=== PATIENT | female | born 1965 | race Caucasian/White ===

== ENCOUNTER 2020-02-09 17:48 | Emergency (ER) | payer OTHER ==
[2020-02-09 18:41] LABS: Absolute Lymphocytes (CBC) 0.9 K/uL (0.7-4.9); Basophils % 0.4 % (0-1.3); Hematocrit 22.1 % (36.0-45.0); Lymphocytes % 2.7 % (15.3-44.8); MPV 10.3 fL (7.6-11.3); RBC Red Blood Cell Count 2.76 M/uL (3.86-4.86)
[2020-02-09] MEDS ORDERED: NA CHLORIDE 0.9% 1,000 ML ONE (19:12)
[2020-02-09 19:48] LABS: Platelet Estimate DECR; Urine White Blood Cell Casts OK
[2020-02-09 19:49] LABS: Blood Morphology Comment NOTED (NOT SEEN); Poikilocytosis 2+
[2020-02-09] MEDS ORDERED: ALBUTEROL 2.5 MG/3 ML NEB SOL ONE (20:06)
[2020-02-09] MEDS ORDERED: D50W 25 GM/50 ML SYRINGE/VIAL IV ONE (20:07)
[2020-02-09] MEDS ORDERED: INSULIN -REGULAR HUMAN 50 UNIT/0.5 ML ML ONE (20:07)
--- NOTE | 2020-02-09 20:13 | RAD REPORT ---
EXAM DESCRIPTION: CT - Abdomen Pelvis Wo Contrast - 02/09/2020 7:35 pm CLINICAL HISTORY: Abdominal pain. ABD PAIN COMPARISON: No comparisons TECHNIQUE: CT imaging of the abdomen and pelvis was performed without contrast. Solid organ, bowel a nd vascular assessment is limited due to lack of IV and oral contrast. All CT scans are performed using dose optimization technique as appropriate and may include automated exposure control or mA/KV adjustment according to patient size. FINDINGS: The lower lung de anda are clear. The liver, spleen, pancreas, adrenal glands are within normal limits for a limited non-contrast exami nation.Moderately severe bilateral hydronephrosis and hydroureter is present. No bowel obstruction, free air, free fluid or abscess. The appendix is not identified as a discrete structure, however, no secondary findings of appendicitis are identified. A large pelvic mass is identified which appears irregular with areas of necrosis. This measures appro ximately 8.8 x 5.9 cm in appears to emanate from the cervix. Moderate wedge compression deformity affects L5, likely chronic. 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 Advise correlation with physical exam findings. Moderate bilateral hydronephrosis and hydroureter. A limited non-contrast examination was performed as detailed.
--- NOTE | 2020-02-09 20:14 | RAD REPORT ---
EXAM DESCRIPTION: RAD - Chest Single View - 02/09/2020 7:45 pm CLINICAL HISTORY: COUGH Chest pain. COMPARISON: Abdomen Pelvis Wo Contrast dated 02/09/2020 FINDINGS: Portable technique limits examination quality. The lungs are emphysematous but grossly clear. The heart is normal in size. No displaced fractures. IMPRESSION: COPD.
[2020-02-09] MEDS ORDERED: CALCIUM GLUCONATE 1 GM IVPB 1 GM/50 ML BAG IV ONE ×2 (20:30→22:22)
[2020-02-09 21:13] LABS: ALT/SGPT 17 U/L (12-78); AST/SGOT 20 U/L (15-37); Albumin 2.5 g/dL (3.4-5.0); Alkaline Phosphatase 121 U/L (45-117); Bilirubin Direct 0.2 mg/dL (0-0.2); Bilirubin Total 0.3 mg/dL (0.2-1.0); Magnesium 3.4 mg/dL (1.8-2.4); NT PRO-BNP > 175000 pg/mL (<125); Protein, Total 6.5 g/dL (6.4-8.2)
[2020-02-09 21:14] LABS: Troponin (Emerg Dept Use Only) 0.73 ng/mL (0.0-0.045)
[2020-02-09 21:22] LABS: Protime INR 1.11
[2020-02-09] MEDS ORDERED: FUROSEMIDE 40 MG/4 ML VIAL IV ONE (21:43)
[2020-02-09] MEDS ORDERED: SODIUM BICARB 50 MEQ/50ML VIAL ONE ×3 (21:44→22:44)
--- NOTE | 2020-02-09 21:57 | RAD REPORT ---
EXAM DESCRIPTION: US - Renal Ultrasound-Complete - 02/09/2020 9:42 pm CLINICAL HISTORY: acute kidney failure Flank pain COMPARISON: No comparisons FINDINGS: Both kidneys are mildly prominent in size and mildly echogenic. The right kidney measures 10.9 x 5.5 x 5.0 cm. Moderate right-sided hydronephrosis. The left kidney measures 11.5 x 6.6 x 5.2 cm.. Moderate right hydronephrosis seen. The urinary bladder is incompletely distended without gross abnormality seen. IMPRESSION: Moderately severe bilateral hydronephrosis, slightly worse on the right.
[2020-02-09] MEDS ORDERED: D5W 1,000 ML with NA BICARB 8.4% 150 MEQ IV SCH ×2 (22:00)
[2020-02-09] MEDS ORDERED: SOD POLYSTYREN SUL 15 GM/60 ML UCUP ONE ×2 (22:07→22:30)
[2020-02-09] MEDS ORDERED: FUROSEMIDE 40 MG/4 ML VIAL ONE (22:07)
--- NOTE | 2020-02-09 22:23 | P.CNS ---
Date of Consult: 02/09/20 Reason for Consult: admission Chief Complaint: Weakness, loss of appetite and fatigue History of Present Illness: 54-year-old female with history of tobacco use, no history of hypertension and diabetes, presented to the ER because of three-month history of weakness, intermittent loss of appetite, significant weight loss-on show mild, and feeling of hemorrhoid itching and pain. She denies any shortness of breath, fever. She admits to constipation since the last 1 day. She states she has been making urine but decreasing volume, last urination was LL today. She admits to loss of appetite but no nausea. She admits to significant weight loss . She admits to mild suprapubic area discomfort. She denies any headache or dizziness. She admits to lower extremity swelling. She admits to new onset cramps of her hands. She states she has not seen any PCP since many years. In the ED she had a chest x-ray done with no evidence of pulmonary edema or infiltrate. She had a CT of the abdomen done with finding of set large cervical mass causing obstruction with CVA bilateral hydronephrosis. Her blood work shows BUN of 200, creatinine of 21, potassium of 7.0 as well as sodium of 125. Her bicarb was severely low at 11. Hospitalitist service was called for admission. Allergies PENICILLINS Allergy (Uncoded 10/27/15 07:17) Unknown Home medications list reviewed: No - Past Medical/Surgical History Past Medical History: Reviewed- Non-Contributory Past Surgical History: Reviewed- Non-Contributory - Social History Smoking Status: Current every day smoker Alcohol use: No CD- Drugs: No Place of Residence: Home (Restart with her ) Review of Systems General: Weakness, Malaise Eyes: Unremarkable ENT: Unremarkable Respiratory: Unremarkable Cardiovascular: Edema, Unremarkable Gastrointestinal: Nausea, Abdominal Pain, Constipation Musculoskeletal: Unremarkable Integumentary: Rash Neurological: Weakness, Incoordination Physical Examination General: Disheveled, Other (Chronically ill-looking) HEENT: Atraumatic, Normocephalic, Other (Conjunctiva pallor) Neck: Supple, 2+ carotid pulse no bruit, JVD not distended Respiratory: Clear to auscultation bilaterally, Normal air movement Cardiovascular: Regular rate/rhythm, Normal S1 S2, Edema Gastrointestinal: Normal bowel sounds, Soft and benign, Masses Musculoskeletal: No tenderness, Clubbing Integumentary: Rash(es) (Maculopapular over abdomen hr extended to the suprapubic area, Nel[place]) Neurological: Sensation intact, Cranial nerves 3-12 intact Rectal: Enlarged (Large external hemorrhoids noted) Laboratory Data (last 24 hrs) 02/09/20 20:45: PT 13.1 H, INR 1.11 02/09/20 18:30: Magnesium 3.4 H, Total Bilirubin 0.3, AST 20, ALT 17, Alkaline Phosphatase 121 H 02/09/20 18:30: Sodium 127 L, Potassium 7.0 H*, BUN 208 H, Creatinine 21.80 H*, Glucose 106 02/09/20 18:30: WBC 32.3 H*, Hgb 7.2 L*, Hct 22.1 L, Plt Count 82 L Imagings Data: CT and chest x-ray findings noted - Problems (1) Acute hyperkalemia Current Visit: Yes Status: Acute (2) Metabolic acidosis Current Visit: Yes Status: Acute (3) Acute renal failure Current Visit: Yes Status: Acute (4) Uropathy, obstructive Current Visit: Yes Status: Acute (5) Bilateral hydronephrosis Current Visit: Yes Status: Acute (6) Cervical mass Current Visit: Yes Status: Acute (7) Anemia Current Visit: Yes Status: Acute (8) External hemorrhoid Current Visit: Yes Status: Acute Physician Review: Patient Assessed, Agree with Above Assessment and Plan Physician Review Additional Text: Acute renal failure with hyperkalemia-due to obstructive uropathy. -marked uremia noted -urology consulted by ER, unable to place urethral stent inpatient -Will place De Los Santos now -Will control potassium level -will dose calcium gluconate/D50/insulin IV/Kayexalate via rectal and p.o./Lasix IV x1 now/ IV sodium bicarb loading -follow repeat potassium in 1-2 hr after meds If see persistent hyperkalemia patient would need start hemodialysis These was discussed with patient she is agreeable Bilateral hydronephrosis/obstructive uropathy-due to gynecological mass Since unable to place urethral stenting, will transfer to facility able to place ureteral stents to relieve obstruction and possibly save renal function and avoid long-term dialysis -patient accepted to [facility] Metabolic acidosis-we does sodium bicarb 100 mEq x1 now, start bicarb drip with 150 in D5 at 100 cc/hour Anemia-follow, may need PRBC External hemorrhoids - start Anusol ER team discuss with, patient accepted to higher facility, agree with transfer will continue to manage while still here Time Spent Managing Pts care (In Minutes): 70
[2020-02-09] MEDS ORDERED: CEFTRIAXONE/SWI 1gm 1 GM/10 ML SYR ONE (22:31)
[2020-02-09] MEDS ORDERED: D5W 1,000 ML IV ONE (22:32)
[2020-02-10 01:06] VITALS: TEMP 97.8; O2SAT 100
[2020-02-10 01:12] VITALS: BP 142/56
--- NOTE | 2020-02-10 07:08 | EKG ---
Test Date: 2020-02-09 Test Time: 19:47:00 Mold Builder: LEIGHT[place] MEASUREMENT RESULTS: Intervals: Rate: 84 MT: 114 QRSD: 82 QT: 382 QTc: 451 Dime Box: P: 67 MT: 114 QRS: 68 T: 122 INTERPRETIVE STATEMENTS: Normal sinus rhythm T wave abnormality, consider lateral ischemia Abnormal ECG No previous ECG available for comparison Electronically Signed On 02-10-20 07:07:55 CDT by Noah Zimmerman
--- NOTE | 2020-02-16 12:42 | ER ---
Nurse's Notes [facility] Name: Jeannie John Age: 54 yrs Sex: Female : 1965 Arrival Date: 02/09/2020 Time: 17:51 Bed 15 Private MD: Diagnosis: Acute kidney failure;9cm pelvic mass;Other hydronephrosis-bilateral;Bilateral Hydroureter;Elevated white blood cell count;Anemia, unspecified;Hyperkalemia;Hypermagnesemia Presentation: 02/08 17:55 Chief complaint: Patient states: generalized weakness, decreased appetite x 1 month aa5 ago. Pt denies nausea/vomiting. Reports cough. Rash noted to torso and back, pt reports rash is itchy. 17:55 Coronavirus screen: Patient reports a cough. Patient denies shortness of breath or aa5 difficulty breathing. Patient denies measured and/or subjective temperature greater than 100.4F prior to today's visit. Patient denies travel on a cruise ship or to a country the [facility]NOTE 3] currently lists as an affected area. Patient denies contact with known and/or suspected case of COVID-19. Ebola Screen: Patient negative for fever greater than or equal to 101.5 degrees Fahrenheit, and additional compatible Ebola Virus Disease symptoms. Initial Sepsis Screen: Does the patient meet any 2 criteria? No. Patient's initial sepsis screen is negative. Does the patient have a suspected source of infection? No. Patient's initial sepsis screen is negative. Risk Assessment: Do you want to hurt yourself or someone else? Patient reports no desire to harm self or others. Onset of symptoms was 2019. 17:55 Acuity: GI 3 aa5 17:55 Method Of Arrival: Wheelchair aa5 Triage Assessment: 18:02 General: Appears in no apparent distress. comfortable, Behavior is cooperative, bp appropriate for age, anxious. Pain: Denies pain. EENT: No deficits noted. Neuro:. Neuro: Reports weakness. Cardiovascular: No deficits noted. Respiratory: No deficits noted. GI: No signs and/or symptoms were reported involving the gastrointestinal system. : No signs and/or symptoms were reported regarding the genitourinary system. Derm: No deficits noted. Musculoskeletal: No deficits noted. STATISTICS INTERN: 02/09 00:25 lmp unknown mg2 Historical: - Allergies: 02/08 17:55 PENICILLINS; aa5 - PMHx: 17:55 None; aa5 - Immunization history:: Adult Immunizations unknown. - Social history:: Smoking status: Patient denies any tobacco usage or history of. Screenin:00 Abuse screen: Denies threats or abuse. Denies injuries from another. Nutritional bp screening: No deficits noted. Tuberculosis screening: No symptoms or risk factors identified. Fall Risk None identified. Assessment: 18:06 General: SEE TRIAGE NOTE. bp 19:05 General: Appears in no apparent distress. comfortable, Behavior is calm, cooperative. mg2 Pain: Denies pain. Neuro: Level of Consciousness is awake, alert, obeys commands, Oriented to person, place, situation. Cardiovascular: Capillary refill < 3 seconds Patient's skin is warm and dry. Respiratory: Airway is patent Respiratory effort is even, unlabored, Respiratory pattern is regular, symmetrical. GI: Reports she has hemorrhoids. : No signs and/or symptoms were reported regarding the genitourinary system. EENT: No signs and/or symptoms were reported regarding the EENT system. Derm: Skin is intact, is healthy with good turgor, Skin is pink, warm \T\ dry. normal. Musculoskeletal: Circulation, motion, and sensation intact. Capillary refill < 3 seconds. 19:34 Reassessment: patient sent to ct scan via stretcher. lab called for blood draw. mg2 21:05 Reassessment: contacted- Jake- [phone]. mg2 21:06 Reassessment: fc inserted but no urine output. mg2 21:14 Reassessment: critical lab test for trop- 0.73 relayed to the provider. mg2 21:19 Reassessment: Patient appears in no apparent distress at this time. Patient and/or mg2 family updated on plan of care and expected duration. Pain level reassessed. Patient is alert, oriented x 3, equal unlabored respirations, skin warm/dry/pink. 21:49 Reassessment: Dr. Franklin -hospitalist at bedside examining the patient. mg2 22:00 Reassessment: patient informed about the need for transfer and she understood. mg2 23:25 Reassessment: report given to ATA Vasquez of [facility]. mg2 23:47 Reassessment: contacted about the transfer.. mg2 02/09 00:24 Reassessment: Patient appears in no apparent distress at this time. Patient and/or mg2 family updated on plan of care and expected duration. Pain level reassessed. Patient is alert, oriented x 3, equal unlabored respirations, skin warm/dry/pink. 00:50 Reassessment: report given to [facility]. all patient's belongings sent to the mg2 patient including the pt's wheelchair. Vital Signs: 02/08 17:55 BP 101 / 49; Pulse 83; Resp 16 S; Temp 97.8(O); Pulse Ox 100% on R/A; Pain 0/10; aa5 18:58 BP 90 / 43; Pulse 82; Resp 16; Pulse Ox 100% on R/A; iw 19:35 BP 102 / 55; Pulse 78; Resp 18; Pulse Ox 100% ; mg2 20:17 BP 101 / 43; Pulse 72; Resp 18; Pulse Ox 100% on Nebulizer Mask; mg2 21:19 BP 120 / 75; Pulse 115; Resp 18; Pulse Ox 100% on R/A; mg2 22:20 BP 110 / 65; Pulse 102; Resp 18; Temp 98.1; Pulse Ox 100% ; mg2 23:23 BP 104 / 64; Pulse 111; Resp 18; Pulse Ox 100% on R/A; mg2 02/09 00:25 BP 142 / 56; Pulse 105; Resp 18; Pulse Ox 100% on R/A; mg2 ED Course: 02/08 17:51 Patient arrived in ED. ag5 17:52 Arm band placed on Patient placed in an exam room, on a stretcher. aa5 18:00 Willian Paige, ATA is Primary Nurse. bp 18:00 Patient has correct armband on for positive identification. Bed in low position. Call bp light in reach. Side rails up X2. 18:04 Triage completed. aa5 18:06 Monserrat March FNP-C is PHCP. kb 18:06 Bernabe Randall MD is Attending Physician. kb 18:20 Missed attempt(s): 20 gauge in right antecubital area. iw 18:30 Missed attempt(s): 24 gauge in left antecubital area. Bleeding controlled, band aid iw applied, catheter tip intact. 19:17 Primary Nurse role handed off by Willian Paige, ATA sg 19:30 Inserted saline lock: 22 gauge in left forearm, using aseptic technique. mg2 19:31 Dave Olmos, RN is Primary Nurse. mg2 19:36 Abdomen In Process Unspecified. EDMS 19:57 XRAY Chest (1 view) In Process Unspecified. EDMS 20:45 Inserted saline lock: midline power glide 20G x 10cm, right upper arm. rv 21:05 De Los Santos cath inserted, using sterile technique, 16 Fr., by me, balloon inflated, to mg2 gravity drainage. 21:43 US Rp Exam Complete In Process Unspecified. EDMS 21:47 Ultrasound completed. Patient tolerated well. Notified COPY COORDINATOR/MLAOU carmichael. sg3 23:00 Repeat lab(s) drawn. by me, sent to lab. mg2 02/09 00:25 No provider procedures requiring assistance completed. mg2 00:54 Patient transferred, IV remains in place. mg2 Administered Medications: 02/08 20:16 Drug: Insulin Regular Human 5 units {Co-Signature: scott (Daniela Barrientos).} Route: IVP; mg2 Site: left forearm; 21:22 Follow up: Response: No adverse reaction mg2 20:16 Drug: D50W 50 ml Route: IVP; Site: left forearm; mg2 21:21 Follow up: Response: No adverse reaction mg2 20:16 Drug: Albuterol 2.5 mg Route: Inhalation; mg2 20:17 Drug: NS 0.9% 1000 ml Route: IV; Rate: 1000 ml; Site: left forearm; mg2 20:30 Drug: Calcium Gluconate 1 grams {Note: via midlin.} Route: IVPB; Infused Over: 60 mins; mg2 Site: right upper arm; 02/09 00:53 Follow up: Response: No adverse reaction; IV Status: Completed infusion mg2 02/08 20:30 Drug: Albuterol 2.5 mg Route: Inhalation; mg2 20:45 Drug: Albuterol 2.5 mg Route: Inhalation; mg2 21:21 Follow up: Response: No adverse reaction mg2 21:49 Drug: Sodium Bicarbonate 1 amp Route: IVP; Site: right upper arm; mg2 02/09 00:51 Follow up: Response: No adverse reaction mg2 02/08 22:20 Drug: Sodium Bicarbonate 2 amp Route: IVP; Site: right upper arm; mg2 02/09 00:47 Follow up: Response: No adverse reaction mg2 02/08 22:20 Drug: Lasix 40 mg Route: IVP; Site: right upper arm; mg2 02/09 00:47 Follow up: Response: No adverse reaction mg2 02/08 22:31 Drug: Rocephin 1 grams Route: IV; Rate: calculated rate; Site: right upper arm; mg2 02/09 00:51 Follow up: Response: No adverse reaction; IV Status: Completed infusion mg2 02/08 22:35 Drug: Kayexalate 60 grams Route: PO; mg2 02/09 00:51 Follow up: Response: No adverse reaction mg2 02/08 22:36 Drug: Kayexalate 30 grams Route: PO; mg2 02/09 00:48 Follow up: Response: No adverse reaction mg2 02/08 22:40 Drug: Calcium Gluconate 1 grams Route: IVPB; Infused Over: 60 mins; Site: right upper [facility]; 02/09 00:47 Follow up: Response: No adverse reaction; IV Status: Completed infusion mg2 02/08 23:00 Drug: D5W 1000 ml, Sodium Bicarbonate 150 mEq Route: IV; Rate: 100 ml/hr; Site: right [facility]; 02/09 00:46 Follow up: Response: No adverse reaction; IV Status: Infusion continued upon transfer mg2 Outcome: 02/08 22:12 ER care complete, transfer ordered by . kb 02/09 00:54 Patient left the ED. 00:56 Transferred by ground EMS to [facility], Transfer form completed. mg2 00:56 Condition: stable 00:56 Instructed on the need for transfer, Demonstrated understanding of instructions. Signatures: Dispatcher [employer] Monserrat Mabry, MANAGER PROGRAMS-C MANAGER PROGRAMS-Ckb Dannie Young RN RN sg Abby Schroeder RN ATA Rufina Hubbard RN RN aa5 Willian Paige RN RN bp Godinez, Sarah sg3 Dave Olmos RN RN mg2 Martín Suarez RN RN Elio Briseno [facility] Daniela Barrientos Corrections: (The following items were deleted from the chart) 02/08 20:55 20:55 Inserted saline lock: midline power glide 20G x 10cm, right upper arm rv rv
--- NOTE | 2020-02-16 12:43 | EDPHYS ---
Physician Documentation [facility] Name: Jeannie John Age: 54 yrs Sex: Female : 1965 Arrival Date: 02/09/2020 Time: 17:51 Bed 15 Private MD: ED Physician Bernabe Randall HPI: 02/08 20:11 This 54 yrs old Female presents to ER via Wheelchair with complaints of kb Decreased Appetite, General Weakness. 20:11 The patient presents with generalized weakness. Onset: The symptoms/episode kb began/occurred 3 month(s) ago. Context: occurred at home, just prior to the episode the patient experienced no apparent symptoms. Modifying factors: The symptoms are alleviated by nothing, the symptoms are aggravated by nothing. Associated signs and symptoms: Pertinent positives: decreased appetite, hemorrhoids. Severity of symptoms: At their worst the symptoms were moderate in the emergency department the symptoms are unchanged. The patient has not experienced similar symptoms in the past. The patient has not recently seen a physician. Pt reports she has had weakness and hemorrhoids for 3 months. States she wants something done about the hemorrhoids to get rid of them. . TESTER ARMATURE OR FIELDS: 02/09 00:25 lmp unknown mg2 Historical: - Allergies: 02/08 17:55 PENICILLINS; aa5 - PMHx: 17:55 None; aa5 - Immunization history:: Adult Immunizations unknown. - Social history:: Smoking status: Patient denies any tobacco usage or history of. ROS: 19:38 Constitutional: Negative for fever, chills, and weight loss, Neck: Negative for injury, kb pain, and swelling, Cardiovascular: Negative for chest pain, palpitations, and edema, Respiratory: Negative for shortness of breath, cough, wheezing, and pleuritic chest pain, Back: Negative for injury and pain, MS/Extremity: Negative for injury and deformity, Skin: Negative for injury, rash, and discoloration. 19:38 Abdomen/GI: Positive for hemorrhoids, Negative for abdominal pain, nausea, vomiting, and diarrhea. 19:38 Neuro: Positive for weakness. Exam: 20:07 Constitutional: This is a well developed, well nourished patient who is awake, alert, kb and in no acute distress. Head/Face: Normocephalic, atraumatic. Neck: Trachea midline, no thyromegaly or masses palpated, and no cervical lymphadenopathy. Supple, full range of motion without nuchal rigidity, or vertebral point tenderness. No Meningismus. Chest/axilla: Normal chest wall appearance and motion. Nontender with no deformity. No lesions are appreciated. Cardiovascular: Regular rate and rhythm with a normal S1 and S2. No gallops, murmurs, or rubs. Normal PMI, no JVD. No pulse deficits. Respiratory: Lungs have equal breath sounds bilaterally, clear to auscultation and percussion. No rales, rhonchi or wheezes noted. No increased work of breathing, no retractions or nasal flaring. MS/ Extremity: Pulses equal, no cyanosis. Neurovascular intact. Full, normal range of motion. 20:07 Abdomen/GI: Inspection: abdomen appears normal, Bowel sounds: normal, in all quadrants, Palpation: soft, in all quadrants, moderate abdominal tenderness, in the left upper quadrant and left lower quadrant. 20:07 Skin: consistent with contact dermatitis, on the back, chest and abdomen. 20:14 ECG was reviewed by the Attending Physician. kb 21:52 Abdomen/GI: Rectal exam: rectal tone normal, Stool: normal, guaiac negative, kb hemorrhoid(s), external, with inflammation, with pain, with thrombosis, without bleeding. Vital Signs: 17:55 BP 101 / 49; Pulse 83; Resp 16 S; Temp 97.8(O); Pulse Ox 100% on R/A; Pain 0/10; aa5 18:58 BP 90 / 43; Pulse 82; Resp 16; Pulse Ox 100% on R/A; iw 19:35 BP 102 / 55; Pulse 78; Resp 18; Pulse Ox 100% ; mg2 20:17 BP 101 / 43; Pulse 72; Resp 18; Pulse Ox 100% on Nebulizer Mask; mg2 21:19 BP 120 / 75; Pulse 115; Resp 18; Pulse Ox 100% on R/A; mg2 22:20 BP 110 / 65; Pulse 102; Resp 18; Temp 98.1; Pulse Ox 100% ; mg2 23:23 BP 104 / 64; Pulse 111; Resp 18; Pulse Ox 100% on R/A; mg2 02/09 00:25 BP 142 / 56; Pulse 105; Resp 18; Pulse Ox 100% on R/A; mg2 MDM: 02/08 18:06 Patient medically screened. kb 19:15 Data reviewed: vital signs, nurses notes. Data interpreted: Pulse oximetry: on room air kb is 100 %. Interpretation: normal. 20:08 ED course: Pt reports she has been urinating normally. Denies fever, abd pain, n/v/d. kb Reports she doesn't have a dr so she hasn't had any blood work done in a long time.. 21:35 Physician consultation: Alexandre Franklin MD was called at 21:35, regarding admission, to the telemetry unit. patient's condition, and will see patient in ED, would like consultation with Dr. Bills. 21:35 Physician consultation: Mykel Bills MD was contacted at 21:36, regarding consult, patient's condition, after a discussion of the case, a recommendation for transfer for higher level of care is made. 22:08 ED course: Dr Franklin came to see pt in ED, orders put in AC Immune SA to be done in ER kb prior to transfer.. ED course: Dr Hernandez, consumer affairs director at [facility], accepts pt for transfer. Wants potassium less than 6 prior to transfer. . 02/08 18:07 Order name: CBC with Diff; Complete Time: 19:55 kb 02/08 18:07 Order name: Basic Metabolic Panel; Complete Time: 19:19 kb 02/08 18:57 Order name: CBC Smear Scan; Complete Time: 19:55 EDMS 02/08 19:07 Order name: Lactate; Complete Time: 21:27 kb 02/08 19:07 Order name: Procalcitonin; Complete Time: 21:53 kb 02/08 19:07 Order name: Blood Culture Adult (2) 02/08 19:19 Order name: LFT's 02/08 19:19 Order name: Magnesium 02/08 19:19 Order name: NT PRO-BNP; Complete Time: 21:20 kb 02/08 19:19 Order name: PT-INR; Complete Time: 21:26 kb 02/08 19:19 Order name: Troponin (emerg Dept Use Only); Complete Time: 21:20 kb 02/08 19:20 Order name: Liver (Hepatic) Function; Complete Time: 21:20 EDMS 02/08 19:20 Order name: Magnesium; Complete Time: 21:20 EDGA 02/08 21:33 Order name: Gurhodac kb 02/08 19:19 Order name: XRAY Chest (1 view); Complete Time: 20:19 kb 02/08 19:30 Order name: Abdomen ; Complete Time: 20:19 EDMS 02/08 20:20 Order name: US Rp Exam Complete; Complete Time: 22:08 kb 02/08 22:29 Order name: Potassium; Complete Time: 23:24 kb 02/08 18:07 Order name: IV Start; Complete Time: 19:55 kb 02/08 19:19 Order name: EKG; Complete Time: 19:21 kb 02/08 19:19 Order name: Cardiac monitoring; Complete Time: 19:54 kb 02/08 19:19 Order name: EKG - Nurse/Tech; Complete Time: 19:54 kb 02/08 19:19 Order name: Labs collected and sent; Complete Time: 19:54 kb 02/08 19:19 Order name: O2 Per Protocol; Complete Time: 19:54 kb 02/08 19:19 Order name: O2 Sat Monitoring; Complete Time: 19:54 kb 02/08 19:25 Order name: [place]; Complete Time: 21:05 kb EC:14 Rate is 84 beats/min. Rhythm is regular. QRS [place] is Normal. NH interval is normal at kb 114 msec. QRS interval is normal at 82 msec. QT interval is normal at 382 msec. Administered Medications: 20:16 Drug: Insulin Regular Human 5 units {Co-Signature: wh (Daniela Barrientos).} Route: IVP; mg2 Site: left forearm; 21:22 Follow up: Response: No adverse reaction mg2 20:16 Drug: D50W 50 ml Route: IVP; Site: left forearm; mg2 21:21 Follow up: Response: No adverse reaction mg2 20:16 Drug: Albuterol 2.5 mg Route: Inhalation; mg2 20:17 Drug: NS 0.9% 1000 ml Route: IV; Rate: 1000 ml; Site: left forearm; mg2 20:30 Drug: Calcium Gluconate 1 grams {Note: via midlin.} Route: IVPB; Infused Over: 60 mins; mg2 Site: right upper arm; 02/09 00:53 Follow up: Response: No adverse reaction; IV Status: Completed infusion mg2 02/08 20:30 Drug: Albuterol 2.5 mg Route: Inhalation; mg2 20:45 Drug: Albuterol 2.5 mg Route: Inhalation; mg2 21:21 Follow up: Response: No adverse reaction mg2 21:49 Drug: Sodium Bicarbonate 1 amp Route: IVP; Site: right upper arm; mg2 02/09 00:51 Follow up: Response: No adverse reaction mg2 02/08 22:20 Drug: Sodium Bicarbonate 2 amp Route: IVP; Site: right upper arm; mg2 02/09 00:47 Follow up: Response: No adverse reaction mg2 02/08 22:20 Drug: Lasix 40 mg Route: IVP; Site: right upper arm; mg2 02/09 00:47 Follow up: Response: No adverse reaction mg2 02/08 22:31 Drug: Rocephin 1 grams Route: IV; Rate: calculated rate; Site: right upper arm; mg2 02/09 00:51 Follow up: Response: No adverse reaction; IV Status: Completed infusion mg2 02/08 22:35 Drug: Kayexalate 60 grams Route: PO; mg2 02/09 00:51 Follow up: Response: No adverse reaction mg2 02/08 22:36 Drug: Kayexalate 30 grams Route: PO; mg2 02/09 00:48 Follow up: Response: No adverse reaction mg2 02/08 22:40 Drug: Calcium Gluconate 1 grams Route: IVPB; Infused Over: 60 mins; Site: right upper [facility] [place]; 02/09 00:47 Follow up: Response: No adverse reaction; IV Status: Completed infusion mg2 02/08 23:00 Drug: D5W 1000 ml, Sodium Bicarbonate 150 mEq Route: IV; Rate: 100 ml/hr; Site: right [facility] arm; 02/09 00:46 Follow up: Response: No adverse reaction; IV Status: Infusion continued upon transfer mg2 Disposition: 07:11 Co-signature as Attending Physician, Bernabe Randall MD. rn Disposition: 02/09/20 22:12 Transfer ordered to [facility]. Diagnosis are Acute kidney failure, 9cm pelvic mass, Other hydronephrosis - bilateral, Bilateral Hydroureter, Elevated white blood cell count, Anemia, unspecified, Hyperkalemia, Hypermagnesemia. - Reason for transfer: Higher level of care. - Accepting physician is Dr Hernandez. - Condition is Stable. - Problem is new. - Symptoms are unchanged. Signatures: Dispatcher [employer] EDGA Joaquim Monserrat, MATH AND PHYSICS INSTRUCTOR-C MATH AND PHYSICS INSTRUCTOR-Ckb Dannie Young, RN RN sg Bernabe Randall MD MD rn Calderon, Audri, RN RN aa5 Dave Olmos RN RN [facility] [employer]: (The following items were deleted from the chart) 02/08 19:29 19:08 Abdomen Pelvis W Con+[id number].RAD.BRZ ordered. [facility] 02/09 00:54 02/08 22:12 02/09/2020 22:12 Transfer ordered to [facility]. Diagnosis is Acute kidney failure; 9cm pelvic mass; Other hydronephrosis - bilateral; Bilateral Hydroureter; Elevated white blood cell count; Anemia, unspecified; Hyperkalemia; Hypermagnesemia. Reason for transfer: Higher level of care. Accepting physician is Dr Hernandez. Condition is Stable. Problem is new. Symptoms are unchanged. kb
== END 2020-02-10 00:54 | disposition short-term general hospital (02) ==
LOC: ER 17:48
DX: N17.9 Acute kidney failure, unspecified (principal); R19.00 Intra-abdominal and pelvic swelling, mass and lump, unspecified site; N13.39 Other hydronephrosis; N13.4 Hydroureter; D72.829 Elevated white blood cell count, unspecified; D64.9 Anemia, unspecified; E87.5 Hyperkalemia; E83.41 Hypermagnesemia; Z88.0 Allergy status to penicillin
CPT/HCPCS: 93005; 87040 ×2; 85025; 80048; 36415; 83735; 84132; 85610; 80076; 83605; 84484; 84145; 83880; 74176; 71045; 76770; 51702; 99285; J1940; J0610 ×2; J0696; J7030

== ENCOUNTER 2020-03-28 10:27 | Emergency (ER) | payer OTHER ==
--- OUTSIDE RECORDS SUMMARY | 2020-03-28 10:32 | XMS REPORT | Clinical Summary ---
:1965 Author Organization [facility] Address [address] [place] [address] Care Team Providers Name Role Phone Unavailable Primary Care Provider Unavailable Allergies Active Allergy Reactions Severity Noted Date Comments Penicillins 02/10/2020 Medications Medication Sig Dispensed Refills Start Date End Date Status folic acid (FOLVITE) Take 1 tablet 30 tablet 1 02/18/2020 Suspended 1 MG tablet (1 mg total) by mouth daily. hydrocortisone Place rectally 30 g 0 02/17/2020 0 (ANUSOL-HC) 2.5 % 2 (two) times rectal cream daily for 10 days. pantoprazole Take 1 tablet 30 tablet 1 02/18/2020 Marinelli spended (PROTONIX) 40 MG (40 mg total) tablet by mouth daily. polyethylene glycol Take 17 g by 30 each 1 02/18/2020 Suspended (GLYCOLAX) 17 gram mouth daily. packet zinc oxide-petrolatum Apply as needed 71 g 1 02/17/2020 Suspended (CRITIC-AID) 20-51 % to perianal Pste topical paste area for redness and irritation.. levoFLOXacin Take 1 tablet 3 tablet 0 02/17/2020 02/23/2020 E xpired (LEVAQUIN) 250 MG (250 mg total) tablet by mouth every other day for 6 days. metroNIDAZOLE Take 1 tablet 18 tablet 0 02/17/2020 02/23/2020 (FLAGYL) 500 MG (500 mg total) tablet by mouth every 8 (eight) hours for 6 days. Active Problems Problem Noted Date Cervical mass 02/17/2020 Bilateral hydronephrosis 02/10/2020 LIANNE (acute kidney injury) Encounters Date Type Specialty Care Team Description 03/26/2020 Hospital Encounter Radiology Sunde, Ferny Malignant neoplasm MD Casimiro of cervix, unspecified sit e (HCC) 03/22/2020 Outside Orders Central Scheduling Ferny Maligna nt neoplasm MD Casimiro of cervix, unspecified sit e (HCC) (Primary Dx) 03/11/2020 Hospital Encounter Cardiology Sep Cervical cancer, FIGO stage IIIB (HCC); MD Casimiro Pedal edema 03/02/2020 Outside Orders Central Scheduling Ferny Cervica l cancer, MD Casimiro FIGO stage IIIB (HCC) (Primary Dx) 03/02/2020 Outside Orders Central Scheduling , Ferny Cervica l cancer, FIGO stage IIIB (HCC) (Primary Dx); MD Casimiro Pedal edema 03/01/2020 Procedure visit Radiation Oncology Georgette Moreno MD 02/10/2020 - Hospital Encounter General Internal Mary, Rosieung, Bi lateral hydronephrosis; 02/18/2020 Medicine LIANNE (acute kidney injury) (HCC); Flaca Miller MD Hyperkalemia; Go Villagomez MD Oliguria; Pelvic mass; Hematochezia; Hypoglycemia; Leukocytosis, u nspecified type; Cervical mass; Altered mental status, unspecified altered mental status type; Uremia; Pain; Slow transit co nstipation; Goals of care, counseling/discussion; Palliative care by specialist 02/10/2020 Orders Only General Internal Medicine after 03/28/2019 Social History Tobacco Use Types Packs/Day Years Used Date Current Every Day Smoker 0.5 40 Smokeless Tobacco: Never Used Alcohol Use Drinks/Week oz/Week Comments No Alcohol Habits Answer Date Recorded How often do you have a drink containing alcohol? Never 03/26/2020 How many drinks containing alcohol do you have on a typical Not asked day when you are drinking? How often do you have six or more drinks on one occasion? No t asked Sex Assigned at Date Recorded Not on file Job Start Date Occupation Industry Not on file Not on file Not on file Travel History Travel Start Travel End No recent travel history available. Last Filed Vital Signs Vital Sign Reading Time Taken Blood Pressure 104/60 03/26/2020 2:35 PM CDT Pulse 90 03/26/2020 2:35 PM CDT Temperature 36.9 C (98.4 F) 03/26/2020 2:35 PM CDT Respiratory Rate 13 03/26/2020 2:35 PM CDT Oxygen Saturation 99% 03/26/2020 2:35 PM CDT Inhaled Oxygen Concentration 21% 02/10/2020 12:35 PM CDT Weight 43.5 kg (96 lb) 03/26/2020 9:04 AM CDT Height 153 cm (5' 0.24") 03/26/2020 9:04 AM CDT Body Mass Index 18.6 03/26/2020 9:04 AM CDT Plan of Treatment Not on file Procedures The patient is currently admitted. The information in this section might not be complete until the patient is discharged. Procedure Name Priority Date/Time Associated Comments Diagnosis IR PORT REMOVAL Routine 03/26/2020 2:29 Malignant neoplasm Re sults for this PM CDT of cervix, procedure are i n unspecified site the results (HCC) section. IR DRAINAGE CATHETER Routine 03/26/2020 2:19 Res ults for this CHANGE PM CDT procedure are i n the results section. CBC W/PLT COUNT & AUTO Routine 03/26/2020 7:41 R esults for this DIFFERENTIAL AM CDT procedure are i n the results section. CBC W/PLT COUNT & AUTO Routine 03/26/2020 7:41 R esults for this DIFFERENTIAL AM CDT procedure are i n the results section. APTT Routine 03/26/2020 7:41 Results for this AM CDT procedure are i n the results section. PROTHROMBIN TIME/INR Routine 03/26/2020 7:41 Res ults for this AM CDT procedure are i n the results section. VENOUS DOPPLER LEGS Routine 03/11/2020 10:15 Cervical cancer, Results for this BILATERAL AM CDT FIGO stage IIIB procedure ar e in (HCC) the results Pedal edema section. REPORT OF PROCEDURE - 02/20/2020 8:00 ENDOSCOPY SCAN AM CDT RHYTHM STRIP - SCAN 02/20/2020 8:00 AM CDT TISSUE EXAM AP Routine 02/18/2020 9:04 Results for this AM CDT procedure are i n the results section. POCT-GLUCOSE METER Routine 02/18/2020 7:49 Resul ts for this AM CDT procedure are i n the results section. CBC W/PLT COUNT & AUTO Routine 02/18/2020 3:50 R esults for this DIFFERENTIAL AM CDT procedure are i n the results section. CBC W/PLT COUNT & AUTO Routine 02/18/2020 3:50 R esults for this DIFFERENTIAL AM CDT procedure are i n the results section. PHOSPHORUS Routine 02/18/2020 3:50 Results for this AM CDT procedure are i n the results section. MAGNESIUM Routine 02/18/2020 3:50 Results for this AM CDT procedure are i n the results section. BASIC METABOLIC PANEL Routine 02/18/2020 3:50 Re sults for this (7) AM CDT procedure are i n the results section. MR PELVIS WITHOUT IV Routine 02/17/2020 9:55 Res ults for this CONTRAST PM CDT procedure are i n the results section. POCT-GLUCOSE METER Routine 02/17/2020 5:21 Resul ts for this PM CDT procedure are i n the results section. CBC W/PLT COUNT & AUTO Routine 02/17/2020 2:46 R esults for this DIFFERENTIAL PM CDT procedure are i n the results section. CBC W/PLT COUNT & AUTO Routine 02/17/2020 2:46 R esults for this DIFFERENTIAL PM CDT procedure are i n the results section. PHOSPHORUS Routine 02/17/2020 2:46 Results for this PM CDT procedure are i n the results section. MAGNESIUM Routine 02/17/2020 2:46 Results for this PM CDT procedure are i n the results section. BASIC METABOLIC PANEL Routine 02/17/2020 2:46 Re sults for this (7) PM CDT procedure are i n the results section. POCT-GLUCOSE METER Routine 02/17/2020 8:22 Resul ts for this AM CDT procedure are i n the results section. POCT-GLUCOSE METER Routine 02/17/2020 5:50 Resul ts for this AM CDT procedure are i n the results section. POCT-GLUCOSE METER Routine 02/17/2020 1:18 Resul ts for this AM CDT procedure are i n the results section. POCT-GLUCOSE METER Routine 02/16/2020 9:12 Resul ts for this PM CDT procedure are i n the results section. POCT-GLUCOSE METER Routine 02/16/2020 5:42 Resul ts for this PM CDT procedure are i n the results section. CT CHEST WITHOUT IV Routine 02/16/2020 5:24 Resu lts for this CONTRAST PM CDT procedure are i n the results section. CT BRAIN WITHOUT IV Routine 02/16/2020 5:24 Resu lts for this CONTRAST PM CDT procedure are i n the results section. POCT-GLUCOSE METER Routine 02/16/2020 12:15 Resul ts for this PM CDT procedure are i n the results section. ACTH Timed 02/16/2020 9:48 Results for this AM CDT procedure are i n the results section. CORTISOL Timed 02/16/2020 9:48 Results for this AM CDT procedure are i n the results section. INSULIN-LIKE GROWTH Routine 02/16/2020 9:48 Resu lts for this FACTOR AM CDT procedure are i n the results section. MISCELLANEOUS LAB ORDER Routine 02/16/2020 9:48 AM CDT CBC W/PLT COUNT & AUTO Routine 02/16/2020 3:53 R esults for this DIFFERENTIAL AM CDT procedure are i n the results section. BASIC METABOLIC PANEL Routine 02/16/2020 3:53 Re sults for this (7) AM CDT procedure are i n the results section. CBC W/PLT COUNT & AUTO Routine 02/16/2020 3:53 R esults for this DIFFERENTIAL AM CDT procedure are i n the results section. POCT-GLUCOSE METER Routine 02/16/2020 3:50 Resul ts for this AM CDT procedure are i n the results section. POCT-GLUCOSE METER Routine 02/16/2020 12:24 Resul ts for this AM CDT procedure are i n the results section. POCT-GLUCOSE METER Routine 02/15/2020 8:23 Resul ts for this PM CDT procedure are i n the results section. US RENAL COMPLETE Routine 02/15/2020 5:56 Result s for this PM CDT procedure are i n the results section. POCT-GLUCOSE METER Routine 02/15/2020 4:30 Resul ts for this PM CDT procedure are i n the results section. POCT-GLUCOSE METER Routine 02/15/2020 1:17 Resul ts for this PM CDT procedure are i n the results section. POCT-GLUCOSE METER Routine 02/15/2020 9:42 Resul ts for this AM CDT procedure are i n the results section. CBC W/PLT COUNT & AUTO Routine 02/15/2020 5:03 R esults for this DIFFERENTIAL AM CDT procedure are i n the results section. BASIC METABOLIC PANEL Routine 02/15/2020 5:03 Re sults for this (7) AM CDT procedure are i n the results section. CBC W/PLT COUNT & AUTO Routine 02/15/2020 5:03 R esults for this DIFFERENTIAL AM CDT procedure are i n the results section. POCT-GLUCOSE METER Routine 02/15/2020 4:57 Resul ts for this AM CDT procedure are i n the results section. POCT-GLUCOSE METER Routine 02/14/2020 11:59 Resul ts for this PM CDT procedure are i n the results section. POCT-GLUCOSE METER Routine 02/14/2020 8:56 Resul ts for this PM CDT procedure are i n the results section. HEMOGLOBIN AND Routine 02/14/2020 4:38 Results f or this HEMATOCRIT PM CDT procedure are i n the results section. BASIC METABOLIC PANEL Routine 02/14/2020 4:38 Re sults for this (7) PM CDT procedure are i n the results section. POCT-GLUCOSE METER Routine 02/14/2020 4:36 Resul ts for this PM CDT procedure are i n the results section. POCT-GLUCOSE METER Routine 02/14/2020 12:30 Resul ts for this PM CDT procedure are i n the results section. CBC W/PLT COUNT & AUTO Routine 02/14/2020 4:28 R esults for this DIFFERENTIAL AM CDT procedure are i n the results section. BASIC METABOLIC PANEL Routine 02/14/2020 4:28 Re sults for this (7) AM CDT procedure are i n the results section. CBC W/PLT COUNT & AUTO Routine 02/14/2020 4:28 R esults for this DIFFERENTIAL AM CDT procedure are i n the results section. POCT-GLUCOSE METER Routine 02/14/2020 4:27 Resul ts for this AM CDT procedure are i n the results section. POCT-GLUCOSE METER Routine 02/14/2020 1:10 Resul ts for this AM CDT procedure are i n the results section. POCT-GLUCOSE METER Routine 02/13/2020 8:30 Resul ts for this PM CDT procedure are i n the results section. POCT-GLUCOSE METER Routine 02/13/2020 3:41 Resul ts for this PM CDT procedure are i n the results section. BASIC METABOLIC PANEL Routine 02/13/2020 1:10 Re sults for this (7) PM CDT procedure are i n the results section. CANCER ANTIGEN 125 (CA Routine 02/13/2020 1:10 R esults for this 125) PM CDT procedure are i n the results section. POCT-GLUCOSE METER Routine 02/13/2020 12:39 Resul ts for this PM CDT procedure are i n the results section. POCT-GLUCOSE METER Routine 02/13/2020 7:55 Resul ts for this AM CDT procedure are i n the results section. POCT-GLUCOSE METER Routine 02/13/2020 4:26 Resul ts for this AM CDT procedure are i n the results section. POCT-GLUCOSE METER Routine 02/12/2020 9:12 Resul ts for this PM CDT procedure are i n the results section. TRANSFUSION SERVICE 02/12/2020 5:50 REPORT - SCAN PM CDT HEMODIALYSIS INPATIENT Routine 02/12/2020 3:22 PM CDT POCT-GLUCOSE METER Routine 02/12/2020 12:50 Resul ts for this PM CDT procedure are i n the results section. TRANSESOPHAGEAL ECHO Routine 02/12/2020 10:14 Res ults for this AM CDT procedure are i n the results section. (CELLAVISION MANUAL Routine 02/12/2020 4:22 Resu lts for this DIFF) AM CDT procedure are i n the results section. CBC W/PLT COUNT & AUTO Routine 02/12/2020 4:22 R esults for this DIFFERENTIAL AM CDT procedure are i n the results section. PHOSPHORUS Routine 02/12/2020 4:22 Results for this AM CDT procedure are i n the results section. MAGNESIUM Routine 02/12/2020 4:22 Results for this AM CDT procedure are i n the results section. BASIC METABOLIC PANEL Routine 02/12/2020 4:22 Re sults for this (7) AM CDT procedure are i n the results section. CBC W/PLT COUNT & AUTO Routine 02/12/2020 4:22 R esults for this DIFFERENTIAL AM CDT procedure are i n the results section. PREPARE LEUKO-REDUCED Routine 02/11/2020 11:54 Re sults for this RBC PM CDT procedure are i n the results section. POCT-GLUCOSE METER Routine 02/11/2020 8:57 Resul ts for this PM CDT procedure are i n the results section. POCT-GLUCOSE METER Routine 02/11/2020 6:41 Resul ts for this PM CDT procedure are i n the results section. POCT-GLUCOSE METER Routine 02/11/2020 6:17 Resul ts for this PM CDT procedure are i n the results section. TRANSFUSION SERVICE 02/11/2020 5:52 REPORT - SCAN PM CDT HEMOGLOBIN AND Routine 02/11/2020 5:52 Results f or this HEMATOCRIT PM CDT procedure are i n the results section. CONT WAVE PULSED Routine 02/11/2020 4:07 DOPPLER PM CDT COLOR-FLOW MAPPING Routine 02/11/2020 4:07 PM CDT POCT-GLUCOSE METER Routine 02/11/2020 3:50 Resul ts for this PM CDT procedure are i n the results section. BASIC METABOLIC PANEL Routine 02/11/2020 12:36 Re sults for this (7) PM CDT procedure are i n the results section. CORTISOL Routine 02/11/2020 12:12 Results for this PM CDT procedure are i n the results section. POCT-GLUCOSE METER Routine 02/11/2020 12:00 Resul ts for this PM CDT procedure are i n the results section. POCT-GLUCOSE METER Routine 02/11/2020 11:20 Resul ts for this AM CDT procedure are i n the results section. ECG 12-LEAD Routine 02/11/2020 9:51 AM CDT Procedure Note - Interface, External Ris In - 02/11/2020 10:09 AM CDT Ventricular Rate 84 BPM Atrial Rate 84 BPM P-R Interval 102 ms QRS Duration 78 ms Q-T Interval 402 ms QTC Calculation(Bazett) 475 ms P Rogers 44 degrees R Rogers 51 degrees T Rogers 251 degrees Sinus rhythm with short IN T wave abnormality, consider inferior ischemia T wave abnormality, consider anterolateral ischemia Prolonged QT Abnormal ECG When compared with ECG of 04:07, Premature ventricular comple xes are no longer Present T wave inversion more eviden t in Anterior leads ECG 12-LEAD Routine 02/11/2020 9:51 AM CDT Resu lts for this procedure are i n the results section . POCT-GLUCOSE METER Routine 02/11/2020 7:28 AM CDT Results for this procedure are i n the results section . POCT-GLUCOSE METER Routine 02/11/2020 4:34 AM CDT Results for this procedure are i n the results section . RPR Routine 02/11/2020 2:32 AM CDT Resu lts for this procedure are i n the results section . LACTIC ACID, VENOUS Routine 02/11/2020 2:32 AM CDT Results for this procedure are i n the results section . POCT-GLUCOSE METER Routine 02/11/2020 1:31 AM CDT Results for this procedure are i n the results section . (CELLAVISION MANUAL DIFF) Routine 02/11/2020 1:15 AM CDT Results for this procedure are i n the results section . CBC W/PLT COUNT & AUTO Routine 02/11/2020 1:15 AM CDT Results for this DIFFERENTIAL procedure are i n the results section . PHOSPHORUS Routine 02/11/2020 1:15 AM CDT Resu lts for this procedure are i n the results section . MAGNESIUM Routine 02/11/2020 1:15 AM CDT Resu lts for this procedure are i n the results section . CBC W/PLT COUNT & AUTO Routine 02/11/2020 1:15 AM CDT Results for this DIFFERENTIAL procedure are i n the results section . BASIC METABOLIC PANEL (7) Routine 02/11/2020 1:15 AM CDT Results for this procedure are i n the results section . HEMOGLOBIN A1C Routine 02/11/2020 1:15 AM CDT Re sults for this procedure are i n the results section . VANCOMYCIN LEVEL, RANDOM Routine 02/11/2020 1:15 AM CDT Results for this procedure are i n the results section . PTH, INTACT Routine 02/11/2020 1:15 AM CDT Resu lts for this procedure are i n the results section . HEMODIALYSIS INPATIENT Routine 02/11/2020 12:15 AM CDT Results for this procedure are i n the results section . POCT-GLUCOSE METER Routine 02/10/2020 11:29 PM CDT Results for this procedure are i n the results section . URIC ACID Add-On 02/10/2020 8:05 PM CDT Resu lts for this procedure are i n the results section . FIBRINOGEN JEREMIAH 02/10/2020 8:05 PM CDT Resu lts for this procedure are i n the results section . HEMOGLOBIN AND HEMATOCRIT Routine 02/10/2020 8:05 PM CDT Results for this procedure are i n the results section . BASIC METABOLIC PANEL (7) Routine 02/10/2020 8:05 PM CDT Results for this procedure are i n the results section . POCT-GLUCOSE METER Routine 02/10/2020 8:02 PM CDT Results for this procedure are i n the results section . POCT-GLUCOSE METER Routine 02/10/2020 5:55 PM CDT Results for this procedure are i n the results section . IR PERCUTANEOUS Routine 02/10/2020 4:55 PM CDT R esults for this NEPHROSTOMY TUBE PLACEMENT p rocedure are in the results section . URINALYSIS W/ REFLEX URINE Routine 02/10/2020 4:48 PM CDT Results for this CULTURE procedure are i n the results section . URINE CULTURE Routine 02/10/2020 4:48 PM CDT Res ults for this procedure are i n the results section . POCT-GLUCOSE METER Routine 02/10/2020 4:20 PM CDT Results for this procedure are i n the results section . POCT-GLUCOSE METER Routine 02/10/2020 3:54 PM CDT Results for this procedure are i n the results section . POCT-GLUCOSE METER Routine 02/10/2020 3:42 PM CDT Results for this procedure are i n the results section . POCT-GLUCOSE METER Routine 02/10/2020 3:40 PM CDT Results for this procedure are i n the results section . TRANSFUSE LEUKO-REDUCED Routine 02/10/2020 1:09 PM CDT RED BLOOD CELLS CBC W/PLT COUNT & AUTO Routine 02/10/2020 1:09 PM CDT Results for this DIFFERENTIAL procedure are i n the results section . CBC W/PLT COUNT & AUTO JEREMIAH Add-on 02/10/2020 1:09 PM CDT Results for this DIFFERENTIAL procedure are i n the results section . HEMOGLOBIN AND HEMATOCRIT Routine 02/10/2020 1:09 PM CDT Results for this procedure are i n the results section . BLOOD GAS, ARTERIAL STAT 02/10/2020 12:39 PM CDT Results for this procedure are i n the results section . POCT-GLUCOSE METER Routine 02/10/2020 11:39 AM CDT Results for this procedure are i n the results section . COMPREHENSIVE METABOLIC STAT 02/10/2020 10:37 AM CDT Results for this PANEL procedure are i n the results section . XR CHEST 1 VIEW STAT 02/10/2020 10:12 AM CDT R esults for this PORTABLE/BEDSIDE procedure a re in the results section . TRANSFUSE LEUKO-REDUCED Routine 02/10/2020 9:02 AM CDT RED BLOOD CELLS 2D ECHO W/ DOPPLER Routine 02/10/2020 7:55 AM CDT Results for this (CW/PW/COLOR) procedure are in the results section . VITAMIN B12 AND FOLATE Add-On 02/10/2020 7:26 AM CDT Results for this procedure are i n the results section . HEPATITIS B SURFACE Add-On 02/10/2020 7:26 AM CDT Results for this ANTIGEN procedure are i n the results section . FERRITIN Add-On 02/10/2020 7:26 AM CDT Resu lts for this procedure are i n the results section . IRON, TIBC, % SAT. Add-On 02/10/2020 7:26 AM CDT Results for this (WITHOUT FERRITIN) procedure are in the results section . HAPTOGLOBIN Routine 02/10/2020 7:26 AM CDT Resu lts for this procedure are i n the results section . APTT Routine 02/10/2020 7:26 AM CDT Resu lts for this procedure are i n the results section . PROTHROMBIN TIME/INR Routine 02/10/2020 7:26 AM CDT Results for this procedure are i n the results section . LACTATE DEHYDROGENASE Routine 02/10/2020 7:26 AM CDT Results for this (LDH) procedure are i n the results section . FIBRINOGEN Routine 02/10/2020 7:26 AM CDT Resu lts for this procedure are i n the results section . RETICULOCYTE COUNT Routine 02/10/2020 7:26 AM CDT Results for this procedure are i n the results section . PHOSPHORUS Routine 02/10/2020 7:26 AM CDT Resu lts for this procedure are i n the results section . BLOOD CULTURE Routine 02/10/2020 7:26 AM CDT Res ults for this procedure are i n the results section . ABORH, MANUAL STAT 02/10/2020 4:52 AM CDT Res ults for this procedure are i n the results section . TYPE AND SCREEN, AUTOMATED STAT 02/10/2020 4:27 AM CDT Results for this procedure are i n the results section . 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 SARS-COV2/RT-PCR ([facility] & REF Routine 02/10/2020 4:01 AM CDT Results for this LABS) procedure are i n the results section . BLOOD CULTURE Routine 02/10/2020 3:32 AM CDT Res ults for this procedure are i n the results section . (CELLAVISION MANUAL DIFF) Routine 02/10/2020 3:31 AM CDT Results for this procedure are i n the results section . CBC W/PLT COUNT & AUTO Routine 02/10/2020 3:31 AM CDT Results for this DIFFERENTIAL procedure are i n the results section . APTT Routine 02/10/2020 3:31 AM CDT Resu lts for this procedure are i n the results section . PROTHROMBIN TIME/INR Routine 02/10/2020 3:31 AM CDT Results for this procedure are i n the results section . CBC W/PLT COUNT & AUTO Routine 02/10/2020 3:31 AM CDT Results for this DIFFERENTIAL procedure are i n the results section . BLOOD GAS, ARTERIAL Routine 02/10/2020 3:18 AM CDT Results for this procedure are i n the results section . B-TYPE NATRIURETIC FACTOR Routine 02/10/2020 3:17 AM CDT Results for this (BNP) procedure are i n the results section . TROPONIN I Routine 02/10/2020 3:17 AM CDT Resu lts for this procedure are i n the results section . COMPREHENSIVE METABOLIC Routine 02/10/2020 3:17 AM CDT Results for this PANEL procedure are i n the results section . XR CHEST 1 VIEW Routine 02/10/2020 2:38 AM CDT R esults for this PORTABLE/BEDSIDE procedure a re in the results section . after 03/28/2019 Results IR Port Removal (03/26/2020 2:29 PM CDT) Specimen Narrative Performed At FINAL REPORT [facility] PROCEDURE: Venous chest port placement Procedural Personnel Attending physician(s): Yani Malone MD Fellow physician(s): Gurvinder Resident physician(s): None Advanced practice provider(s): None Pre-procedure diagnosis: Cervical cancer Post-procedure diagnosis: Same Indication: Chemotherapy Additional clinical history: None Complications: No immediate complication s. IMPRESSION: Insertion of left-sided power-injectable single-lumen tunneled chest port, with catheter tip in the expected location of the cavoatrial junction. Plan: The port may be used immediately. PROCEDURE SUMMARY: - Venous access with ultrasound guidance - Tunneled port insertion under fluorosc opic guidance - Additional procedure(s): None Pre-procedure Consent: Informed consent for the proced ure including risks, benefits and alternatives was obtained and time-o ut was performed prior to the procedure. Preparation (MIPS): The site was prepare d and draped using all elements of maximal sterile barrier tech nique including sterile gloves, sterile gown, cap, mask, large s terile sheet, sterile ultrasound probe cover, hand hygiene and cutaneous antisepsis with 2% chlorhexidine. Medical reason for site preparation exce ption (MIPS): Not applicable Anesthesia/sedation Level of anesthesia/sedation: Moderate s edation (conscious sedation) 0.5 mg Versed, 75 mcg fentanyl Anesthesia/sedation administered by: Ind ependent trained observer under attending supervision with continu ous monitoring of the patient\\[id number]\\s level of consciousness a nd physiologic status Total intra-service sedation time (minut es): 30 Access Local anesthesia was administered. The v essel was sonographically evaluated and determined to be patent. R eal time ultrasound was used to visualize needle entry into the vesse l and a permanent image was stored. Vein accessed: Internal jugular vein Access technique: Micropuncture set with 21 gauge needle Port placement An incision was made at the upper chest, a pocket was created, and the catheter was tunneled subcutaneously to the venous access site and trimmed to appropriate length. The p ort was inserted into the pocket and the catheter was advanced via a peel-away sheath into the vein under fluoroscopic guidance. The po rt was not sutured into the pocket. Catheter tip location was fluoro scopically verified and a permanent image was stored. Port placed: [employer] Smart port Catheter size (Mauritanian): 7 Catheter flush: Heparin (100 units/mL) Closure The access site and incision were closed and sterile dressing(s) were applied. Access site closure technique: Tissue ad hesive Incision closure technique: Absorbable s uture and tissue adhesive Patient discharged from procedure suite with device accessed: No Contrast Contrast agent: None Contrast volume (mL): None Radiation Dose Fluoroscopy time (minutes): 0.5 Reference air kerma (mGy): 1.0 Additional Details Additional description of procedure: Non e Equipment details: None Specimens removed: None Estimated blood loss (mL): Less than 10 Standardized report: [email or web address] Attestation Signer name: Yani Malone I attest that I was present for the enti re procedure. I reviewed the stored images and agree with the report as written. Signed: Yani Malone MD Report Verified Date/Time:03/26/2020 17:05:13 Reading Location: [place] [address] Angio Body Reading Room Procedure Note Interface, External Ris In - 03/26/2020 5:07 PM CDT FINAL REPORT PROCEDURE: Venous chest port placement Procedural Personnel Attending physician(s): Yani Malone MD Fellow physician(s): Gurvinder Resident physician(s): None Advanced practice provider(s): None Pre-procedure diagnosis: Cervical cancer Post-procedure diagnosis: Same Indication: Chemotherapy Additional clinical history: None Complications: No immediate complication s. IMPRESSION: Insertion of left-sided power-injectable single-lumen tunneled chest port, with catheter tip in the expected location of the cavoatrial junction. Plan: The port may be used immediately. PROCEDURE SUMMARY: - Venous access with ultrasound guidance - Tunneled port insertion under fluorosc opic guidance - Additional procedure(s): None Pre-procedure Consent: Informed consent for the proced ure including risks, benefits and alternatives was obtained and time-o ut was performed prior to the procedure. Preparation (MIPS): The site was prepare d and draped using all elements of maximal sterile barrier tech nique including sterile gloves, sterile gown, cap, mask, large s terile sheet, sterile ultrasound probe cover, hand hygiene and cutaneous antisepsis with 2% chlorhexidine. Medical reason for site preparation exce ption (MIPS): Not applicable Anesthesia/sedation Level of anesthesia/sedation: Moderate s edation (conscious sedation) 0.5 mg Versed, 75 mcg fentanyl Anesthesia/sedation administered by: Ind ependent trained observer under attending supervision with continu ous monitoring of the patient\\X2019\\s level of consciousness a nd physiologic status Total intra-service sedation time (minut es): 30 Access Local anesthesia was administered. The v essel was sonographically evaluated and determined to be patent. R eal time ultrasound was used to visualize needle entry into the vesse l and a permanent image was stored. Vein accessed: Internal jugular vein Access technique: Micropuncture set with 21 gauge needle Port placement An incision was made at the upper chest, a pocket was created, and the catheter was tunneled subcutaneously to the venous access site and trimmed to appropriate length. The p ort was inserted into the pocket and the catheter was advanced via a peel-away sheath into the vein under fluoroscopic guidance. The po rt was not sutured into the pocket. Catheter tip location was fluoro scopically verified and a permanent image was stored. Port placed: charming charlie Smart port Catheter size (Mauritanian): 7 Catheter flush: Heparin (100 units/mL) Closure The access site and incision were closed and sterile dressing(s) were applied. Access site closure technique: Tissue ad hesive Incision closure technique: Absorbable s uture and tissue adhesive Patient discharged from procedure suite with device accessed: No Contrast Contrast agent: None Contrast volume (mL): None Radiation Dose Fluoroscopy time (minutes): 0.5 Reference air kerma (mGy): 1.0 Additional Details Additional description of procedure: Non e Equipment details: None Specimens removed: None Estimated blood loss (mL): Less than 10 Standardized report: [email or web address] Attestation Signer name: Yani Malone I attest that I was present for the enti re procedure. I reviewed the stored images and agree with the report as written. Signed: Yani Malone MD Report Verified Date/Time: 03/26/2020 1 7:05:13 Reading Location: [place] [address] Angio Body Reading Room Performing Organization Address City/State/Zipcode Phone Number [employer] IR Drainage Catheter Change (03/26/2020 2:19 PM CDT) Specimen Narrative Performed At FINAL REPORT GE [employer] PROCEDURE: Genitourinary catheter exchan Procedural Personnel Attending physician(s): Yani Malone MD Fellow physician(s): None Resident physician(s): None Advanced practice provider(s): None Pre-procedure diagnosis: Urinary obstruc tion Post-procedure diagnosis: Same Indication: Suspected catheter infection Additional clinical history: None Complications: No immediate complication s. IMPRESSION: Successful exchange of right and left in dwelling percutaneous nephrostomy tubes for new 10 Mauritanian neph rostomy tubes. PROCEDURE SUMMARY - Target organ: Bilateral northway kidneys - Antegrade nephrostogram(s) via the exi sting access - Nephrostomy tube exchange - Additional procedure(s): None PROCEDURE DETAILS: Pre-procedure Consent: Informed consent for the proced ure including risks, benefits and alternatives was obtained and time-o ut was performed prior to the procedure. Preparation: The site was prepared and d raped using maximal sterile barrier technique including cutaneous an tisepsis. Anesthesia/sedation Level of anesthesia/sedation: None Anesthesia/sedation administered by: Ind ependent trained observer under attending supervision with continu ous monitoring of the patient\\X2019\\s level of consciousness a nd physiologic status Total intra-service sedation time (minut es): Not applicable Right genitourinary catheter exchange Local anesthesia was administered. Initi al nephrostogram was performed. A wire was placed through the existing tube and it was removed. The new tube was advanced over the wire and position was confirmed with contrast injection. Pre-existing genitourinary catheter: 10 Mauritanian Cook Genitourinary catheter(s) placed: Same Findings: Nondilated collecting system. External catheter securement: Non-absorb able suture Left genitourinary catheter exchange Local anesthesia was administered. Initi al nephrostogram was performed. A wire was placed through the existing tube and it was removed. The new tube was advanced over the wire and position was confirmed with contrast injection. Pre-existing genitourinary catheter: 10 Mauritanian Cook Genitourinary catheter(s) placed: Same Findings: Nondilated collecting system. External catheter securement: Non-absorb able suture Additional genitourinary system interven tion Genitourinary intervention: None Location of intervention: Not applicable Device used: Not applicable Description of intervention: Not applica ble Post-intervention findings: Not applicab le Contrast Contrast agent: Isovue 300 Contrast volume (mL): 20 Radiation Dose Fluoroscopy time (minutes): 0.9 Reference air kerma (mGy): 2.8 Additional Details Additional description of procedure: Non e Equipment details: None Specimens removed: None Estimated blood loss (mL): Less than 10 Standardized report: [email or web address] [email or web address] Attestation Signer name: Yani Malone I attest that I was present for the enti re procedure. I reviewed the stored images and agree with the report as written. Signed: Yani Malone MD Report Verified Date/Time:03/26/2020 17:08:04 Reading Location: [place] [address] Angio Body Reading Room Procedure Note Interface, External Ris In - 03/26/2020 5:10 PM CDT FINAL REPORT PROCEDURE: Genitourinary catheter exchan ge Procedural Personnel Attending physician(s): Yani Malone MD Fellow physician(s): None Resident physician(s): None Advanced practice provider(s): None Pre-procedure diagnosis: Urinary obstruc tion Post-procedure diagnosis: Same Indication: Suspected catheter infection Additional clinical history: None Complications: No immediate complication s. IMPRESSION: Successful exchange of right and left in dwelling percutaneous nephrostomy tubes for new 10 Mauritanian neph rostomy tubes. PROCEDURE SUMMARY - Target organ: Bilateral northway kidneys - Antegrade nephrostogram(s) via the exi sting access - Nephrostomy tube exchange - Additional procedure(s): None PROCEDURE DETAILS: Pre-procedure Consent: Informed consent for the proced ure including risks, benefits and alternatives was obtained and time-o ut was performed prior to the procedure. Preparation: The site was prepared and d raped using maximal sterile barrier technique including cutaneous an tisepsis. Anesthesia/sedation Level of anesthesia/sedation: None Anesthesia/sedation administered by: Ind ependent trained observer under attending supervision with continu ous monitoring of the patient\\X2019\\s level of consciousness a nd physiologic status Total intra-service sedation time (minut es): Not applicable Right genitourinary catheter exchange Local anesthesia was administered. Initi al nephrostogram was performed. A wire was placed through the existing tube and it was removed. The new tube was advanced over the wire and position was confirmed with contrast injection. Pre-existing genitourinary catheter: 10 Mauritanian Cook Genitourinary catheter(s) placed: Same Findings: Nondilated collecting system. External catheter securement: Non-absorb able suture Left genitourinary catheter exchange Local anesthesia was administered. Initi al nephrostogram was performed. A wire was placed through the existing tube and it was removed. The new tube was advanced over the wire and position was confirmed with contrast injection. Pre-existing genitourinary catheter: 10 Mauritanian Cook Genitourinary catheter(s) placed: Same Findings: Nondilated collecting system. External catheter securement: Non-absorb able suture Additional genitourinary system interven tion Genitourinary intervention: None Location of intervention: Not applicable Device used: Not applicable Description of intervention: Not applica ble Post-intervention findings: Not applicab le Contrast Contrast agent: Isovue 300 Contrast volume (mL): 20 Radiation Dose Fluoroscopy time (minutes): 0.9 Reference air kerma (mGy): 2.8 Additional Details Additional description of procedure: Non e Equipment details: None Specimens removed: None Estimated blood loss (mL): Less than 10 Standardized report: [email or web address] [email or web address] Attestation Signer name: Yani Malone I attest that I was present for the enti re procedure. I reviewed the stored images and agree with the report as written. Signed: Yani Malone MD Report Verified Date/Time: 03/26/2020 1 7:08:04 Reading Location: [place] [address] Angio Body Reading Room Performing Organization Address City/State/Zipcode Phone Number GE RIS CBC with platelet count + automated diff (03/26/2020 7:41 AM CDT)Only the most recent of10 resultswithin the time period is included. WBC 22.2 (H) 3.5 - 10.5 K/L [facility] RBC 2.65 (L) 3.93 - 5.22 M/L [facility] Hemoglobin 7.9 (L) 11.2 - 15.7 GM/DL [facility] Hematocrit 25.3 (L) 34.1 - 44.9 % [facility] MCV 95.5 (H) 79.4 - 94.[address] [facility] MCH 29.8 25.6 - 32.[address] [facility] MCHC 31.2 (L) 32.2 - 35.5 GM/DL [facility] RDW 16.2 (H) 11.7 - 14.4 % [facility] Platelets 583 (H) 150 - 450 K/CU MM [facility] MPV 8.6 (L) 9.4 - 12.[address] [facility] nRBC 0 0 - 0 /[address] [facility] % Neutros 86 % [facility] % Lymphs 6 % [facility] % Monos 6 % [facility] % Eos 1 % [facility] % Baso 0 % [facility] # Neutros 19.20 (H) 1.56 - 6.13 K/L [facility] # Lymphs 1.36 1.18 - 3.74 K/L [facility] # Monos 1.34 (H) 0.24 - 0.36 K/L [facility] # Eos 0.14 0.04 - 0.36 K/L [facility] # Baso 0.07 0.01 - 0.08 K/L [facility] Immature 1 0 - 1 % [facility] Granulocytes-Relative [facility] Specimen Blood Performing Organization Address City/[facility] Centercode Phone Number [address] [address] [place] aPTT (03/26/2020 7:41 AM CDT)Only the most recent of3 resultswithin the time period is included. PTT 28.3 22.5 - 36.0 seconds [facility] Specimen Blood Performing Organization Address [facility] Phone Number [address] [address] [place] Prothrombin time/INR (03/26/2020 7:41 AM CDT)Only the most recent of3 results within the time period is included. Protime 15.5 (H) 11.9 - 14.2 seconds [facility] INR 1.3 <=5.9 [facility] Specimen Blood Narrative Performed At Effective 02/12/2019: PT Reference Range [facility] Change New: 11.9-14.2Previous: 11.7-14.7 RECOMMENDED COUMADIN/WARFARIN INR THERAPY RANGES STANDARD DOSE: 2.0-3.0Includes: PROPHYLAXIS for venous thrombosis, systemic embolization; TREATMENT for venous thrombosis and/or pulmonary embolus. HIGH RISK: Target INR is 2.5-3.5 for patients wiht mechanical heart valves. Performing Organization Address [facility]/Zipcode Phone Number [address] [address] [place] Venous Doppler Legs Bilateral (03/11/2020 10:15 AM CDT) Ejection Fraction [facility] T[facility] Specimen Impressions Performed At Right Impression [facility] E[facility] 1. There is no deep venous obstruction in the common femoral, profunda femoral, femoral, popliteal, posterior tibial or peroneal veins. 2. There is no superficial venous obstruction in the great saphenous vein. Left Impression 1. There is partial echolucent deep venous obstruction in the popliteal vein. 2. There is total echolucent deep venous obstruction in the one of the paired posterior tibial veins. 3. There is no deep venous obstruction in the common femoral, profunda femoral, femoral, peroneal or one of the paired posterior tibial veins. 4. There is no superficial venous obstruction in the great saphenous vein. Conclusions Summary Venous duplex imaging and compression of the bilateral lower extremities were performed. The veins were adequately visualized. The left deep venous system was positive with acute thrombus. The right deep venous and bilateral superficial venous systems were patent and compressible with no evidence of thrombus. Signature Velocities are measured in cm/s ; Diameters are measured in cm Narrative Performed At PV LAB - Lower Extremities DVT Study [facility] ECHO HEARTLAB [facility] Demographics Patient NameCLARK, PENNYDate of Study 03/11/2020 LUIS AN 54 Visit [id number] Female of 1965 Referring Ferny Santos, Room Number [facility] OPT Physician Sales Promotion Director Gregor Freed, S Physician Procedure Type of Study: Veins: Lower Extremities DVT Study, VENOUS DOPPLER LEG, BILATERAL. Indications for Study:Pedal edema. Patient Status:Routine. Study Location:Vascular Lab. Technical Quality:Adequate visualization . - Results were reported to: Abdirizak BERUMEN @ 10:22 am. Risk Factors History of Disease + + + + !Diagnosis!Date !Comments ! + + + + !History/Risk Factors:!03/11/2020!Cervical CA, FIGO stage IIIB, Pedal edema! + + + + Procedure Note Interface, External Ris In - 03/12/2020 9:22 AM CDT PV LAB - Lower Extremities DVT Study Demographics Patient Name JEANNIE KAUFFMAN Juan Diego e of Study 03/11/2020 GERI MRMandy [id number] Age 54 Visit Number [id number] Gen gloria Female Accession Number [id number] Juan Diego e of 1965 Referring Stacey Guillaume Number [id number] OPT Physician Sales Promotion Director Gregor Gore Int [facility] NEYDA Palma MD Procedure Type of Study: Veins: Lower Extremities DVT Study, TIM OUS DOPPLER LEG, BILATERAL. Indications for Study:Pedal edema. Patient Status:Routine. Study Location:Vascular Lab. Technical Quality:Adequate visualization . - Results were reported to: Abdirizak Galvan @ 10:22 am. Risk Factors History of Disease + + +------ + !Diagnosis !Date !Commen ts ! + + +------ + !History/Risk Factors:!03/11/2020!Isabelle Holloway, FIGO stage IIIB, Pedal edema! + + +------ + Impressions Right Impression 1. There is no deep venous obstruction i n the common femoral, profunda femoral, femoral, popliteal, posterior t ibial or peroneal veins. 2. There is no superficial venous obstru ction in the great saphenous vein. Left Impression 1. There is partial echolucent deep veno us obstruction in the popliteal vein. 2. There is total echolucent deep venous obstruction in the one of the paired posterior tibial veins. 3. There is no deep venous obstruction i n the common femoral, profunda femoral, femoral, peroneal or one of the paired posterior tibial veins. 4. There is no superficial venous obstru ction in the great saphenous vein. Conclusions Summary Venous duplex imaging and compression o f the bilateral lower extremities were performed. The veins were adequate ly visualized. The left deep venous system was positive with acute thrombus . The right deep venous and bilateral superficial venous systems we re patent and compressible with no evidence of thrombus. Signature Velocities are measured in cm/s ; Diamet ers are measured in cm Performing Organization Address City/State/[facility] Centercode Phone Number [facility] EKG-SCANNED (02/20/2020 8:00 AM CDT) Narrative Performed At This result has an attachment that is no t available. RHYTHM STRIP - SCAN (02/20/2020 8:00 AM CDT) Narrative Performed At This result has an attachment that is no t available. 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 CPT Code(s) [address] [facility] ER GROSS DESCRIPTION Part A. Received in a [facility] ner labeled with the patient's name and MRN as "cervix" with the additional information "necrotic tumor involving the entire cervix" are multiple fragments of irregular, barron- [facility] [employer] conte to barron-white tissue tameka suring in aggregate 2.5 x 1.5 x 1 cm. The pieces of tissue range in size from less than 0.1 to 1.5 cm in greatest dimension. The largest piece measures 2 x 1.5 x [address] [facility] TER Section code: A1, press set up small fragments of tissue; A2-A3, largest piece serially sectioned; A4, remaining multiple small fragments of tissue submitted entirely. SW/ew MICROSCOPIC DESCRIPTION Performed. [facility] Specimen Tissue Performing Organization Address [facility] Centercode Phone Number [address] [address] CENTER POC-Glucose meter (02/18/2020 7:49 AM CDT)Only the most recent of45 results within the time period is included. POC-Glucose Meter 98Comment: : TESTED AT 70 - 110 mg/dL [address], [address]: Hospitalist/Leach Tank Tender ID = [id number] for LEODAN PULLIAM Specimen Blood Performing Organization Address [facility] Phone Number [address] [address] CENTER Phosphorus (02/18/2020 3:50 AM CDT)Only the most recent of5 resultswithin the time period is included. Phosphorus 2.3 2.3 - 4.7 mg/dL [facility] Specimen Blood Narrative Performed At Hospitalist ID - STEPHANIE Adams [facility] Performing Organization Address [facility] Phone Number [address] [address] CENTER Magnesium (02/18/2020 3:50 AM CDT)Only the most recent of4 resultswithin the time period is included. Magnesium 1.4 (L) 1.6 - 2.6 mg/dL [facility] Specimen Blood Narrative Performed At Hospitalist ID - STEPHANIE Adams [facility] Performing Organization Address [facility] Centercode Phone Number [address] [address] [place] Basic Metabolic Panel (02/18/2020 3:50 AM CDT)Only the most recent of11 results within the time period is included. Sodium 138 136 - 145 meq/L [facility] Potassium 3.4 (L) 3.5 - 5.1 meq/L [facility] Chloride 108 (H) 98 - 107 meq/L [facility] CO2 21 (L) 22 - 29 meq/L [facility] BUN 34 (H) 7 - 21 mg/dL [facility] Creatinine 2.87 (H) 0.57 - 1.25 mg/dL [facility] Glucose 92 70 - 105 mg/dL [facility] Calcium 7.9 (L) 8.4 - 10.2 mg/dL [facility] EGFR 17Comment: ESTIMATED GFR IS mL/min/1.[address] [facility] NOT ACCURATE CREATININE [facility] CLEARANCE IN PREDICTING GLOMERULAR FILTRATION RATE. ESTIMATED GFR IS NOT APPLICABLE FOR DIALYSIS PATIENTS. Specimen Blood Narrative Performed At Hospitalist ID - STEPHANIE Adams [facility] Performing Organization Address City/State/Zipcode Phone Number [facility] [address] [place], [place] [id number] [place] MR pelvis without IV contrast (02/17/2020 9:55 PM CDT) Specimen Narrative Performed At FINAL REPORT [facility] TECHNIQUE: MRI of the pelvis WITHOUT int ravenous contrast. INDICATION: Cervix cancer, FIGO >1b new likely cervical cancer, would like e valuation of extent. COMPARISON: CT of the abdomen and pelvis on 02/09/2020. FINDINGS: Evaluation is partially limited by motio n artifact and the lack of intravenous contrast. UTERUS: The uterus measures approximatel y 3.9 x 2.6 x 4 cm. No uterine masses. ENDOMETRIUM: Homogeneous and normal in t hickness, measuring 0.3 cm. OVARIES/ADNEXA: Normal ovaries bilateral ly. CERVIX: There is a lobulated, ill-define d mass centered at the right lateral aspect of the cervix with centra l necrosis. It measures 5.7 x 6.2 x 8.5 cm [SI x AP x TR] and extends into the right posterolateral pelvis to the right pelvic side wall. Th ere circumferential loss of the stromal ring with diffuse parametria l invasion. Anteriorly, there is loss of fat plane in the vesicouterin e space. Posteriorly, the mass extends into the sigmoid mesentery and is inseparable from the sigmoid colon (series 701, image 12-14). There is asymmetric wall thickening of the adjacent sigmoid colon . There is involvement of the ureters bilaterally. PERITONEUM/RETROPERITONEUM: Trace free f luid. BLADDER: There is questionable disruptio n of the serosal layer of the posterior wall of the bladder (series 70 1, image 15). RECTUM: Rectum is unremarkable. The meso rectal space is effaced anteriorly without definite rectal invas ion. LYMPH NODES: Evaluation is limited by mo tion artifact. There is a left internal iliac chain lymph node tameka sures 0.6 cm in short axis (series 1101, image 16). BONES AND SOFT TISSUES: Mild age-indeter minate superior compression deformity of the L5 vertebral body. No f ocal mass. IMPRESSION: 1.Evaluation is partially limited by mot ion artifact and lack of IV contrast. 2.Irregular, centrally necrotic cervical mass with locoregional invasion into the distal ureters and the sigmoid colon. Loss of fat plane between the mass and the posterior bladder wall, with questionable bladder wall invasion. (FIG O Stage IV) 3.Nonspecific subcentimeter left interna l iliac chain lymph node, metastatic disease is not excluded. 4.Age-indeterminate superior plate compr ession deformity of the L5 vertebral body. I have reviewed the images and resident report and agree with the above findings. Signed: Roc Castrejon MD Report Verified Date/Time:02/18/2020 15:35:26 Reading Location: [facility] [address] [place] [address] Procedure Note Interface, External Ris In - 02/18/2020 3:37 PM CDT FINAL REPORT TECHNIQUE: MRI of the pelvis WITHOUT int ravenous contrast. INDICATION: Cervix cancer, FIGO >1b new likely cervical cancer, would like e valuation of extent. COMPARISON: CT of the abdomen and pelvis on 02/09/2020. FINDINGS: Evaluation is partially limited by motio n artifact and the lack of intravenous contrast. UTERUS: The uterus measures approximatel y 3.9 x 2.6 x 4 cm. No uterine masses. ENDOMETRIUM: Homogeneous and normal in t hickness, measuring 0.3 cm. OVARIES/ADNEXA: Normal ovaries bilateral ly. CERVIX: There is a lobulated, ill-define d mass centered at the right lateral aspect of the cervix with centra l necrosis. It measures 5.7 x 6.2 x 8.5 cm [SI x AP x TR] and extends into the right posterolateral pelvis to the right pelvic side wall. Th ere circumferential loss of the stromal ring with diffuse parametria l invasion. Anteriorly, there is loss of fat plane in the vesicouterin e space. Posteriorly, the mass extends into the sigmoid mesentery and is inseparable from the sigmoid colon (series 701, image 12-14). There is asymmetric wall thickening of the adjacent sigmoid colon . There is involvement of the ureters bilaterally. PERITONEUM/RETROPERITONEUM: Trace free f luid. BLADDER: There is questionable disruptio n of the serosal layer of the posterior wall of the bladder (series 70 1, image 15). RECTUM: Rectum is unremarkable. The meso rectal space is effaced anteriorly without definite rectal invas ion. LYMPH NODES: Evaluation is limited by mo tion artifact. There is a left internal iliac chain lymph node tameka sures 0.6 cm in short axis (series 1101, image 16). BONES AND SOFT TISSUES: Mild age-indeter minate superior compression deformity of the L5 vertebral body. No f ocal mass. IMPRESSION: 1.Evaluation is partially limited by mot ion artifact and lack of IV contrast. 2.Irregular, centrally necrotic cervical mass with locoregional invasion into the distal ureters and the sigmoid colon. Loss of fat plane between the mass and the posterior bladder wall, with questionable bladder wall invasion. (FIG O Stage IV) 3.Nonspecific subcentimeter left interna l iliac chain lymph node, metastatic disease is not excluded. 4.Age-indeterminate superior plate compr ession deformity of the L5 vertebral body. I have reviewed the images and resident report and agree with the above findings. Signed: Roc Castrejon MD Report Verified Date/Time: 02/18/2020 1 5:35:26 Reading Location: [address] Room Performing Organization Address City/State/Zipcode Phone Number [facility] CT brain without IV contrast (02/16/2020 5:24 PM CDT) Specimen Narrative Performed At FINAL REPORT AuthorBee [facility] CT, BRAIN, WITHOUT CONTRAST INDICATION: Neoplasm: head, metastatic new likely cervical cancer, altered ment al status, would like evaluation of head for mets TECHNIQUE: Noncontrast axial imaging was obtained from the vertex to the skull base. Axial images were recons tructed using a bone algorithm. DOSE REDUCTION: Dose modulation, iterati ve reconstruction, and/or weight-based adjustment of the mA/kV was utilized to reduce the radiation dose to as low as reasonably a chievable. COMPARISON: None. FINDINGS: Intracranial: Multifocal encephalomalaci a in the anterior right temporal lobe, inferior left frontal lob e, and left corpus stratum. No intracranial hemorrhage or abnormal e xtra-axial collection. No evidence of acute territorial infarct. N o mass effect. No hydrocephalus. Osseous structures: No fracture. No susp icious lesion. Paranasal sinuses and mastoid air cells: No evidence of sinusitis. Mastoids are clear. Orbital contents: Globes are intact. IMPRESSION: No acute intracranial hemorrhage or mass effect. Please note that CT is insensitive for detection of small ma sses, and if intracranial metastases are the primary concern, MRI with and without contrast is recommended. Signed: Letty Granger MD Report Verified Date/Time:02/16/2020 17:36:02 Procedure Note Interface, External Ris In - 02/16/2020 5:38 PM CDT FINAL REPORT CT, BRAIN, WITHOUT CONTRAST INDICATION: Neoplasm: head, metastatic new likely cervical cancer, altered ment al status, would like evaluation of head for mets TECHNIQUE: Noncontrast axial imaging was obtained from the vertex to the skull base. Axial images were recons tructed using a bone algorithm. DOSE REDUCTION: Dose modulation, iterati ve reconstruction, and/or weight-based adjustment of the mA/kV was utilized to reduce the radiation dose to as low as reasonably a chievable. COMPARISON: None. FINDINGS: Intracranial: Multifocal encephalomalaci a in the anterior right temporal lobe, inferior left frontal lob e, and left corpus stratum. No intracranial hemorrhage or abnormal e xtra-axial collection. No evidence of acute territorial infarct. N o mass effect. No hydrocephalus. Osseous structures: No fracture. No susp icious lesion. Paranasal sinuses and mastoid air cells: No evidence of sinusitis. Mastoids are clear. Orbital contents: Globes are intact. IMPRESSION: No acute intracranial hemorrhage or mass effect. Please note that CT is insensitive for detection of small ma sses, and if intracranial metastases are the primary concern, MRI with and without contrast is recommended. Signed: Letty Granger MD Report Verified Date/Time: 02/16/2020 1 7:36:02 Performing Organization Address City/State/Zipcode Phone Number [facility] CT chest without IV contrast (02/16/2020 5:24 PM CDT) Specimen Narrative Performed At FINAL REPORT [facility] CT of the Chest dated 02/16/2020 CLINICAL INFORMATION: Cervix cancer, FIG O >1b evaluate for chest/supraclav disease Comment:Axial images of the chest we re obtained from thoracic inlet to the upper abdomen without intravenous contrast. This exam was performed according to our departmental dose-optimization program, which include s automated exposure control, adjustment of the mA and/or kV according to patient size and/or use of interactive reconstruction technique. Heart is normal in size.Great vessel s are unremarkable. No adenopathy in the mediastinum or perihil ar region. Trachea and mainstem bronchi are patent. No apparent adenopathy is seen in the supraclavicular region. There is small bilateral pleural effusio n with bibasilar subsegmental atelectasis. Trace fluid is seen in the right major fissure. Groundglass and interstitial pulmonary p arenchyma disease is seen in both upper lobes. There is mild right up per lobe bronchiectasis. A 1.1 cm nodule is seen in the right ape x. Visualized upper abdomen demonstrates no focal lesion. Impression: 1. Bilateral pleural effusion with bibas ilar compressive atelectasis. 2. Nonspecific groundglass and interstit ial pulmonary disease in both upper lobes. 3. Mild right upper lobe bronchiectasis. 4. Right apical nodule. Recommend follow -up with repeat study in 3-6 months. Signed: Ines Jo MD Report Verified Date/Time:02/16/2020 18:46:22 Reading Location: [facility] B1 C013Y CT Body R eading Room Procedure Note Interface, External Ris In - 02/16/2020 6:48 PM CDT FINAL REPORT CT of the Chest dated 02/16/2020 CLINICAL INFORMATION: Cervix cancer, FIG O >1b evaluate for chest/supraclav disease Comment: Axial images of the chest were obtained from thoracic inlet to the upper abdomen without intravenous contrast. This exam was performed according to our departmental dose-optimization program, which include s automated exposure control, adjustment of the mA and/or kV according to patient size and/or use of interactive reconstruction technique. Heart is normal in size. Great vessels are unremarkable. No adenopathy in the mediastinum or perihil ar region. Trachea and mainstem bronchi are patent. No apparent adenopathy is seen in the supraclavicular region. There is small bilateral pleural effusio n with bibasilar subsegmental atelectasis. Trace fluid is seen in the right major fissure. Groundglass and interstitial pulmonary p arenchyma disease is seen in both upper lobes. There is mild right up per lobe bronchiectasis. A 1.1 cm nodule is seen in the right ape x. Visualized upper abdomen demonstrates no focal lesion. Impression: 1. Bilateral pleural effusion with bibas ilar compressive atelectasis. 2. Nonspecific groundglass and interstit ial pulmonary disease in both upper lobes. 3. Mild right upper lobe bronchiectasis. 4. Right apical nodule. Recommend follow -up with repeat study in 3-6 months. Signed: Ines Jo MD Report Verified Date/Time: 02/16/2020 1 8:46:22 Reading Location: [facility] B1 C013Y CT Body R eading Room Performing Organization Address City/State/Zipcode Phone Number GE RIS Cortisol (02/16/2020 9:48 AM CDT)Only the most recent of2 resultswithin the time period is included. Cortisol, Total 17.8 3.7 - 19.4 ug/dL [facility] Specimen Blood Narrative Performed At Hospitalist ID - [id number] [facility] Performing Organization Address City/State/Zipcode Phone Number [facility] [address] [place] [address] CENTER insulin-like growth factor 2 (02/16/2020 9:48 AM CDT) Scan Result [facility] Specimen Blood Narrative Performed At This result has an attachment that is no t available. Performing Organization Address City/[facility] Phone Number [facility] [address] [place], [place] Insulin-like growth factor (02/16/2020 9:48 AM CDT) Igf-1(Somatomedin-C) 116 50 - 317 ng/mL [facility] Z-Score Male: DNR [facility] Z-Score Female: -0.4 -2.0 - 2.0 SD [facility] Comment: [facility]POR[facility] This test was developed and its analytical perfo rmance characteristics have been determined by [facility]. It has not been cleared or approved by FDA. This assay has been validated pursuant to the CLIA regulations and is used for clinical purposes. Specimen Blood Narrative Performed At Performing Lab [facility] [address] [address] [place] [address] Kane Bradford MD, PhD, ERIN Performing Organization Address City/[facility]/Zipcode Phone Number [facility] [place] [place] [address] [facility] [address] [facility] ACTH (02/16/2020 9:48 AM CDT) ACTH 14 6 - 50 pg/mL [facility] Comment: Reference range applies only to the specimens co llected between 7am-10am. Specimen Blood Narrative Performed At Performing Lab [facility] [place] [address] [place] [address] Kane Bradford MD, PhD, ERIN Performing Organization Address City/State/Zipcode Phone Number [facility] [place], [place], [place] [address] [facility]ORPORATED [address] [facility] renal complete (02/15/2020 5:56 PM CDT) Specimen Narrative Performed At FINAL REPORT [facility] Ultrasound of the Kidneys Clinical History:to check on hydrone phrosis Discussion: Sonographic evaluation of the kidneys wa s performed. Comparison is made to outside renal ultrasound 02/09/20. Right kidney:9.5 x 4.7 x 4.1 cm, with cortical thi ckness of 0.5 cm. Normal cortical echogenicity.No mass .No shadowing calculus. No hydronephrosis. Left kidney: 11.1 x 5.5 x 5.3 cm, with c ortical thickness of 0.8 cm. Normal cortical echogenicity.No mass.No shadow ing calculus.Mild hydronephrosis, decreased in the interva l. Limited doppler evaluation of bilateral main renal arteries and veins demonstrate patency. Bladder:Collapsed. Miscellaneous: Left pleural effusion. Impression: Mild left hydronephrosis, decreased in t he interval. No nephrolithiasis. Left pleural effusion. Signed: Laura Peter MD Report Verified Date/Time:02/15/2020 18:24:53 Procedure Note Interface, External Ris In - 02/15/2020 6:28 PM CDT FINAL REPORT Ultrasound of the Kidneys Clinical History: to check on hydroneph rosis Discussion: Sonographic evaluation of the kidneys wa s performed. Comparison is made to outside renal ultrasound 02/09/20. Right kidney: 9.5 x 4.7 x 4.1 cm, with cortical thickness of 0.5 cm. Normal cortical echogenicity. No mass. No shadowing calculus. No hydronephrosis. Left kidney: 11.1 x 5.5 x 5.3 cm, with c ortical thickness of 0.8 cm. Normal cortical echogenicity. No mass. No shadowing calculus. Mild hydronephrosis, decreased in the interva l. Limited doppler evaluation of bilateral main renal arteries and veins demonstrate patency. Bladder: Collapsed. Miscellaneous: Left pleural effusion. Impression: Mild left hydronephrosis, decreased in t he interval. No nephrolithiasis. Left pleural effusion. Signed: Laura Peter MD Report Verified Date/Time: 02/15/2020 1 8:24:53 Performing Organization Address City/State/Zipcode Phone Number GE RIS Hemoglobin and hematocrit (02/14/2020 4:38 PM CDT)Only the most recent of4 resultswithin the time period is included. Hemoglobin 8.4 (L) 11.2 - 15.7 GM/DL [facility] Hematocrit 25.2 (L) 34.1 - 44.9 % [facility] Specimen Blood Narrative Performed At Hospitalist ID - [id number] [facility] Performing Organization Address City/[facility]/Zipcode Phone Number [facility] [address] [place] [address] CENTER Cancer Antigen 125 (CA 125) (02/13/2020 1:10 PM CDT) CA 125 287 (H) <35 U/mL [facility] Comment: This test was performed using the Malissa Coulte r Chemiluminescent method. Values obtained from different assay methods can not be used interchangeably. CA 125 levels, regardless of value, should not b e interpreted as absolute evidence of the presence or absence of disease. Specimen Blood Narrative Performed At Performing Lab [facility] E[facility] [place] [address] [facility] [place] [address] Kane Bradford MD, PhD, ERIN Performing Organization Address City/State/Zipcode Phone Number [facility] [place] [address] [facility]ATED [address] [facility] TRANSFUSION SERVICE REPORT - SCAN (02/12/2020 5:50 PM CDT)Only the most recent of2 resultswithin the time period is included. Narrative Performed At This result has an attachment that is no t available. Transesophageal echo (02/12/2020 10:14 AM CDT) Ejection Fraction [facility] ECHO HEAR T[facility] Specimen Narrative Performed At Transesophageal Echocardiography Report (BONIFACIO) [facility] ECHO HEARTLAB [facility] Dem[facility] Patient Name JEANNIE KAUFFMAN Date of Study 02/12/2020 GERI [id number] GenderFem [facility] Visit Number [id number] RaceCashn own [id number] m Number [id number] Number Date of Birth1965 Referring Physician lFaca Miller Age54 year(s) Sales Promotion Director Sunday June MD Physician Fellow MARIELA Best Procedure Type of Study BONIFACIO procedure:TRANSESOPHA GEAL ECHO Indications:Mitral Regurgitation . Clinical History BILATERAL HYDRONEPHROSIS Height: 61 inches Weight: 49.9 kg (110 lbs) BSA: 1.47 m^2 BMI: 20.78 kg/m^2 HR: 93 bpm BP: 139/66 mmHg Procedure Informed Consent BONIFACIO procedure notes Moderate sedation by performing MD using 2 mg IV versed and 25 mcg IV fentanyl. . Summary Normal left ventricle cavity size. Aortic valve area 1.84 cm^2, mean gradient 8 mmHg, peak velocity 2 m/s, consistent with mild aortic valve steno sis. Moderate aortic valve insufficiency with a vena contracta of approximately 5mm. PHT 204 msec. The regurgitant jet is eccentric and anteriorly directed. No diastolic flow reversal noted in aortic arch Moderate mitral regurgitation that is noted centrally along the commissure. The most prominent jet at A2-P2 segments with PISA radius of 0.782cm, ERO 0.23 cm2, and regurgitant volume of 41 mL. Estimated peak systolic PA pressure is 25-30 mmHg + RA pressure. (RA pressure indeterminate on this exam) Signature Findings Rhythm/BPRegular sinus rhythm during the exam. Left Normal left ventricle cavity size. Ventricle Left AtriumLA is enlarged but severity assessment is unreliable due to known BONIFACIO sector size limitation. LA appendage morphology is simple (wind sock) . No LA appendage Thrombus visualized. RightThe right ventricular chamber size and systolic function are Ventriclewithin normal limits. Atrial Normal interatrial septum by available views. Septum IV saline contrast injection was negative for a PFO (patent foramen ovale) at rest. Aortic Valve Severe nodular calcification of the aortic valve right coronary cusp and moderate nodular calcification of the non-coronary cusp. Aortic valve area 1.84 cm^2, mean gradient 8 mmHg, peak velocity 2 m/s, consistent with mild aortic valve stenos is. Moderate aortic valve insufficiency with a vena contracta of approximately 5mm. PHT 204 msec. The regurgitant jet is eccentric and anteriorly directed. No diastolic flow r eversal noted in aor tic arch. Mitral Valve Mild MV leaflet thickening . Mild mitral annular calcification. Moderate mitral regurgitation that is noted centrally al dian the commissure. The most prominent jet at A2-P2 segments wit h PISA radius of 0.782cm, ERO 0.23 cm2, and regurgitant v olume of 41 mL. TricuspidTV structure is normal . ValveMild tricuspid regurgitation. Estimated peak systolic PA pressure is 25-30 mmHg + RA pressure. (RA pressure indeterminate on this exam) AortaAortic root size (SInus of Valsalva diameter) is normal . Proximal ascending aorta size is normal . Visualized aortic arch is normal . PericardiumNo significant pericardial effusion is visualized. Chambers/Structures Left Ventricle LVOT Diameter: 2.03 cm Aorta Ao Root S of Martina.: 2.79 cm Doppler/Quantitative Measurements Mitral Valve PISA Radius: 0.78 cm MR Velocity: 6.1 m/s MV EROA (PISA): 3.82 c m^2 MV Raul. Peak: Aortic Valve Peak Velocity: 2 m/s Mean Velocity: 1.31 m/s Peak Gradient: 15.99 mmHgMean Gradient: 8.16 mmHg AV Area (continuity): 1.84 cm^2 AV VTI: 36.97 cm AR P1/2t: 203.9 msec AV DVI: 0.57 LVOT Peak Velocity: 1.13 m/s Peak Gradient: 5.13 mmHg Mean Velocity: 0.74 m/s Mean Gradient: 2.54 mmHg LVOT Diameter: 2.03 cmLVOT VTI: 21.08 cm LVOT Area: 3.24 cm^2LVOT SV:68.19 ml LVOT CO: 6.34 l/min LVOT CI: 4.31 l/min/m^2 Tricuspid Valve TR Velocity: 2.75 m/s TR Gradient: 30.2 mmHg Procedure Note Interface, External Ris In - 02/13/2020 9:43 AM CDT Transesophageal Echocardiography Report (BONIFACIO) Demographics Patient Name JEANNIE KAUFFMAN Date of Study 02/12/2020 GERI Gender Female Visit Number [id number] Race Unknown Room [place] [id number] Number Date of 1965 Referri Physician Flaca Miller Age 54 year(s) Everardo Brand [facility] Interpr eting Forrest June MD Physici an Fellow MARIELA Best Procedure Type of Study BONIFACIO procedure:TRANSESOPHAGEAL ECHO Indications:Mitral Regurgitation . Clinical History BILATERAL HYDRONEPHROSIS Height: 61 inches Weight: 49.9 kg (110 l bs) BSA: 1.47 m^2 BMI: 20.78 kg/m^2 HR: 93 bpm BP: 139/66 mmHg Procedure Informed Consent BONIFACIO procedure notes Moderate sedation by performing MD ty bautista 2 mg IV versed and 25 mcg IV fentanyl. . Summary Normal left ventricle cavity size. Aortic valve area 1.84 cm^2, mean gradi ent 8 mmHg, peak velocity 2 m/s, consistent with mild aortic valve steno sis. Moderate aortic valve insufficiency wit h a vena contracta of approximately 5mm. PHT 204 msec. The regurgitant jet is eccentric and anteriorly directed. No diastolic flow reversal no dionicio in aortic arch Moderate mitral regurgitation that is n oted centrally along the commissure. The most prominent jet at A 2-P2 segments with PISA radius of 0.782cm, ERO 0.23 cm2, and regurgitant volume of 41 mL. Estimated peak systolic PA pressure is 25-30 mmHg + RA pressure. (RA pressure indeterminate on this exam) Signature Findings Rhythm/BP Regular sinus rhythm durin g the exam. Left Normal left ventricle cavi ty size. Ventricle Left Atrium LA is enlarged but severit y assessment is unreliable due to known BONIFACIO sector size limi tation. LA appendage morphology is simple (wind sock) . No LA appendage Thrombus v isualized. Right The right ventricular yanira marichuy size and systolic function are Ventricle within normal limits. Atrial Normal interatrial septum by available views. Septum IV saline contrast injecti on was negative for a PFO (patent foramen ovale) at rest. Aortic Valve Severe nodular calcificati on of the aortic valve right coronary cusp and moderate nodular calcification of the non-coronary cusp. Aortic valve area 1.84 cm^ 2, mean gradient 8 mmHg, peak velocity 2 m/s, consistent with mild aortic valve stenosis. Moderate aortic valve insu fficiency with a vena contracta of approximately 5mm. PHT 204 msec. The regurgitant jet is eccentric and anteriorly d irected. No diastolic flow reversal noted in aortic arch. Mitral Valve Mild MV leaflet thickening . Mild mitral annular calcif ication. Moderate mitral regurgitat ion that is noted centrally along the commissure. The most p rominent jet at A2-P2 segments with PISA radius of 0.782cm, ER O 0.23 cm2, and regurgitant volume of 41 mL. Tricuspid TV structure is normal. Valve Mild tricuspid regurgitati on. Estimated peak systolic PA pressure is 25-30 mmHg + RA pressure. (RA pressure ind eterminate on this exam) Aorta Aortic root size (SInus of Valsalva diameter) is normal . Proximal ascending aorta s ize is normal . Visualized aortic arch is normal . Pericardium No significant pericardial effusion is visualized. Chambers/Structures Left Ventricle LVOT Diameter: 2.03 cm Aorta Ao Root S of Martina.: 2.79 cm Doppler/Quantitative Measurements Mitral Valve PISA Radius: 0.78 cm MR Raul ocity: 6.1 m/s MV ERO A (PISA): 3.82 cm^2 MV Raul. Peak: Aortic Valve Peak Velocity: 2 m/s Mean Velocity: 1.31 m/s Peak Gradient: 15.99 mmHg Mean Gradient: 8.16 mmHg AV Area (continuity): 1.84 cm^2 AV VTI: 36.97 cm AR P1/2t: 203.9 msec AV DVI: 0.57 LVOT Peak Velocity: 1.13 m/s Pea k Gradient: 5.13 mmHg Mean Velocity: 0.74 m/s Tameka n Gradient: 2.54 mmHg LVOT Diameter: 2.03 cm LVO T VTI: 21.08 cm LVOT Area: 3.24 cm^2 LVO T SV:68.19 ml LVOT CO: 6.34 l/min LVO T CI: 4.31 l/min/m^2 Tricuspid Valve TR Velocity: 2.75 m/s TR Gradient: 30.2 mmHg Performing Organization Address City/State/[facility] Cent[facility]ode Phone Number [facility] ECHO HEARTLAB MKCKESSON CPACS Manual Differential (02/12/2020 4:22 AM CDT)Only the most recent of3 results within the time period is included. % Neutros 97 % [facility] % Lymphs 1 % [facility] % Eos 1 % [facility] % Baso 1 % [facility] # Neutros 26.38 (H) 1.56 - 6.13 K/ul [facility] # Lymphs 0.27 (L) 1.18 - 3.74 K/ul [facility] # Eos 0.27 0.04 - 0.36 K/uL [facility] # Baso 0.27 (H) 0.01 - 0.08 K/uL [facility] Total Counted [address] [facility] WBC Morphology Normal [facility] Giant Platelet Present [facility] Large Platelet Present [facility] Hypochromia 1+ few [facility] Anisocytosis 1+ few [facility] Poikilocytes 2+ moderate [facility] Ovalocytes [address]+ [address] [facility] Tear Drop Cells 1+ few [facility] Flora Cells 1+ few [facility] Artifact [facility] Helmet Cells 1+ few [facility] Platelet Conc Decreased [facility] Specimen Blood Narrative Performed At Hospitalist ID - Marva [facility] Hospitalist ID - Miranda Sanchez User comments: Slide comments: Performing Organization Address City/State/Zipcode Phone Number [facility] [address] [place] [address] CENTER Prepare Leuko-Red RBC (02/11/2020 11:54 PM CDT) CROSSMATCH COMPATIBLE SAFETRACE TX Unit ABO A Pos SAFETRACE TX UNIT NUMBER [id number] SAFETRACE TX Status TX_TIMEINCHART SAFETRACE TX Blood Bank Product RED BLOOD CELLS SAFETRACE TX PRODUCT CODE [id number] SAFETRACE TX CROSSMATCH COMPATIBLE SAFETRACE TX Unit ABO A Pos SAFETRACE TX UNIT NUMBER [id number] SAFETRACE TX Status TX_TIMEINCHART SAFETRACE TX Blood Bank Product RED BLOOD CELLS SAFETRACE TX PRODUCT CODE [id number] SAFETRACE TX Specimen Other Performing Organization Address City/State/Zipcode Phone Number SAFETRACE TX ECG 12 lead (02/11/2020 9:51 AM CDT)Only the most recent of2 resultswithin the time period is included. Specimen Narrative Performed At Ventricular Rate 84 BPM GE MUSE Atrial Rate 84 BPM P-R Interval 102 ms QRS Duration 78 ms Q-T Interval 402 ms QTC Calculation(Bazett) 475 ms P Rogers 44 degrees R Rogers 51 degrees T Rogers 251 degrees Sinus rhythm with short IN T wave abnormality, consider inferior is chemia T wave abnormality, consider anterolater al ischemia Prolonged QT Abnormal ECG When compared with ECG of 10-FEB-2020 04 :07, Premature ventricular complexes are no l onger Present T wave inversion more evident in Anterio r leads Confirmed by MD Webster Roberto ([id number]) on 02/10 5:26:11 PM Procedure Note Interface, External Ris In - 02/11/2020 5:26 PM CDT Ventricular Rate 84 BPM Atrial Rate 84 BPM P-R Interval 102 ms QRS Duration 78 ms Q-T Interval 402 ms QTC Calculation(Bazett) 475 ms P Rogers 44 degrees R Rogers 51 degrees T Rogers 251 degrees Sinus rhythm with short IN T wave abnormality, consider inferior is chemia T wave abnormality, consider anterolater al ischemia Prolonged QT Abnormal ECG When compared with ECG of 10-FEB-2020 04 :07, Premature ventricular complexes are no l onger Present T wave inversion more evident in Anterio r leads Confirmed by MD Webster Roberto ([id number]) on 02/11/2020 5:26:11 PM Performing Organization Address [facility] Phone Number GE MUSE Lactic acid, venous (02/11/2020 2:32 AM CDT) Lactate, Venous 1.27 0.50 - 2.20 mmol/L [facility] Specimen Blood Narrative Performed At Hospitalist ID - PIAYA L [facility] Performing Organization Address City/[facility] Centercode Phone Number [facility] [address] [place] [address] CENTER RPR (02/11/2020 2:32 AM CDT) RPR Nonreactive Nonreactive [facility] Specimen Blood Performing Organization Address City/State/Zipcode Phone Number [address] [address] CENTER PTH, intact (02/11/2020 1:15 AM CDT) PTH 530.8 (H) 8.5 - 72.5 pg/mL [facility] Specimen Blood Narrative Performed At Hospitalist ID - PIAYA L [facility] Performing Organization Address City/[facility]/Zipcode Phone Number [address] [address] [place] Hemoglobin A1c (02/11/2020 1:15 AM CDT) Hemoglobin A1C 5.6 4.3 - 6.1 % [facility] Specimen Blood Performing Organization Address [facility] Centercode Phone Number [address] [address] [place] Vancomycin level, random (02/11/2020 1:15 AM CDT) Vancomycin Rm 5.0 ug/mL [facility] Specimen Blood Narrative Performed At Reference Range: No Normals [facility] Hospitalist ID - PIAYA L Performing Organization Address [facility] Centercode Phone Number [address] [address] CENTER HEMODIALYSIS INPATIENT (02/11/2020 12:15 AM CDT) Narrative Performed At Merlyn Gutierrez RN 02/11/2020 2:37 AM Verified consent signed for HD and with order to use CVC. Patient completed 2 hours of HD via [facility] acute dialysis CVC, with 0 fluid removed per HD order. Jose jordan 12 G administered at start of treatment and Mando CARDENAS ord er.Patient tolerated treatment.Report given to Primary RN Christina. Lab Results Component Value Date WBC 28.1 (H) 02/10/2020 HGB 10.4 (L) 02/10/2020 HCT 29.0 (L) 02/10/2020 MCV 82.1 02/10/2020 PLT 45 (L) 02/10/2020 Lab Results Component Value Date GLUCOSE 148 (H) 02/10/2020 CALCIUM 7.5 (L) 02/10/2020 NA 137 02/10/2020 K 3.9 02/10/2020 CO2 17 (L) 02/10/2020 CL 95 (L) 02/10/2020 BUN 167 (H) 02/10/2020 CREATININE 19.40 (H) 02/10/2020 Results for JEANNIE KAUFFMAN ( [id number]) as of 02/11/2020 00:18 Ref. Range 02/10/2020 07:26 HBsAg Screen Latest Ref Range: Nonreacti veNonreactive Fibrinogen (02/10/2020 8:05 PM CDT)Only the most recent of2 resultswithin the time period is included. Fibrinogen 218 (L) 225 - 434 mg/dl [facility] Specimen Blood Performing Organization Address [facility] Phone Number [address] [address] CENTER Uric acid (02/10/2020 8:05 PM CDT) Uric Acid 10.6 (H) 2.6 - 7.2 mg/dL [facility] Specimen Blood Narrative Performed At Hospitalist ID - PIAYA L [facility] Performing Organization Address [facility]/Zipcode Phone Number [address] [address] CENTER IR Percutaneous Nephrostomy - Ext. Drain Placement (02/10/2020 4:55 PM CDT) Specimen Narrative Performed At FINAL REPORT [facility] PROCEDURE: Genitourinary catheter placem ent Procedural Personnel Attending physician(s): Yani Malone MD Fellow physician(s): None Resident physician(s): None Advanced practice provider(s): None Pre-procedure diagnosis: Bilateral hydro nephrosis Post-procedure diagnosis: Same Indication: Urinary obstruction Catheter(s) placed because the previous catheter(s) became dislodged within 30 days of placement (QCDR): No Additional clinical history: None Complications: No immediate complication s. IMPRESSION: Bilateral nephrostomy tube placement. Plan: Bilateral PCNs to gravity. PROCEDURE SUMMARY - Target organ: Bilateral northway kidneys - Image-guided placement of genitourinar y catheter(s) - Additional procedure(s): None PROCEDURE DETAILS: Pre-procedure Consent: Informed consent for the proced ure including risks, benefits and alternatives was obtained and time-o ut was performed prior to the procedure. Preparation: The site was prepared and d raped using maximal sterile barrier technique including cutaneous an tisepsis. Anesthesia/sedation Level of anesthesia/sedation: Moderate s edation (conscious sedation) 0.5mg Versed, 50mcg Fentanyl Anesthesia/sedation administered by: Ind ependent trained observer under attending supervision with continu ous monitoring of the patient\\X2019\\s level of consciousness a nd physiologic status Total intra-service sedation time (minut es): 30 Left genitourinary catheter placement Local anesthesia was administered. A nee dle was advanced into the renal collecting system under ultrasound and fluoroscopy guidance. A wire was advanced, the tract was seriall y dilated and a nephrostomy tube was placed . Contrast injection was performed. Genitourinary catheter placed: 10 Maur[place] Cook multipurpose Findings: Moderate hydronephrosis. Locki ng loop in renal pelvis. External catheter securement: Non-absorb able suture Right genitourinary catheter placement Local anesthesia was administered. A nee dle was advanced into the renal collecting system under ultrasound and fluoroscopy guidance. A wire was advanced, the tract was seriall y dilated and a nephrostomy tube was placed . Contrast injection was performed. Genitourinary catheter placed: 10 [place] Cook multipurpose Findings: Severe hydronephrosis. Locking loop in renal pelvis. External catheter securement: Non-absorb able suture Additional genitourinary system interven tion Genitourinary intervention: None Location of intervention: Not applicable Device used: Not applicable Description of intervention: Not applica ble Post-intervention findings: Not applicab le Contrast Contrast agent: Isovue 300 Contrast volume (mL): 10 Radiation Dose Fluoroscopy time (minutes): 2.4 Reference air kerma (mGy): 6.0 Additional Details Additional description of procedure: Non e Equipment details: None Specimens removed: None. A sample from e ach side was sent for analysis. Estimated blood loss (mL): Less than 10 Standardized report: _[email or web address] [email or web address]_[email or web address] Attestation Signer name: Yani Malone I attest that I was present for the enti re procedure. I reviewed the stored images and agree with the report as written. Signed: Yani Malone MD Report Verified Date/Time:02/10/2020 17:23:45 Reading Location: [facility] P048 Angio Body Reading Room Procedure Note Interface, External Ris In - 02/10/2020 5:25 PM CDT FINAL REPORT PROCEDURE: Genitourinary catheter placem ent Procedural Personnel Attending physician(s): Yani Malone MD Fellow physician(s): None Resident physician(s): None Advanced practice provider(s): None Pre-procedure diagnosis: Bilateral hydro nephrosis Post-procedure diagnosis: Same Indication: Urinary obstruction Catheter(s) placed because the previous catheter(s) became dislodged within 30 days of placement (QCDR): No Additional clinical history: None Complications: No immediate complication s. IMPRESSION: Bilateral nephrostomy tube placement. Plan: Bilateral PCNs to gravity. PROCEDURE SUMMARY - Target organ: Bilateral northway kidneys - Image-guided placement of genitourinar y catheter(s) - Additional procedure(s): None PROCEDURE DETAILS: Pre-procedure Consent: Informed consent for the proced ure including risks, benefits and alternatives was obtained and time-o ut was performed prior to the procedure. Preparation: The site was prepared and d raped using maximal sterile barrier technique including cutaneous an tisepsis. Anesthesia/sedation Level of anesthesia/sedation: Moderate s edation (conscious sedation) 0.5mg Versed, 50mcg Fentanyl Anesthesia/sedation administered by: Ind ependent trained observer under attending supervision with continu ous monitoring of the patient\\X2019\\s level of consciousness a nd physiologic status Total intra-service sedation time (minut es): 30 Left genitourinary catheter placement Local anesthesia was administered. A nee dle was advanced into the renal collecting system under ultrasound and fluoroscopy guidance. A wire was advanced, the tract was seriall y dilated and a nephrostomy tube was placed . Contrast injection was performed. Genitourinary catheter placed: 10 [place] Cook multipurpose Findings: Moderate hydronephrosis. Locki ng loop in renal pelvis. External catheter securement: Non-absorb able suture Right genitourinary catheter placement Local anesthesia was administered. A nee dle was advanced into the renal collecting system under ultrasound and fluoroscopy guidance. A wire was advanced, the tract was seriall y dilated and a nephrostomy tube was placed . Contrast injection was performed. Genitourinary catheter placed: 10 [place] Cook multipurpose Findings: Severe hydronephrosis. Locking loop in renal pelvis. External catheter securement: Non-absorb able suture Additional genitourinary system interven tion Genitourinary intervention: None Location of intervention: Not applicable Device used: Not applicable Description of intervention: Not applica ble Post-intervention findings: Not applicab le Contrast Contrast agent: Isovue 300 Contrast volume (mL): 10 Radiation Dose Fluoroscopy time (minutes): 2.4 Reference air kerma (mGy): 6.0 Additional Details Additional description of procedure: Non e Equipment details: None Specimens removed: None. A sample from e ach side was sent for analysis. Estimated blood loss (mL): Less than 10 Standardized report: [email or web address] [email or web address] Attestation Signer name: Yani Malone I attest that I was present for the enti re procedure. I reviewed the stored images and agree with the report as written. Signed: Yani Malone MD Report Verified Date/Time: 02/10/2020 1 7:23:45 Reading Location: [place] [address] Angio Body Reading Room Performing Organization Address City/State/Zipcode Phone Number GE RIS Urinalysis w/Microscopic + Reflex to Culture (02/10/2020 4:48 PM CDT) [facility], UA Yellow [facility] Clarity, UA Cloudy [facility] Specific [place], UA 1.015 1.001 - 1.035 [facility] pH, UA 6.0 5.0 - 8.0 [facility] Protein, UA 100 mg/dL (A) Negative [facility] Glucose, UA 50 mg/dL (A) Negative [facility] Ketones, UA Negative Negative [facility] Bilirubin, UA Negative Negative [facility] Blood, UA Large (A) Negative [facility] Nitrite, UA Negative Negative [facility] Leukocytes, UA Large (A) Negative [facility] Urobilinogen, UA 0.2 0.2 - 1.0 mg/dL [facility] RBC, UA 730 /HPF [facility] WBC, UA 271 /HPF [facility] Mucus Many [facility] Hyaline Casts, UA 29 /LPF [facility] Amorphous Crystals Rare [facility] Specimen Source [facility] Specimen Urine - Urine, Nephrostomy Narrative Performed At Hospitalist ID - [auto] [facility] Hospitalist ID - tech Performing Organization Address City/[facility]/Zipcode Phone Number [address] [address] CENTER Urine culture (02/10/2020 4:48 PM CDT) Result No growth [facility] Specimen Urine - Urine, Nephrostomy Performing Organization Address City/[facility]/Zipcode Phone Number [address] [address] [place] Transfuse Leuko-Red RBC (02/10/2020 1:09 PM CDT)Only the most recent of3 resultswithin the time period is included.Blood gas, arterial (02/10/2020 12:39 PM CDT)Only the most recent of2 resultswithin the time period is included. pH, Arterial 7.45 7.35 - 7.45 [facility] pCO2, Arterial 25 (L) 35 - 45 mmHg [facility] pO2, Arterial 55 (L) 80 - 90 mmHg [facility] O2 Sat, Arterial 92.2 (L) 96.0 - 97.0 % [facility] HCO3, Arterial 17 (L) 21 - 29 mmol/L [facility] Base Excess, Arterial -6.1 (L) -2.0 - 3.0 mmol/L [facility] Patient Temperature 35.6 C [facility] FIO2 21.0 % [facility] Specimen Blood, Arterial Performing Organization Address City/State/Zipcode Phone Number [facility] [address] [place] [address] [place] Comprehensive metabolic panel (02/10/2020 10:37 AM CDT)Only the most recent of2 resultswithin the time period is included. Protein, Total 4.9 (L) 6.0 - 8.3 gm/dL [facility] ER Albumin 2.4 (L) 3.5 - 5.0 g/dL [facility] ER Alkaline Phosphatase 92 40 - 150 U/L [facility] ER Total Bilirubin 0.5 0.2 - 1.2 mg/dL [facility] ER Sodium 139 136 - 145 meq/L [facility] ER Potassium 4.4 3.5 - 5.1 meq/L [facility] Chloride 96 (L) 98 - 107 meq/L [facility] CO2 21 (L) 22 - 29 meq/L [facility] BUN 169 (H) 7 - 21 mg/dL [facility] ER Creatinine 19.77 (H) 0.57 - 1.25 mg/dL [facility] ER Glucose 105 70 - 105 mg/dL [facility] ER Calcium 7.4 (L) 8.4 - 10.2 mg/dL [facility] ER AST 12 5 - 34 U/L [facility] ALT 10 6 - 55 U/L [facility] ER EGFR 2Comment: ESTIMATED GFR mL/min/1.73 sq m [facility] IS NOT ACCURATE [facility] CREATININE CLEARANCE IN PREDICTING GLOMERULAR FILTRATION RATE. ESTIMATED GFR IS NOT APPLICABLE FOR DIALYSIS PATIENTS. Specimen Blood Narrative Performed At Hospitalist ID - [place] [facility] Performing Organization Address City/State/Zipcode Phone Number [facility] [address] [place] [address] CENTER XR chest 1 view portable / bedside (02/10/2020 10:12 AM CDT)Only the most recent of2 resultswithin the time period is included. Specimen Narrative Performed At FINAL REPORT [facility] CLINICAL HISTORY: post-trialysis cathete r placement TECHNIQUE: 1 view of the chest. COMPARISON: 12/11/2019 IMPRESSION: There is a new right jugular dialysis ca theter terminating in the SVC approximately 2 cm above the cavoatrial junction. There is no pneumothorax. Pulmonary vascular congest ion and bilateral interstitial lung opacities are similar appearing. There is no significant pleural fluid. The cardiomed iastinal silhouette is magnified by technique. A chronic right clavicular fracture deformity is again seen. Signed: Tom Ceja MD Report Verified Date/Time:02/10/2020 10:29:20 Reading Location: [facility] [employer] Reading Room Procedure Note Interface, External Ris In - 02/10/2020 10:31 AM CDT FINAL REPORT CLINICAL HISTORY: post-trialysis cathete r placement TECHNIQUE: 1 view of the chest. COMPARISON: 12/11/2019 IMPRESSION: There is a new right jugular dialysis ca theter terminating in the SVC approximately 2 cm above the cavoatrial junction. There is no pneumothorax. Pulmonary vascular congest ion and bilateral interstitial lung opacities are similar appearing. There is no significant pleural fluid. The cardiomed iastinal silhouette is magnified by technique. A chronic right clavicular fracture deformity is again seen. Signed: Tom Ceja MD Report Verified Date/Time: 02/10/2020 1 0:29:20 Reading Location: [employer] [facility] Reading Room Performing Organization Address City/State/Zipcode Phone Number [facility] 2D Echo W/Doppler(CW/PW/Color) (02/10/2020 7:55 AM CDT) Ejection Fraction [facility] ECHO HEAR TLAB [facility] Specimen Narrative Performed At Transthoracic Echocardiography Report (T TE) [facility] ECHO HEARTLAB [facility] Demographics Patient Name JEANNIE KAUFFMAN Date of Study 02/10/2020 GERI [id number] GenderFem ginger Visit Number [id number] RaceUnkn own [id number] Number [id number] Number Date of Birth1965 Referring Physician Anam Hernandez Age54 year(s) Sales Promotion Director Sunday porter AnalysSindhu Mcfadden InterpretingYosef linn, Physician MD Beth Elkins MD Procedure Type of Study TTE procedure:2DECHO W DOPPLER(CW/PW/COLOR) (Routine) Indications:Shortness of breath. Clinical History HGB 5.3 HCT 15.0 % BILATERAL HYDRONEPHROSIS Height: 61 inches Weight: 49.9 kg (110 lbs) BSA: 1.47 m^2 BMI: 20.78 kg/m^2 HR: 92 bpm BP: 108/63 mmHg Summary 1. The left ventricle is chamber size (by vol index) is normal (female - LVED vol - 29-61ml/m2). Normal LV wall thickness. All of the LV segments contract normally . Global LV systolic function normal . LVEF by Albrecht's method of disk assessment is normal (55 -60%) . 2. The right ventricular chamber size and systolic function are within normal limits. S' 11 cm/sec. 3. LA size is moderately enlarged (42-48 ml/m2) . RA cavity size is normal . 4. Aortic valve leaflet morphology is partially seen. Valve appears to be trileaflet with significant thickening and calcification of the leaflets. Based on PHT and diastolic flow reversal in the descending aorta, suggestion of moderate to severe Aortic Regurgitation. 5. Mild MV leaflet thickening and calcification noted. Moderate mitral annular calcification. Mild to moderate, eccentric, posteriorly directed mitral regurgitation. 6. Mild tricuspid regurgitation. Incomplete TR jet. The estimated peak systolic PA pressure is at least 55-60 mmHg . The estimated RA pressure by IVC dynamics 5-10mmHg . 7. No significant pericardial effusion is visualized. Previous Study No prior exam available for comparison. Please consider BONIFACIO for better visualization of the aortic and mitral valves and more accurate quantification of the degree of Aortic and mitral regurgitation. Signature Findings Technical Quality: Technically fair exam . Left Ventricle The left ventricle is chamber size (by vol index) is normal (female - LVED vol - 29-61ml/m2). No rmal LV wall thickness. Al l of the LV segments contract normally . Gl obal LV systolic function normal . LV EF by Albrecht's method of disk assessmen t is no rmal (55-60%) . Th e LVEF was measured using Albrecht's bi-p mckay me thod of disk . De gree of diastolic dysfunction is indeter minate. Left AtriumLA size is moderately enlarged (42-48 ml/m2) . Right VentricleThe right ventricular chamber size and systolic fu nction are within normal limits. S' 11 c m/sec. Right Atrium RA cavity size is normal . Aortic Valve Aortic valve leaflet morphology is partially seen. Va lve appears to be trileaflet with signif icant th ickening and calcification of the leafle ts. Based on PHT and diastolic flow reversal in the de scending aorta, suggestion of moderate t o severe Ao rtic Regurgitation. No aortic stenosis. Pl ease consider BONIFACIO for better visualizati on of the va lve and more accurate quantification of the de gree of Aortic regurgitation. Mitral Valve Mild MV leaflet thickening and calcification noted. Mo derate mitral annular calcification. Mil d to mo derate, eccentric, posteriorly directed mitral re gurgitation. Tricuspid ValveMild tricuspid regurgitation. Incomplete TR jet. Th e estimated peak systolic PA pressure is at least 55 -60 mmHg . Pulmonic Valve Pulmonic valve morphology is not well seen. Marinelli ggestion of mild to moderate PI noted. AortaAortic root size (SInus of Valsalva diameter) i s no rmal . PericardiumNo significant pericardial effusion is visualized. IVC/SVC/PA/PV/PleuralThe estimated RA pressure by IVC dynamics 5-10mmHg . Chambers/Structures Left Atrium LA Dimension: 3.4 cm LA Area: 18.54 cm^2 LA Volume: 62.16 ml LA Vol. Index: 42 ml/m^2 Left Ventricle LVIDd: 4.6 cm LV Septum Diastolic: 0.79 cm LV PW Diastolic: 0.87 cm LVEDV Albrecht's:72.28 ml LVESV Albrecht's:31.83 ml LVEF Albrecht's: 56 %L VEDVI: 49 ml/m^2 LVESVI: 22 ml/m^2 LVOT Diameter: 1.99 cm Right Atrium RA Area: 10 cm^2 RA Vol. (Sngl Plane): 2 1 ml Right Ventricle RV Diast Dim.: 2.6 cm RV Systolic Pressure: 59 mmHg TAPSE: 1.79 cm Aorta Ao Root S of Martina.: 3.04 cm Doppler/Quantitative Measurements Mitral Valve MV Peak E-Wave: 0.9 m/s MV Peak A-Wave: 0.78 m/s E/A Ratio: 1. 15 Peak Gradient: 3.23 mmHg Deceleration Time: 166.8 msec MV Raul. Peak: Tissue Doppler E' Septal Velocity: 0.11 m/sE/E': 8.08 E' Lateral Velocity: 0.12 m/s Aortic Valve Peak Velocity: 1.93 m/sMean Velocity: 1.37 m/s Peak Gradient: 14.94 mmHgMean Gradient: 8.25 mmHg AV Area (continuity): 2.13 cm^2 AV VTI: 31.91 cm AR P1/2t: 254 msec AV DVI: 0.68 LVOT Peak Velocity: 1.26 m/s Peak Gradient: 6.39 mmHg Mean Velocity: 0.83 m/s Mean Gradient: 3.16 mmHg LVOT Diameter: 1.99 cmLVOT VTI: 21.84 cm LVOT Area: 3.11 cm^2LVOT SV:67.89 ml LVOT CO: 6.25 l/min LVOT CI: 4.25 l/min/m^2 Tricuspid Valve Estimated RAP: 10 mmHg TR Velocity: 3.5 m/s TR Gradient: 49 mmHg Pulmonic Valve Estimated PASP: 59 m mHg Procedure Note Interface, External Ris In - 02/10/2020 11:46 AM CDT Transthoracic Echocardiography Report (TTE) Demographics Patient Name JEANNIE KAUFFMAN Date of Study 02/10/2020 GERI Gender Female Visit Number [id number] Race Unknown [place] [id number] Number Date of 1965 Referri Physician Anam Hernandez Age 54 year(s) Sonadonis Murillo Network Systems Administrator Evi Mcfadden Interpr eting Yosef Angeles, Annabellei kaylin Elkins MD Procedure Type of Study TTE procedure:2DECHO Michelet SPARKS R(CW/PW/COLOR) (Routine) Indications:Shortness of breath. Clinical History HGB 5.3 HCT 15.0 % BILATERAL HYDRONEPHROSIS Height: 61 inches Weight: 49.9 kg (110 l bs) BSA: 1.47 m^2 BMI: 20.78 kg/m^2 HR: 92 bpm BP: 108/63 mmHg Summary 1. The left ventricle is chamber size ( by vol index) is normal (female - LVED vol - 29-61ml/m2). Normal LV wall thickness. All of the LV segments contract normally . Global LV systolic function normal . LVEF by Albrecht's method of disk assessment is normal (55 -60%) . 2. The right ventricular chamber size a nd systolic function are within normal limits. S' 11 cm/sec. 3. LA size is moderately enlarged (42-4 8 ml/m2) . RA cavity size is normal . 4. Aortic valve leaflet morphology is p artially seen. Valve appears to be trileaflet with significant thickening and calcification of the leaflets. Based on PHT and diastolic flow reversa l in the descending aorta, suggestion of moderate to severe Aortic Regurgitation. 5. Mild MV leaflet thickening and calci fication noted. Moderate mitral annular calcification. Mild to moderate , eccentric, posteriorly directed mitral regurgitation. 6. Mild tricuspid regurgitation. Incomp lete TR jet. The estimated peak systolic PA pressure is at least 55-60 mmHg . The estimated RA pressure by IVC dynamics 5-10mmHg . 7. No significant pericardial effusion is visualized. Previous Study No prior exam available for comparison. Please consider BONIFACIO for better visualization of the aortic and mitral valves and more accurate quantification of the degree of Aortic and mitral regurgitation. Signature Findings Technical Quality: Technically fair exam . Left Ventricle The left ventric le is chamber size (by vol index) is normal (femal e - LVED vol - 29-61ml/m2). Normal LV wall t hickness. All of the LV se gments contract normally . Global LV systol ic function normal . LVEF by Albrecht' s method of disk assessment is normal (55-60%) . The LVEF was tameka sured using Albrecht's bi-plane method of disk . Degree of diasto lic dysfunction is indeterminate. Left Atrium LA size is moder ately enlarged (42-48 ml/m2) . Right Ventricle The right ventri cular chamber size and systolic function are wit hin normal limits. S' 11 cm/sec. Right Atrium RA cavity size i s normal . Aortic Valve Aortic valve gretel flet morphology is partially seen. Valve appears to be trileaflet with significant thickening and c alcification of the leaflets. Based on PHT and diast olic flow reversal in the descending aorta , suggestion of moderate to severe Aortic Regurgita tion. No aortic stenosis. Please consider BONIFACIO for better visualization of the valve and more a ccurate quantification of the degree of Aortic regurgitation. Mitral Valve Mild MV leaflet thickening and calcification noted. Moderate mitral annular calcification. Mild to moderate, eccent abel, posteriorly directed mitral regurgitation. Tricuspid Valve Mild tricuspid r egurgitation. Incomplete TR jet. The estimated pe ak systolic PA pressure is at least 55-60 mmHg . Pulmonic Valve Pulmonic valve m orphology is not well seen. Suggestion of mi ld to moderate PI noted. Aorta Aortic root size (SInus of Valsalva diameter) is normal . Pericardium No significant p ericardial effusion is visualized. IVC/SVC/PA/PV/Pleural The estimated RA pressure by IVC dynamics 5-10mmHg . Chambers/Structures Left Atrium LA Dimension: 3.4 cm LA Area: 18.54 cm^2 LA Volume: 62.16 ml LA Vol. Index: 42 ml/m^2 Left Ventricle LVIDd: 4.6 cm LV Septum Diastolic: 0.79 cm LV PW Diastolic: 0.87 cm LVEDV Albrecht's:72.28 ml LVESV Albrecth's:31.83 ml LVEF Albrecht's: 56 % LVEDVI: 49 ml/m^2 LVESVI: 22 ml/m^2 LVOT Diameter: 1.99 cm Right Atrium RA Area: 10 cm^2 RA Vol. (Sngl Plane): 21 ml Right Ventricle RV Diast Dim.: 2.6 cm RV Syst olic Pressure: 59 mmHg TAPSE: 1.79 cm Aorta Ao Root S of Martina.: 3.04 cm Doppler/Quantitative Measurements Mitral Valve MV Peak E-Wave: 0.9 m/s M V Peak A-Wave: 0.78 m/s E /A Ratio: 1.15 P eak Gradient: 3.23 mmHg D eceleration Time: 166.8 msec MV Raul. Peak: Tissue Doppler E' Septal Velocity: 0.11 m/s E /E': 8.08 E' Lateral Velocity: 0.12 m/s Aortic Valve Peak Velocity: 1.93 m/s Mean Velocity: 1.37 m/s Peak Gradient: 14.94 mmHg Mean Gradient: 8.25 mmHg AV Area (continuity): 2.13 cm^2 AV VTI: 31.91 cm AR P1/2t: 254 msec AV DVI: 0.68 LVOT Peak Velocity: 1.26 m/s Pea k Gradient: 6.39 mmHg Mean Velocity: 0.83 m/s Tameka n Gradient: 3.16 mmHg LVOT Diameter: 1.99 cm LVO T VTI: 21.84 cm LVOT Area: 3.11 cm^2 LVO T SV:67.89 ml LVOT CO: 6.25 l/min LVO T CI: 4.25 l/min/m^2 Tricuspid Valve Estimated RAP: 10 mmHg TR Velocity: 3.5 m/s TR Gradient: 49 mmHg Pulmonic Valve Estimated PASP: 59 mmHg Performing Organization Address [facility]ode Phone Number [facility] MK[facility] Vitamin B12 and Folate (02/10/2020 7:26 AM CDT) Vitamin B12 824 (H) 213 - 816 pg/mL [facility] Folate 3.00 (L) >=7.00 ng/mL [facility] Specimen Blood Narrative Performed At Hospitalist ID - ANNA Mejia [facility] Performing Organization Address City/[facility]/Zipcode Phone Number [facility] [address] [place] [address] CENTER Iron, TIBC, % sat. (without ferritin) (02/10/2020 7:26 AM CDT) Iron 25.0 (L) 40.0 - 160.0 ug/dL [facility] TIBC 123 (L) 250 - 450 ug/dL [facility] Iron % Saturation 20 20 - 55 % [facility] Specimen Blood Narrative Performed At Hospitalist ID - ADMIN [facility] Performing Organization Address City/State/Zipcode Phone Number [address] [address] [place] Hepatitis B surface antigen (02/10/2020 7:26 AM CDT) HBsAg Screen Nonreactive Nonreactive [facility] Specimen Blood Narrative Performed At Specimen is considered negative for HBsAg. [facility] Performing Organization Address City/[facility]/Zipcode Phone Number [address] [address] [place] Blood Culture - Routine (Right Venipuncture) (02/10/2020 7:26 AM CDT)Only the most recent of2 resultswithin the time period is included. Result No growth in 5 days [facility] Specimen Blood Performing Organization Address City/[facility] Cent[facility]ode Phone Number [address] [address] [place] Reticulocyte count (02/10/2020 7:26 AM CDT) % Retic 1.3 0.5 - 1.7 % [facility] Specimen Blood Narrative Performed At Hospitalist ID - [id number] [facility] Performing Organization Address City/[facility]/Zipcode Phone Number [address] [address] [place] Lactate dehydrogenase (LDH) (02/10/2020 7:26 AM CDT) LDH 406 (H) 125 - 220 U/L [facility] Specimen Blood Narrative Performed At Hospitalist ID - [place] [facility] Performing Organization Address City/[facility]/Zipcode Phone Number [address] [address] CENTER Haptoglobin (02/10/2020 7:26 AM CDT) Haptoglobin 226 14 - 258 mg/dL [facility] Specimen Blood Narrative Performed At Hospitalist ID - JAMES [facility] Performing Organization Address City/[facility] Cent[facility]ode Phone Number [address] [address] CENTER Ferritin (02/10/2020 7:26 AM CDT) Ferritin 513.21 (H) 5.00 - 275.00 ng/mL [facility] Specimen Blood Narrative Performed At Hospitalist ID - AKILAH Hidalgo [facility] Performing Organization Address [facility] Centerc[facility] Phone Number [address] [address] CENTER ABORH, manual (02/10/2020 4:52 AM CDT) ABO Grouping A [facility] Rh Factor POS [facility] Specimen Blood Performing Organization Address [facility] Phone Number [address] [address] Type and screen, automated (02/10/2020 4:27 AM CDT) ABO/RH AUTOMATED (BEAKER) A POSITIVE [facility] Ab Scrn NEGATIVE [facility] Specimen Blood Performing Organization Address [facility] Centercode Phone Number [address] [address] SARS-CoV2/RT-PCR (Symptomatic ONLY) (02/10/2020 4:01 AM CDT) SARS-COV2/RT-PCR Not Detected Not Detected, Negative [facility] SARS-COV-2 PERFORMING LAB [facility] Specimen Other Narrative Performed At Negative results do not preclude SARS-CoV-2 [facility] infection and should not be used as the sole basis for patient management decisions. Negative results must be combined with clinical observations, patient history, and epidemiological information. A false negative result may occur if a specimen is improperly collected, transported or handled. The limit of detection for this assay is 250 copies/mL. This SARS CoV-2 test is a rapid, real-time RT-PCR test intended for the qualitative detection of nucleic acid from SARS-CoV-2 in a nasopharyngeal swab specimen collected from individuals suspected of COVID-19 by their healthcare provider. This test has not been Food and Drug Administration (FDA) cleared or approved and has been authorized by FDA under an Emergency Use Authorization (EUA). This EUA will be effective until the declaration that circumstances exist justifying the authorization of the emergency use of in vitro diagnostic tests for detection and/or diagnosis of COVID-19 is terminated under Section 564(b)(2) of the Act or the EUA is revoked under Section 564(g) of the Act. Fact Sheet for Healthcare Providers: https://www.[employer]/Documents/Xpert%20Xpre ss%20SARS%20CoV-2/Fact%20Sheets/3023802%20SAR S-COV-2%20HEALTHCARE%20PROVIDERS%20FACT%20SHEE T.pdf Fact Sheet for Healthcare Patients: https://www.[employer].com/Documents/Xpert%20Xpre ss%20SARS%20CoV-2/Fact%20Sheets/3023801%20SAR S-COV-2%20PATIENT%20FACT%20SHEET.pdf Performing Laboratory: [address] [place] [address] Performing Organization Address City/State/Zipcode Phone Number [address] [address] CENTER Troponin I (02/10/2020 3:17 AM CDT) Troponin I 0.68 (HH) 0.00 - 0.03 ng/mL [facility] Specimen Blood Narrative Performed At Troponin I (TnI) levels must be interpreted [facility] in the context of the presenting symptoms and the clinical findings. Elevated TnI levels indicate myocardial damage, but are not specific for ischemic heart disease. Elevated TnI levels are seen in patients with other cardiac conditions (including myocarditis and congestive heart failure), and slight TnI elevations occur in patients with other conditions, including sepsis, renal failure, acidosis, acute neurological disease, and persistent tachyarrhythmia. Hospitalist ID - [place] Performing Organization Address City/[facility]/Zipcode Phone Number [address] [phone] CENTER B-type Natriuretic Factor (BNP) (02/10/2020 3:17 AM CDT) BNP 2,406 (H) 0 - 100 pg/mL [facility] Specimen Blood Narrative Performed At Hospitalist ID - [place] [facility] Performing Organization Address City/State/Zipcode Phone Number [address] [phone] CENTER after 03/28/2019 Insurance Payer Benefit Plan / Group Subscriber ID Type Phone A leydi IRVIN SUPERIOR xxxxxxxxxxx CDC REVIEW CDC REVIEW xxxxxxxx [address] [place], [place] [phone] (Home) [address] [place] [phone] Advance Directives Patient has advance care planning documents, and code status on file. For more information, please contact:[address] [phone] Code Status Date Activated Date Inactivated Comments Full Code 02/12/2020 10:57 AM 02/18/2020 1:17 PM This code status was determined by: Patient Full Code 02/10/2020 2:14 AM 02/12/2020 10:56 AM This code status was determined by: Patient
--- OUTSIDE RECORDS SUMMARY | 2020-03-28 10:37 | XMS REPORT | Continuity of Care Document ---
:1965 Author Organization [facility] t Address [address] [place] [address] Care Team Providers Name Role Phone CASIMIRO SANTOS Attending Clinician Unavailable Casimiro Santos MD Attending Clinician Ana Moreno MD Attending Clinician MARY Attending Clinician Unavailable Mary CARDENAS Attending Clinician Paul CARDENAS Attending Clinician Lisa CARDENAS, In Attending Clinician CASIMIRO SANTOS Admitting Clinician Unavailable MARY Admitting Clinician Unavailable Payers Payer Name Policy Policy Number Effective Expiration Source Type Date Date AMBETTERAMBETTER xxxxxxxxxxx [facility] SUPERIORxxxxxxxxxxx [facility] CDC REVIEWCDC xxxxxxxx [facility] REVIEWxxxxxxxxPO [facility] [id number] Center Problems Condition Condition Condition Status Onset Resolution Last Treating Co mments Source Name Details Category Date Date Treatment Clinician Date Cervical Cervical Disease [facility] 00 [employer] Bilateral Bilateral Disease Active [facility] hydronephr hydronephr 02-09 Malinda kes - osis osis 00:00: Medical 00 [employer] LIANNE (acute LIANNE (acute Disease Active [facility] kidney kidney [facility] Allergies, Adverse Reactions, Alerts Allergy Allergy Status Severity Reaction(s) Onset Inactive Treating Comm ents Source Name Type Date Date Clinician Penicill Propensi Active [facility] to 02-09 [facility] - adverse 00:00: Medical reaction 00 Center s Social History Social Habit Start Date Stop Date Quantity Comments Source History SDOH Alcohol [facility] - Std Drinks [facility] History WAOH Alcohol [facility] - Binge [facility] Sex Assigned At [facility] Cigarettes smoked 2020-03-26 2020-03-26 [facility] - current (pack per 00:00:00 00:00:00 Medical Center day) - Reported Cigarette pack-years 2020-03-26 2020-03-26 [facility] - 00:00:00 00:00:00 [facility] History SDOH Alcohol 2020-03-26 2020-03-26 1 [facility] - Frequency 00:00:00 00:00:00 [facility] Smoking Status Start Date Stop Date Source Current every day smoker 2020-03-26 00:00:00 [facility] Medications Ordered Filled Start Stop Current Ordering Indication Dosage Frequency Signature Comments Components Source Medication Medication Date Date Medication? Clinician (SIG) Name Name folic acid 2019-0 Yes 1mg QD Take 1 [facility] (FOLVITE) 1 6-03 tablet (1 [facility] - MG tablet 00:00: mg total) Med ical 00 by mouth Center daily. pantoprazol 2020-0 Yes 40mg QD Take [address] [facility] [facility] e 6-03 tablet (40 [facility] - (PROTONIX) 00:00: mg total) Me dical 40 MG 00 by mouth Center tablet daily. polyethylen 2020-0 Yes 17g QD Take [address] e glycol 6-03 by mouth [facility] - (GLYCOLAX) 00:00: daily. Medic al 17 gram 00 Center packet zinc 2019-0 Yes Apply as [facility] oxide-jarad 02-16 needed to [facility] - latum 00:00: perianal Medical (CRITIC-AID 00 area for Cent er ) 20-51 % redness Pste and topical irritation paste .. hydrocortis 2020-0 2020- No Q.5D Place [facility] one 02-16 06-12 rectally 2 [facility] - (ANUSOL-HC) 00:00: 23:59 (two) Medi enrique 2.5 % 00 :00 times Center rectal daily for cream 10 days. levoFLOXaci 2020-0 2020- No 250mg Take [address] [facility] - 06-08 tablet [facility] - (LEVAQUIN) 00:00: 23:59 (250 mg Med ical 250 MG 00 :00 total) by Center tablet mouth every other day for 6 days. metroNIDAZO 500mg Take [address] [facility] (FLAGYL) 02-16 tablet [facility] - 500 MG 00:00: 23:59 (500 mg Medical tablet 00 :00 total) by Center mouth every 8 (eight) hours for 6 days. Vital Signs Vital Name Observation Time Observation Value Comments Source Systolic blood 2020-03-26 14:35:00 104 mm[Hg] [facility] Diastolic blood 2020-03-26 14:35:00 60 mm[Hg] [facility] Heart rate 2020-03-26 14:35:00 90 /min [facility] Body temperature 2020-03-26 14:35:00 36.89 Zoie [facility] Respiratory rate 2020-03-26 14:35:00 13 /min [facility] Oxygen saturation in 2020-03-26 14:35:00 99 /min [facility] Arterial blood by Medical Ce nter Pulse oximetry Body height 2020-03-26 09:04:17 153 cm [facility] Body weight Measured 2020-03-26 09:04:17 43.545 kg [facility] BMI 2020-03-26 09:04:17 18.60 kg/m2 [facility] Procedures Procedure Date / Time Performing Clinician Source Performed IR PORT REMOVAL 2020-03-26 14:29:[address] [facility] IR DRAINAGE CATHETER 2020-03-26 14:19:00 eFerny [facility] PROTHROMBIN TIME/INR 2020-03-26 07:41:00 Isacc Vikki [facility] APTT 2020-03-26 07:41:[address] [facility] CBC W/PLT COUNT & AUTO 2020-03-26 07:41:00 Vikki Dexter [facility] VENOUS DOPPLER LEGS 2020-03-11 10:15:[address] [facility] REPORT OF PROCEDURE - 2020-02-20 08:00:30 Provider, Default [facility] ENDOSCOPY SCAN [facility] RHYTHM STRIP - SCAN 2020-02-20 08:00:25 Provider, Default [facility] TISSUE EXAM 2020-02-18 09:04:00 Amy Mosley [facility] POCT-GLUCOSE METER 2020-02-18 07:49:00 Go Villagomez In [facility] BASIC METABOLIC PANEL (7) 2020-02-18 03:50:00 Lisa Sung In [facility] MAGNESIUM 2020-02-18 03:50:00 LisaCharlotteg In [facility] PHOSPHORUS 2020-02-18 03:50:00 LisaCharlotteg In [facility] CBC W/PLT COUNT & AUTO 2020-02-18 03:50:00 Charlotte Villagomezg In [facility] MR PELVIS WITHOUT IV 2020-02-17 21:55:00 Chico Calhoun [facility] POCT-GLUCOSE METER 2020-02-17 17:21:00 Charlotte Villagomezg In [facility] BASIC METABOLIC PANEL (7) 2020-02-17 14:46:00 LisaCharlotteg In [facility] MAGNESIUM 2020-02-17 14:46:00 Lisa Sung In [facility] PHOSPHORUS 2020-02-17 14:46:00 LisaCharlotteg In [facility] CBC W/PLT COUNT & AUTO 2020-02-17 14:46:00 LisaCharlotteg In [facility] POCT-GLUCOSE METER 2020-02-17 08:22:00 Lisa Sung In [facility] POCT-GLUCOSE METER 2020-02-17 05:50:00 Lisa Sung In [facility] POCT-GLUCOSE METER 2020-02-17 01:18:00 Lisa Sung In [facility] POCT-GLUCOSE METER 2020-02-16 21:12:00 Lisa Sung In [facility] POCT-GLUCOSE METER 2020-02-16 17:42:00 Lisa Go In [facility] CT BRAIN WITHOUT IV 2020-02-16 17:24:[address] Unique [facility] [address] CHEST WITHOUT IV 2020-02-16 17:24:00 Unique [facility] POCT-GLUCOSE METER 2020-02-16 12:15:00 Lisa Go In [facility] MISCELLANEOUS LAB ORDER 2020-02-16 09:48:00 Юлия Lazo [facility] INSULIN-LIKE GROWTH FACTOR 2020-02-16 09:48:00 Юлия Lazo [facility] CORTISOL 2020-02-16 09:48:00 Юлия Lazo [facility] ACTH 2020-02-16 09:48:00 Юлия Lazo [facility] BASIC METABOLIC PANEL (7) 2020-02-16 03:53:00 Paul, [facility] CBC W/PLT COUNT & AUTO 2020-02-16 03:53:00 Paul, [facility] POCT-GLUCOSE METER 2020-02-16 03:50:00 Paul, [facility] POCT-GLUCOSE METER 2020-02-16 00:24:00 Paul, [facility] POCT-GLUCOSE METER 2020-02-15 20:23:00 Paul, [facility] US RENAL COMPLETE 2020-02-15 17:56:00 Paul, [facility] POCT-GLUCOSE METER 2020-02-15 16:30:00 Paul, [facility] POCT-GLUCOSE METER 2020-02-15 13:17:00 Paul, [facility] POCT-GLUCOSE METER 2020-02-15 09:42:00 Paul, [facility] BASIC METABOLIC PANEL (7) 2020-02-15 05:03:00 Paul, [facility] CBC W/PLT COUNT & AUTO 2020-02-15 05:03:00 Paul, [facility] POCT-GLUCOSE METER 2020-02-15 04:57:00 Paul, [facility] POCT-GLUCOSE METER 2020-02-14 23:59:00 Paul, [facility] POCT-GLUCOSE METER 2020-02-14 20:56:00 Paul, [facility] BASIC METABOLIC PANEL (7) 2020-02-14 16:38:[facility] HEMOGLOBIN AND HEMATOCRIT 2020-02-14 16:38:00 [facility] POCT-GLUCOSE METER 2020-02-14 16:36:00 Paul, [facility] POCT-GLUCOSE METER 2020-02-14 12:30:00 Palu, [facility] BASIC METABOLIC PANEL (7) 2020-02-14 04:28:00 Paul, [facility] CBC W/PLT COUNT & AUTO 2020-02-14 04:28:00 Paul, [facility] POCT-GLUCOSE METER 2020-02-14 04:27:00 Paul, [facility] POCT-GLUCOSE METER 2020-02-14 01:10:00 Paul, [facility] POCT-GLUCOSE METER 2020-02-13 20:30:00 Paul, [facility] POCT-GLUCOSE METER 2020-02-13 15:41:00 Paul, [facility] CANCER ANTIGEN 125 (CA 2020-02-13 13:10:00 Jitendra Gayle Jose Alejandro [address] BASIC METABOLIC PANEL (7) 2020-02-13 13:10:00 [facility] POCT-GLUCOSE METER 2020-02-13 12:39:00 Paul, [facility] POCT-GLUCOSE METER 2020-02-13 07:55:00 Paul, [facility] POCT-GLUCOSE METER 2020-02-13 04:26:00 Paul, [facility] POCT-GLUCOSE METER 2020-02-12 [facility] 2020-02-12 17:50:46 Provider, Default [facility] HEMODIALYSIS INPATIENT 2020-02-12 15:22:45 Aleja Erickson [facility] POCT-GLUCOSE METER 2020-02-12 12:50:00 Paul, [facility] TRANSESOPHAGEAL ECHO 2020-02-12 10:14:24 Donnell Dickerson I [facility] BASIC METABOLIC PANEL (7) 2020-02-12 04:22:00 Anjana eHath Cha [facility] MAGNESIUM 2020-02-12 04:22:00 Anjana Heath [facility] PHOSPHORUS 2020-02-12 04:22:00 Anjana Heath [facility] CBC W/PLT COUNT & AUTO 2020-02-12 04:22:00 Ivana Anjana [facility] (CELLAVISION MANUAL DIFF) 2020-02-12 04:22:00 Anjana Heath Cha [facility] PREPARE LEUKO-REDUCED RBC 2020-02-11 23:54:00 Danika Swanson [facility] POCT-GLUCOSE METER 2020-02-11 20:57:00 Paul, [facility] POCT-GLUCOSE METER 2020-02-11 18:41:00 Mary [facility] POCT-GLUCOSE METER 2020-02-11 18:17:00 Mary [facility] TRANSFUSION SERVICE REPORT 2020-02-11 17:52:05 Provider, Default [facility] HEMOGLOBIN AND HEMATOCRIT 2020-02-11 17:52:00 Anjana Heath Cha [facility] CONT WAVE PULSED DOPPLER 2020-02-11 16:07:[address] [facility] COLOR-FLOW MAPPING 2020-02-11 16:07:[address] [facility] POCT-GLUCOSE METER 2020-02-11 15:50:00 Mary, [facility] BASIC METABOLIC PANEL (7) 2020-02-11 12:36:00 Anjana Heath Cha [facility] CORTISOL 2020-02-11 12:12:00 Anjana Heath [facility] POCT-GLUCOSE METER 2020-02-11 12:00:00 Mary, [facility] POCT-GLUCOSE METER 2020-02-11 11:20:00 Mary, [facility] ECG 12-LEAD 2020-02-11 09:51:43 Unknown, Hl7 [facility] POCT-GLUCOSE METER 2020-02-11 07:28:00 Mary, [facility] POCT-GLUCOSE METER 2020-02-11 04:34:00 Mary, [facility] LACTIC ACID, VENOUS 2020-02-11 02:32:00 Sukh Gu [facility] RPR 2020-02-11 02:32:00 Sukh Gu [facility] POCT-GLUCOSE METER 2020-02-11 01:31:00 Mary, [facility] PTH, INTACT 2020-02-11 01:15:00 Rosalina Chaudhari [facility] VANCOMYCIN LEVEL, RANDOM 2020-02-11 01:15:00 Minoo Carlton [facility] HEMOGLOBIN A1C 2020-02-11 01:15:00 Anjana Heath [facility] BASIC METABOLIC PANEL (7) 2020-02-11 01:15:00 Anjana Heath Cha [facility] MAGNESIUM 2020-02-11 01:15:00 [place], Anjana [facility] PHOSPHORUS 2020-02-11 01:15:00 Ivana Anjana [facility] CBC W/PLT COUNT & AUTO 2020-02-11 01:15:00 Mary Gracehipolitolily Anjana [facility] (CELLAVISION MANUAL DIFF) 2020-02-11 01:15:00 Mary GracehipolitoAnjana bautista Cha noy [facility] HEMODIALYSIS INPATIENT 2020-02-11 00:15:32 Jerrod Laurent [facility] POCT-GLUCOSE METER 2020-02-10 23:29:00 Mary, [facility] BASIC METABOLIC PANEL (7) 2020-02-10 20:05:00 DARON Kraft I [facility] HEMOGLOBIN AND HEMATOCRIT 2020-02-10 20:05:00 Ivana Anjana Lamar noy [facility] FIBRINOGEN 2020-02-10 20:05:00 Mary, [facility] URIC ACID 2020-02-10 20:05:00 Sukh Gu [facility] POCT-GLUCOSE METER 2020-02-10 20:02:00 Mary, [facility] POCT-GLUCOSE METER 2020-02-10 17:55:00 Mary, [facility] IR PERCUTANEOUS 2020-02-10 16:55:00 Mary, [facility] NEPHROSTOMY TUBE PLACEMENT [facility] URINE CULTURE 2020-02-10 16:48:00 Danika Swanson [facility] URINALYSIS W/ REFLEX URINE 2020-02-10 16:48:00 Helen Swanson [facility] POCT-GLUCOSE METER 2020-02-10 16:20:00 Mary [facility] POCT-GLUCOSE METER 2020-02-10 15:54:00 Mary, [facility] POCT-GLUCOSE METER 2020-02-10 15:42:00 Mary, [facility] POCT-GLUCOSE METER 2020-02-10 15:40:00 Mary [facility] TRANSFUSE LEUKO-REDUCED 2020-02-10 13:09:14 Danika Swanson [facility] RED BLOOD CELLS [facility] HEMOGLOBIN AND HEMATOCRIT 2020-02-10 13:09:00 Danika Swanson [facility] CBC W/PLT COUNT & AUTO 2020-02-10 13:09:00 Mary [facility] S [facility] DIFFERENTIAL [facility] BLOOD GAS, ARTERIAL 2020-02-10 12:39:00 [facility] POCT-GLUCOSE METER 2020-02-10 11:39:00 Mary [facility] COMPREHENSIVE METABOLIC 2020-02-10 10:37:[address] [facility] [facility] XR CHEST 1 VIEW 2020-02-10 10:12:00 Danika Swanson [facility] PORTABLE/BEDSIDE Medical Center TRANSFUSE LEUKO-REDUCED 2020-02-10 09:02:15 Danika Swanson [facility] RED BLOOD CELLS [facility] 2D ECHO W/ DOPPLER 2020-02-10 07:55:16 [facility] BLOOD CULTURE 2020-02-10 07:26:00 Danika Swanson [facility] PHOSPHORUS 2020-02-10 07:26:00 Rosalina Chaudhari [facility] RETICULOCYTE COUNT 2020-02-10 07:26:00 Danika Swanson [facility] FIBRINOGEN 2020-02-10 07:26:00 [facility]SE 2020-02-10 07:26:00 [facility] PROTHROMBIN TIME/INR 2020-02-10 07:26:00 Danika Swanson [facility] APTT 2020-02-10 07:26:00 Danika Swanson [facility] HAPTOGLOBIN 2020-02-10 07:26:00 [facility] IRON, TIBC, % SAT. 2020-02-10 07:26:00 [facility] 2020-02-10 07:26:00 Citlaly [facility] HEPATITIS B SURFACE 2020-02-10 07:26:00 Denise Hilton [facility] VITAMIN B12 AND FOLATE 2020-02-10 07:26:00 Sukh Gu [facility] ABORH, MANUAL 2020-02-10 04:52:00 Baylee Ricketts [facility] TYPE AND SCREEN, AUTOMATED 2020-02-10 04:27:00 Helen Swanson [facility] ECG 12-LEAD 2020-02-10 04:07:08 Unknown, Hl7 [facility] SARS-COV2/RT-PCR ([facility] & 2020-02-10 04:01:00 [facility] BLOOD CULTURE 2020-02-10 03:32:00 Danika Swanson [facility] PROTHROMBIN TIME/INR 2020-02-10 03:31:00 Danika Swanson [facility] APTT 2020-02-10 03:31:00 Danika Swanson [facility] CBC W/PLT COUNT & AUTO 2020-02-10 03:31:00 Danika Swanson [facility], I [facility] (CELLAVISION MANUAL DIFF) 2020-02-10 03:31:00 Danika Swanson [facility] BLOOD GAS, ARTERIAL 2020-02-10 03:18:00 Danika Swanson [facility] COMPREHENSIVE METABOLIC 2020-02-10 03:17:00 Danika Swanson [facility] TROPONIN I 2020-02-10 03:17:00 [facility] B-TYPE NATRIURETIC FACTOR 2020-02-10 03:17:00 [facility] (BNP) [facility] XR CHEST 1 VIEW 2020-02-10 02:38:00 [facility] PORT[facility]BEDSIDE [facility] Results Test Test Test Comments Results Result Source Description Time Comments ANG, DRAINAGE 2020-03 Reason for FINAL REPORT PATIENT ID: TUBE CHANGE -10 exam:->Bilater [id number] PROCEDURE: (GASTRO, NEPHRO 17:08:0 al nephrostomy Genitourinary catheter OR BILIARY) 0 tube exchange, exchange Procedural elevated WBC PersonnelAttending physician(s): Esteban Yusuf physician(s): NoneResident physician(s): NoneAdvanced practice provider(s): None Pre-procedure diagnosis: Urinary obstructionPost-procedure diagnosis: SameIndication: Suspected catheter infectionAdditional clinical history: None Complications: No immediate complications. IMPRESSION: Successful exchange of right and left indwelling percutaneous nephrostomy tubes for new 10 Estonian nephrostomy tubes. PROCEDURE SUMMARY- Target organ: Bilateral [place] kidneys- Antegrade nephrostogram(s) via the existing access- Nephrostomy tube exchange- Additional procedure(s): None PROCEDURE DETAILS: Pre-procedureConsent: Informed consent for the procedure including risks, benefits and alternatives was obtained and time-out was performed prior to the procedure.Preparation: The site was prepared and draped using maximal sterile barrier technique including cutaneous antisepsis. Anesthesia/sedationLevel of anesthesia/sedation: NoneAnesthesia/sedation administered by: Independent trained observer under attending supervision with continuous monitoring of the patient\\X2019\\s level of consciousness and physiologic statusTotal intra-service sedation time (minutes): Not applicable Right genitourinary catheter exchangeLocal anesthesia was administered. Initial nephrostogram was performed. A wire was placed through the existing tube and it was removed. The new tube was advanced over the wire and position was confirmed with contrast injection.Pre-existing genitourinary catheter: 10 Estonian CookGenitourinary catheter(s) placed: Same Findings: Nondilated collecting system.External catheter securement: Non-absorbable suture Left genitourinary catheter exchangeLocal anesthesia was administered. Initial nephrostogram was performed. A wire was placed through the existing tube and it was removed. The new tube was advanced over the wire and position was confirmed with contrast injection.Pre-existing genitourinary catheter: 10 Estonian CookGenitourinary catheter(s) placed: Same Findings: Nondilated collecting system.External catheter securement: Non-absorbable suture Additional genitourinary system interventionGenitourinary intervention: NoneLocation of intervention: Not applicableDevice used: Not applicableDescription of intervention: Not applicablePost-intervention findings: Not applicable ContrastContrast agent: Isovue 300Contrast volume (mL): 20 Radiation DoseFluoroscopy time (minutes): 0.9 Reference air kerma (mGy): 2.8 Additional DetailsAdditional description of procedure: NoneEquipment details: NoneSpecimens removed: NoneEstimated blood loss (mL): Less than 10Standardized report: [email or web address] AttestationSigner name: Yani Soto attest that I was present for the entire procedure. I reviewed the stored images and agree with the report as written. Signed: Yani Malone MDReport Verified Date/Time: 03/26/2020 17:08:04 Reading Location: [place] [address] Angio Body Reading Room Drainage 2020-03 Interface, External Ris In [facility] C[facility]ter Change -10 03/26/2020 5:10 PM CDTFINAL [facility] - 17:08:0 REPORT PATIENT ID: Raina jensen [id number] PROCEDURE: Cente r Genitourinary catheter exchange Procedural PersonnelAttending physician(s): Yani Malone [facility]White [facility] physician(s): NoneResident physician(s): NoneAdvanced practice provider(s): None Pre-procedure diagnosis: Urinary obstructionPost-procedure diagnosis: SameIndication: Suspected catheter infectionAdditional clinical history: None Complications: No immediate complications. IMPRESSION: Successful exchange of right and left indwelling percutaneous nephrostomy tubes for new 10 Estonian nephrostomy tubes. PROCEDURE SUMMARY- Target organ: Bilateral [place] kidneys- Antegrade nephrostogram(s) via the existing access- Nephrostomy tube exchange- Additional procedure(s): None PROCEDURE DETAILS: Pre-procedureConsent: Informed consent for the procedure including risks, benefits and alternatives was obtained and time-out was performed prior to the procedure.Preparation: The site was prepared and draped using maximal sterile barrier technique including cutaneous antisepsis. Anesthesia/sedationLevel of anesthesia/sedation: NoneAnesthesia/sedation administered by: Independent trained observer under attending supervision with continuous monitoring of the patient\\X2019\\s level of consciousness and physiologic statusTotal intra-service sedation time (minutes): Not applicable Right genitourinary catheter exchangeLocal anesthesia was administered. Initial nephrostogram was performed. A wire was placed through the existing tube and it was removed. The new tube was advanced over the wire and position was confirmed with contrast injection.Pre-existing genitourinary catheter: 10 Estonian CookGenitourinary catheter(s) placed: Same Findings: Nondilated collecting system.External catheter securement: Non-absorbable suture Left genitourinary catheter exchangeLocal anesthesia was administered. Initial nephrostogram was performed. A wire was placed through the existing tube and it was removed. The new tube was advanced over the wire and position was confirmed with contrast injection.Pre-existing genitourinary catheter: 10 Estonian CookGenitourinary catheter(s) placed: Same Findings: Nondilated collecting system.External catheter securement: Non-absorbable suture Additional genitourinary system interventionGenitourinary intervention: NoneLocation of intervention: Not applicableDevice used: Not applicableDescription of intervention: Not applicablePost-intervention findings: Not applicable ContrastContrast agent: Isovue 300Contrast volume (mL): 20 Radiation DoseFluoroscopy time (minutes): 0.9 Reference air kerma (mGy): 2.8 Additional DetailsAdditional description of procedure: NoneEquipment details: NoneSpecimens removed: NoneEstimated blood loss (mL): Less than 10Standardized report: [email or web address] AttestationSigner name: Yani Soto attest that I was present for the entire procedure. I reviewed the stored images and agree with the report as written. Signed: Yani Malone MDReport Verified Date/Time: 03/26/2020 17:08:04 Reading Location: [facility] P048 Angio Body Reading Room , REMOVAL OF 2020-03 Reason for FINAL REPORT PATIENT ID: TUNNELED CVC -10 Exam:->C53.9 [id number] PROCEDURE: Venous W/PORT 17:05:0 chest port placement 0 Procedural PersonnelAttending physician(s): Yani Malone MDWhite [facility] physician[facility]s): Susi physician(s): NoneAdvanjarocho practice provider(s): None Pre-procedure diagnosis: Cervical cancerPost-procedure diagnosis: SameIndication: ChemotherapyAdditional clinical history: None Complications: No immediate complications. IMPRESSION: Insertion of left-sided power-injectable single-lumen tunneled chest port, with catheter tip in the expected location of the cavoatrial junction. Plan: The port may be used immediately. PROCEDURE SUMMARY:- Venous access with ultrasound guidance- Tunneled port insertion under fluoroscopic guidance- Additional procedure(s): None Pre-procedureConsent: Informed consent for the procedure including risks, benefits and alternatives was obtained and time-out was performed prior to the procedure.Preparation (MIPS): The site was prepared and draped using all elements of maximal sterile barrier technique including sterile gloves, sterile gown, cap, mask, large sterile sheet, sterile ultrasound probe cover, hand hygiene and cutaneous antisepsis with 2% chlorhexidine. Medical reason for site preparation exception (MIPS): Not applicable Anesthesia/sedationLevel of anesthesia/sedation: Moderate sedation (conscious sedation) 0.5 mg Versed, 75 mcg fentanylAnesthesia/sedation administered by: Independent trained observer under attending supervision with continuous monitoring of the patient\\X2019\\s level of consciousness and physiologic statusTotal intra-service sedation time (minutes): 30 AccessLocal anesthesia was administered. The vessel was sonographically evaluated and determined to be patent. Real time ultrasound was used to visualize needle entry into the vessel and a permanent image was stored.Vein accessed: Internal jugular veinAccess technique: Micropuncture set with 21 gauge needle Port placementAn incision was made at the upper chest, a pocket was created, and the catheter was tunneled subcutaneously to the venous access site and trimmed to appropriate length. The port was inserted into the pocket and the catheter was advanced via a peel-away sheath into the vein under fluoroscopic guidance. The port was not sutured into the pocket. Catheter tip location was fluoroscopically verified and a permanent image was stored.Port placed: [employer]ber[employer] portCatheter size (Estonian): 7Catheter flush: Heparin (100 units/mL) ClosureThe access site and incision were closed and sterile dressing(s) were applied.Access site closure technique: Tissue adhesiveIncision closure technique: Absorbable suture and tissue adhesivePatient discharged from procedure suite with device accessed: No ContrastContrast agent: NoneContrast volume (mL): None Radiation DoseFluoroscopy time (minutes): 0.5 Reference air kerma (mGy): 1.0 Additional DetailsAdditional description of procedure: NoneEquipment details: NoneSpecimens removed: NoneEstimated blood loss (mL): Less than 10Standardized report: SIR_Port_v3 AttestationSigner name: Yani Soto attest that I was present for the entire procedure. I reviewed the stored images and agree with the report as written. Signed: Yani Malone MDReport Verified Date/Time: 03/26/2020 17:05:13 Reading Location: [facility] P048 Angio Body Reading Room Port Removal 2020-03 Interface, External Ris In - [facility] [address] -10 03/26/2020 5:07 PM CDTFINAL [facility] - 17:05:0 REPORT PATIENT ID: Raina jensen 0 [id number] PROCEDURE: Venous Center chest port placement Procedural PersonnelAttending physician(s): Esteban Yusuf physician(s): Susi physician(s): NoneAdvanced practice provider(s): None Pre-procedure diagnosis: Cervical cancerPost-procedure diagnosis: SameIndication: ChemotherapyAdditional clinical history: None Complications: No immediate complications. IMPRESSION: Insertion of left-sided power-injectable single-lumen tunneled chest port, with catheter tip in the expected location of the cavoatrial junction. Plan: The port may be used immediately. PROCEDURE SUMMARY:- Venous access with ultrasound guidance- Tunneled port insertion under fluoroscopic guidance- Additional procedure(s): None Pre-procedureConsent: Informed consent for the procedure including risks, benefits and alternatives was obtained and time-out was performed prior to the procedure.Preparation (MIPS): The site was prepared and draped using all elements of maximal sterile barrier technique including sterile gloves, sterile gown, cap, mask, large sterile sheet, sterile ultrasound probe cover, hand hygiene and cutaneous antisepsis with 2% chlorhexidine. Medical reason for site preparation exception (MIPS): Not applicable Anesthesia/sedationLevel of anesthesia/sedation: Moderate sedation (conscious sedation) 0.5 mg Versed, 75 mcg fentanylAnesthesia/sedation administered by: Independent trained observer under attending supervision with continuous monitoring of the patient\\X2019\\s level of consciousness and physiologic statusTotal intra-service sedation time (minutes): 30 AccessLocal anesthesia was administered. The vessel was sonographically evaluated and determined to be patent. Real time ultrasound was used to visualize needle entry into the vessel and a permanent image was stored.Vein accessed: Internal jugular veinAccess technique: Micropuncture set with 21 gauge needle Port placementAn incision was made at the upper chest, a pocket was created, and the catheter was tunneled subcutaneously to the venous access site and trimmed to appropriate length. The port was inserted into the pocket and the catheter was advanced via a peel-away sheath into the vein under fluoroscopic guidance. The port was not sutured into the pocket. Catheter tip location was fluoroscopically verified and a permanent image was stored.Port placed: AngioSepSensor Smart portCatheter size (Estonian): 7Catheter flush: Heparin (100 units/mL) ClosureThe access site and incision were closed and sterile dressing(s) were applied.Access site closure technique: Tissue adhesiveIncision closure technique: Absorbable suture and tissue adhesivePatient discharged from procedure suite with device accessed: No ContrastContrast agent: NoneContrast volume (mL): None Radiation DoseFluoroscopy time (minutes): 0.5 Reference air kerma (mGy): 1.0 Additional DetailsAdditional description of procedure: NoneEquipment details: NoneSpecimens removed: NoneEstimated blood loss (mL): Less than 10Standardized report: SIR_Port_v3 AttestationSigner name: Yani Soto attest that I was present for the entire procedure. I reviewed the stored images and agree with the report as written. Signed: Yani Malone MDReport Verified Date/Time: 03/26/2020 17:05:13 Reading Location: [place] [address] Angio Body Reading Room aPTT 2020-03-26 08:07:00 Test Item Value Reference Range Interpretation Comme nts PTT (test code = 69450-2) 28.3 22.5- 36.0 seconds Lab Interpretation (test code = 27349-9) Normal [facility] Center[facility]TT2020-[facility] 08:07:00 Test Item Value Reference Range Interpretation Comments PARTIAL THROMBOPLASTIN TIME 28.3 seconds 22.5-36.0 (BEAKER) (test code = 760) Prothrombin time/[id number] 08:06:00 Test Item Value Reference Range Interpretation Comments Protime (test code = 15.5 11.9- 14.2 H 5902-2) seconds INR (test code = 1.3 <=5.9 6301-6) JEWEL (test code = JEWEL) Effective 02/12/2019: PT Reference Range ChangeNew: 11.9-14.2 Previous: 11.7-14.7 RECOMMENDED COUMADIN/WARFARIN INR THERAPY RANGESSTANDARD DOSE: 2.0-3.0 Includes: PROPHYLAXIS for venous thrombosis, systemic embolization; TREATMENT for venous thrombosis and/or pulmonary embolus.HIGH RISK: Target INR is 2.5-3.5 for patients wiht mechanical heart valves. Lab Interpretation Abnormal (test code = 01255-0) [facility] CenterPROTHROMBIN TIME/[id number] 08:06:00 Test Item Value Reference Range Interpretation Comments PROTIME (BEAKER) (test code = 15.5 seconds 11.9-14.2 H 759) INR (BEAKER) (test code = 370) 1.3 <=5.9 Effective 02/12/2019: PT Reference Range ChangeNew: 11.9-14.2 Previous: 11.7- 14.7RECOMMENDED COUMADIN/WARFARIN INR THERAPY RANGESSTANDARD DOSE: 2.0-3.0 Includes: PROPHYLAXIS for venous thrombosis, systemic embolization; TREATMENT for venous thrombosis and/or pulmonary embolus.HIGH RISK: Target INR is2.5-3.5 for patients wiht mechanical heart valves.CBC with platelet count + automated [id number] 07:55:00 Test Item Value Reference Range Interpretation Comments WBC (test code = 6690-2) 22.2 3.5- 10.5 K/L H RBC (test code = 789-8) 2.65 3.93- 5.22 M/L L MCHC (test code = 786-4) 31.2 32.2- 35.5 GM/DL L Hematocrit (test code = 4544-3) 25.3 % 34.1-44.9 L MCV (test code = 787-2) 95.5 fL 79.4-94.8 H MCH (test code = 785-6) 29.8 pg 25.6-32.2 RDW (test code = 788-0) 16.2 % 11.7-14.4 H Platelets (test code = 777-3) 583 150- 450 K/CU MM H MPV (test code = 04845-5) 8.6 fL 9.4-12.3 L nRBC (test code = 413) 0 0- 0 /100 WBC % Neutros (test code = 429) 86 % % Lymphs (test code = 430) 6 % % Monos (test code = 431) 6 % % Eos (test code = 432) 1 % % Baso (test code = 437) 0 % # Neutros (test code = 670) 19.20 1.56- 6.13 K/L H # Lymphs (test code = 414) 1.36 1.18- 3.74 K/L # Monos (test code = 415) 1.34 0.24- 0.36 K/L H # Eos (test code = 416) 0.14 0.04- 0.36 K/L # Baso (test code = 417) 0.07 0.01- 0.08 K/L Immature Granulocytes-Relative 1 % 0-1 (test code = 2801) Lab Interpretation (test code = Abnormal 78102-9) [facility] W/PLT COUNT & AUTO [id number] 07:55:00 Test Item Value Reference Range Interpretation Comments WHITE BLOOD CELL COUNT (BEAKER) 22.2 K/ L 3.5-10.5 H (test code = 775) RED BLOOD CELL COUNT (BEAKER) 2.65 M/ L 3.93-5.22 L (test code = 761) HEMOGLOBIN (BEAKER) (test code = 7.9 GM/DL 11.2-15.7 L 410) HEMATOCRIT (BEAKER) (test code = 25.3 % 34.1-44.9 L 411) MEAN CORPUSCULAR VOLUME (BEAKER) 95.5 fL 79.4-94.8 H (test code = 753) MEAN CORPUSCULAR HEMOGLOBIN 29.8 pg 25.6-32.2 (BEAKER) (test code = 751) MEAN CORPUSCULAR HEMOGLOBIN CONC 31.2 GM/DL 32.2-35.5 L (BEAKER) (test code = 752) RED CELL DISTRIBUTION WIDTH 16.2 % 11.7-14.4 H (BEAKER) (test code = 412) PLATELET COUNT (BEAKER) (test 583 K/CU MM 150-450 H code = 756) MEAN PLATELET VOLUME (BEAKER) 8.6 fL 9.4-12.3 L (test code = 754) NUCLEATED RED BLOOD CELLS 0 /100 WBC 0-0 (BEAKER) (test code = 413) NEUTROPHILS RELATIVE PERCENT 86 % (BEAKER) (test code = 429) LYMPHOCYTES RELATIVE PERCENT 6 % (BEAKER) (test code = 430) MONOCYTES RELATIVE PERCENT 6 % (BEAKER) (test code = 431) EOSINOPHILS RELATIVE PERCENT 1 % (BEAKER) (test code = 432) BASOPHILS RELATIVE PERCENT 0 % (BEAKER) (test code = 437) NEUTROPHILS ABSOLUTE COUNT 19.20 K/ L 1.56-6.13 H (BEAKER) (test code = 670) LYMPHOCYTES ABSOLUTE COUNT 1.36 K/ L 1.18-3.74 (BEAKER) (test code = 414) MONOCYTES ABSOLUTE COUNT (BEAKER) 1.34 K/ L 0.24-0.36 H (test code = 415) EOSINOPHILS ABSOLUTE COUNT 0.14 K/ L 0.04-0.36 (BEAKER) (test code = 416) BASOPHILS ABSOLUTE COUNT (BEAKER) 0.07 K/ L 0.01-0.08 (test code = 417) IMMATURE GRANULOCYTES-RELATIVE 1 % 0-1 PERCENT (BEAKER) (test code = 2801) Venous Doppler Legs [id number] 09:22:35Ejection [facility] ECHO HEARTLAB MKCKESSON CPACSRight Impression1. There is no deep venous obstruction in the common femoral, profundafemoral, femoral, popliteal, posterior tibial or peroneal veins.2. There is no superficial venous obstruction in the great saphenous vein.Left Impression1. There is partial echolucent deep venous obstruction in the poplitealvein.2. There is total echolucent deep venous obstruction in the one of thepaired posterior tibial veins.3. There is no deep venous obstructionin the common femoral, profundafemoral, femoral, peroneal or one of the paired posterior tibial veins.4. There is no superficial venous obstruction in the great saphenous vein. Conclusions Summary Venous duplex imaging and compression of the bilateral lower extremities were performed. The veins were adequately visualized. The left deep venous system was positive with acute thrombus. The right deepvenous and bilateral superficial venous systems were patent and compressible with no evidence of thrombus. Signature Velocities are measured in cm/s ; Diameters are measured in cmInterface, External Ris In - 03/12/2020 9:22 AM CDTPV LAB - Lower Extremities DVT Study Demographics Patient Name ARNULFO JOHN Date of Study 03/11/2020 GERI Age 54 Visit Number [id number] Gender Female Accession Number [id number] Date of 1965 Referring Ferny Santos, Room Number [facility] OPT Physician [employer] Salesperson Gregor Avery Interpreting Jaquelin Freed, S Physician ProcedureType of Study: Veins: Lower Extremities DVT Study, VENOUS DOPPLER LEG, BILATERAL. Indications for Study:Pedal edema.Patient Status:Routine.Study Location:Vascular Lab.Technical Quality:Adequate visualization. - Results were reported to: Abdirizak BERUMEN @ 10:22 am.Risk FactorsHistory of Disease+ + + +!Diag nosis !Date !Comments !+ + + +!History/Risk Factors:!03/11/2020!Cervical CA, FIGO stage IIIB, Pedal edema! + + + +Impr essionsRight Impression1. There is no deep venous obstruction in the common femoral, profundafemoral, femoral, popliteal,posterior tibial or peroneal veins.2. There is no superficial venous obstruction in the great saphenous vein.Left Impression1. There is partial echolucent deep venous obstruction in the poplitealvein.2. There is total echolucent deep venous obstruction in the one of thepaired posterior tibial veins.3.There is no deep venous obstruction in the common femoral, profundafemoral, femoral, peroneal or oneof the paired posterior tibial veins.4. There is no superficial venous obstruction in [...] in cm/s ; Diameters are measured in [facility] MISCELLANEOUS LAB [id number] 07:56:00 Test Item Value Reference Range Interpretation Comments SCAN RESULT (test code = 2763530) insulin-like growth factor 07:56:00Scan ResultQUEST NON-INTERFACED LABCH[facility] Medical CenterACTH2020-06-04 10:18:00 Test Item Value Reference Range Interpretation Comments ACTH (test 14 pg/mL 6-50 Reference rang e code = applies only to the ) specimens colle cted between 7am-10a m. JEWEL (test code Performing Lab EZ = JEWEL) [employer] [facility] [address] [place] [address] Aniya Bradford MD, PhD, ERIN [facility] CenterInsulin-like growth [id number] 20:20:00 Test Item Value Reference Range Interpretation Comments Igf-1(Somato 116 ng/mL 50-317 medin-C) (test code = 6469879) Z-Score DNR Male: (test code = 1343162) Z-Score -0.4 -2.0- 2.0 SD This test was developed Female: and its analyti enrique (test code = performance 7600074) characteristics havebeen determined by [facility].It h as not been cleared or approved by FDA. This as say has been validatedp ursuant to the CLIA reg ulations and is used for clinical purposes. JEWEL (test Performing Lab code = JEWEL) EZ [employer] [facility] [address] [place] [address] Aniya Bradford MD, PhD, ERIN [facility] CenterMR, PELVIS, WITHOUT [id number] 15:35:00 FINAL REPORT TECHNIQUE: MRI of the pelvis WITHOUT intravenous contrast. INDICATION: Cervix cancer, FIGO >1bnew likely cervical cancer, would like evaluation of extent. COMPARISON: CT of the abdomen and pelvis on 02/09/2020. FINDINGS:Evaluation is partially limited by motion ar tifact and the lack of intravenous contrast. UTERUS: The uterus measures approximately 3.9 x 2.6 x 4cm. No uterine masses. ENDOMETRIUM: Homogeneous and normal in thickness, measuring 0.3 cm.OVARIES/ADNEXA: Normal ovaries bilaterally. CERVIX: There is a lobulated, ill-defined mass centered at the right lateral aspect of the cervix with central necrosis. It measures 5.7 x 6.2 x 8.5 cm [SI x AP x TR] and extends into the right posterolateral pelvis to the right pelvic side wall. There circumferential loss of the stromal ring with diffuse parametrial invasion. Anteriorly, there is loss of fat plane inthe vesicouterine space. Posteriorly, the mass extends into the sigmoid mesentery and is inseparablefrom the sigmoid colon (series 701, image 12-14). There is asymmetric wall thickening of the adjacent sigmoid colon. There is involvement of the ureters bilaterally. PERITONEUM/RETROPERITONEUM: Trace free fluid. BLADDER: There is questionable disruption of the serosal layer of the posterior wall of the bladder (series 701, image 15). RECTUM: Rectum is unremarkable. The mesorectal space is effaced anteriorly without definite rectal invasion. LYMPH NODES: Evaluation is limited by motion artifact. There is a left internal iliac chain lymph node measures 0.6 cm in short axis (series 1101, image 16). BONES AND SOFT TISSUES: Mild age-indeterminate superior compression deformity of the L5 vertebral body.No focal mass. IMPRESSION:1.Evaluation is partially limited by motion artifact and lack of IV contrast. 2.Irregular, centrally necrotic cervical mass with locoregional invasion into the distal uretersand the sigmoid colon. Loss of fat plane between the mass and the posterior bladder wall, with questionable bladder wall invasion. (FIGO Stage IV)3.Nonspecific subcentimeter left internal iliac chain lymph node, metastatic disease is not excluded.4.Age- indeterminate superior plate compression deformity of the L5 vertebral body. I have reviewed the images and resident report and agree with the above findings. Signed: Roc Castrejon MDReport Verified Date/Time: 02/18/2020 15:35:26 Reading Location: [address] Consult Reading Room MR pelvis without IV contrast 2020-02-18 15:35:00Interface, External Ris In - 02/18/2020 3:37 PM CDTFINAL REPORT TECHNIQUE: MRI of the pelvis WITHOUT intravenous contrast. INDICATION: Cervix cancer, FIGO >1bnew likely cervical cancer, would like evaluation of extent. COMPARISON: CT of the abdomen and pelvis on 02/09/2020. FINDINGS:Evaluation is partially limited by motion artifact and the lack of intravenous contrast. UTERUS: The uterus measures approximately 3.9 x 2.6 x 4 cm. No uterine masses. ENDOMETRIUM: Homogeneous and normal in thickness, measuring 0.3 cm.OVARIES/ADNEXA: Normal ovaries bilaterally. CERVIX: There is a lobulated, ill-defined mass centered at the right lateral aspect of the cervix with central necrosis. It measures 5.7 x 6.2 x 8.5 cm [SI x AP x TR] and extends into the right posterolateral pelvis to the right pelvic side wall. There circumferential loss of the stromal ring with diffuse parametrialinvasion. Anteriorly, there is loss of fat plane in the vesicouterine space. Posteriorly, the mass extends into the sigmoid mesentery and is inseparable from the sigmoid colon (series 701, image 12-14). There is asymmetric wall thickening of the adjacent sigmoid colon. There is involvement of the ureters bilaterally. PERITONEUM/RETROPERITONEUM: Trace free fluid. BLADDER: There is questionable disruption of the serosal layer of the posterior wall of the bladder (series 701, image 15). RECTUM: Rectum is unremarkable. The mesorectal space is effaced anteriorly without definite rectal invasion. LYMPH NODES: Evaluation is limited by motion artifact. There is a left internal iliac chain lymph node measures 0.6 cm in short axis (series 1101, image 16). BONES AND SOFT TISSUES: Mild age- indeterminate superior compression deformity of the L5 vertebral body. No focal mass. IMPRESSION:1.Evaluation is partially limited by motion artifact and lack of IV contrast. 2.Irregular, centrally necrotic cervical mass with locoregional invasion into the distal ureters and the sigmoid colon. Loss of fat plane betweenthe mass and the posterior bladder wall, with questionable bladder wall invasion. (FIGO Stage IV)3.Nonspecific subcentimeter left internal iliac chain lymph node, metastatic disease is not excluded.4.Age-indeterminate superior plate compression deformity of the L5 vertebral body. I have reviewed the images and resident report and agree with the above findings. Signed: Roc Castrejon MDReport Verified Date/Time: 02/18/2020 15:35:26 Reading Location: [facility] B1 C013W Consult [facility] 09:04[facility]00 Test Item Value Reference Range Interpretation Comments Case Report (test code Surgical Pathology = 104) Report Case: [id number] Authorizing Provider: Amy Mosley MD Collected: Ordering Location: [address] Received: 02/13/2020 12:56 PM Service Pathologist: Pao Law MD Specimen: Cervix DIAGNOSIS (test code = u0htfRViJLJmv0wnVITinW 3220) FuZzEwMzNcZnRuYmpcdWMx WNbpwlKiUFgjk5FcV6XwVj AwMFxhbnNpXGRlZmxhbmcx QWBjXVK9jqIzNRUhXRwcTV ZzGJugOh6daZZyrUonPfRe JESvx2dcsuYOzlxlhVj9iO lxR12ov6Y8HvtzJ1zyQHHj COMxT0AxKR8kHAXmUmn3IN P2RLG0DWOrFSTpN7FyLL1w ETUucXWdALi4b9tfsXbjUA WyIYV4u5zeNAwkhxJhHQ6x le0cjFc9i8ewsmFeEHUtMM LisRYZOGBzJ3AkfDakAi2b nHo4iQsbUawwVIN5Czx1JU 4gim29fvl4jTsxJUNlcxqq DxK4SSkwNCFibhffBSo3YN xtYXJnbDcyMFxtYXJncjcy MFxtYXJndDcyMFxtYXJnYj pkWTgdHBCoWJH7JQble354 ISY8GOgwr9hop0nksNFkZx k2FFZrVlQmNrbaKYgak3Vm o4ovUASlxa6eQHR3xHBgiY cho8A9oTSeUYGltBFqbrBh VXNiIsH5MBhfQF2zea20RP CnHKV0pl1xiNRyqMdgqrCr fABxSZndR2ZrAWXcp745NR IiZ6HqVVAff0I4afShNbQz THMisFO9uiP3VGIbSRs7qP RsewD7fwBolSZlD4pqfU00 JmLoyYIzH1TsjK07DhRhhP DgE5GdkS65ErRkwXOcF6Hy oW14HzIycFDkIEDjqSRxQh 5mhAKioXNrg1HfhTRoZVrs U27qn405ZWRgroYaL6dxrV FpblxwbGFpblxmMFxmczI0 XHFsXHBsYWluXGYwXGZzMj BcbGFuZzEwMzNcaGljaFxm FRtfDmPgFGVbXGjjM3yhCv BcZnMyMCBDRVJWSVgsIEJJ R4ZKGPlwdTFeQBTaGB0jNB LIQX0FLE6ZMfNQPCDSGJSC Z3MGLqRPAADITOEbI5cLNA BBIFNJTkdMRSBWSUFCTEUg Ax3GECRnBQsMBSpILHVVB1 QLV8qPTODhJr2RGWYsSGUM LBjRMR7RSYDVORQOA5HKYH 5XR0EJLBCIQYFaul88QPW0 StKwd7D4DUE9FHPgXJEeg4 lcZGVmbGFuZzEwMzNcZnRu DvuoaLTeSZQsCrHwq1lnz4 42kUYwd7koMUFyPtO9nETs ZPHqoXIjM678ILLzRBuhl8 kfo0HvFMVcrNBun2I6BPWL ycqbuLc7hAyjI23ot6A2Cc zfP8fhZMRsPZFtT0XjBD8p CYCrPyc5TBS2NZE3CYPoPK UsE9SoDW3jIWByeUEcCAe5 w1bxpWhjHIWsFYV8o0gnEM lopaOmPF4qee0pfSu6y2bq czEgRGVmYXVsdCBQYXJhZ3 RgnViiQt2gxBf7hVvpVcjp PHZ9Glr3WM9ola77gfb4wP vvULYtjckvWcW1IFyeOPOs ysxsSGy2OLgyXCNjeDK1WW YjrNHwZ5ViSOAuIH0hvyc8 SGA2CErzTQOjVcT3FTSveW UyKPNwkDbdLFuaq017JLJ6 SnQsIP1iO4Qbg4S9xW5haM SyETQleWUtEtNtXHJrbe4i jYCqIZtht4XlLXQ3abW6nJ EjoKObEQEnXhN7KQkyEZ8m zm94DPIwTOQ9ua4ukXFifY tvdlBbdSRaRTpvJ0FuGLHx z192HMXjM5ShSUMtx9B4rj MvQeIuOJJjqKX9yaT3NMCj XV0piwrbe2naQArnUDbgWZ ShowA0ebO6BWObsHXhX8Ky oG3tRASoHZ0pgtjuy0jrQD Y6RYmaLXBjCBX1EdNwMLLj i6Mjgvr2FiXnh9MljIClKQ mvF82hx713ITVjciJnS9zk bGFpblxwbGFpblxmMFxmcz Q4TGYhXPvkxnaqMIXnYOgc W7ooCiKcLUWjlWopSIkvc9 NoXGYxXGZzMjJcdGFiXHRh Zmr8LVMetJZaDLMmGoUdS2 ilpeaoKcFANOPsb2yzE8fg nETGeFKdR4HsYRmlyyWlYR ofOZdwOQN6ZHX6Pd49BlH4 RFCoda70 COMMENT (test code = a0cgpACeKAQawSUwNkWaYV 3359) UiVNEil8znDNWsiFDhZaJx MzNcZnRuYmpcdWMxXGRlZm Xeh0nat241rNByt2dzQGYa TkA9lGQhSORpwLJjS298j0 gzm9rgjcVyaIG5BTEcTXZ0 MWjgisYzrfO5ZMkegOZrMo U0GJfoggGmQEjpfdXxiiBs Wub7NAUoR964GXP1jTpoa5 diYKS6USVnREQfTpHxVs0u eBBeZ706ETFiDBDEOIDvzR d2PHJcqyGvauLsoDMAf639 T088e3guKWPzmhWfbYbJta wis1csN917EQWbwJPbbcAq UgBnGZTlfPCzpHS1MLLaBR 0vfqlqNqBlAZ3asfdaVyRu OG5sdfc8KsWlVS3rbxgcOa AjYSawRJOwgiorPQXoc2Ee aosdVB9aU5Lty0L7pO9yxL JrMCXgoRQzKcWrTRQldi8a kAGmYXvuz5IoSJY7yqC7rG IixOHuPDJzRZ12Ucusp9Pf EiumOUH9XBXaoiUfg0Mwq0 kzIfJukeNdE8woO4ZuAHAq RPHcRRAzNvNcbqXtf4Zpm6 UgxNWxnNc9i2lnKLBpKFGa aVieh9xqGXX6ECClD8J2gL Xwk7cwAMybNCWmpOL9uqcf MWygBFTlzqI2mxmgEPicFA KjmRC5ymkwCFjfHVHxIlZ5 imwrRJjyEJJeEID9YQipq0 40YUP5LLlyRcypKTxcLBBb bmNvbnRccGduZGVjXHBsYW luXHBsYWluXGYwXGZzMjRc rLeqqYcwxM6oYyTiLsHsLD saSO7rNLDoL3dhzMSyWJCj VAWdW1tpJsKxlP0ffCjhCA sdrgJhLHmfU7rzc2KvRHYk cXVhdGUgdmlhYmxlIHRpc3 T4QSNfatXshIMfBTHgAHZg WPHxocz2fSLdSHJrJQdxb1 Smde0gEFFnht1= CPT Code(s) (test code n4urzNXeNQFeqFAoBlDbPB = 3357) YqLGKqm7mhYDStqWDzYuFs MzNcZnRuYmpcdWMxXGRlZm Iqx2kjp114rPPsf2ptSYFr LnF9yRPxMIIoyBQzX984w0 mqd9rmokZmvZD6OCXyIPX1 GIncrkKhlpE2PQnnxFMxXs Y6PWjgrsFxPBqhomRdpsQv Ywi4EFDsH207FYL5fLrae6 rrSRT3ODRvWVGmAaThXq0q dAOkE042MZEfFSJJIENgtO s5ESKluwYyxfRtpUYDl945 J184k3vvOFUagcEvxIzXda wii3zdW228RTTrxIFucnBu SgLyAMJwhUXfoQL2XSYqIB 6tftraQgCgFP9rneqnPgVi HY7mqyz8MfDgLI6oxwhgQh DnHKxoCFKlojfmJUEjq6Jf iuwhUO7vQ3Noq5W4mH4faF AuIVJqqPBaNtEnUJChrl4n xVUmGMurq6GjHJY3kaZ4kV CmeGXlUUYeCF55Ydnal0Wc RvlbPRT4KBRhelRjr5Eyx7 lfMqVfyrDnO1xmF9BxIUFs ZMAkICKiWrXmofQpz2Thw8 OioPLlwTq0n9ibUKTyBSLh vOkfm7moWAJ0LXHsI2J4eS Lke0nzVUvwDKImpVM6yzsn ZExwAVYevsW7zlvkAZdnDX QkpBC4mipvNXqiIGXpEcR4 nhtuTLcwLZJwSBF5GKuql4 69AOW0VHlzVxalDXdcGJFt bmNvbnRccGduZGVjXHBsYW luXHBsYWluXGYwXGZzMjRc bRazgGvahN3aCjGcRvHwYH uqSO7eEVTpN4bbkMKmKKUb MAYgV3hgSyGxmM0ndAvnNM gptmOpXDh0PhC3EJQohk3= GROSS DESCRIPTION (test l8oucEBpFIAkpWQoWuUfTH code = 3366) NuSPAmw9dqMGXeqJUeTqPk MzNcZnRuYmpcdWMxXGRlZm Exw0ule730lXTox5sgNWEk OjL0mPJaWTQsiOJrO032h4 xhg8omvyLbiWP7YDGxVAQ4 FTcpwtEescV1FJjupTDnYk E4XNopbzGcZEfoilIfbsIu Atf0PPNfW439IOK2jWsmw2 seJFD9QPZvAMGxChYvMg0g yHCpM870KOEaNEKZYLTvlB q6UEAmppJtwgFcuZFKk327 L066m8rjLGCunqTrnVtMxc lsl5tdS757JPNgnVHlowEr MjDiTQLjyNSosEN8QRGrPT 3jgohaNsGqCD4vsvraIcSx EI6kzcf5XvRbMZ1qutmyWk NiULfjTXMvxvvwBBNmx9Ea fneuRT2wI6Acl9Z7qP2dqH McCZKprUMuXuKfCGGhml7h kZNyQQzid7UsCMZ6qxT8gO TaeUQiRERrOD44Mijnb7Tq PgqmRLQ0FSNzejXwa8Hhu2 woDeXpasZzP4pkV3CjWWDq FIVoROGcDzGzeeEca9Hma7 AiqVWxkPk9z8alREAwCOYr tUkbq3yqKMS3EGCqR7R2wZ Jts1piSKozZRCxdBR5fmod SVxsNMOrkqW2ofiqRQtxZI XsrKZ2hycbSFojNLEbGxX5 yikvIOnxUVHxNKI1CSois9 50RFX0MQqqKespWHjqCNJj bmNvbnRccGduZGVjXHBsYW luXHBsYWluXGYwXGZzMjRc aGevpMcieW9sItNmQzTsJU kiON5kFPBsT2ftfHWuXSQe KPUgJ0khEbTojK5azYkoWS swznLwOXThoiGzRZ0pYxKu DNf1LOHqsD8xCNTqx926AR diYKWkhGMfVGtpSFD4uQVm MKDaNOMuGZPrZL39S9Trqj FtZSBhbmQgTVJOIGFzICJj ORW9oSsaKHxdgMwhoCvqET TlSHr9tP8iSZpwyD6qs7Wd UZSqz15iUv5yU1SrbNdlPT H6qR4dZZlmfl2bvucvPyE4 iOOsBL06fDEpHWGjycBwuQ BlLYNkZW95cBJugXndETEv RIlnER24prNlPgZbulXqL6 XuARUoPINdts6gofI5XRGp JBPcgp03xCf5VFP3eLJvaE PsgZCpx4OiqB7nEQiyKWGp M3OgS4R6DASgXmEjwCGsJt UgeCAxIGNtLiBUaGUgcGll N1CtYT3mCMAjm3J9TJZlFD 4wDJZqolAhsBqdLUPct42p oQDlryX0pWByXNZeXKU4ce FsGgGmE32ijT6yJ4UlUZIu f1CaHEckXK4qbO6qOoYPeD AweRUlL0FldALsdSXrBZBh ZRPfyARifvSsNCegEV98FV qqUYMyoY3jyGQoFAVpmdUK XZY3zF0oPFSfXXI9AXOrMB NuuJNzo41mgTqkUeJmS87l vaXbVA2bGKInu8B2PPkmIW ZeMIBnMXwskpinm6OotCjd P1Iuh6YypKFgoKrtk2ZtvY lvbmVkOyBBNCwgcmVtYWlu aM2qOP56lQPvcYzyUYTvPX cmWSPvYBrvEP82ayXaQsS9 jPOomSJwn1PveUh3fGZnWD GbuUfhSZp6ZqFFUs9ca1on YXJ9 MICROSCOPIC DESCRIPTION j8rnnXDsXWGyiGVrOzGdPR (test code = 3371) NdNLYhd4xmCAHzpXRsUsGb MzNcZnRuYmpcdWMxXGRlZm Fhb1uhb976wPSru5iwRHEc YiX3mXCcBTEkrLRcX273w5 sfa3rgjhChuJA4QZWbYDT1 IFawnfNgqnJ5QLzyuSTlTd W5KTznulQqGXlhzoZowgGo Owc4GNQwJ808TYL8bQjty6 chUKZ6DRJnJGVjCbWfDc0e mZPhX535GKYpQMMCLAXcsM p8HPLaljTtwpBnbOMPx024 D914z3xoNEFsiqBjyIrVyk rup3irG619NQOmlJMywyUm PzBgTOFuuQYxyWM5CXUiKB 2aipqfAqQmKE4wjjuiTiOj ZA6johy0NjEfRH3yggxeGr EnAWbgJQEnsgcfWFUqv1Hb xzagFG8tN9Nuk2H9qU9yoB VjVFOofEAsXbUzNZBxxt6l jKNlFTdzz8UuWJN1dtN3hQ OkbQLrAXNoJZ30Brguo0Kp BgdbGHG0BQLiszIdj0Qox5 rmRgHvdgNwM5hsX9EcHVJb GYTkQDUhRqZtcoBzg2Puh3 IlmXKvvTy3r4ioSAMnMLKl hQcvx0skXWZ8JWSoF1R4rU Fdu6atBQhyMZEfvKZ2lxne ZLxgXPFyyxL1hfyqPZzzCJ BkoLQ2vwpmWDzjOGSeCiD7 oimcFBmpHXQhHFD3VXvhn8 87QMP2SBusZwysVHfiGDCs bmNvbnRccGduZGVjXHBsYW luXHBsYWluXGYwXGZzMjRc wIffqPouiJ5nEtDwTeEvAX tvCB5aUDShO3htkMOlVQLv CNBzG2pgIwGwmT8lmOrrUU qcayKqGCEurwAoov2mZE2g cGFyfQ== [facility] [id number] 09:04:00Surgical Pathology Report Case: [id number] Authorizing Provider: Amy Mosley MD Collected: Ordering Location: [address] Received: 02/13/2020 12:56 PM Service Pathologist: Pao Law MD Specimen: Cervix CERVIX, BIOPSY:- PREDOMINANTLY NECROTIC TISSUE WITH A SINGLE VIABLE FOCUS HIGHLY SUSPICIOUS FOR A MALIGNANT SQUAMOUS NEOPLASM Signing Pathologist Direct Phone Line: [phone] signed by Pao Law MD on 02/18/2020 at 9:04 AMLack of adequate viable tissue precludes a definitive diagnosis. [id number] A. Received in a container labeled with the patient's name and MRN as "cervix" with theadditional information "necrotic tumor involving the entire cervix" are multiple fragments of irregular, dickerson-conte to dickerson-white tissue measuring in aggregate 2.5 x 1.5 x 1 cm. The pieces of tissue rangein size from less than 0.1 to 1.5 cm in greatest dimension. The largest piece measures 2 x 1.5 x 1 cm.Section code: A1, manager asset small fragments of tissue; A2-A3, largest piece serially sectioned; A4, remaining multiple small fragments of tissue submitted entirely. SW/ewPerformed.POC-Glucose [id number] 08:01:00 Test Item Value Reference Range Interpretation Comments POC-Glucose Meter (test 98 mg/dL 70-110 : TE STED AT [facility] code = 1538) [address] [facility], 770 30: Offset Assistant Press Operator/Techni ashley ID = [id number] for ALY PULLIAM Lab Interpretation (test Normal code = 10063-4) [facility] [id number] 08:01:00 Test Item Value Reference Range Interpretation Comments POC-GLUCOSE METER 98 mg/dL 70-110 : TESTED A T [facility] 6720 (BEAKER) (test code = [place], 1538) [address]: Offset Assistant Press Operator/Techni ashley ID = [id number] for LEODAN HOYT Basic Metabolic [id number] 04:33:00 Test Item Value Reference Range Interpretation Comments Sodium (test code = 138 meq/L 070-617 9244-2) Potassium (test code = 3.4 meq/L 3.5-5.1 L 2823-3) Chloride (test code = 108 meq/L 98-107 H 2075-0) CO2 (test code = 21 meq/L 22-29 L 2028-9) BUN (test code = 34 mg/dL 7-21 H 3094-0) Creatinine (test code 2.87 mg/dL 0.57-1.25 H = 2160-0) Glucose (test code = 92 mg/dL 70-105 2345-7) Calcium (test code = 7.9 mg/dL 8.4-10.2 L 45328-8) EGFR (test code = 17 mL/min/1.73 [place] [address]-2) NOT ACCURATE CREATININE CLEARANCE IN PREDICTING GLOMERULAR FILTRATION RATE . ESTIMATED GFR I S NOT APPLICABLE FOR DIALYSIS PATIENTS. JEWEL (test code = JEWEL) Offset Assistant Press Operator ID - STEPHANIE M Lab Interpretation Abnormal (test code = 20208-9) [facility] CenterBASIC METABOLIC [id number] 04:33:00 Test Item Value Reference Range Interpretation Comments SODIUM (BEAKER) 138 meq/L 136-145 (test code = 381) POTASSIUM (BEAKER) 3.4 meq/L 3.5-5.1 L (test code = 379) CHLORIDE (BEAKER) 108 meq/L 98-107 H (test code = 382) CO2 (BEAKER) (test 21 meq/L 22-29 L code = 355) BLOOD UREA NITROGEN 34 mg/dL 7-21 H (BEAKER) (test code = 354) CREATININE (BEAKER) 2.87 mg/dL 0.57-1.25 H (test code = 358) GLUCOSE RANDOM 92 mg/dL 70-105 (BEAKER) (test code = 652) CALCIUM (BEAKER) 7.9 mg/dL 8.4-10.2 L (test code = 697) EGFR (BEAKER) (test 17 mL/min/1.73 ESTIMA SONNY GFR IS code = 1092) sq m NOT ACCURATE CREATININE CLEARANCE IN PREDICTING GLOMERULAR FILTRATION RATE . ESTIMATED GFR I S NOT APPLICABLE FOR DIALYSIS PATIEN TS. Offset Assistant Press Operator ID - STEPHANIE [id number] 04:31:00 Test Item Value Reference Range Interpretation Comments Magnesium (test code = 1.4 mg/dL 1.6-2.6 L 50158-5) JEWEL (test code = JEWEL) Offset Assistant Press Operator TADEO BROWN M Lab Interpretation (test Abnormal code = 14645-2) [facility] CenterPhosphorus2020-06-03 04:31:00 Test Item Value Reference Range Interpretation Comments Phosphorus (test code = 2.3 mg/dL 2.3-4.7 2777-1) JEWEL (test code = JEWEL) Offset Assistant Press Operator TADEO BROWN M Lab Interpretation (test Normal code = 83651-6) [facility] CenterPHOSPHORUS2020-06-03 04:31:00 Test Item Value Reference Range Interpretation Comments PHOSPHORUS (BEAKER) (test code = 2.3 mg/dL 2.3-4.7 604) Offset Assistant Press Operator ID - STEPHANIE [id number] 04:31:00 Test Item Value Reference Range Interpretation Comments MAGNESIUM (BEAKER) (test code = 1.4 mg/dL 1.6-2.6 L 627) Offset Assistant Press Operator TADEO BROWN MCBC W/PLT COUNT & AUTO [id number] 04:07:00 Test Item Value Reference Range Interpretation Comments WHITE BLOOD CELL COUNT (BEAKER) 15.8 K/ L 3.5-10.5 H (test code = 775) RED BLOOD CELL COUNT (BEAKER) 2.98 M/ L 3.93-5.22 L (test code = 761) HEMOGLOBIN (BEAKER) (test code = 8.2 GM/DL 11.2-15.7 L 410) HEMATOCRIT (BEAKER) (test code = 26.7 % 34.1-44.9 L 411) MEAN CORPUSCULAR VOLUME (BEAKER) 89.6 fL 79.4-94.8 (test code = 753) MEAN CORPUSCULAR HEMOGLOBIN 27.5 pg 25.6-32.2 (BEAKER) (test code = 751) MEAN CORPUSCULAR HEMOGLOBIN CONC 30.7 GM/DL 32.2-35.5 L (BEAKER) (test code = 752) RED CELL DISTRIBUTION WIDTH 18.1 % 11.7-14.4 H (BEAKER) (test code = 412) PLATELET COUNT (BEAKER) (test 317 K/CU MM 150-450 code = 756) MEAN PLATELET VOLUME (BEAKER) 10.2 fL 9.4-12.3 (test code = 754) NUCLEATED RED BLOOD CELLS 0 /100 WBC 0-0 (BEAKER) (test code = 413) NEUTROPHILS RELATIVE PERCENT 84 % (BEAKER) (test code = 429) LYMPHOCYTES RELATIVE PERCENT 8 % (BEAKER) (test code = 430) MONOCYTES RELATIVE PERCENT 6 % (BEAKER) (test code = 431) EOSINOPHILS RELATIVE PERCENT 1 % (BEAKER) (test code = 432) BASOPHILS RELATIVE PERCENT 0 % (BEAKER) (test code = 437) NEUTROPHILS ABSOLUTE COUNT 13.25 K/ L 1.56-6.13 H (BEAKER) (test code = 670) LYMPHOCYTES ABSOLUTE COUNT 1.27 K/ L 1.18-3.74 (BEAKER) (test code = 414) MONOCYTES ABSOLUTE COUNT (BEAKER) 0.92 K/ L 0.24-0.36 H (test code = 415) EOSINOPHILS ABSOLUTE COUNT 0.14 K/ L 0.04-0.36 (BEAKER) (test code = 416) BASOPHILS ABSOLUTE COUNT (BEAKER) 0.05 K/ L 0.01-0.08 (test code = 417) IMMATURE GRANULOCYTES-RELATIVE 1 % 0-1 PERCENT (BEAKER) (test code = 2801) POCT-GLUCOSE [id number] 17:33:00 Test Item Value Reference Range Interpretation Comments POC-GLUCOSE METER 94 mg/dL 70-110 : TESTED A T [facility] 6720 (BEAKER) (test code = [place], 1538) [address]: Offset Assistant Press Operator/Techni ashley ID = [id number] for CHEPE VOSS BASIC METABOLIC [id number] 15:17:00 Test Item Value Reference Range Interpretation Comments SODIUM (BEAKER) 137 meq/L 136-145 (test code = 381) POTASSIUM (BEAKER) 3.0 meq/L 3.5-5.1 L (test code = 379) CHLORIDE (BEAKER) 105 meq/L 98-107 (test code = 382) CO2 (BEAKER) (test 24 meq/L 22-29 code = 355) BLOOD UREA NITROGEN 37 mg/dL 7-21 H (BEAKER) (test code = 354) CREATININE (BEAKER) 3.04 mg/dL 0.57-1.25 H (test code = 358) GLUCOSE RANDOM 133 mg/dL 70-105 H (BEAKER) (test code = 652) CALCIUM (BEAKER) 7.7 mg/dL 8.4-10.2 L (test code = 697) EGFR (BEAKER) (test 16 mL/min/1.73 ESTIMA SONNY GFR IS code = 1092) sq m NOT ACCURATE CREATININE CLEARANCE IN PREDICTING GLOMERULAR FILTRATION RATE . ESTIMATED GFR I S NOT APPLICABLE FOR DIALYSIS PATIEN TS. Offset Assistant Press Operator ID - [id number] 15:15:00 Test Item Value Reference Range Interpretation Comments PHOSPHORUS (BEAKER) (test code = 2.8 mg/dL 2.3-4.7 604) Offset Assistant Press Operator ID - [id number] 15:15:00 Test Item Value Reference Range Interpretation Comments MAGNESIUM (BEAKER) (test code = 1.4 mg/dL 1.6-2.6 L 627) Offset Assistant Press Operator ID - BSCBC W/PLT COUNT & AUTO [id number] 15:02:00 Test Item Value Reference Range Interpretation Comments WHITE BLOOD CELL COUNT (BEAKER) 18.1 K/ L 3.5-10.5 H (test code = 775) RED BLOOD CELL COUNT (BEAKER) 2.68 M/ L 3.93-5.22 L (test code = 761) HEMOGLOBIN (BEAKER) (test code = 7.5 GM/DL 11.2-15.7 L 410) HEMATOCRIT (BEAKER) (test code = 23.3 % 34.1-44.9 L 411) MEAN CORPUSCULAR VOLUME (BEAKER) 86.9 fL 79.4-94.8 (test code = 753) MEAN CORPUSCULAR HEMOGLOBIN 28.0 pg 25.6-32.2 (BEAKER) (test code = 751) MEAN CORPUSCULAR HEMOGLOBIN CONC 32.2 GM/DL 32.2-35.5 (BEAKER) (test code = 752) RED CELL DISTRIBUTION WIDTH 17.6 % 11.7-14.4 H (BEAKER) (test code = 412) PLATELET COUNT (BEAKER) (test 278 K/CU MM 150-450 code = 756) MEAN PLATELET VOLUME (BEAKER) 10.6 fL 9.4-12.3 (test code = 754) NUCLEATED RED BLOOD CELLS 0 /100 WBC 0-0 (BEAKER) (test code = 413) NEUTROPHILS RELATIVE PERCENT 88 % (BEAKER) (test code = 429) LYMPHOCYTES RELATIVE PERCENT 5 % (BEAKER) (test code = 430) MONOCYTES RELATIVE PERCENT 6 % (BEAKER) (test code = 431) EOSINOPHILS RELATIVE PERCENT 1 % (BEAKER) (test code = 432) BASOPHILS RELATIVE PERCENT 0 % (BEAKER) (test code = 437) NEUTROPHILS ABSOLUTE COUNT 15.85 K/ L 1.56-6.13 H (BEAKER) (test code = 670) LYMPHOCYTES ABSOLUTE COUNT 0.81 K/ L 1.18-3.74 L (BEAKER) (test code = 414) MONOCYTES ABSOLUTE COUNT (BEAKER) 0.99 K/ L 0.24-0.36 H (test code = 415) EOSINOPHILS ABSOLUTE COUNT 0.17 K/ L 0.04-0.36 (BEAKER) (test code = 416) BASOPHILS ABSOLUTE COUNT (BEAKER) 0.03 K/ L 0.01-0.08 (test code = 417) IMMATURE GRANULOCYTES-RELATIVE 1 % 0-1 PERCENT (BEAKER) (test code = 2801) POCT-GLUCOSE [id number] 08:34:00 Test Item Value Reference Range Interpretation Comments POC-GLUCOSE METER 71 mg/dL 70-110 : TESTED A T [facility] 6720 (BEAKER) (test code = [place], 1538) [address]: Offset Assistant Press Operator/Techni ashley ID = [id number] for RADHAAbigailDILL CHEPE POCT-GLUCOSE [id number] 06:01:00 Test Item Value Reference Range Interpretation Comments POC-GLUCOSE METER 72 mg/dL 70-110 : TESTED A T [facility] 6720 (BEAKER) (test code = MAYTE Alexander [facility], 1538) [address]: Offset Assistant Press Operator/Techni ashley ID = [id number] for RADHA SANTACRUZ POCT-GLUCOSE [id number] 03:31:00 Test Item Value Reference Range Interpretation Comments POC-GLUCOSE METER 91 mg/dL 70-110 : TESTED A T [facility] 6720 (DANII) (test code = MAYTE Alexander [facility], 1538) [address]: Offset Assistant Press Operator/Techni ashley ID = [id number] for LISA SANTACRUZBERLY POCT-GLUCOSE [id number] 21:23:00 Test Item Value Reference Range Interpretation Comments POC-GLUCOSE METER 106 mg/dL 70-110 : TESTED A T [facility] 6720 (DANII) (test code ANDREW [facility], = 1538) [address]: Offset Assistant Press Operator/Techni ashley ID = [id number] for NEGRITA MILLS CT, CHEST, WITHOUT [id number] 18:46:00FINAL REPORT CT of the Chest dated 02/16/2020 CLINICAL INFORMATION: Cervix cancer, FIGO >1bevaluate for chest/supraclav disease Comment: Axial images of the chest were obtained from thoracic inlet to the upper abdomen without intravenous contrast. This exam was performed according to our departmental dose- optimization program, which includes automated exposure control, adjustment of the mA and/or kV according to patient size and/or use of interactive reconstruction technique. Heart is normal in size. Great vessels are unremarkable. No adenopathy in the mediastinum or perihilar region. Trachea and mainstem bronchi are patent. No apparent adenopathy is seen in the supra clavicular region. There is small bilateral pleural effusion with bibasilar subsegmental atelectasis. Trace fluid is seen in the right major fissure. Groundglass and interstitial pulmonary parenchyma disease is seen in both upper lobes. There is mild right upper lobe bronchiectasis. A 1.1 cm nodule isseen in the right apex. Visualized upper abdomen demonstrates no focal lesion. Impression: 1. Bilateral pleural effusion with bibasilar compressive atelectasis.2. Nonspecific groundglass and interstitial pulmonary disease in both upper lobes.3. Mild right upper lobe bronchiectasis.4. Right apical nodule. Recommend follow-up with repeat study in 3-6 months. Signed: Ines Jo Verified Date/Time: 02/16/2020 18:46:22 Reading Location: [facility] C013[facility] CT Body Reading Room CT chest without IV [id number] 18:46:00Interface, External Ris In - 02/16/2020 6:[address] of the Chest dated 02/16/2020 CLINICAL INFORMATION: Cervix cancer, FIGO >1bevaluate for chest/supraclav disease Comment: Axial images of the chest were obtained from thoracic inlet to the upper abdomen without intravenous contrast. This exam was performed according to our departmental dose- optimization program, which includes automated exposure control, adjustment of the mA and/or kV according to patient size and/or use of interactive reconstruction technique. Heart is normal in size. Great vessels are unremarkable. No adenopathy in the mediastinum or perihilar region. Trachea and mainstem bronchi are patent. No apparent adenopathy is seen in the supraclavicular region. There is small bilateral pleural effusion with bibasilar subsegmental atelectasis. Trace fluid is seen in the right major fissure. Groundglass and interstitial pulmonary parenchyma disease is seen in both upper lobes. There is mildright upper lobe bronchiectasis. A 1.1 cm nodule is seen in the right apex. Visualized upper abdomendemonstrates no focal lesion. Impression: 1. Bilateral pleural effusion with bibasilar compressive at electasis.2. Nonspecific groundglass and interstitial pulmonary disease in both upper lobes.3. Mild right upper lobe bronchiectasis.4. Right apical nodule. Recommend follow-up with repeat study in 3-6 months. Signed: Ines Jo Verified Date/Time: 02/16/2020 18:46:22 Reading Location: [facility] C013Y CT Body [facility] [id number] 17:53:00 Test Item Value Reference Range Interpretation Comments POC-GLUCOSE METER 77 mg/dL 70-110 : TESTED A T [facility] 6720 (DANII) (test code = [place], 1538) [address]: Offset Assistant Press Operator/Techni ashley ID = [id number] for CHEPE VOSS CT, BRAIN, WITHOUT [id number] 17:36:00FINAL REPORT CT, BRAIN, WITHOUT CONTRAST INDICATION: Neoplasm: head, metastaticnew likely cervical cancer, altered mental status, would like evaluation of head for mets TECHNIQUE: Noncontrast axial imaging was obtained from the vertex to the skull base. Axial images were reconstructed using a bone algorithm. DOSE REDUCTION: Dose modulation, iterative reconstruction, and/or weight-based adjustment of the mA/kV was utilized to reduce the radiation dose to as low as reasonably achievable. COMPARISON: None. FINDINGS: Intracranial: Multifocal encephalomalacia in the anterior righttemporal lobe, inferior left frontal lobe, and left corpus stratum. No intracranial hemorrhage or abnormal extra-axial collection. No evidence of acute territorial infarct. No mass effect. No hydrocephalus. Osseous structures: No fracture. No suspicious lesion. Paranasal sinuses and mastoid air cells:No evidence of sinusitis. Mastoids are clear. Orbital contents: Globes are intact. IMPRESSION: No acute intracranial hemorrhage or mass effect. Please note that CT is insensitive for detection of smallmasses, and if intracranial metastases are the primary concern, MRI with and without contrast is recommended. Signed: Letty Grangre MDReport Verified Date/Time: 02/16/2020 17:36:02 CT brain without IV [id number] 17:36:00Interface, External Ris In - 02/16/2020 5:[address], BRAIN, WITHOUT CONTRAST INDICATION: Neoplasm: head, metastaticnew likely cervical cancer, altered mental status, would like evaluation of head for mets TECHNIQUE: Noncontrast axial imaging was obtained from thevertex to the skull base. Axial images were reconstructed using a bone algorithm. DOSE REDUCTION: Dose modulation, iterative reconstruction, and/or weight-based adjustment of the mA/kV was utilized to reduce the radiation dose to as low as reasonably achievable. COMPARISON: None. FINDINGS: Intracranial: Multifocal encephalomalacia in the anterior right temporal lobe, inferior left frontal lobe, and left corpus stratum. No intracranial hemorrhage or abnormal extra-axial collection. No evidence of acute territorial infarct. No mass effect. No hydrocephalus. Osseous structures: No fracture. No suspicious lesion. Paranasal sinuses and mastoid air cells: No evidence of sinusitis. Mastoids are clear. Orbital contents: Globes are intact. IMPRESSION: No acute intracranial hemorrhage or mass effect. Please note that CT is insensitive for detection of small masses, and if intracranial metastases are the primary concern, MRI with and without contrast is recommended. Signed: Letty Granger MDReport Verified Date/Time: 02/16/2020 17:36:02 [facility] 125 (CA 125)2020-02-16 14:44:00 Test Item Value Reference Interpretation Comments Range CA 125 (test code = 287 U/mL <[address] was ) performed using the Malissa Sandor Chemiluminescen t method.Values obtained from different assay methods cannot be used interchangeably .CA 125 levels, regardless of v alue, should not be interpreted as absoluteevidenc e of the presence or absence of dise ase. JEWEL (test code = Performing Lab JEWEL) [facility] [address] [place] [address] Aniya Bradford MD, PhD, ERIN Lab Interpretation Abnormal (test code = 16457-1) [facility] [id number] 12:28:00 Test Item Value Reference Range Interpretation Comments POC-GLUCOSE METER 89 mg/dL 70-110 : TESTED A T [facility] 6720 (BEAKER) (test code = [place], 1538) [address]: Offset Assistant Press Operator/Techni ashley ID = [id number] for CHEPE VOSS [id number] 10:45:00 Test Item Value Reference Range Interpretation Comments Cortisol, Total (test code 17.8 ug/dL 3.7-19.4 = 2755) JEWEL (test code = JEWEL) Offset Assistant Press Operator ID - [id number] Lab Interpretation (test Normal code = 76573-6) [facility] CenterCORTISOL2020-06-01 10:45:00 Test Item Value Reference Range Interpretation Comments CORTISOL, TOTAL (BEAKER) (test 17.8 ug/dL 3.7-19.4 code = 2755) Offset Assistant Press Operator ID - NTPBASIC METABOLIC [id number] 05:08:00 Test Item Value Reference Range Interpretation Comments SODIUM (BEAKER) 132 meq/L 136-145 L (test code = 381) POTASSIUM (BEAKER) 3.1 meq/L 3.5-5.1 L (test code = 379) CHLORIDE (BEAKER) 100 meq/L 98-107 (test code = 382) CO2 (BEAKER) (test 24 meq/L 22-29 code = 355) BLOOD UREA NITROGEN 40 mg/dL 7-21 H (BEAKER) (test code = 354) CREATININE (BEAKER) 3.46 mg/dL 0.57-1.25 H (test code = 358) GLUCOSE RANDOM 89 mg/dL 70-105 (BEAKER) (test code = 652) CALCIUM (BEAKER) 7.5 mg/dL 8.4-10.2 L (test code = 697) EGFR (BEAKER) (test 14 mL/min/1.73 ESTIMA SONNY GFR IS code = 1092) sq m NOT ACCURATE CREATININE CLEARANCE IN PREDICTING GLOMERULAR FILTRATION RATE . ESTIMATED GFR I S NOT APPLICABLE FOR DIALYSIS PATIEN TS. Offset Assistant Press Operator ID - PIAYA LCBC W/PLT COUNT & AUTO [id number] 04:49:00 Test Item Value Reference Range Interpretation Comments WHITE BLOOD CELL COUNT (BEAKER) 18.6 K/ L 3.5-10.5 H (test code = 775) RED BLOOD CELL COUNT (BEAKER) 2.64 M/ L 3.93-5.22 L (test code = 761) HEMOGLOBIN (BEAKER) (test code = 7.5 GM/DL 11.2-15.7 L 410) HEMATOCRIT (BEAKER) (test code = 22.5 % 34.1-44.9 L 411) MEAN CORPUSCULAR VOLUME (BEAKER) 85.2 fL 79.4-94.8 (test code = 753) MEAN CORPUSCULAR HEMOGLOBIN 28.4 pg 25.6-32.2 (BEAKER) (test code = 751) MEAN CORPUSCULAR HEMOGLOBIN CONC 33.3 GM/DL 32.2-35.5 (BEAKER) (test code = 752) RED CELL DISTRIBUTION WIDTH 17.3 % 11.7-14.4 H (BEAKER) (test code = 412) PLATELET COUNT (BEAKER) (test 145 K/CU MM 150-450 L code = 756) MEAN PLATELET VOLUME (BEAKER) 11.4 fL 9.4-12.3 (test code = 754) NUCLEATED RED BLOOD CELLS 0 /100 WBC 0-0 (BEAKER) (test code = 413) NEUTROPHILS RELATIVE PERCENT 85 % (BEAKER) (test code = 429) LYMPHOCYTES RELATIVE PERCENT 5 % (BEAKER) (test code = 430) MONOCYTES RELATIVE PERCENT 7 % (BEAKER) (test code = 431) EOSINOPHILS RELATIVE PERCENT 2 % (BEAKER) (test code = 432) BASOPHILS RELATIVE PERCENT 0 % (BEAKER) (test code = 437) NEUTROPHILS ABSOLUTE COUNT 15.75 K/ L 1.56-6.13 H (BEAKER) (test code = 670) LYMPHOCYTES ABSOLUTE COUNT 1.01 K/ L 1.18-3.74 L (BEAKER) (test code = 414) MONOCYTES ABSOLUTE COUNT (BEAKER) 1.24 K/ L 0.24-0.36 H (test code = 415) EOSINOPHILS ABSOLUTE COUNT 0.36 K/ L 0.04-0.36 (BEAKER) (test code = 416) BASOPHILS ABSOLUTE COUNT (BEAKER) 0.05 K/ L 0.01-0.08 (test code = 417) IMMATURE GRANULOCYTES-RELATIVE 1 % 0-1 PERCENT (BEAKER) (test code = 2801) POCT-GLUCOSE [id number] 04:01:00 Test Item Value Reference Range Interpretation Comments POC-GLUCOSE METER 91 mg/dL 70-110 : TESTED A T [facility] 6720 (BEAKER) (test code = [facility], 1538) [id number]: Offset Assistant Press Operator/Techni ashley ID = [id number] for Terrie Ballard POCT-GLUCOSE [id number] 00:35:00 Test Item Value Reference Range Interpretation Comments POC-GLUCOSE METER 98 mg/dL 70-110 : TESTED A T [facility] 6720 (BEAKER) (test code = [facility], 1538) [id number]: Offset Assistant Press Operator/Techni ashley ID = [id number] for Terrie Ballard POCT-GLUCOSE [id number] 20:33:00 Test Item Value Reference Range Interpretation Comments POC-GLUCOSE METER 110 mg/dL 70-110 : TESTED Magalys Marroquin [facility] 6720 (DANII) (test code = [place], 1538) [address]: Offset Assistant Press Operator/Techni ashley ID = [id number] for Al i, Terrie U/S, RENAL, [id number] 18:24:00Reason for exam:->to check on hydronephrosisFINAL REPORT Ultrasound of the Kidneys Clinical History: to check on hydronephrosis Discussion: Sonographic evaluation of the kidneys was performed. Comparison is made to outside renal ultrasound 02/09/2020. Right kidney: 9.5 x 4.7 x 4.1 cm, with cortical thickness of 0.5 cm. Normal cortical echogenicity. No mass. No shadowing calculus. No hydronephrosis. Left kidney: 11.1 x 5.5 x 5.3 cm, with cortical thickness of 0.8 cm. Normal cortical echogenicity. No mass. No shadowing calculus. Mild hydronephrosis, decreased in the interval. Limited doppler evaluation of bilateral main renal arteries and veins demonstrate patency. Bladder: Collapsed. Miscellaneous: Left pleural effusion. Impression:Mild left hydronephrosis, decreased in the interval.No nephrolithiasis.Left pleural effusion. Signed: Laura Turner [facility] Verified Date/Time: 02/15/2020 18:24:53 US renal [id number] 18:24:00Interface, External Ris In - 02/15/2020 6:28 PM CDTFINAL REPORT Ultrasound of the Kidneys Clinical History: to check on hydronephrosis Discussion: Sonographic evaluation of thekidneys was performed. Comparison is made to outside renal ultrasound 02/09/2020. Right kidney: 9.5 x 4.7 x 4.1 cm, with cortical thickness of 0.5 cm. Normal cortical echogenicity. No mass. No shadowing calculus. No hydronephrosis. Left kidney: 11.1 x 5.5 x 5.3 cm, with cortical thickness of 0.8 cm. Normal cortical echogenicity. No mass. No shadowing calculus. Mild hydronephrosis, decreased inthe interval. Limited doppler evaluation of bilateral main renal arteries and veins demonstrate patency. Bladder: Collapsed. Miscellaneous: Left pleural effusion. Impression:Mild left hydronephrosis,decreased in the interval.No nephrolithiasis.Left pleural effusion. Signed: Laura Turnereport Verified Date/Time: 02/15/2020 18:24:53 [facility] [id number] 16:41:00 Test Item Value Reference Range Interpretation Comments POC-GLUCOSE METER 108 mg/dL 70-110 : TESTED A T [facility] 6720 (BEAKER) (test code = [facility], 1538) 54143: Offset Assistant Press Operator/Techni ashley ID = [id number] for RAMIRES-COREA, D OROTHY POCT-GLUCOSE [id number] 13:28:00 Test Item Value Reference Range Interpretation Comments POC-GLUCOSE METER 125 mg/dL 70-110 H : TESTED A T [facility] 6720 (BEAKER) (test code = [facility], 1538) 10241: Offset Assistant Press Operator/Techni ashley ID = [id number] for RAMIRES-COREA, D OROTHY POCT-GLUCOSE [id number] 09:53:00 Test Item Value Reference Range Interpretation Comments POC-GLUCOSE METER 110 mg/dL 70-110 : TESTED A T [facility] 6720 (BEAKER) (test code = [facility], 1538) 28583: Offset Assistant Press Operator/Techni ashley ID = [id number] for RAMIRES-COREA, D OROTHY Blood Culture - Routine (Right Venipuncture)2020-02-15 08:00:00 Test Item Value Reference Range Interpretation Comments Result (test code = No growth in 5 days 6463-4) [facility] [id number] 08:00:00 Test Item Value Reference Range Interpretation Comments CULTURE (BEAKER) (test No growth in 5 days code = 1095) BASIC METABOLIC [id number] 06:54:00 Test Item Value Reference Range Interpretation Comments SODIUM (BEAKER) 134 meq/L 136-145 L (test code = 381) POTASSIUM (BEAKER) 2.8 meq/L 3.5-5.1 L (test code = 379) CHLORIDE (BEAKER) 100 meq/L 98-107 (test code = 382) CO2 (BEAKER) (test 24 meq/L 22-29 code = 355) BLOOD UREA NITROGEN 44 mg/dL 7-21 H (BEAKER) (test code = 354) CREATININE (BEAKER) 3.85 mg/dL 0.57-1.25 H (test code = 358) GLUCOSE RANDOM 90 mg/dL 70-105 (BEAKER) (test code = 652) CALCIUM (BEAKER) 7.6 mg/dL 8.4-10.2 L (test code = 697) EGFR (BEAKER) (test 12 mL/min/1.73 ESTIMA SONNY GFR IS code = 1092) sq m NOT ACCURATE CREATININE CLEARANCE IN PREDICTING GLOMERULAR FILTRATION RATE . ESTIMATED GFR I S NOT APPLICABLE FOR DIALYSIS PATIEN TS. Offset Assistant Press Operator ID - PIAYA LCBC W/PLT COUNT & AUTO [id number] 06:15:00 Test Item Value Reference Range Interpretation Comments WHITE BLOOD CELL COUNT (BEAKER) 19.6 K/ L 3.5-10.5 H (test code = 775) RED BLOOD CELL COUNT (BEAKER) 2.95 M/ L 3.93-5.22 L (test code = 761) HEMOGLOBIN (BEAKER) (test code = 8.1 GM/DL 11.2-15.7 L 410) HEMATOCRIT (BEAKER) (test code = 25.0 % 34.1-44.9 L 411) MEAN CORPUSCULAR VOLUME (BEAKER) 84.7 fL 79.4-94.8 (test code = 753) MEAN CORPUSCULAR HEMOGLOBIN 27.5 pg 25.6-32.2 (BEAKER) (test code = 751) MEAN CORPUSCULAR HEMOGLOBIN CONC 32.4 GM/DL 32.2-35.5 (BEAKER) (test code = 752) RED CELL DISTRIBUTION WIDTH 17.2 % 11.7-14.4 H (BEAKER) (test code = 412) PLATELET COUNT (BEAKER) (test 109 K/CU MM 150-450 L code = 756) MEAN PLATELET VOLUME (BEAKER) 12.0 fL 9.4-12.3 (test code = 754) NUCLEATED RED BLOOD CELLS 0 /100 WBC 0-0 (BEAKER) (test code = 413) NEUTROPHILS RELATIVE PERCENT 84 % (BEAKER) (test code = 429) LYMPHOCYTES RELATIVE PERCENT 7 % (BEAKER) (test code = 430) MONOCYTES RELATIVE PERCENT 6 % (BEAKER) (test code = 431) EOSINOPHILS RELATIVE PERCENT 2 % (BEAKER) (test code = 432) BASOPHILS RELATIVE PERCENT 0 % (BEAKER) (test code = 437) NEUTROPHILS ABSOLUTE COUNT 16.40 K/ L 1.56-6.13 H (BEAKER) (test code = 670) LYMPHOCYTES ABSOLUTE COUNT 1.37 K/ L 1.18-3.74 (BEAKER) (test code = 414) MONOCYTES ABSOLUTE COUNT (BEAKER) 1.17 K/ L 0.24-0.36 H (test code = 415) EOSINOPHILS ABSOLUTE COUNT 0.36 K/ L 0.04-0.36 (BEAKER) (test code = 416) BASOPHILS ABSOLUTE COUNT (BEAKER) 0.05 K/ L 0.01-0.08 (test code = 417) IMMATURE GRANULOCYTES-RELATIVE 1 % 0-1 PERCENT (BEAKER) (test code = 2801) POCT-GLUCOSE [id number] 05:08:00 Test Item Value Reference Range Interpretation Comments POC-GLUCOSE METER 90 mg/dL 70-110 : TESTED A T [facility] 6720 (BEAKER) (test code = [facility], 153) 18599: Offset Assistant Press Operator/Techni ashley ID = [id number] for Ali, Terrie BLOOD [id number] 05:00:00 Test Item Value Reference Range Interpretation Comments CULTURE (BEAKER) (test No growth in 5 days code = 1095) POCT-GLUCOSE [id number] 00:10:00 Test Item Value Reference Range Interpretation Comments POC-GLUCOSE METER 104 mg/dL 70-110 : TESTED A T [facility] 6720 (BEAKER) (test code = [facility], 153) 00214: Offset Assistant Press Operator/Techni ashley ID = [id number] for Al i, Terrie POCT-GLUCOSE [id number] 21:18:00 Test Item Value Reference Range Interpretation Comments POC-GLUCOSE METER 93 mg/dL 70-110 : TESTED A T [facility] 6720 (BEAKER) (test code = [place], 1538) 90272: Offset Assistant Press Operator/Techni ashley ID = [id number] for JASON CARBAJAL BASIC METABOLIC [id number] 17:21:00 Test Item Value Reference Range Interpretation Comments SODIUM (BEAKER) 133 meq/L 136-145 L (test code = 381) POTASSIUM (BEAKER) 3.1 meq/L 3.5-5.1 L Specimen slightly (test code = 379) hemolyzed CHLORIDE (BEAKER) 100 meq/L 98-107 (test code = 382) CO2 (BEAKER) (test 23 meq/L 22-29 code = 355) BLOOD UREA NITROGEN 45 mg/dL 7-21 H (BEAKER) (test code = 354) CREATININE (BEAKER) 4.03 mg/dL 0.57-1.25 H Specimen slightly (test code = 358) hemolyzed GLUCOSE RANDOM 100 mg/dL 70-105 (BEAKER) (test code = 652) CALCIUM (BEAKER) 7.8 mg/dL 8.4-10.2 L (test code = 697) EGFR (BEAKER) (test 12 mL/min/1.73 ESTIMA SONNY GFR IS code = 1092) sq m NOT ACCURATE CREATININE CLEARANCE IN PREDICTING GLOMERULAR FILTRATION RATE . ESTIMATED GFR I S NOT APPLICABLE FOR DIALYSIS PATIEN TS. Offset Assistant Press Operator ID - [id number] and [id number] 17:03:00 Test Item Value Reference Range Interpretation Comments Hemoglobin (test code = 8.4 11.2- 15.7 GM/DL L 786-4) Hematocrit (test code = 25.2 % 34.1-44.9 L 4544-3) JEWEL (test code = JEWEL) Offset Assistant Press Operator ID - [id number] Lab Interpretation (test Abnormal code = 45374-8) [facility] CenterHEMOGLOBIN AND [id number] 17:03:00 Test Item Value Reference Range Interpretation Comments HEMOGLOBIN (BEAKER) (test code = 8.4 GM/DL 11.2-15.7 L 410) HEMATOCRIT (BEAKER) (test code = 25.2 % 34.1-44.9 L 411) Offset Assistant Press Operator ID - [id number]-GLUCOSE [id number] 16:47:00 Test Item Value Reference Range Interpretation Comments POC-GLUCOSE METER 95 mg/dL 70-110 : TESTED A T [facility] 6720 (BEAKER) (test code = [facility], 1538) 37066: Offset Assistant Press Operator/Techni ashley ID = [id number] for MARYANN BRADFORD POCT-GLUCOSE [id number] 12:42:00 Test Item Value Reference Range Interpretation Comments POC-GLUCOSE METER 105 mg/dL 70-110 : TESTED A T [facility] 6720 (BEAKER) (test code = [facility], 1538) 44581: Offset Assistant Press Operator/Techni ashley ID = [id number] for ALEXANDRA BURNS BASIC METABOLIC [id number] 06:27:00 Test Item Value Reference Range Interpretation Comments SODIUM (BEAKER) 136 meq/L 136-145 (test code = 381) POTASSIUM (BEAKER) 2.9 meq/L 3.5-5.1 L (test code = 379) CHLORIDE (BEAKER) 103 meq/L 98-107 (test code = 382) CO2 (BEAKER) (test 23 meq/L 22-29 code = 355) BLOOD UREA NITROGEN 46 mg/dL 7-21 H (BEAKER) (test code = 354) CREATININE (BEAKER) 4.39 mg/dL 0.57-1.25 H (test code = 358) GLUCOSE RANDOM 101 mg/dL 70-105 (BEAKER) (test code = 652) CALCIUM (BEAKER) 7.5 mg/dL 8.4-10.2 L (test code = 697) EGFR (BEAKER) (test 11 mL/min/1.73 ESTIMA SONNY GFR IS code = 1092) sq m NOT ACCURATE CREATININE CLEARANCE IN PREDICTING GLOMERULAR FILTRATION RATE . ESTIMATED GFR I S NOT APPLICABLE FOR DIALYSIS PATIEN TS. Offset Assistant Press Operator ID - PIAYA LCBC W/PLT COUNT & AUTO [id number] 05:47:00 Test Item Value Reference Range Interpretation Comments WHITE BLOOD CELL COUNT (BEAKER) 18.3 K/ L 3.5-10.5 H (test code = 775) RED BLOOD CELL COUNT (BEAKER) 2.81 M/ L 3.93-5.22 L (test code = 761) HEMOGLOBIN (BEAKER) (test code = 7.7 GM/DL 11.2-15.7 L 410) HEMATOCRIT (BEAKER) (test code = 23.5 % 34.1-44.9 L 411) MEAN CORPUSCULAR VOLUME (BEAKER) 83.6 fL 79.4-94.8 (test code = 753) MEAN CORPUSCULAR HEMOGLOBIN 27.4 pg 25.6-32.2 (BEAKER) (test code = 751) MEAN CORPUSCULAR HEMOGLOBIN CONC 32.8 GM/DL 32.2-35.5 (BEAKER) (test code = 752) RED CELL DISTRIBUTION WIDTH 17.1 % 11.7-14.4 H (BEAKER) (test code = 412) PLATELET COUNT (BEAKER) (test code 86 K/CU MM 150-450 L = 756) MEAN PLATELET VOLUME (BEAKER) 11.9 fL 9.4-12.3 (test code = 754) NUCLEATED RED BLOOD CELLS (BEAKER) 0 /100 WBC 0-0 (test code = 413) NEUTROPHILS RELATIVE PERCENT 85 % (BEAKER) (test code = 429) LYMPHOCYTES RELATIVE PERCENT 5 % (BEAKER) (test code = 430) MONOCYTES RELATIVE PERCENT 6 % (BEAKER) (test code = 431) EOSINOPHILS RELATIVE PERCENT 2 % (BEAKER) (test code = 432) BASOPHILS RELATIVE PERCENT 0 % (BEAKER) (test code = 437) NEUTROPHILS ABSOLUTE COUNT 15.58 K/ L 1.56-6.13 H (BEAKER) (test code = 670) LYMPHOCYTES ABSOLUTE COUNT 0.97 K/ L 1.18-3.74 L (BEAKER) (test code = 414) MONOCYTES ABSOLUTE COUNT (BEAKER) 1.16 K/ L 0.24-0.36 H (test code = 415) EOSINOPHILS ABSOLUTE COUNT 0.33 K/ L 0.04-0.36 (BEAKER) (test code = 416) BASOPHILS ABSOLUTE COUNT (BEAKER) 0.04 K/ L 0.01-0.08 (test code = 417) IMMATURE GRANULOCYTES-RELATIVE 1 % 0-1 PERCENT (BEAKER) (test code = 2801) POCT-GLUCOSE [id number] 04:38:00 Test Item Value Reference Range Interpretation Comments POC-GLUCOSE METER 101 mg/dL 70-110 : TESTED A T [facility] 6720 (BEAKER) (test code = [facility], 1538) 69533: Offset Assistant Press Operator/Techni ashley ID = [id number] for Al i, Terrie POCT-GLUCOSE [id number] 01:21:00 Test Item Value Reference Range Interpretation Comments POC-GLUCOSE METER 103 mg/dL 70-110 : TESTED A T [facility] 6720 (BEAKER) (test code = [facility], 1538) 07863: Offset Assistant Press Operator/Techni ashley ID = [id number] for Al i, Terrie POCT-GLUCOSE [id number] 20:42:00 Test Item Value Reference Range Interpretation Comments POC-GLUCOSE METER 121 mg/dL 70-110 H : TESTED A T [facility] 6720 (BEAKER) (test code = [facility], 1538) 98710: Offset Assistant Press Operator/Techni ashley ID = [id number] for Al i, Terrie POCT-GLUCOSE [id number] 15:52:00 Test Item Value Reference Range Interpretation Comments POC-GLUCOSE METER 89 mg/dL 70-110 : TESTED A T [facility] 6720 (BEAKER) (test code = [facility], 1538) 65241: Offset Assistant Press Operator/Techni ashley ID = [id number] for AMY SALOMON BASIC METABOLIC [id number] 13:38:00 Test Item Value Reference Range Interpretation Comments SODIUM (BEAKER) 134 meq/L 136-145 L (test code = 381) POTASSIUM (BEAKER) 2.9 meq/L 3.5-5.1 L (test code = 379) CHLORIDE (BEAKER) 100 meq/L 98-107 (test code = 382) CO2 (BEAKER) (test 25 meq/L 22-29 code = 355) BLOOD UREA NITROGEN 45 mg/dL 7-21 H (BEAKER) (test code = 354) CREATININE (BEAKER) 4.99 mg/dL 0.57-1.25 H (test code = 358) GLUCOSE RANDOM 129 mg/dL 70-105 H (BEAKER) (test code = 652) CALCIUM (BEAKER) 7.7 mg/dL 8.4-10.2 L (test code = 697) EGFR (BEAKER) (test 9 mL/min/1.73 ESTIMAT ED GFR IS code = 1092) sq m NOT ACCURATE CREATININE CLEARANCE IN PREDICTING GLOMERULAR FILTRATION RATE . ESTIMATED GFR I S NOT APPLICABLE FOR DIALYSIS PATIEN TS. Offset Assistant Press Operator ID - NTPPOCT-GLUCOSE [id number] 13:00:00 Test Item Value Reference Range Interpretation Comments POC-GLUCOSE METER 127 mg/dL 70-110 H : TESTED A T [facility] 6720 (DANII) (test code = [place], 1538) 13998: Offset Assistant Press Operator/Techni ashley ID = [id number] for DA VISEDMUNDAIRA Transesophageal [id number] 09:43:29Ejection FractionSLEH ECHO HEARTLAB MKCKESSON CPACSInterface, External Ris In - 02/13/2020 9:43 AM C DTTransesophageal Echocardiography Report (BONIFACIO) Demographics Patient Name ARNULFO JOHN Date of Study 02/12/2020 GERI Gender Female Visit Number [id number] Race Unknown Room Number 1660 Number Date of 1965 Referring Physician Flaca Miller Age 54 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 . Summary Normal left ventricle cavity size. Aortic valve area 1.84 cm^2, mean gradient 8 mmHg, peak velocity 2 m/s, consistent with mild aortic valve stenosis. Moderate aortic valve insufficiency with a vena contracta of approximately 5mm. PHT 204 msec. The regurgitant jet is eccentric and anteriorly directed. No diastolic flow reversal noted in aortic arch Moderate mitral regurgitation that is noted centrally along the commissure. The most prominent jet at A2-P2 segments with PISA radius of 0.782cm, ERO0.23 cm2, and regurgitant volume of 41 mL. Estimated peak systolic PA pressure is 25-30 mmHg + RA pressure. (RA pressure indeterminate on this exam) Signature Findings Rhythm/BP Regular sinus rhythm during the exam. Left Normal left ventricle cavity size. Ventricle Left Atrium LA is enlarged but severity assessment is unreliable due to known BONIFACIO sector size limitation. LA appendage morphology is simple (wind sock) . No LA appendage Thrombus visualized. Right The right ventricular chamber size and systolic function are Ventricle within normal limits. Atrial Normal interatrial septum by available views.Septum IV saline contrast injection was negative for a PFO (patent foramen ovale)at rest. Aortic Valve Severe nodular calcification of the aortic valve right coronary cusp and moderate nodular calcification of the non- coronary cusp. Aortic valve area 1.84 cm^2, mean gradient 8 mmHg, peak velocity 2 m/s, consistent with mild aortic valve stenosis. Moderate aortic valve insufficiency with a vena contracta of approximately 5mm. PHT 204 msec. The regurgitant jet is eccentric and anteriorly directed. No diastolic flow reversal noted in aortic arch. Mitral Valve Mild MV leaflet thickening. Mild mitral annular calcification. Moderate mitral regurgitationthat is noted centrally along the commissure. The most prominent jet at A2-P2 segments with PISA radius of 0.782cm, ERO 0.23 cm2, and regurgitant volume of 41 mL. Tricuspid TV structure is normal. Valve Mild tricuspid regurgitation. Estimated peak systolic PA pressure is 25-30 mmHg + RA pressure. (RA pressure indeterminate onthis exam) Aorta Aortic root size (SInus of Valsalva diameter) is normal . Proximal ascending aorta size is normal . Visualized aortic arch is normal . Pericardium No significant pericardial effusion is visualized. Chambers/Structures Left Ventricle LVOT Diameter: 2.03 cm Aorta Ao Root S of Martina.: 2.79 cm Doppler/Quantitative Measurements Mitral Valve PISA Radius: 0.78 cm MR Velocity: 6.1 m/s MV EROA (PISA): 3.82 cm^2 MV Raul. Peak: Aortic Valve Peak Velocity: 2 m/s Mean Velocity: 1.31 m/s Peak Gradient: 15.99 mmHg Mean Gradient: 8.16 mmHg AV Area (continuity): 1.84 cm^2 AV VTI: 36.97 cm AR P1/2t: 203.9 msec AV DVI: 0.57 LVOT Peak Velocity: 1.13 m/s Peak Gradient:5.13 mmHg Mean Velocity: 0.74 m/s Mean Gradient: 2.54 mmHg LVOT Diameter: 2.03 cm LVOT VTI: 21.08 cm LVOT Area: 3.24 cm^2 LVOT SV:68.19 ml LVOT CO: 6.34 l/min LVOT CI: 4.31 l/min/m^2 Tricuspid Valve TR Velocity: 2.75 m/s TR Gradient: 30.2 mmHgCHI [facility] CenterPOCT-GLUCOSE [id number] 08:26:00 Test Item Value Reference Range Interpretation Comments POC-GLUCOSE METER 119 mg/dL 70-110 H : TESTED A T [facility] 6720 (The Kernel) (test code = [facility], 1538) 76497: Offset Assistant Press Operator/Techni ashley ID = [id number] for DA VIS, KEYAIRA POCT-GLUCOSE [id number] 05:16:00 Test Item Value Reference Range Interpretation Comments POC-GLUCOSE METER 105 mg/dL 70-110 : TESTED A T [facility] 6720 (The Kernel) (test code [facility], = 1538) 19669: Offset Assistant Press Operator/Techni ashley ID = [id number] for OZZ, NEGRITA POCT-GLUCOSE [id number] 21:23:00 Test Item Value Reference Range Interpretation Comments POC-GLUCOSE METER 74 mg/dL 70-110 : TESTED A T [facility] 6720 (The Kernel) (test code = [facility], 1538) 31509: Offset Assistant Press Operator/Techni ashley ID = [id number] for OZZ, NEGRITA Urine [id number] 14:20:00 Test Item Value Reference Range Interpretation Comments Result (test code = 6463-4) No growth [facility] CenterPOCT-GLU[facility] [id number] 13:01:00 Test Item Value Reference Range Interpretation Comments POC-GLUCOSE METER 93 mg/dL 70-110 : TESTED A T [facility] 6720 (BEAKER) (test code = [place], 1538) 36613: Offset Assistant Press Operator/Techni ashley ID = [id number] for AMY SALOMON Manual [id number] 10:40:00 Test Item Value Reference Range Interpretation Comments % Neutros (test code = 97 % 2816) % Lymphs (test code = 1 % 2817) % Eos (test code = 1 % 2819) % Baso (test code = 1 % 2820) # Neutros (test code = 26.38 K/ul 1.56-6.13 H 2830) # Lymphs (test code = 0.27 K/ul 1.18-3.74 L 2831) # Eos (test code = 0.27 K/uL 0.04-0.36 2834) # Baso (test code = 0.27 K/uL 0.01-0.08 H 2835) Total Counted (test 100 code = 1351) WBC Morphology (test Normal code = 487) Giant Platelet (test Present code = 313) Large Platelet (test Present code = 2156) Hypochromia (test code 1+ few = 963) Anisocytosis (test code 1+ few = 961) Poikilocytes (test code 2+ moderate = 966) Ovalocytes (test code = 2+ moderate 477) Tear Drop Cells (test 1+ few code = 481) [place] Cells (test code = 1+ few 474) Artifact (test code = Present 3432) Helmet Cells (test code 1+ few = 3434) Platelet Conc (test Decreased code = 3438) JEWEL (test code = JEWEL) Offset Assistant Press Operator ID - [id number] ID - Miranda Alarcon comments: Slide comments: Lab Interpretation Abnormal (test code = 58948-0) [facility] W/PLT COUNT & AUTO [id number] 10:40:00 Test Item Value Reference Range Interpretation Comments WHITE BLOOD CELL COUNT 27.2 K/ L 3.5-10.5 H (BEAKER) (test code = 775) RED BLOOD CELL COUNT 3.16 M/ L 3.93-5.22 L (BEAKER) (test code = 761) HEMOGLOBIN (BEAKER) 9.0 GM/DL 11.2-15.7 L (test code = 410) HEMATOCRIT (BEAKER) 26.0 % 34.1-44.9 L (test code = 411) MEAN CORPUSCULAR 82.3 fL 79.4-94.8 Discordant MCV VOLUME (BEAKER) (test result s compared to code = 753) previous result s; clinical correl ation required. MEAN CORPUSCULAR 28.5 pg 25.6-32.2 HEMOGLOBIN (BEAKER) (test code = 751) MEAN CORPUSCULAR 34.6 GM/DL 32.2-35.5 HEMOGLOBIN CONC (BEAKER) (test code = 752) RED CELL DISTRIBUTION 16.8 % 11.7-14.4 H WIDTH (BEAKER) (test code = 412) PLATELET COUNT 58 K/CU MM 150-450 L (BEAKER) (test code = 756) MEAN PLATELET VOLUME 13.0 fL 9.4-12.3 H (BEAKER) (test code = 754) NUCLEATED RED BLOOD 0 /100 WBC 0-0 CELLS (BEAKER) (test code = 413) (CELLAVISION MANUAL DIFF)2020-02-12 10:40:00 Test Item Value Reference Range Interpretation Comments NEUTROPHILS - REL 97 % (CELLAVISION)(BEAKER) (test code = 2816) LYMPHOCYTES - REL 1 % (CELLAVISION)(BEAKER) (test code = 2817) EOSINOPHILS - REL 1 % (CELLAVISION)(BEAKER) (test code = 2819) BASOPHILS - REL 1 % (CELLAVISION)(BEAKER) (test code = 2820) NEUTROPHILS - ABS 26.38 K/ul 1.56-6.13 H (CELLAVISION)(BEAKER) (test code = 2830) LYMPHOCYTES - ABS 0.27 K/ul 1.18-3.74 L (CELLAVISION)(BEAKER) (test code = 2831) EOSINOPHILS - ABS 0.27 K/uL 0.04-0.36 (CELLAVISION)(BEAKER) (test code = 2834) BASOPHILS - ABS 0.27 K/uL 0.01-0.08 H (CELLAVISION)(BEAKER) (test code = 2835) TOTAL COUNTED (BEAKER) (test code 100 = 1351) WBC MORPHOLOGY (BEAKER) (test Normal code = 487) GIANT PLATELETS (BEAKER) (test Present code = 313) LARGE PLT(BEAKER) (test code = Present 2156) HYPOCHROMIA (BEAKER) (test code = 1+ few 963) ANISOCYTOSIS (BEAKER) (test code 1+ few = 961) POIKILOCYTES (BEAKER) (test code 2+ moderate = 966) OVALOCYTES (BEAKER) (test code = 2+ moderate 477) TEAR DROP CELLS (BEAKER) (test 1+ few code = 481) SAM CELLS (BEAKER) (test code = 1+ few 474) ARTIFACT (CELLAVISION)(BEAKER) Present (test code = 3432) HELMET CELLS 1+ few (CELLAVISION)(BEAKER) (test code = 3434) PLATELET CONCENTRATION Decreased (CELLAVISION)(BEAKER) (test code = 3438) Offset Assistant Press Operator ID - [id number] ID - Miranda Alarcon comments: Slide comments: BASIC METABOLIC [id number] 05:14:00 Test Item Value Reference Range Interpretation Comments SODIUM (BEAKER) 137 meq/L 136-145 (test code = 381) POTASSIUM (BEAKER) 4.5 meq/L 3.5-5.1 (test code = 379) CHLORIDE (BEAKER) 103 meq/L 98-107 (test code = 382) CO2 (BEAKER) (test 22 meq/L 22-29 code = 355) BLOOD UREA NITROGEN 87 mg/dL 7-21 H (BEAKER) (test code = 354) CREATININE (BEAKER) 9.89 mg/dL 0.57-1.25 H (test code = 358) GLUCOSE RANDOM 117 mg/dL 70-105 H (BEAKER) (test code = 652) CALCIUM (BEAKER) 7.9 mg/dL 8.4-10.2 L (test code = 697) EGFR (BEAKER) (test 4 mL/min/1.73 ESTIMAT ED GFR IS code = 1092) sq m NOT ACCURATE CREATININE CLEARANCE IN PREDICTING GLOMERULAR FILTRATION RATE . ESTIMATED GFR I S NOT APPLICABLE FOR DIALYSIS PATIEN TS. Offset Assistant Press Operator ID - STEPHANIE [id number] 05:13:00 Test Item Value Reference Range Interpretation Comments PHOSPHORUS (BEAKER) (test code = 5.6 mg/dL 2.3-4.7 H 604) Offset Assistant Press Operator ID - STEPHANIE [id number] 05:13:00 Test Item Value Reference Range Interpretation Comments MAGNESIUM (BEAKER) (test code = 1.8 mg/dL 1.6-2.6 627) Offset Assistant Press Operator ID - STEPHANIE MPrepare Leuko-Red [id number] 23:54:00 Test Item Value Reference Range Interpretation Comments CROSSMATCH (test code = 2264) COMPATIBLE Unit ABO (test code = A Pos [id number]) UNIT NUMBER (test code = [id number] 934-0) Status (test code = 1107518) [facility] Blood [facility] Product (test code RED BLOOD CELLS = 2263) PRODUCT CODE (test code = D5510Y88 933-2) [facility] CenterPO[facility] [id number] 21:11:00 Test Item Value Reference Range Interpretation Comments POC-GLUCOSE METER 80 mg/dL 70-110 : TESTED A T [facility] 6720 (BEAKER) (test code = [facility], 1538) 17[address]: Offset Assistant Press Operator/Techni ashley ID = [id number] for OZZ, NEGRITA POCT-GLUCOSE [id number] 18:52:00 Test Item Value Reference Range Interpretation Comments POC-GLUCOSE METER 146 mg/dL 70-110 H : TESTED A T [facility] 6720 (BEAKER) (test code = [facility], 1538) 37112: Offset Assistant Press Operator/Techni ashley ID = [id number] for DA December POCT-GLUCOSE [id number] 18:29:00 Test Item Value Reference Range Interpretation Comments POC-GLUCOSE METER 40 mg/dL 70-110 LL : TESTED A T [facility] 6720 (BEAKER) (test code = [facility], 1538) 88785: Offset Assistant Press Operator/Techni ashley ID = [id number] for CHEPE VOSS HEMOGLOBIN AND [id number] 18:09:00 Test Item Value Reference Range Interpretation Comments HEMOGLOBIN (BEAKER) (test code = 9.4 GM/DL 11.2-15.7 L 410) HEMATOCRIT (BEAKER) (test code = 25.8 % 34.1-44.9 L 411) Offset Assistant Press Operator ID - [id number] 17:26:12Interface, External Ris In - 02/11/2020 5:26 PM CDTVentricular Rate 84 BPMAtrial Rate 84 BPMP-R Interval 102 msQRS Duration 78 msQ-T Interval 402 msQTC Calculation(Bazett) 475 msP [place] 44 degreesR [place] 51 degreesT [place] 251 degreesSinus rhythm with short PRT wave abnormality, consider inferior ischemiaT wave abnormality, consider anterolateral ischemiaProlonged QTAbnormal ECGWhen compared with ECG of 10-FEB-2020 04:07,Premature ventricular complexes are no longer PresentT wave inversion more evidentin Anterior leadsConfirmed by MD Webster Roberto ([id number]) on 02/11/2020 5:26:11 [facility] 2020-02-11 16:03:00 Test Item Value Reference Range Interpretation Comments POC-GLUCOSE METER 73 mg/dL 70-110 : TESTED A T [facility] 6720 (BEAKER) (test code = MAYTE Catherine [facility], 1538) 92424: Offset Assistant Press Operator/Techni ashley ID = [id number] for MATS ON, TOMMIE BASIC METABOLIC [id number] 13:08:00 Test Item Value Reference Range Interpretation Comments SODIUM (BEAKER) 139 meq/L 136-145 (test code = 381) POTASSIUM (BEAKER) 3.1 meq/L 3.5-5.1 L (test code = 379) CHLORIDE (BEAKER) 102 meq/L 98-107 (test code = 382) CO2 (BEAKER) (test 24 meq/L 22-29 code = 355) BLOOD UREA NITROGEN 90 mg/dL 7-21 H (BEAKER) (test code = 354) CREATININE (BEAKER) 11.18 mg/dL 0.57-1.25 H (test code = 358) GLUCOSE RANDOM 174 mg/dL 70-105 H (BEAKER) (test code = 652) CALCIUM (BEAKER) 7.9 mg/dL 8.4-10.2 L (test code = 697) EGFR (BEAKER) (test 4 mL/min/1.73 ESTIMAT ED GFR IS code = 1092) sq m NOT ACCURATE CREATININE CLEARANCE IN PREDICTING GLOMERULAR FILTRATION RATE . ESTIMATED GFR I S NOT APPLICABLE FOR DIALYSIS PATIEN TS. Offset Assistant Press Operator ID - MIRANDA [id number] 13:01:00 Test Item Value Reference Range Interpretation Comments CORTISOL, TOTAL (BEAKER) (test 22.3 ug/dL 3.7-19.4 H code = 2755) Offset Assistant Press Operator ID - MIRANDA FPOCT-GLUCOSE [id number] 12:12:00 Test Item Value Reference Range Interpretation Comments POC-GLUCOSE METER 70 mg/dL 70-110 : TESTED [facility] T [facility] (test code = MAYTE Alexander [facility], 1538) 45944: Offset Assistant Press Operator/Techni ashley ID = [id number] for URBAN GONZALEZ E POCT-GLUCOSE [id number] 11:33:00 Test Item Value Reference Range Interpretation Comments POC-GLUCOSE METER 31 mg/dL 70-110 LL : Notified RN/MD: [facility] (test code = [facility] 67[address] [facility] 1538) [facility], 770 30: Offset Assistant Press Operator/Techni ashley ID = [id number] for ELMER MARTINI [id number] 10:59:00 Test Item Value Reference Range Interpretation Comments RPR (test code = 06826-6) Nonreactive Nonreactive Lab Interpretation (test code = Normal 99821-8) [facility] CenterRPR2020-05-27 10:59:00 Test Item Value Reference Range Interpretation Comments RPR SCREEN (BEAKER) (test code = Nonreactive Nonreactive 420) CBC W/PLT COUNT & AUTO [id number] 08:46:00 Test Item Value Reference Range Interpretation Comments WHITE BLOOD CELL COUNT 25.2 K/ L 3.5-10.5 H (BEAKER) (test code = 775) RED BLOOD CELL COUNT 3.22 M/ L 3.93-5.22 L (BEAKER) (test code = 761) HEMOGLOBIN (BEAKER) 9.2 GM/DL 11.2-15.7 L (test code = 410) HEMATOCRIT (BEAKER) 25.1 % 34.1-44.9 L (test code = 411) MEAN CORPUSCULAR 78.0 fL 79.4-94.8 L Discordant MCV result VOLUME (BEAKER) (test compar ed to previous code = 753) result; clinica l correlation req uired. MEAN CORPUSCULAR 28.6 pg 25.6-32.2 HEMOGLOBIN (BEAKER) (test code = 751) MEAN CORPUSCULAR 36.7 GM/DL 32.2-35.5 H HEMOGLOBIN CONC (BEAKER) (test code = 752) RED CELL DISTRIBUTION 16.1 % 11.7-14.4 H WIDTH (BEAKER) (test code = 412) PLATELET COUNT 40 K/CU MM 150-450 L (BEAKER) (test code = 756) MEAN PLATELET VOLUME Unable to report due (BEAKER) (test code = to abn ormal Platelet 754) population distribution. NUCLEATED RED BLOOD 0 /100 WBC 0-0 CELLS (BEAKER) (test code = 413) (CELLAVISION MANUAL DIFF)2020-02-11 08:46:00 Test Item Value Reference Range Interpretation Comments NEUTROPHILS - REL 93 % (CELLAVISION)(BEAKER) (test code = 2816) LYMPHOCYTES - REL 1 % (CELLAVISION)(BEAKER) (test code = 2817) MONOCYTES - REL 3 % (CELLAVISION)(BEAKER) (test code = 2818) EOSINOPHILS - REL 2 % (CELLAVISION)(BEAKER) (test code = 2819) BANDS - REL (CELLAVISION)(BEAKER) 1 % 0-10 (test code = 2826) NEUTROPHILS - ABS 23.44 K/ul 1.56-6.13 H (CELLAVISION)(BEAKER) (test code = 2830) LYMPHOCYTES - ABS 0.25 K/ul 1.18-3.74 L (CELLAVISION)(BEAKER) (test code = 2831) MONOCYTES - ABS 0.76 K/uL 0.24-0.36 H (CELLAVISION)(BEAKER) (test code = 2832) EOSINOPHILS - ABS 0.50 K/uL 0.04-0.36 H (CELLAVISION)(BEAKER) (test code = 2834) BANDS - ABS (CELLAVISION)(BEAKER) 0.25 K/uL 0.00-0.80 (test code = 2840) TOTAL COUNTED (BEAKER) (test code 100 = 1351) PLT MORPHOLOGY (BEAKER) (test code Normal = 486) TOXIC GRANULATION (BEAKER) (test Present code = 771) ANISOCYTOSIS (BEAKER) (test code = 1+ few 961) MICROCYTES (BEAKER) (test code = 1+ few 965) POIKILOCYTES (BEAKER) (test code = 1+ few 966) SAM CELLS (BEAKER) (test code = 1+ few 474) PLATELET CONCENTRATION Decreased (CELLAVISION)(BEAKER) (test code = 3438) Offset Assistant Press Operator ID - [id number] differential manuallyHemoglobin [id number] 08:28:00 Test Item Value Reference Range Interpretation Comments Hemoglobin A1C (test code = 4548-4) 5.6 % 4.3-6.1 Lab Interpretation (test code = Normal 91824-2) [facility] CenterHEMOGLOBIN [id number] 08:28:00 Test Item Value Reference Range Interpretation Comments HEMOGLOBIN A1C (BEAKER) (test code = 5.6 % 4.3-6.1 368) POCT-GLUCOSE [id number] 07:42:00 Test Item Value Reference Range Interpretation Comments POC-GLUCOSE METER 90 mg/dL 70-110 : TESTED A T [facility] 6720 (BEAKER) (test code = MAYTE Catherine [place], 1538) 609[address]: Offset Assistant Press Operator/Techni ashley ID = [id number] for WILL LUCILA, ELMER Vitamin B12 and [id number] 07:06:00 Test Item Value Reference Range Interpretation Comments Vitamin B12 (test code = 824 pg/mL 213-816 H 2132-9) Folate (test code = 3.00 ng/mL >=7.00 L 2284-8) JEWEL (test code = JEWEL) Offset Assistant Press Operator ID - PIAYA L Lab Interpretation (test Abnormal code = 57865-2) [facility] CenterVITAMIN B12 AND [id number] 07:06:00 Test Item Value Reference Range Interpretation Comments VITAMIN B12 (BEAKER) (test code = 824 pg/mL 213-816 H 774) FOLATE (BEAKER) (test code = 362) 3.00 ng/mL >=7.00 L Offset Assistant Press Operator ID - ANNA LPOCT-GLUCOSE [id number] 04:46:00 Test Item Value Reference Range Interpretation Comments POC-GLUCOSE METER 80 mg/dL 70-110 : TESTED A T [facility] 6720 (BEAKER) (test code = [place], 1538) 958[address]: Offset Assistant Press Operator/Techni ashley ID = [id number] for CHRISTINA SUAREZ Uric [id number] 03:32:00 Test Item Value Reference Range Interpretation Comments Uric Acid (test code = 10.6 mg/dL 2.6-7.2 H 3084-1) JEWEL (test code = JEWEL) Offset Assistant Press Operator ID - ANNA L Lab Interpretation (test Abnormal code = 64308-2) [facility] CenterURIC [id number] 03:32:00 Test Item Value Reference Range Interpretation Comments URIC ACID (BEAKER) (test code = 10.6 mg/dL 2.6-7.2 H 773) Offset Assistant Press Operator ID - ANNA LLactic acid, [id number] 02:51:00 Test Item Value Reference Range Interpretation Comments Lactate, Venous (test code 1.27 mmol/L 0.5-2.2 = 2872) JEWEL (test code = JEWEL) Offset Assistant Press Operator ID - ANNA L Lab Interpretation (test Normal code = 16654-0) [facility] CenterLACTIC ACID, [id number] 02:51:00 Test Item Value Reference Range Interpretation Comments LACTATE BLOOD VENOUS (2) (BEAKER) 1.27 mmol/L 0.50-2.20 (test code = 2872) Offset Assistant Press Operator ID - ANNA LBASIC METABOLIC [id number] 02:39:00 Test Item Value Reference Range Interpretation Comments SODIUM (BEAKER) 141 meq/L 136-145 (test code = 381) POTASSIUM (BEAKER) 3.4 meq/L 3.5-5.1 L (test code = 379) CHLORIDE (BEAKER) 103 meq/L 98-107 (test code = 382) CO2 (BEAKER) (test 20 meq/L 22-29 L code = 355) BLOOD UREA NITROGEN 89 mg/dL 7-21 H (BEAKER) (test code = 354) CREATININE (BEAKER) 10.36 mg/dL 0.57-1.25 H (test code = 358) GLUCOSE RANDOM 89 mg/dL 70-105 (BEAKER) (test code = 652) CALCIUM (BEAKER) 7.7 mg/dL 8.4-10.2 L (test code = 697) EGFR (BEAKER) (test 4 mL/min/1.73 ESTIMAT ED GFR IS code = 1092) sq m NOT ACCURATE CREATININE CLEARANCE IN PREDICTING GLOMERULAR FILTRATION RATE . ESTIMATED GFR I S NOT APPLICABLE FOR DIALYSIS PATIEN TS. Offset Assistant Press Operator ID - DADOUGLAS [id number] 02:36:00 Test Item Value Reference Range Interpretation Comments MAGNESIUM (BEAKER) (test code = 2.2 mg/dL 1.6-2.6 627) Offset Assistant Press Operator ID - PIDOUGLAS [id number] 02:36:00 Test Item Value Reference Range Interpretation Comments PHOSPHORUS (BEAKER) (test code = 4.8 mg/dL 2.3-4.7 H 604) Offset Assistant Press Operator ID - ANNA LPTH, [id number] 02:20:00 Test Item Value Reference Range Interpretation Comments PTH (test code = 2731-8) 530.8 pg/mL 8.5-72.5 H JEWEL (test code = JEWEL) Offset Assistant Press Operator ID - ANNA L Lab Interpretation (test Abnormal code = 85216-8) [facility] CenterPTH, [id number] 02:20:00 Test Item Value Reference Range Interpretation Comments PARATHYROID HORMONE INTACT 530.8 pg/mL 8.5-72.5 H (BEAKER) (test code = 577) Offset Assistant Press Operator ID - ANNA LVancomycin level, [id number] 02:06:00 Test Item Value Reference Range Interpretation Comments Vancomycin Rm (test 5.0 ug/mL code = 51960-3) JEWEL (test code = Reference Range: No JEWEL) NormalsOperator ID - ANNA L [facility] CenterVANCOMYCIN LEVEL, [id number] 02:06:00 Test Item Value Reference Range Interpretation Comments VANCOMYCIN RANDOM (BEAKER) (test 5.0 ug/mL code = 523) Reference Range: No NormalsOperator ID - ANNA ELIZALDEOCT-GLUCOSE [id number] 01:48:00 Test Item Value Reference Range Interpretation Comments POC-GLUCOSE METER 92 mg/dL 70-110 : TESTED A T [facility] 6720 (BEAKER) (test code = [facility] [place], 1538) 43033: Offset Assistant Press Operator/Techni ashley ID = [id number] for CHRISTINA SUAREZ HEMODIALYSIS [id number] 00:15:32Merlyn Gutierrez RN 02/11/2020 2:37 AMVerified consent signed for HD and with order to use CVC. Patient completed 2 hours of HD via right IJ acute dialysis CVC, with 0 fluid removed per HD order. Mannitol 12 G administered at start of treatment and PRN per MD order. Patient tolerated treatment.Report given to Primary RNChristina. Lab Results Component Value Date WBC 28.1 (H) 02/10/2020 HGB 10.4 (L) 02/10/2020 HCT 29.0 (L) 02/10/2020 MCV 82.1 02/10/2020 PLT 45 (L) 02/10/2020 Lab Results Component Value Date GLUCOSE 148 (H) 02/10/2020 CALCIUM 7.5 (L) 02/10/2020 NA 137 02/10/2020 K 3.9 02/10/2020 CO2 17 (L) 02/10/2020 CL 95 (L) 02/10/2020 BUN 167 (H) 02/10/2020 CREATININE 19.40(H) 02/10/2020 Results for ARNULFO JOHN ( ) as of 02/11/2020 00:18 Ref. Range 02/10/2020 07:26 HBsAg Screen Latest Ref Range: Nonreactive [facility] PO[facility]SE [id number] 23:41:00 Test Item Value Reference Range Interpretation Comments POC-GLUCOSE METER 87 mg/dL 70-110 : TESTED A T [facility] 6720 (BEAKER) (test code = MAYTE Alexander [facility], 1538) 02860: Offset Assistant Press Operator/Techni ashley ID = [id number] for CHRISTINA SUAREZ Hepatitis B surface [id number] 22:30:00 Test Item Value Reference Range Interpretation Comments HBsAg Screen (test code Nonreactive Nonreactive = 5195-3) JEWEL (test code = JEWEL) Specimen is considered negative for HBsAg. Lab Interpretation (test Normal code = 46593-0) [facility] CenterHEPATITIS B SURFACE [id number] 22:30:00 Test Item Value Reference Range Interpretation Comments HEPATITIS B SURFACE ANTIGEN (2) Nonreactive Nonreactive (BEAKER) (test code = 2585) Specimen is considered negative for HBsAg.CBC W/PLT COUNT & AUTO [id number] 22:15:00 Test Item Value Reference Range Interpretation Comments WHITE BLOOD CELL COUNT 28.1 K/ L 3.5-10.5 H (BEAKER) (test code = 775) RED BLOOD CELL COUNT 3.57 M/ L 3.93-5.22 L (BEAKER) (test code = 761) HEMOGLOBIN (BEAKER) 10.1 GM/DL 11.2-15.7 L (test code = 410) HEMATOCRIT (BEAKER) 29.3 % 34.1-44.9 L (test code = 411) MEAN CORPUSCULAR VOLUME 82.1 fL 79.4-94.8 (BEAKER) (test code = 753) MEAN CORPUSCULAR 28.3 pg 25.6-32.2 HEMOGLOBIN (BEAKER) (test code = 751) MEAN CORPUSCULAR 34.5 GM/DL 32.2-35.5 HEMOGLOBIN CONC (BEAKER) (test code = 752) RED CELL DISTRIBUTION 17.2 % 11.7-14.4 H WIDTH (BEAKER) (test code = 412) PLATELET COUNT (BEAKER) 45 K/CU MM 150-450 L (test code = 756) MEAN PLATELET VOLUME Unable to report due (BEAKER) (test code = to abn ormal Platelet 754) population distribution. NUCLEATED RED BLOOD 0 /100 WBC 0-0 CELLS (BEAKER) (test code = 413) [id number] 21:13:00 Test Item Value Reference Range Interpretation Comments Fibrinogen (test code = 3255-7) 218 mg/dl 225-434 L Lab Interpretation (test code = Abnormal 06733-2) [facility] CenterFIBRINOGEN2020-05-26 21:13:00 Test Item Value Reference Range Interpretation Comments FIBRINOGEN LEVEL (BEAKER) (test 218 mg/dl 225-434 L code = 658) BASIC METABOLIC [id number] 21:01:00 Test Item Value Reference Range Interpretation Comments SODIUM (BEAKER) 137 meq/L 136-145 (test code = 381) POTASSIUM (BEAKER) 3.9 meq/L 3.5-5.1 (test code = 379) CHLORIDE (BEAKER) 95 meq/L 98-107 L (test code = 382) CO2 (BEAKER) (test 17 meq/L 22-29 L code = 355) BLOOD UREA NITROGEN 167 mg/dL 7-21 H (BEAKER) (test code = 354) CREATININE (BEAKER) 19.40 mg/dL 0.57-1.25 H (test code = 358) GLUCOSE RANDOM 148 mg/dL 70-105 H (BEAKER) (test code = 652) CALCIUM (BEAKER) 7.5 mg/dL 8.4-10.2 L (test code = 697) EGFR (BEAKER) (test 2 mL/min/1.73 ESTIMAT ED GFR IS code = 1092) sq m NOT ACCURATE CREATININE CLEARANCE IN PREDICTING GLOMERULAR FILTRATION RATE . ESTIMATED GFR I S NOT APPLICABLE FOR DIALYSIS PATIEN TS. Offset Assistant Press Operator ID - BSHEMOGLOBIN AND [id number] 20:31:00 Test Item Value Reference Range Interpretation Comments HEMOGLOBIN (BEAKER) (test code = 10.4 GM/DL 11.2-15.7 L 410) HEMATOCRIT (BEAKER) (test code = 29.0 % 34.1-44.9 L 411) Offset Assistant Press Operator ID - [id number]-GLUCOSE [id number] 20:28:00 Test Item Value Reference Range Interpretation Comments POC-GLUCOSE METER 155 mg/dL 70-110 H : TESTED A T [facility] 6720 (BEAKER) (test code = [facility], 1538) 47818: Offset Assistant Press Operator/Techni ashley ID = [id number] for CHRISTINA QUINTANILLA POCT-GLUCOSE [id number] 18:06:00 Test Item Value Reference Range Interpretation Comments POC-GLUCOSE METER 209 mg/dL 70-110 H : TESTED A T [facility] 6720 (BEAKER) (test code = [facility], 1538) 49451: Offset Assistant Press Operator/Techni ashley ID = [id number] for KAYLA CHRISTOPHER Urinalysis w/Microscopic + Reflex to [id number] 18:00:00 Test Item Value Reference Range Interpretation Comments Color, UA (test code = Yellow 5778-6) Clarity, UA (test code = Cloudy 5767-9) Specific [place], UA (test 1.015 1.001-1.035 code = 5811-5) pH, UA (test code = 6.0 5.0-8.0 5803-2) Protein, UA (test code = 100 mg/dL Negative A 62878-7) Glucose, UA (test code = 50 mg/dL Negative A 365) Ketones, UA (test code = Negative Negative 2514-8) Bilirubin, UA (test code = Negative Negative 11317-2) Blood, UA (test code = Large Negative A 53383-5) Nitrite, UA (test code = Negative Negative 5802-4) Leukocytes, UA (test code Large Negative A = 5799-2) Urobilinogen, UA (test 0.2 mg/dL 0.2-1 code = 98047-1) RBC, UA (test code = 730 /HPF 02672-7) WBC, UA (test code = 271 /HPF 5821-4) Mucus (test code = 8247-9) Many Hyaline Casts, UA (test 29 /LPF code = 63962-1) Amorphous Crystals (test Rare code = 70018-3) Specimen Source (test code = 2795) JEWEL (test code = JEWEL) Offset Assistant Press Operator ID - [auto]Offset Assistant Press Operator ID - tech Lab Interpretation (test Abnormal code = 89276-8) [facility] CenterURINALYSIS W/ REFLEX URINE [id number] 18:00:00 Test Item Value Reference Range Interpretation Comments COLOR (BEAKER) (test code = 470) Yellow CLARITY (BEAKER) (test code = 469) Cloudy SPECIFIC GRAVITY UA (BEAKER) (test 1.015 1.001-1.035 code = 468) PH UA (BEAKER) (test code = 467) 6.0 5.0-8.0 PROTEIN UA (BEAKER) (test code = 100 mg/dL Negative A 464) GLUCOSE UA (BEAKER) (test code = 50 mg/dL Negative A 365) KETONES UA (BEAKER) (test code = Negative Negative 371) BILIRUBIN UA (BEAKER) (test code = Negative Negative 462) BLOOD UA (BEAKER) (test code = 461) Large Negative A NITRITE UA (BEAKER) (test code = Negative Negative 465) LEUKOCYTE ESTERASE UA (BEAKER) Large Negative A (test code = 466) UROBILINOGEN UA (BEAKER) (test code 0.2 mg/dL 0.2-1.0 = 463) RBC UA (BEAKER) (test code = 519) 730 /HPF WBC UA (BEAKER) (test code = 520) 271 /HPF MUCUS (BEAKER) (test code = 1574) Many HYALINE CASTS (BEAKER) (test code = 29 /LPF 514) AMORPHOUS CRYSTALS (BEAKER) (test Rare code = 1584) SOURCE(BEAKER) (test code = 2795) Offset Assistant Press Operator ID - [auto]Offset Assistant Press Operator ID - techANG, NEPHROSTOMY, PERC, EXTERNAL DRAIN 2020-02-10 17:23:00Reason for exam:->acute renal failure causing hydronephrosis, request bilateral PCNsFINAL REPORT PROCEDURE: Genitourinary catheter placement Procedural PersonnelAttending physician(s): Esteban Yusuf physician(s): NoneResident physician(s): NoneAdvanced practice provider(s): None Pre-procedure diagnosis: Bilateral hydronephrosisPost-procedure diagnosis: SameIndication: Urinary obstructionCatheter(s) placed because the previous catheter(s) became dislodged within 30 days of placement (QCDR): NoAdditional clinical history: None Complications: No immediatecomplications. IMPRESSION: Bilateral nephrostomy tube placement. Plan: Bilateral PCNs to gravity.____ PROCEDURE SUMMARY- Target organ: Bilateral [place] kidneys- Image-guided placement of genitourinary catheter(s)- Additional procedure(s): NonePROCEDURE DETAILS: Pre- procedureConsent: Informed consent for the procedure including risks, benefits and alternatives was obtained and time-out was performed prior to the procedure.Preparation: The site was prepared and draped using maximal sterile barrier technique including cutaneous antisepsis. Anesthesia/sedationLevel of anesthesia/sedation: Moderate sedation (conscious sedation) 0.5mg Versed, 50mcg FentanylAnesthesia/sedation administered by: Independent trained observer under attending supervision with continuous monitoring of the patient\\X2019\\s level of consciousness and physiologic statusTotal intra-service sedation time (minutes): 30 Left genitourinary catheter placementLocal anesthesiawas administered. A needle was advanced into the renal collecting system under ultrasound and fluoroscopy guidance. A wire was advanced, the tract was serially dilated and a nephrostomy tube was placed. Contrast injection was performed.Genitourinary catheter placed: 10 [place] Cook multipurpose Findings: Moderate hydronephrosis. Locking loop in renal pelvis.External catheter securement: Non-absorbablesuture Right genitourinary catheter placementLocal anesthesia was administered. A needle was advanced into the renal collecting system under ultrasound and fluoroscopy guidance. A wire was advanced, the tract was serially dilated and a nephrostomy tube was placed. Contrast injection was performed.Genitourinary catheter placed: 10 [place] Cook multipurpose Findings: Severe hydronephrosis. Locking loop in renal pelvis.External catheter securement: Non-absorbable suture Additional genitourinary system in terventionGenitourinary intervention: NoneLocation of intervention: Not applicableDevice used: Not applicableDescription of intervention: Not applicablePost-intervention findings: Not applicable ContrastContrast agent: Isovue 300Contrast volume (mL): 10 Radiation DoseFluoroscopy time (minutes): 2.4 Reference air kerma (mGy): 6.0 Additional DetailsAdditional description of procedure: NoneEquipment details: NoneSpecimens removed: None. A sample from each side was sent for analysis.Estimated blood loss (mL): Less than 10Standardized report: [email or web address] AttestationSigner name: Marlene attest that I was present for the entire procedure. I reviewed the stored images and agree with the report as written. Signed: Yani Malone MDReport Verified Date/Time: 02/10/2020 17:23:45 Reading Location: [place] [address] Angio Body Reading Room IR Percutaneous Nephrostomy - Ext. Drain [id number] 17:23:00 Interface, External Ris In - 02/10/2020 5:25 PM CDTFINAL REPORT PROCEDURE: Genitourinary catheter placement Procedural PersonnelAttending physician(s): Esteban Yusuf physician(s): NoneResident physician(s): NoneAdvanced practice provider(s): None Pre-procedure diagnosis: Bilateral hydronephrosisPost-procedure diagnosis: SameIndication: Urinary obstructionCatheter(s) placed because the previous catheter(s) became dislodged within 30 days of placement (QCDR): NoAdditional clinical history: None Complications: No immediate complications. IMPRESSION: Bilateral nephrostomytube placement. Plan: Bilateral PCNs to gravity. PROCEDURE SUMMARY- Target organ: Bilateral [place] kidneys- Image-guided placement of genitourinary catheter(s)- Additional procedure(s): None PROCEDURE DETAILS: Pre-procedureConsent: Informed consent for the procedure including risks, benefits and alternatives was obtained and time-out was performed prior to the procedure.Preparation: The site was prepared and draped using maximal sterile barrier technique including cutaneous antisepsis. Anesthesia/sedationLevel of anesthesia/sedation: Moderate sedation (conscious sedation) 0.5mg Versed, 50mcg FentanylAnesthesia/sedation administered by: Independent trained observer under attending supervision with continuous monitoring of the patient\\X2019\\s level of consciousness and physiologic statusTotal intra-service sedation time (minutes): 30 Left genitourinary catheter placementLocal anesthesia was administered. A needle was advanced into therenal collecting system under ultrasound and fluoroscopy guidance. A wire was advanced, the tract was serially dilated and a nephrostomy tube was placed. Contrast injection was performed.Genitourinary catheter placed: 10 [place] Cook multipurpose Findings: Moderate hydronephrosis. Locking loop in renal pelvis.External catheter securement: Non-absorbable suture Right genitourinary catheter placementLocal anesthesia was administered. A needle was advanced into the renal collecting system under ultrasound and fluoroscopy guidance. A wire was advanced, the tract was serially dilated and a nephrostomy tube was placed. Contrast injection was performed.Genitourinary catheter placed: 10 Estonian Cook multipurpose Findings: Severe hydronephrosis. Locking loop in renal pelvis.External catheter securement: Non-absorbable suture Additional genitourinary system interventionGenitourinary intervention: NoneLocation of intervention: Not applicableDevice used: Not applicableDescription of intervention: Not applicablePost-intervention findings: Not applicable ContrastContrast agent: Isovue 300Contrast volume (mL):10 Radiation DoseFluoroscopy time (minutes): 2.4 Reference air kerma (mGy): 6.0 Additional DetailsAdditional description of procedure: NoneEquipment details: NoneSpecimens removed: None. A sample from each side was sent for analysis.Estimated blood loss (mL): Less than 10Standardized report: SIR_GUC atheterPlacement_v3 AttestationSigner name: Yani Soto attest that I was present for the entire procedure. I reviewed the stored images and agree with the report as written. Signed: Yani Malone MDReport Verified Date/Time: 02/10/2020 17:23:45 Reading Location: [place] [address] Angio Body [facility] [id number] 16:31:00 Test Item Value Reference Range Interpretation Comments POC-GLUCOSE METER 256 mg/dL 70-110 H : TESTED A T [facility] (BEAKER) (test code = [address] [place] [address] [place] [address]: Offset Assistant Press Operator/Techni ashley ID = [id number] for VANESSA BUSH POCT-GLUCOSE [id number] 16:06:00 Test Item Value Reference Range Interpretation Comments POC-GLUCOSE METER 54 mg/dL 70-110 L : TESTED A T [facility] 6720 (BEAKER) (test code = [facility], 1538) [address]: Offset Assistant Press Operator/Techni ashley ID = [id number] for CHUN BRIONNA PRESTONA POCT-GLUCOSE [id number] 16:03:00 Test Item Value Reference Range Interpretation Comments POC-GLUCOSE METER 25 mg/dL 70-110 LL : TESTED A T [facility] 6720 (BEAKER) (test code = [facility], 1538) [address]: Offset Assistant Press Operator/Techni ashley ID = [id number] for VANESSA FRIAS POCT-GLUCOSE [id number] 15:52:00 Test Item Value Reference Range Interpretation Comments POC-GLUCOSE METER 23 mg/dL 70-110 LL : Will Rep eat Test: (BEAKER) (test code = TESTED AT [facility] 6720 1538) [facility] [place], [address]: Offset Assistant Press Operator/Techni ashley ID = [id number] for VANESSA FRIAS [id number] 14:43:00 Test Item Value Reference Range Interpretation Comments Ferritin (test code = 513.21 ng/mL 5-275 H 2276-4) JEWEL (test code = JEWEL) Offset Assistant Press Operator ID - AKILAH E Lab Interpretation (test Abnormal code = 43240-7) [facility] CenterFERRITIN2020-05-26 14:43:00 Test Item Value Reference Range Interpretation Comments FERRITIN (BEAKER) (test code = 513.21 ng/mL 5.00-275.00 H 361) Offset Assistant Press Operator ID - AKILAH EHEMOGLOBIN AND [id number] 13:31:00 Test Item Value Reference Range Interpretation Comments HEMOGLOBIN (BEAKER) 10.2 GM/DL 11.2-15.7 L Discorda nt HGB result (test code = 410) compared t o previous result; clinica l correlation req uired. HEMATOCRIT (BEAKER) 28.5 % 34.1-44.9 L (test code = 411) Offset Assistant Press Operator ID - [id number] 13:03:00 Test Item Value Reference Range Interpretation Comments Haptoglobin (test code = 226 mg/dL 14-258 4542-7) JEWEL (test code = JEWEL) Offset Assistant Press Operator ID - ADMIN Lab Interpretation (test Normal code = 25417-0) [facility] CenterIron, TIBC, % sat. (without ferritin)2020-02-10 13:03:00 Test Item Value Reference Range Interpretation Comments Iron (test code = 2498-4) 25.0 ug/dL 40-160 L TIBC (test code = 2500-7) 123 ug/dL 250-450 L Iron % Saturation (test 20 % 20-55 code = 2502-3) JWEEL (test code = JEWEL) Offset Assistant Press Operator ID - ADMIN Lab Interpretation (test Abnormal code = 72411-8) [facility] CenterHAPTOGLOBIN2020-05-26 13:03:00 Test Item Value Reference Range Interpretation Comments HAPTOGLOBIN (BEAKER) (test code = 226 mg/dL 14-258 366) Offset Assistant Press Operator ID - ADMINIRON, TIBC, % SAT. (WITHOUT FERRITIN)2020-02-10 13:03:00 Test Item Value Reference Range Interpretation Comments IRON (BEAKER) (test code = 547) 25.0 ug/dL 40.0-160.0 L TOTAL IRON BINDING CAPACITY 123 ug/dL 250-450 L (BEAKER) (test code = 769) IRON % SATURATION (2) (BEAKER) 20 % 20-55 (test code = 2590) Offset Assistant Press Operator ID - ADMINBlood gas, [id number] 12:52:00 Test Item Value Reference Range Interpretation Comments pH, Arterial (test code = 2744-1) 7.45 7.35-7.45 pCO2, Arterial (test code = 25 35- 45 mmHg L 2018-8) pO2, Arterial (test code = 55 80- 90 mmHg L 3-7) O2 Sat, Arterial (test code = 92.2 % 96-97 L 2708-6) HCO3, Arterial (test code = 17 mmol/L 21-29 L 1960-4) Base Excess, Arterial (test code -6.1 mmol/L -2-3 L = 1925-7) Patient Temperature (test code = 35.6 C 8310-5) FIO2 (test code = 1819) 21 % Lab Interpretation (test code = Abnormal 12132-2) [facility] CenterBLOOD GAS, [id number] 12:52:00 Test Item Value Reference Range Interpretation Comments PH ARTERIAL (BEAKER) (test code = 7.45 7.35-7.45 383) PCO2 ARTERIAL (BEAKER) (test code 25 mmHg 35-45 L = 384) PO2 ARTERIAL (BEAKER) (test code 55 mmHg 80-90 L = 385) O2 SATURATION ARTERIAL (BEAKER) 92.2 % 96.0-97.0 L (test code = 386) HCO3 ARTERIAL (BEAKER) (test code 17 mmol/L 21-29 L = 388) BASE EXCESS ARTERIAL (BEAKER) -6.1 mmol/L -2.0-3.0 L (test code = 387) PATIENT TEMPERATURE (BEAKER) 35.6 C (test code = 1818) FIO2 (BEAKER) (test code = 1819) 21.0 % POCT-GLUCOSE [id number] 11:50:00 Test Item Value Reference Range Interpretation Comments POC-GLUCOSE METER 88 mg/dL 70-110 : TESTED A T [facility] 6720 (BEAKER) (test code = [place], 1538) [address]: Offset Assistant Press Operator/Techni ashley ID = [id number] for KAYLA SAINI 2D Echo W/Doppler(CW/PW/Color)2020-02-10 11:46:18Ejection FractionSLEH ECHO HEARTLAB MKCKESSON CPACSInterface, External Ris In - 02/10/2020 11:46 AM C DTTransthoracic Echocardiography Report (TTE) Demographics Patient Name ARNULFO JOHN Date of Study 02/10/2020 GERI Gender Female Visit Number [id number] Race Unknown RoomNumber 7102 Number Date of 1965 Referring Physician Anam Hernandez Age 54 year(s) 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 The left ventricle is chamber size (by vol index) is normal(female - LVED vol - 29-61ml/m2). Normal LV wall thickness. All of the LV segments contract normally. Global LV systolic function normal . LVEF by Albrecht's method of disk assessment is normal (55-60%) . 2. The right ventricular chamber size [...] regurgitation. Signature Findings Technical Quality: Technically fair exam. Left Ventricle The left ventricle is chamber size (by vol index) is normal (female - LVED vol - 29-61ml/m2). Normal LV wall thickness. All of the LV segments contract normally . Global LV systolic function normal . LVEF by Albrecht's method of disk assessment is normal (55-60%) . The LVEF was measured using Albrecht's bi-plane method of disk . Degree of diastolic dysfunction is indeterminate. Left Atrium LA size is moderately enlarged (42-48 ml/m2) . Right Ventricle The right ventricular chamber size and systolic function are within normal limits. S' 11 cm/sec. Right Atrium RA cavity size is normal . Aortic Valve Aortic valve leaflet morphology is partially seen. Valve appears to be trileaflet with significant thickening and calcification of the leaflets. Based on PHT and diastolic flow reversal in the descending aorta, suggestion of moderate to severe Aortic Regurgitation. Noaortic stenosis. Please consider BONIFACIO for better visualization of the valve and more accurate quantification of the degree of Aortic r egurgitation. Mitral Valve Mild MV leaflet thickening and calcification noted. Moderate mitral annular calcification. Mild to moderate, eccentric, posteriorly directed mitral regurgitation. Tricuspid Valve Mild tricuspid regurgitation. Incomplete TR jet. The estimated peak systolic PA pressure is at least 55-60 mmHg . Pulmonic Valve Pulmonic valve morphology is not well seen. Suggestion of mild to moderate PI noted. Aorta Aortic root size (SInus of Valsalva diameter) is normal . Pericardium No significant pericardial effusion is visualized. IVC/SVC/PA/PV/Pleural The estimated RA pressure by IVC dynamics 5-10mmHg . Chambers/Structures Left Atrium LA Dimension: 3.4 cm LA Area: 18.54 cm^2 LA Volume: 62.16 ml LA Vol. Index: 42 ml/m^2 Left Ventricle LVIDd: 4.6 cm LV Septum Diastolic: 0.79 cm LV PW Diastolic: 0.87 cm LVEDV Albrecht's:72.28 ml LVESV Albrecht's:31.83 ml LVEF Albrecht's: 56 % LVEDVI: 49 [...] MV Peak A-Wave: 0.78 m/s E/A Ratio: 1.15 Peak Gradient: 3.23 mmHg Deceleration Time: 166.8 msec MV Raul. Peak: Tissue Doppler E' Septal Velocity: 0.11 m/s E/E': 8.08 E' Lateral Velocity: 0.12 m/s Aortic Valve Peak Velocity: 1.93 m/s Mean Velocity: 1.37 m/s Peak Gradient: 14.94 mmHg Mean Gradient: 8.25 mmHg AV Area (continuity): 2.13 cm^2 AV VTI: 31.91 cm AR P1/2t: 254 msec AV DVI: 0.68 LVOT Peak Velocity: 1.26 m/sPeak Gradient: 6.39 mmHg Mean Velocity: 0.83 m/s Mean Gradient: 3.16 mmHg LVOT Diameter:1.99 cm LVOT VTI: 21.84 cm LVOT Area: 3.11 cm^2 LVOT SV:67.89 ml LVOT CO: 6.25 l/min LVOT CI: 4.25 l/min/m^2 Tricuspid Valve Estimated RAP: 10 mmHg TR Velocity: 3.5 m/s TR Gradient: 49 mmHg Pulmonic Valve Estimated PASP: 59 mmHgS[facility] Medical CenterComprehensive metabolic [id number] 11:23:00 Test Item Value Reference Range Interpretation Comments Protein, Total (test 4.9 6.0- 8.3 gm/dL L code = 2885-2) Albumin (test code = 2.4 g/dL 3.5-5 L 25020-9) Alkaline Phosphatase 92 U/L 40-150 (test code = 6768-6) Total Bilirubin (test 0.5 mg/dL 0.2-1.2 code = 1975-2) Sodium (test code = 139 meq/L 745-255 4974-2) Potassium (test code = 4.4 meq/L 3.5-5.1 2823-3) Chloride (test code = 96 meq/L 98-107 L 2075-0) CO2 (test code = 21 meq/L 22-29 L 2028-9) BUN (test code = 169 mg/dL 7-21 H 3094-0) Creatinine (test code 19.77 mg/dL 0.57-1.25 H = 2160-0) Glucose (test code = 105 mg/dL 70-105 2345-7) Calcium (test code = 7.4 mg/dL 8.4-10.2 L 08302-6) AST (test code = 12 U/L 5-34 1920-8) ALT (test code = 10 U/L 6-55 1742-6) EGFR (test code = 2 mL/min/1.[place] [address]-9) NOT ACCURATE CREATININE CLEARANCE IN PREDICTING GLOMERULAR FILTRATION RATE . ESTIMATED GFR I S NOT APPLICABLE FOR DIALYSIS PATIENTS. JEWEL (test code = JEWEL) Offset Assistant Press Operator ID - LA Lab Interpretation Abnormal (test code = 34388-1) [facility] CenterCOMPREHENSIVE METABOLIC [id number] 11:23:00 Test Item Value Reference Range Interpretation Comments TOTAL PROTEIN 4.9 gm/dL 6.0-8.3 L (BEAKER) (test code = 770) ALBUMIN (BEAKER) 2.4 g/dL 3.5-5.0 L (test code = 1145) ALKALINE PHOSPHATASE 92 U/L 40-150 (BEAKER) (test code = 346) BILIRUBIN TOTAL 0.5 mg/dL 0.2-1.2 (BEAKER) (test code = 377) SODIUM (BEAKER) (test 139 meq/L 136-145 code = 381) POTASSIUM (BEAKER) 4.4 meq/L 3.5-5.1 (test code = 379) CHLORIDE (BEAKER) 96 meq/L 98-107 L (test code = 382) CO2 (BEAKER) (test 21 meq/L 22-29 L code = 355) BLOOD UREA NITROGEN 169 mg/dL 7-21 H (BEAKER) (test code = 354) CREATININE (BEAKER) 19.77 mg/dL 0.57-1.25 H (test code = 358) GLUCOSE RANDOM 105 mg/dL 70-105 (BEAKER) (test code = 652) CALCIUM (BEAKER) 7.4 mg/dL 8.4-10.2 L (test code = 697) AST (SGOT) (BEAKER) 12 U/L 5-34 (test code = 353) ALT (SGPT) (BEAKER) 10 U/L 6-55 (test code = 347) EGFR (BEAKER) (test 2 mL/min/1.73 ESTIMAT ED GFR IS code = 1092) sq m NOT ACCURATE CREATININE CLEARANCE IN PREDICTING GLOMERULAR FILTRATION RATE . ESTIMATED GFR I S NOT APPLICABLE FOR DIALYSIS PATIEN TS. Offset Assistant Press Operator ID - EDGAR, CHEST, 1 VIEW, NON [id number] 10:29:00Reason for exam:->post-trialysis catheter placementShould this be performed at the bedside?->YesFINAL REPORT CLINICAL HISTORY: post- trialysis catheter placement TECHNIQUE: 1 view of the chest. COMPARISON: 12/11/2019 IMPRESSION: There is a new right jugular dialysis catheterterminating in the SVC approximately 2 cm above the cavoatrial junction. There is no pneumothorax. Pulmonary vascular congestion and bilateral interstitial lung opacities are similar appearing. There is no significant pleural fluid. The cardiomediastinal silhouette is magnified by technique. A chronicright clavicular fracture deformity is again seen. Signed: Tom Austin Verified Date/Time: 02/10/2020 10:29:20 Reading Location: [facility] Radiology Reading Room XR chest 1 view portable / [id number] 10:29:00 Interface, External Ris In - 02/10/2020 10:31 AM CDTFINAL REPORT CLINICAL HISTORY: post-trialysis catheter placement TECHNIQUE: 1 view of the chest. COMPARISON: 12/11/2019 IMPRESSION: There is a new right jugular dialysis catheter terminating in the SVC approximately 2 cm above the cavoatrial junction. There is no pneumothorax. Pulmonary vascular congestion and bilateral interstitial lung opacities are similar appearing. There is no significant pleural fluid. The cardiomediastinal silhouette is magnified by technique. A chronic right clavicular fracture deformity is again seen. Signed: Tom Austin Verified Date/Time: 02/10/2020 10:29:20 Reading Location: [facility] Radiology Reading Room [facility] W/PLT COUNT & AUTO [id number] 08:53:00 Test Item Value Reference Range Interpretation Comments WHITE BLOOD CELL COUNT 30.1 K/ L 3.5-10.5 H (BEAKER) (test code = 775) RED BLOOD CELL COUNT 1.95 M/ L 3.93-5.22 L (BEAKER) (test code = 761) HEMOGLOBIN (BEAKER) 5.3 GM/DL 11.2-15.7 LL (test code = 410) HEMATOCRIT (BEAKER) 15.0 % 34.1-44.9 L (test code = 411) MEAN CORPUSCULAR VOLUME 76.9 fL 79.4-94.8 L (BEAKER) (test code = 753) MEAN CORPUSCULAR 27.2 pg 25.6-32.2 HEMOGLOBIN (BEAKER) (test code = 751) MEAN CORPUSCULAR 35.3 GM/DL 32.2-35.5 HEMOGLOBIN CONC (BEAKER) (test code = 752) RED CELL DISTRIBUTION 15.5 % 11.7-14.4 H WIDTH (BEAKER) (test code = 412) PLATELET COUNT (BEAKER) 66 K/CU MM 150-450 L (test code = 756) MEAN PLATELET VOLUME Unable to report due (BEAKER) (test code = to abn ormal Platelet 754) population distribution. NUCLEATED RED BLOOD 0 /100 WBC 0-0 CELLS (BEAKER) (test code = 413) (CELLAVISION MANUAL DIFF)2020-02-10 08:53:00 Test Item Value Reference Range Interpretation Comments NEUTROPHILS - REL 95 % (CELLAVISION)(BEAKER) (test code = 2816) LYMPHOCYTES - REL 3 % (CELLAVISION)(BEAKER) (test code = 2817) EOSINOPHILS - REL 2 % (CELLAVISION)(BEAKER) (test code = 2819) NEUTROPHILS - ABS 28.60 K/ul 1.56-6.13 H (CELLAVISION)(BEAKER) (test code = 2830) LYMPHOCYTES - ABS 0.90 K/ul 1.18-3.74 L (CELLAVISION)(BEAKER) (test code = 2831) EOSINOPHILS - ABS 0.60 K/uL 0.04-0.36 H (CELLAVISION)(BEAKER) (test code = 2834) TOTAL COUNTED (BEAKER) (test code 100 = 1351) PLT MORPHOLOGY (BEAKER) (test Normal code = 486) TOXIC GRANULATION (BEAKER) (test Present code = 771) POLYCHROMATOPHILLIC RBCS(BEAKER) 1+ few (test code = 478) ANISOCYTOSIS (BEAKER) (test code 1+ few = 961) MICROCYTES (BEAKER) (test code = 1+ few 965) POIKILOCYTES (BEAKER) (test code 2+ moderate = 966) SCHISTOCYTES (BEAKER) (test code 1+ few = 765) ACANTHOCYTES (BEAKER) (test code 1+ few = 471) SAM CELLS (BEAKER) (test code = 1+ few 474) ARTIFACT (CELLAVISION)(BEAKER) Present (test code = 3432) HELMET CELLS 1+ few (CELLAVISION)(BEAKER) (test code = 3434) PLATELET CONCENTRATION Decreased (CELLAVISION)(BEAKER) (test code = 3438) Offset Assistant Press Operator ID - [id number] ID - Rere Herrera comments: Slide comments:Lactate dehydrogenase (LDH)2020-02-10 08:03:00 Test Item Value Reference Range Interpretation Comments LDH (test code = 2532-0) 406 U/L 125-220 H JEWEL (test code = JEWEL) Offset Assistant Press Operator ID - LA Lab Interpretation (test Abnormal code = 79470-0) [facility] CenterPHOSPHORUS2020-05-26 08:03:00 Test Item Value Reference Range Interpretation Comments PHOSPHORUS (BEAKER) (test code = 8.2 mg/dL 2.3-4.7 H 604) Offset Assistant Press Operator ID - LALACTATE DEHYDROGENASE (LDH)2020-02-10 08:03:00 Test Item Value Reference Range Interpretation Comments LACTATE DEHYDROGENASE (BEAKER) (test 406 U/L 125-220 H code = 635) Offset Assistant Press Operator ID - [id number] 07:48:00 Test Item Value Reference Range Interpretation Comments PARTIAL THROMBOPLASTIN TIME 30.5 seconds 22.5-36.0 (BEAKER) (test code = 760) [id number] 07:48:00 Test Item Value Reference Range Interpretation Comments FIBRINOGEN LEVEL (BEAKER) (test 215 mg/dl 225-434 L code = 658) PROTHROMBIN [id number] 07:47:00 Test Item Value Reference Range Interpretation Comments PROTIME (BEAKER) (test code = 16.6 seconds 11.9-14.2 H 759) INR (BEAKER) (test code = 370) 1.4 <=5.9 Effective 02/12/2019: PT Reference Range ChangeNew: 11.9-14.2 Previous: 11.7- 14.7RECOMMENDED COUMADIN/WARFARIN INR THERAPY RANGESSTANDARD DOSE: 2.0-3.0 Includes: PROPHYLAXIS for venous thrombosis, systemic embolization; TREATMENT for venous thrombosis and/or pulmonary embolus.HIGH RISK: Target INR is2.5-3.5 for patients wiht mechanical heart valves.Reticulocyte [id number] 07:38:00 Test Item Value Reference Range Interpretation Comments % Retic (test code = 1.3 % 0.5-1.7 89729-4) JEWEL (test code = JEWEL) Offset Assistant Press Operator ID - [id number] Lab Interpretation (test Normal code = 41082-2) [facility] CenterRETICULOCYTE [id number] 07:38:00 Test Item Value Reference Range Interpretation Comments RETICULOCYTE COUNT PCT (BEAKER) (test 1.3 % 0.5-1.7 code = 575) Offset Assistant Press Operator ID - [id number]-CoV2/RT-PCR (Symptomatic ONLY)2020-02-10 05:26:00 Test Item Value Reference Range Interpretation Comments SARS-COV2/RT-PCR Not Detected Not Detected, (test code = Negative 05826-6) SARS-COV-2 [facility] PERFORMING LAB (test code = 19297-6) JEWEL (test code = Negative results do not JEWEL) preclude SARS-CoV-2 infection and should not be used as [...] of the Act. Fact Sheet for Healthcare Providers:https://www.[employer].FlowMetric/Documents/Xper t%20Xpress%20SARS%20CoV- 2/Fact%20Sheets/429-8208 %77BASP-CUL-2%20HEALTHCA RE%20PROVIDERS%20FACT%20 SHEET.pdf Fact Sheet for Healthcare Patients:https://www.[employer].FlowMetric/Documents/Xpert %20Xpress%20SARS%20CoV-2 /Fact%20Sheets/302-3801% 88TDQA-BKS-8%20PATIENT%2 0FACT%20SHEET.pdf Performing Laboratory:[facility] [place] [address] [facility] CenterARS-[facility]OV2/[facility] ([facility] REF LABS)2020-02-10 05:26:00 Test Item Value Reference Range Interpretation Comments SARS-COV2/RT-PCR (test Not Detected Not Detected, Negative code = 6566129) SARS-COV-2 PERFORMING LAB [facility] (test code = 0341602) Negative results do not preclude SARS-CoV-2 infection and should not be used as the sole basis for patient management decisions. Negative results must be combined with clinical observations, patient history, and epidemiological information. A false negative result may occur if a specimen is improperly collected, transported or handled.The limit of detection for this assay is 250 copies/mL.This SARS CoV-2 test is a rapid, real-time RT-PCR test intended for the qualitative detection of nucleic acid from SARS-CoV-2 in a nasopharyngeal swab specimen collected from individuals suspected of COVID-19 by their healthcare provider.This test has not been Food and Drug [...] is revoked under Section 564(g) of the Act.Fact Sheet for Healthcare Pro viders:https://www.[employer].FlowMetric/Documents/Xpert%20Xpress%20SARS%20CoV-2/Fact%20Sh eets/3023802%27ANBD-BUL-9%20HEALTHCARE%20PROVIDERS%20FACT%20SHEET.pdfFact Sheet for Healthcare Patients:https://www.[employer].FlowMetric/Documents/Xpert%20Xpress%20SARS%20CoV-2/Fact%20Sheets/3023801%20SARS-COV -2%20PATIENT%20FACT%20SHEET.pdfPerforming Laboratory:[facility], [place] [address]XHXWK, [id number] 05:15:00 Test Item Value Reference Range Interpretation Comments ABO Grouping (test code = 2588) A Rh Factor (test code = 2589) POS [facility] CenterType and screen, [id number] 05:13:00 Test Item Value Reference Range Interpretation Comments ABO/RH AUTOMATED (BEAKER) (test A POSITIVE code = 2260) Ab Scrn (test code = 890-4) NEGATIVE [facility] CenterCOMPREHENSIVE METABOLIC [id number] 04:15:00 Test Item Value Reference Range Interpretation Comments TOTAL PROTEIN 4.9 gm/dL 6.0-8.3 L (BEAKER) (test code = 770) ALBUMIN (BEAKER) 2.5 g/dL 3.5-5.0 L (test code = 1145) ALKALINE PHOSPHATASE 97 U/L 40-150 (BEAKER) (test code = 346) BILIRUBIN TOTAL 0.4 mg/dL 0.2-1.2 (BEAKER) (test code = 377) SODIUM (BEAKER) (test 137 meq/L 136-145 code = 381) POTASSIUM (BEAKER) 4.5 meq/L 3.5-5.1 (test code = 379) CHLORIDE (BEAKER) 94 meq/L 98-107 L (test code = 382) CO2 (BEAKER) (test 18 meq/L 22-29 L code = 355) BLOOD UREA NITROGEN 172 mg/dL 7-21 H (BEAKER) (test code = 354) CREATININE (BEAKER) 20.98 mg/dL 0.57-1.25 H (test code = 358) GLUCOSE RANDOM 129 mg/dL 70-105 H (BEAKER) (test code = 652) CALCIUM (BEAKER) 7.7 mg/dL 8.4-10.2 L (test code = 697) AST (SGOT) (BEAKER) 11 U/L 5-34 (test code = 353) ALT (SGPT) (BEAKER) 10 U/L 6-55 (test code = 347) EGFR (BEAKER) (test 2 mL/min/1.73 ESTIMAT ED GFR IS code = 1092) sq m NOT ACCURATE CREATININE CLEARANCE IN PREDICTING GLOMERULAR FILTRATION RATE . ESTIMATED GFR I S NOT APPLICABLE FOR DIALYSIS PATIEN TS. Offset Assistant Press Operator ID - [id number] 04:08:00 Test Item Value Reference Range Interpretation Comments PARTIAL THROMBOPLASTIN TIME 28.3 seconds 22.5-36.0 (BEAKER) (test code = 760) PROTHROMBIN TIME/[id number] 04:07:00 Test Item Value Reference Range Interpretation Comments PROTIME (BEAKER) (test code = 15.8 seconds 11.9-14.2 H 759) INR (BEAKER) (test code = 370) 1.3 <=5.9 Effective 02/12/2019: PT Reference Range ChangeNew: 11.9-14.2 Previous: 11.7- 14.7RECOMMENDED COUMADIN/WARFARIN INR THERAPY RANGESSTANDARD DOSE: 2.0-3.0 Includes: PROPHYLAXIS for venous thrombosis, systemic embolization; TREATMENT for venous thrombosis and/or pulmonary embolus.HIGH RISK: Target INR is2.5-3.5 for patients wiht mechanical heart valves.RAD, CHEST, 1 VIEW, NON [id number] 04:00:00AdmissionReason for exam:->admissionShould this be performed at the bedside?->YesFINAL REPORT INDICATION: admission COMPARISON: None TECHNIQUE: Single frontalview of the chest. IMPRESSION: Lungs and pleura: Pulmonary venous congestion with hazy interstitial opacities suggestive of edema. Atypical pneumonitis could have a similar appearance. No lobar consolidation or sizable effusion. Heart and mediastinum: Normal heart size. Unremarkable mediastinal contours.Osseous structures: No acute abnormality.Other: None. Signed: Ines Juárez MDReport Verified Date/Time: 02/10/2020 04:00:06 Troponin [id number] 03:58:00 Test Item Value Reference Range Interpretation Comments Troponin I (test code = 0.68 ng/mL 0-0.03 20503-7) JEWEL (test code = JEWEL) Troponin I (TnI) levels must be interpreted in the context of the presenting symptoms and the clinical findings. Elevated TnI levels indicate myocardial damage, but are not specific for ischemic heart disease. Elevated TnI levels are seen in patients with other cardiac conditions (including myocarditis and congestive heart failure), and slight TnI elevations occur in patients with other conditions, including sepsis, renal failure, acidosis, acute neurological disease, and persistent tachyarrhythmia.Opera tor ID - LA Lab Interpretation (test Abnormal code = 09327-5) [id number] 03:58:00 Test Item Value Reference Range Interpretation Comments TROPONIN I (BEAKER) (test code = 0.68 ng/mL 0.00-0.03 HH 397) Troponin I (TnI) levels must be interpreted in the context of the presenting symptoms and the clinical findings. Elevated TnI levels indicate myocardial damage, but are not specific for ischemic heart disease. Elevated TnI levels are seen in patients with other cardiac conditions (including myocarditis and congestive heart failure), and slight TnI elevations occur in patients with other conditions, including sepsis, renal failure, acidosis, acute neurological disease, and persistent tachyarrhythmia.Offset Assistant Press Operator ID - LAB-type Natriuretic Factor (BNP)2020-02-10 03:47:00 Test Item Value Reference Range Interpretation Comments BNP (test code = 65995-1) 2406 pg/mL 0-100 H JEWEL (test code = JEWEL) Offset Assistant Press Operator ID - LA Lab Interpretation (test Abnormal code = 99822-9) [facility] NAT[facility] (BNP)2020-02-10 03:47:00 Test Item Value Reference Range Interpretation Comments B-TYPE NATRIURETIC PEPTIDE 2406 pg/mL 0-100 H (BEAKER) (test code = 700) Offset Assistant Press Operator ID - LABLOOD GAS, [id number] 03:29:00 Test Item Value Reference Range Interpretation Comments PH ARTERIAL (BEAKER) (test code = 7.49 7.35-7.45 H 383) PCO2 ARTERIAL (BEAKER) (test code 25 mmHg 35-45 L = 384) PO2 ARTERIAL (BEAKER) (test code 108 mmHg 80-90 H = 385) O2 SATURATION ARTERIAL (BEAKER) 98.3 % 96.0-97.0 H (test code = 386) HCO3 ARTERIAL (BEAKER) (test code 18 mmol/L 21-29 L = 388) BASE EXCESS ARTERIAL (BEAKER) -4.5 mmol/L -2.0-3.0 L (test code = 387) PATIENT TEMPERATURE (BEAKER) 37.5 C (test code = 1818) FIO2 (BEAKER) (test code = 1819) 21.0 %
[2020-03-28] MEDS ORDERED: MORPHINE 4 MG/ML SYR ONE (11:08)
[2020-03-28] MEDS ORDERED: ONDANSETRON 4 MG/2 ML VIAL ONE (11:08)
[2020-03-28 11:44] LABS: Absolute Lymphocytes (CBC) 1.1 K/uL (0.7-4.9); Basophils % 0.9 % (0-1.3); Hematocrit 24.9 % (36.0-45.0); Lymphocytes % 5.6 % (15.3-44.8); MPV 7.6 fL (7.6-11.3); RBC Red Blood Cell Count 2.75 M/uL (3.86-4.86)
[2020-03-28 11:49] LABS: Protime INR 1.37
[2020-03-28 12:02] LABS: ALT/SGPT 48 U/L (12-78); AST/SGOT 25 U/L (15-37); Albumin 2.7 g/dL (3.4-5.0); Alkaline Phosphatase 104 U/L (45-117); BUN Blood Urea Nitrogen 47 mg/dL (7-18); Bicarbonate 20 mmol/L (21-32); Bilirubin Direct < 0.1 mg/dL (0-0.2); Bilirubin Total 0.3 mg/dL (0.2-1.0); Glucose Level 103 mg/dL (74-106); Lipase 93 U/L (73-393); Potassium 3.6 mmol/L (3.5-5.1); Protein, Total 7.6 g/dL (6.4-8.2); Sodium Level 134 mmol/L (136-145)
[2020-03-28 12:55] LABS: Platelet Estimate INCR; Urine White Blood Cell Casts OK
[2020-03-28] MEDS ORDERED: CEFTRIAXONE/SWI 1gm 1 GM/10 ML SYR ONE (12:55)
[2020-03-28] MEDS ORDERED: NA CHLORIDE 0.9% 1,000 ML ONE (12:55)
[2020-03-28 12:56] LABS: Blood Morphology Comment NOT SEEN (NOT SEEN)
[2020-03-28 13:04] LABS: Urine Appearance CLOUDY; Urine Appearance TURBID; Urine Bilirubin NEGATIVE (NEG); Urine Blood 3+ (NEG); Urine Color RED; Urine Color YELLOW; Urine Glucose NEGATIVE (NEG); Urine Protein 3+ (NEG); Urine Specific Gravity 1.015 (1.005-1.030); Urine Urobilinogen 0.2 mg/dL (0.2-1.0); Urine pH 6.5 (5.0-7.0)
[2020-03-28 13:09] LABS: Urine Microscopic Reflex NO UMIC
--- NOTE | 2020-03-28 14:05 | RAD REPORT ---
EXAM DESCRIPTION: CT - Abdomen Pelvis Wo Contrast - 03/28/2020 1:50 pm CLINICAL HISTORY: Abdominal pain COMPARISON: January 2020 TECHNIQUE: Computed axial tomography of the abdomen and pelvis was obtained. IV and oral contrast we re not requested. All CT scans are performed using dose optimization technique as appropriate and may include automated exposure control or mA/KV adjustment according to patient size. FINDINGS: The evaluation of solid organs, vessels and bowel is limited secondary to the lack of con trast administration. 11 centimeter cervical mass has increased size since the January exam. 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 The mass abuts the posterior aspect of the bladder. 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 Neoplastic 22 millimeter left common iliac lymph node
[2020-03-28 14:06] LABS: Urine Amorphous Sediment 2+ /HPF (NONE SEEN); Urine Bacteria >50 /HPF (<20); Urine Culture Reflex Order REFLEXED; Urine RBC 20-50 /HPF (NONE SEEN)
--- NOTE | 2020-03-28 14:06 | RAD REPORT ---
EXAM DESCRIPTION: Bart Single View03/28/2020 11:42 am CLINICAL HISTORY: sob COMPARISON: January 2020 FINDINGS: The lungs appear clear of acute infiltrate. The heart is normal size. A central venous ca theter has its tip in the superior vena cava IMPRESSION: No acute abnormalities displayed
[2020-03-28 14:10] LABS: Urine Bacteria >50 /HPF (<20); Urine Culture Reflex Order REFLEXED; Urine RBC LOADED /HPF (NONE SEEN)
[2020-03-28] MEDS ORDERED: DIPHENHYDRAMINE 50 MG/ML VIAL ONE (15:58)
[2020-03-28] MEDS ORDERED: HYDROCORTISONE SUC 100 MG INJ ONE (15:58)
[2020-03-28] MEDS ORDERED: ACETAMINOPHEN 325 MG TABLET ONE (15:58)
--- NOTE | 2020-03-28 16:27 | EDPHYS ---
Physician Documentation [facility] Name: Jeannie John Age: 54 yrs Sex: Female : 1965 Arrival Date: 03/28/2020 Time: 10:28 Bed 6 Private MD: ED Physician Bernabe Randall HPI: 03/28 12:26 This 54 yrs old Female presents to ER via Wheelchair with complaints of jr8 Urinary Problem - blood, Flank Pain. 12:26 The patient complains of pain in the right flank. The pain radiates to the abdomen. jr8 Onset: The symptoms/episode began/occurred gradually, 2 day(s) ago. Modifying factors: The symptoms are alleviated by nothing. the symptoms are aggravated by nothing. Associated signs and symptoms: Pertinent positives: hematuria. Severity of pain: At its worst the pain was moderate in the emergency department the pain is unchanged. The patient has experienced a previous episode. The patient has been recently seen by a physician:. Patient recently diagnosed with cervical mass that was causing bilateral ureteral obstruction and acute kidney failure. Was transferred and had bilateral nephrostomy tubes placed. Had port put in as well for chemo therapy. Came to ED today because she is having right flank pain with hematuria from right nephrostomy tube . Historical: - Allergies: 10:44 PENICILLINS; em - PMHx: 10:44 "pelvic cancer"; em - PSHx: 10:44 None; em - Immunization history:: Adult Immunizations up to date. - Social history:: Smoking status: Patient reports the use of cigarette tobacco products, smokes one-half pack cigarettes per day. ROS: 12:26 Eyes: Negative for injury, pain, redness, and discharge, ENT: Negative for injury, jr8 pain, and discharge, Neck: Negative for injury, pain, and swelling, Cardiovascular: Negative for chest pain, palpitations, and edema, Respiratory: Negative for shortness of breath, cough, wheezing, and pleuritic chest pain, MS/Extremity: Negative for injury and deformity, Skin: Negative for injury, rash, and discoloration, Neuro: Negative for headache, weakness, numbness, tingling, and seizure. 12:26 Abdomen/GI: Positive for abdominal pain, Negative for nausea, vomiting, and diarrhea. 12:26 Back: Positive for flank pain, on the right. 12:26 : Positive for hematuria. Exam: 12:26 Eyes: Pupils equal round and reactive to light, extra-ocular motions intact. Lids and jr8 lashes normal. Conjunctiva and sclera are non-icteric and not injected. Cornea within normal limits. Periorbital areas with no swelling, redness, or edema. ENT: Nares patent. No nasal discharge, no septal abnormalities noted. Tympanic membranes are normal and external auditory canals are clear. Oropharynx with no redness, swelling, or masses, exudates, or evidence of obstruction, uvula midline. Mucous membranes moist. Neck: Trachea midline, no thyromegaly or masses palpated, and no cervical lymphadenopathy. Supple, full range of motion without nuchal rigidity, or vertebral point tenderness. No Meningismus. Cardiovascular: Regular rate and rhythm with a normal S1 and S2. No gallops, murmurs, or rubs. Normal PMI, no JVD. No pulse deficits. Respiratory: Lungs have equal breath sounds bilaterally, clear to auscultation and percussion. No rales, rhonchi or wheezes noted. No increased work of breathing, no retractions or nasal flaring. Abdomen/GI: Soft, non-tender, with normal bowel sounds. No distension or tympany. No guarding or rebound. No evidence of tenderness throughout. Skin: Warm, dry with normal turgor. Normal color with no rashes, no lesions, and no evidence of cellulitis. MS/ Extremity: Pulses equal, no cyanosis. Neurovascular intact. Full, normal range of motion. Neuro: Awake and alert, GCS 15, oriented to person, place, time, and situation. Cranial nerves II-XII grossly intact. Motor strength 5/5 in all extremities. Sensory grossly intact. Cerebellar exam normal. Normal gait. 12:26 Back: pain, that is moderate, of the right flank, ROM is normal, normal spinal alignment noted, CVA tenderness, that is moderate, is noted on the right. Vital Signs: 10:39 BP 122 / 59; Pulse 99; Resp 18; Temp 97.9; Pulse Ox 100% on R/A; Weight 43.6 kg; Height em 5 ft. 0 in. (152.40 cm); 11:30 BP 105 / 57; Pulse 96; Resp 18; Pulse Ox 99% on R/A; Pain 5/10; em 12:45 BP 97 / 53; Pulse 89; Resp 20; Pulse Ox 98% on R/A; em 13:30 BP 95 / 48; Pulse 85; Resp 18; Pulse Ox 99% on R/A; em 14:05 BP 89 / 53; Pulse 74; Resp 18; Pulse Ox 99% on R/A; em 14:30 BP 104 / 53; Pulse 81; Resp 20; Pulse Ox 99% on R/A; em 15:30 BP 105 / 53; Pulse 74; Resp 18; Pulse Ox 99% on R/A; em 16:30 BP 104 / 57; Pulse 86; Resp 18; Temp 97.8; Pulse Ox 99% on R/A; em 17:10 BP 107 / 61; Pulse 89; Resp 18; Temp 97.2; Pulse Ox 100% on R/A; em 10:39 Body Mass Index 18.77 (43.60 kg, 152.40 cm) em MDM: 10:31 Patient medically screened. [facility] 15:07 Data reviewed: vital signs, nurses notes, lab test result(s), radiologic studies, CT [facility] scan, plain films. Data interpreted: Pulse oximetry: on room air is 99 %. Interpretation: normal. Counseling: I had a detailed discussion with the patient and/or guardian regarding: the historical points, exam findings, and any diagnostic results supporting the discharge/admit diagnosis, lab results, radiology results, the need to transfer to another facility. ED course: Patient continues to have griselda hematuria to right nephrostomy tube. Moderate change in H/H since she has been here. 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 . 15:37 ED course: talked to patients reception agent/onc physician who accepted for consult at [facility] . 03/28 10:48 Order name: T\\T\\S 03/28 10:48 Order name: Basic Metabolic Panel; Complete Time: 12:04 03/28 10:48 Order name: Blood Culture Adult (2) 03/28 10:48 Order name: CBC with Diff; Complete Time: 12:59 03/28 10:48 Order name: Lactate; Complete Time: 12:31 03/28 10:48 Order name: LFT's; Complete Time: 12:04 [facility] 03/28 10:48 Order name: Lipase; Complete Time: 12:04 [facility] 03/28 10:48 Order name: Procalcitonin; Complete Time: 12:55 [facility] 03/28 10:48 Order name: Protime (+inr); Complete Time: 11:54 [facility] 03/28 10:48 Order name: Ptt, Activated; Complete Time: 11:54 [facility] 03/28 10:48 Order name: Urine Microscopic Only; Complete Time: 14:07 [facility] 03/28 12:15 Order name: Urine Microscopic Only; Complete Time: 14:17 [facility] 03/28 12:24 Order name: Urinalysis; Complete Time: 13:17 [facility] 03/28 12:34 Order name: Urinalysis; Complete Time: 13:17 03/28 10:48 Order name: Chest Single View XRAY; Complete Time: 14:07 [facility] 03/28 10:48 Order name: Accucheck; Complete Time: 11:32 [facility] 03/28 10:48 Order name: Cardiac monitoring; Complete Time: 11:32 [facility] 03/28 10:48 Order name: EKG - Nurse/Tech; Complete Time: 12:27 [facility] 03/28 10:48 Order name: IV Saline Lock - Large Bore; Complete Time: 11: [facility] 03/28 10:48 Order name: Labs collected and sent; Complete Time: 11: [facility] 03/28 12:05 Order name: CT Abd/Pelvis - Without Contrast; Complete Time: 14:07 [facility] 03/28 12:56 Order name: CBC Smear Scan; Complete Time: 12:59 [facility] 03/28 14:08 Order name: Urine Culture [facility] 03/28 14:10 Order name: Hemoglobin; Complete Time: 15:07 [facility] 03/28 14:28 Order name: Urine Culture [facility] 03/28 15:11 Order name: Packed RBCs (Additional Unit) [facility] 03/28 10:48 Order name: O2 Per Protocol; Complete Time: 11:17 [facility] 03/28 10:48 Order name: O2 Sat Monitoring; Complete Time: 11:17 [facility] 03/28 10:48 Order name: Urine Dipstick-Ancillary (obtain specimen); Complete Time: 12:27 Administered Medications: 11:10 Drug: morphine 4 mg Route: IVP; Site: right antecubital; em 11:30 Follow up: Response: No adverse reaction; Marked relief of symptoms; Pain is decreased; em RASS: Alert and Calm (0) 11:10 Drug: Zofran (Ondansetron) 4 mg Route: IVP; Site: right antecubital; em 11:30 Follow up: Response: No adverse reaction em 12:49 Drug: NS 0.9% 1000 ml Route: IV; Rate: 1000 ml; Site: right hand; em 14:00 Follow up: IV Status: Completed infusion; IV Intake: 10ml em 12:49 Drug: Rocephin 1 grams Route: IV; Rate: calculated rate; Site: right hand; em 14:30 Follow up: IV Status: Completed infusion; IV Intake: 10ml em Disposition: 18:54 Co-signature as Attending Physician, Bernabe Randall MD. rn Disposition: 03/28/20 16:26 Transfer ordered to [facility]. Diagnosis are Hematuria, Acute anemia, Urinary tract infection, site not specified, Complications of Nephrostomy Tube Placement . - Reason for transfer: Higher level of care. - Accepting physician is Dr. Méndez. - Condition is Fair. - Problem is new. - Symptoms are unchanged. Signatures: Dispatcher [employer] Wilmer Rosado RN RN em Nieto, Roman, MD MD rn Roszak, Josh, PA PA jr8 Corrections: (The following items were deleted from the chart) 18:43 16:26 03/28/2020 16:26 Transfer ordered to [facility]. em Diagnosis is Hematuria; Acute anemia; Urinary tract infection, site not specified; Complications of Nephrostomy Tube Placement . Reason for transfer: Higher level of care. Accepting physician is Dr. Méndez. Condition is Fair. Problem is new. Symptoms are unchanged. jr8
--- NOTE | 2020-03-28 16:27 | ER ---
Nurse's Notes [facility] Name: Jeannie John Age: 54 yrs Sex: Female : 1965 Arrival Date: 03/28/2020 Time: 10:28 Bed 6 Private MD: Diagnosis: Hematuria;Acute anemia;Urinary tract infection, site not specified;Complications of Nephrostomy Tube Placement Presentation: 03/28 10:39 Chief complaint: Patient states: has hx of pelvic cancer that obstructs the ureters, em had tammy. nephrostomy tubes replaced on Sunday, today the right one has blood in the bag, denies fever or chills. Coronavirus screen: Proceed with normal triage. Patient denies a cough. Patient denies shortness of breath or difficulty breathing. Patient denies measured and/or subjective temperature greater than 100.4F prior to today's visit. Patient denies travel on a cruise ship or to a country the [facility] currently lists as an affected area. Patient denies contact with known and/or suspected case of COVID-19. Ebola Screen: Patient negative for fever greater than or equal to 101.5 degrees Fahrenheit, and additional compatible Ebola Virus Disease symptoms Patient denies exposure to infectious person. Patient denies travel to an Ebola-affected area in the 21 days before illness onset. No symptoms or risks identified at this time. Initial Sepsis Screen: Does the patient meet any 2 criteria? HR > 90 bpm. No. Patient's initial sepsis screen is negative. Does the patient have a suspected source of infection? Yes: Skin breakdown/wound. Risk Assessment: Do you want to hurt yourself or someone else? Patient reports no desire to harm self or others. Onset of symptoms was March 28, 2020. 10:39 Method Of Arrival: Wheelchair em 10:39 Acuity: GI 3 em Historical: - Allergies: 10:44 PENICILLINS; em - PMHx: 10:44 "pelvic cancer"; em - PSHx: 10:44 None; em - Immunization history:: Adult Immunizations up to date. - Social history:: Smoking status: Patient reports the use of cigarette tobacco products, smokes one-half pack cigarettes per day. Screenin:44 Abuse screen: Denies threats or abuse. Nutritional screening: No deficits noted. em Tuberculosis screening: No symptoms or risk factors identified. Fall Risk None identified. Assessment: 10:39 General: Appears in no apparent distress. uncomfortable, ill, Behavior is calm, em cooperative, appropriate for age. Pain: Complains of pain in abdomen and right flank Pain currently is 10 out of 10 on a pain scale. Neuro: Level of Consciousness is awake, alert, obeys commands, Oriented to person, place, time, situation, Appropriate for age. Cardiovascular: Capillary refill < 3 seconds Patient's skin is warm and dry. Respiratory: Airway is patent Respiratory effort is even, unlabored, Respiratory pattern is regular, symmetrical. GI: Abdomen is flat, Bowel sounds present X 4 quads. Abd is soft X 4 quads Abdomen is tender to palpation X 4 quads. Reports nausea. : tammy. nephrostomy tubes noted to mid back, bloody urine noted to right nephrostomy bag, cloudy urine noted to left bag. Derm: Skin is intact, Skin is pink, warm \\T\\ dry. Musculoskeletal: Range of motion: intact in all extremities. 11:30 Reassessment: Patient appears in no apparent distress at this time. Patient and/or em family updated on plan of care and expected duration. Pain level reassessed. Patient is alert, oriented x 3, equal unlabored respirations, skin warm/dry/pink. Patient states feeling better. 12:30 Reassessment: Patient appears in no apparent distress at this time. Patient and/or em family updated on plan of care and expected duration. Pain level reassessed. Patient is alert, oriented x 3, equal unlabored respirations, skin warm/dry/pink. 13:30 Reassessment: Patient appears in no apparent distress at this time. Patient and/or em family updated on plan of care and expected duration. Pain level reassessed. Patient is alert, oriented x 3, equal unlabored respirations, skin warm/dry/pink. 14:30 Reassessment: Patient appears in no apparent distress at this time. Patient and/or em family updated on plan of care and expected duration. Pain level reassessed. Patient is alert, oriented x 3, equal unlabored respirations, skin warm/dry/pink. 15:30 Reassessment: Patient appears in no apparent distress at this time. Patient and/or em family updated on plan of care and expected duration. Pain level reassessed. Patient is alert, oriented x 3, equal unlabored respirations, skin warm/dry/pink. 15:30 Reassessment: pt signed consent for PRBC's. em 16:20 Reassessment: unable to obtain large enough peripheral IV, MALOU Ley at bedside. em 16:40 Reassessment: 2 unsuccessful EJ attempts in the right EJ, 1 unsuccessful EJ attempt in em the left EJ by MALOU Ley, taped and bandaged, no bleeding noted. 17:00 Reassessment: successful midline placed in the left upper arm, will initiate blood em transfusion soon. 17:10 Reassessment: double checked blood products with ATA Dorsey, no discrepancies noted. em 17:20 Reassessment: initiated PRBC's in the left upper arm, instructed to verbalize any em shortness of breath, chest pain or anything feeling abnormal. 17:50 Reassessment: report given to ATA Moscoso at [facility]. em 18:25 Reassessment: Patient appears in no apparent distress at this time. report given to em EMS, double checked blood products. Vital Signs: 10:39 BP 122 / 59; Pulse 99; Resp 18; Temp 97.9; Pulse Ox 100% on R/A; Weight 43.6 kg; Height em 5 ft. 0 in. (152.40 cm); 11:30 BP 105 / 57; Pulse 96; Resp 18; Pulse Ox 99% on R/A; Pain 5/10; em 12:45 BP 97 / 53; Pulse 89; Resp 20; Pulse Ox 98% on R/A; em 13:30 BP 95 / 48; Pulse 85; Resp 18; Pulse Ox 99% on R/A; em 14:05 BP 89 / 53; Pulse 74; Resp 18; Pulse Ox 99% on R/A; em 14:30 BP 104 / 53; Pulse 81; Resp 20; Pulse Ox 99% on R/A; em 15:30 BP 105 / 53; Pulse 74; Resp 18; Pulse Ox 99% on R/A; em 16:30 BP 104 / 57; Pulse 86; Resp 18; Temp 97.8; Pulse Ox 99% on R/A; em 17:10 BP 107 / 61; Pulse 89; Resp 18; Temp 97.2; Pulse Ox 100% on R/A; em 10:39 Body Mass Index 18.77 (43.60 kg, 152.40 cm) em ED Course: 10:28 Patient arrived in ED. as 10:31 Av Lira PA is PHCP. jr8 10: Bernabe Randall MD is Attending Physician. jr8 10:31 Wilmer Crowley, ATA is Primary Nurse. em 10:43 Triage completed. em 10:44 Arm band placed on. em 10:44 Patient has correct armband on for positive identification. Placed in gown. Bed in low em position. Call light in reach. Pulse ox on. NIBP on. 11:42 Chest Single View XRAY In Process Unspecified. EDMS 12:15 Initial lab(s) drawn, by me, sent to lab. Inserted saline lock: 22 gauge in right hand, em using aseptic technique. Blood collected. 13:50 CT Abd/Pelvis - Without Contrast In Process Unspecified. EDMS 17:00 Inserted LEFT BRACHIAL 18 GAUGE 10 CM MIDLINE. bp 18:22 No provider procedures requiring assistance completed. Patient admitted, IV remains in em place. Administered Medications: 11:10 Drug: morphine 4 mg Route: IVP; Site: right antecubital; em 11:30 Follow up: Response: No adverse reaction; Marked relief of symptoms; Pain is decreased; em RASS: Alert and Calm (0) 11:10 Drug: Zofran (Ondansetron) 4 mg Route: IVP; Site: right antecubital; em 11:30 Follow up: Response: No adverse reaction em 12:49 Drug: NS 0.9% 1000 ml Route: IV; Rate: 1000 ml; Site: right hand; em 14:00 Follow up: IV Status: Completed infusion; IV Intake: 10ml em 12:49 Drug: Rocephin 1 grams Route: IV; Rate: calculated rate; Site: right hand; em 14:30 Follow up: IV Status: Completed infusion; IV Intake: 10ml em Intake: 14:00 IV: 10ml; Total: 10ml. em 14:30 IV: 10ml; Total: 20ml. em Outcome: 16:26 ER care complete, transfer ordered by . jr8 18:22 Transferred by ground EMS to [facility], Transfer form completed. em X-rays sent w/ patient. 18:22 Condition: good 18:22 Instructed on the need for transfer, Demonstrated understanding of instructions. 18:43 Patient left the ED. em Signatures: Dispatcher [employer] Wilmer Rosado, RN RN Sherie Wray Josh, PA PA jr8 Willian Paige, RN RN bp
[2020-03-28] MEDS ORDERED: NA CHLORIDE 0.9% 250 ML ONE (17:14)
[2020-03-28 19:11] VITALS: BP 107/61; TEMP 97.2; O2SAT 100
== END 2020-03-28 18:43 | disposition short-term general hospital (02) ==
LOC: ER 10:27
PROC: 30233N1 Transfusion of Nonautologous Red Blood Cells into Peripheral Vein, Percutaneous Approach (ICD-10-PCS; principal; 2020-03-28)
DX: D64.9 Anemia, unspecified (principal); N39.0 Urinary tract infection, site not specified; T83.89XA Other specified complication of genitourinary prosthetic devices, implants and grafts, initial encounter; F17.210 Nicotine dependence, cigarettes, uncomplicated; Z85.89 Personal history of malignant neoplasm of other organs and systems
CPT/HCPCS: 96365; 93005; 87040 ×2; 87088 ×2; 85025; 87086; 80048; 36415; 86900; 86850; 85610; 86901; 80076; 83605; 85730; 85018; 83690; 84145; 74176; 71045; 96375; 99285; 96366; 36430; J1200; J0696; P9016; J7050; J7030; J1720; J2405; 81003; 81015

== ENCOUNTER 2020-04-12 09:19 | Emergency (ER) | payer OTHER ==
[2020-04-12] MEDS ORDERED: MORPHINE 4 MG/ML SYR ONE ×2 (09:47→12:19)
--- OUTSIDE RECORDS SUMMARY | 2020-04-12 10:50 | XMS REPORT | Clinical Summary ---
:1965 Author Organization [facility] Address [address] [place] [address] Care Team Providers Name Role Phone Pcp Primary Care Provider Unavailable Allergies Active Allergy Reactions Severity Noted Date Comments Penicillins 02/10/2020 Medications Medication Sig Dispensed Refills Start Date End Date Status folic acid (FOLVITE) Take 1 tablet 30 tablet 1 02/18/2020 Active 1 MG tablet (1 mg total) by mouth daily. pantoprazole Take 1 tablet 30 tablet 1 02/18/2020 Ac tive (PROTONIX) 40 MG (40 mg total) tablet by mouth daily. polyethylene glycol Take 17 g by 30 each 1 02/18/2020 Active (GLYCOLAX) 17 gram mouth daily. packet zinc Apply as 71 g 1 02/17/2020 Active oxide-petrolatum needed to (CRITIC-AID) 20-51 % perianal area Pste topical paste for redness and irritation.. apixaban (ELIQUIS) 5 Take 1 tablet 0 03/30/2020 Active mg Tab tablet (5 mg total) by mouth 2 (two) times daily. cyanocobalamin, Take 1 tablet 30 tablet 0 03/29/2020 Active vitamin B-12, 500 (500 mcg 1 MCG tablet total) by mouth daily. hydrocortisone Place rectally 30 g 0 02/17/2020 (ANUSOL-HC) 2.5 % 2 (two) times 0 rectal cream daily for 10 days. levoFLOXacin Take 1 tablet 3 tablet 0 02/17/2020 Ex pired (LEVAQUIN) 250 MG (250 mg total) 0 tablet by mouth every other day for 6 days. metroNIDAZOLE Take 1 tablet 18 tablet 0 02/17/2020 E xpired (FLAGYL) 500 MG (500 mg total) 0 tablet by mouth every 8 (eight) hours for 6 days. apixaban (ELIQUIS) 5 Take 5 mg by 0 Discontinued mg Tab tablet mouth 2 (two) 0 times daily. cefdinir (OMNICEF) Take 1 capsule 12 capsule 0 03/30/202003/18 300 MG capsule (300 mg total) 0 by mouth every 12 (twelve) hours for 6 days. acetaminophen-codein Take 1 tablet 30 tablet 0 03/29/202003/17 Discontinued e (TYLENOL #3) by mouth every 0 300-30 mg per tablet 6 (six) hours as needed for up to 10 days. Max Daily Amount: 4 tablets acetaminophen-codein Take 1 tablet 30 tablet 0 03/30/202003/17 Discontinued e (TYLENOL #3) by mouth every 0 300-30 mg per tablet 6 (six) hours as needed for up to 10 days. Max Daily Amount: 4 tablets Active Problems Problem Noted Date Anemia 03/28/2020 Cervical cancer 03/28/2020 Anemia due to acute blood loss 03/28/2020 Acute cystitis with hematuria 03/28/2020 DVT (deep venous thrombosis) 03/28/2020 Gross hematuria 03/28/2020 Bilateral hydronephrosis 02/10/2020 Resolved Problems Problem Noted Date Resolved Date LIANNE (acute kidney injury) 03/28/2020 Encounters Date Type Specialty Care Team Description 03/30/2020 Telephone Obstetrics and [place], Gynecology MD Amy 03/28/2020 - Hospital General Internal Guero Méndez Bilateral hydronephrosis (Primary Dx); 03/29/2020 Encounter Medicine MD Meaghan Acute cystitis with hematuria; Stephanie, Anemia due t o acute blood loss; MD Joaquim Malignant neoplasm of cervix, unspecifie d site ([facility]); Aleta Lopez, Acute deep v ein thrombosis (DVT) of lower extremity, unspecified laterality, unspecified vein ([facility]); Gross hematuria ; Hematuria, elizabeth s 03/26/2020 - Hospital Radiology Sep Malignant neopl asm of 03/28/2020 Encounter MD Casimiro cervix, unspeci fied site ([facility]) 03/22/2020 Outside Orders Central Scheduling Ferny Santos Maligna nt neoplasm of MD Casimiro cervix, unspeci fied site (HCC) (Divina yuan Dx) 03/11/2020 Hospital Cardiology Sep Cervical cancer , FIGO stage IIIB (HCC); Encounter MD Casimiro Pedal edema 03/02/2020 Outside Orders Central Scheduling Danielle, Ferny Cervica l cancer, FIGO MD Casimiro stage IIIB (HCC ) (Primary Dx) 03/02/2020 Outside Orders Central Scheduling , Ferny Cervica l cancer, FIGO stage IIIB (HCC) (Primary Dx); MD Casimiro Pedal edema 03/01/2020 Procedure visit Radiation Oncology Georgette Moreno MD 02/10/2020 - [facility] General Internal Anam Hernandez Bilatera l hydronephrosis; 02/18/2020 Encounter Medicine LIANNE (acute kidney injury) (HCC); Flaca Miller MD Hyperkalemia; Go Villagomez MD Oliguria; Pelvic mass; Hematochezia; Hypoglycemia; Leukocytosis, u nspecified type; Cervical mass; Altered mental status, unspecified altered mental status type; Uremia; Pain; Slow transit co nstipation; Goals of care, counseling/discussion; Palliative care by specialist 02/10/2020 Orders Only General Internal Medicine after 04/12/2019 Social History Tobacco Use Types Packs/Day Years [...] Vital Sign Reading Time Taken Blood Pressure 112/58 03/29/2020 3:40 PM CDT Pulse 85 03/29/2020 3:40 PM CDT Temperature 36.2 C (97.1 F) 03/29/2020 3:40 PM CDT Respiratory Rate 18 03/29/2020 3:40 PM CDT Oxygen Saturation 100% 03/29/2020 3:40 PM CDT Inhaled Oxygen Concentration 21% 02/10/2020 12:35 PM CDT Weight 43.5 kg (96 lb) 03/26/2020 9:04 AM CDT Height 153 cm (5' 0.24") 03/26/2020 9:04 AM CDT Body Mass Index 18.6 03/26/2020 9:04 AM CDT Plan of Treatment Not on file Procedures Procedure Name Priority Date/Time Associated Comments Diagnosis TRANSFUSION SERVICE 03/29/2020 6:00 REPORT - SCAN PM CDT CBC W/PLT COUNT & AUTO Routine 03/29/2020 4:10 R esults for this DIFFERENTIAL AM CDT procedure are i n the results section. RETICULOCYTE COUNT Add-On 03/29/2020 4:10 Resul ts for this AM CDT procedure are i n the results section. CBC W/PLT COUNT & AUTO Routine 03/29/2020 4:10 R esults for this DIFFERENTIAL AM CDT procedure are i n the results section. VITAMIN B12 AND FOLATE Routine 03/29/2020 4:09 R esults for this AM CDT procedure are i n the results section. LACTATE DEHYDROGENASE Routine 03/29/2020 4:09 Re sults for this (LDH) AM CDT procedure are i n the results section. IRON, TIBC, % SAT. Routine 03/29/2020 4:09 Resul ts for this (WITHOUT FERRITIN) AM CDT procedure are in the results section. HAPTOGLOBIN Routine 03/29/2020 4:09 Results for this AM CDT procedure are i n the results section. FERRITIN Routine 03/29/2020 4:09 Results for this AM CDT procedure are i n the results section. BASIC METABOLIC PANEL Routine 03/29/2020 4:09 Re sults for this (7) AM CDT procedure are i n the results section. SARS-COV2/RT-PCR ([facility] Routine 03/29/2020 1:25 R esults for this & REF LABS) AM CDT procedure are i n the results section. URINALYSIS W/ REFLEX Routine 03/28/2020 11:43 Res ults for this URINE CULTURE PM CDT procedure are in the results section. URINE CULTURE Routine 03/28/2020 11:43 Results fo r this PM CDT procedure are i n the results section. BLOOD CULTURE Routine 03/28/2020 11:42 Results fo r this PM CDT procedure are i n the results section. BLOOD CULTURE Routine 03/28/2020 10:40 Results fo r this PM CDT procedure are i n the results section. TYPE AND SCREEN, Routine 03/28/2020 10:39 Results for this AUTOMATED PM CDT procedure are i n the results section. LACTIC ACID, VENOUS STAT 03/28/2020 10:39 Resu lts for this PM CDT procedure are i n the results section. CBC W/PLT COUNT & AUTO Routine 03/28/2020 10:37 R esults for this DIFFERENTIAL PM CDT procedure are i n the results section. PT/APTT Routine 03/28/2020 10:37 Results for this PM CDT procedure are i n the results section. PHOSPHORUS Routine 03/28/2020 10:37 Results for this PM CDT procedure are i n the results section. MAGNESIUM Routine 03/28/2020 10:37 Results for this PM CDT procedure are i n the results section. COMPREHENSIVE METABOLIC Routine 03/28/2020 10:37 Results for this PANEL PM CDT procedure are i n the results section. CBC W/PLT COUNT & AUTO Routine 03/28/2020 10:37 R esults for this DIFFERENTIAL PM CDT procedure are i n the results section. 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 after 04/12/2019 Results TRANSFUSION SERVICE REPORT - SCAN (03/29/2020 6:00 PM CDT)Only the most recent of3 resultswithin the time period is included. Narrative Performed At This result has an attachment that is no t available. CBC with platelet count + automated diff (03/29/2020 4:10 AM CDT)Only the most recent of12 resultswithin the time period is included. WBC 17.2 (H) 3.5 - 10.5 K/L [facility] RBC 2.76 (L) 3.93 - 5.22 M/L [facility] Hemoglobin 7.9 (L) 11.2 - 15.7 GM/DL [facility] Hematocrit 25.1 (L) 34.1 - 44.9 % [facility] MCV 90.9 79.4 - 94.8 fL [facility] MCH 28.6 25.6 - 32.2 pg [facility] MCHC 31.5 (L) 32.2 - 35.5 GM/DL [facility] RDW 19.0 (H) 11.7 - 14.4 % [facility] Platelets 527 (H) 150 - 450 K/CU MM [facility] MPV 9.2 (L) 9.4 - 12.3 fL [facility] nRBC 0 0 - 0 /100 WBC [facility] % Neutros 85 % [facility] % Lymphs 8 % [facility] % Monos 5 % [facility] % Eos 1 [facility] % Baso 0 % [facility] # Neutros 14.66 (H) 1.56 - 6.13 K/L [facility] # Lymphs 1.44 1.18 - 3.74 K/L [facility] # Monos 0.82 (H) 0.24 - 0.36 K/L [facility] # Eos 0.10 0.04 - 0.36 K/L [facility] # Baso 0.05 0.01 - 0.08 K/L [facility] Immature 1 0 - 1 % [facility] Granulocytes-Relative MEDICAL CE NTER Specimen Blood Performing Organization Address City/[facility]/Zipcode Phone Number [address] [address] CENTER Reticulocyte count (03/29/2020 4:10 AM CDT)Only the most recent of2 results within the time period is included. % Retic 1.1 0.5 - 1.7 % [facility] Specimen Blood Narrative Performed At Parts Clerk Plant Maintenance ID - [id number] [facility] Performing Organization Address City/[facility]/Zipcode Phone Number [address] [address] CENTER Vitamin B12 and Folate (03/29/2020 4:09 AM CDT)Only the most recent of2 results within the time period is included. Vitamin B12 349 213 - 816 pg/mL [facility] Folate 18.30 >=7.00 ng/mL [facility] Specimen Blood Narrative Performed At Parts Clerk Plant Maintenance ID - PIAYA L [facility] Performing Organization Address City/[facility]/Zipcode Phone Number [address] [address] CENTER Iron, TIBC, % sat. (without ferritin) (03/29/2020 4:09 AM CDT)Only the most recent of2 resultswithin the time period is included. Iron 57.0 40.0 - 160.0 ug/dL [facility] TIBC 150 (L) 250 - 450 ug/dL [facility] Iron % Saturation 38 20 - 55 % [facility] Specimen Blood Narrative Performed At Parts Clerk Plant Maintenance ID - ANNA Mejia [facility] Performing Organization Address [facility] Phone Number [address] [address] CENTER Lactate dehydrogenase (LDH) (03/29/2020 4:09 AM CDT)Only the most recent of2 resultswithin the time period is included. LDH 175 125 - 220 U/L [facility] Specimen Blood Narrative Performed At Parts Clerk Plant Maintenance ID - ANNA Mejia [facility] Performing Organization Address [facility] Phone Number [address] [address] C[place] Haptoglobin (03/29/2020 4:09 AM CDT)Only the most recent of2 resultswithin the time period is included. Haptoglobin 381 (H) 14 - 258 mg/dL [facility] Specimen Blood Narrative Performed At Parts Clerk Plant Maintenance ID - ANNA Mejia [facility] Performing Organization Address [facility] Phone Number [address] [address] C[place] Ferritin (03/29/2020 4:09 AM CDT)Only the most recent of2 resultswithin the time period is included. Ferritin 699.22 (H) 5.00 - 275.00 ng/mL [facility] Specimen Blood Narrative Performed At Parts Clerk Plant Maintenance ID - ANNA L [facility] Performing Organization Address [facility] Cent[facility]ode Phone Number [address] [address] [place] Basic Metabolic Panel (03/29/2020 4:09 AM CDT)Only the most recent of12 results within the time period is included. Sodium 135 (L) 136 - 145 meq/L [facility] Potassium 4.6 3.5 - 5.1 meq/L [facility] Chloride 108 (H) 98 - 107 meq/L [facility] CO2 18 (L) 22 - 29 meq/L [facility] BUN 41 (H) 7 - 21 mg/dL [facility] Creatinine 1.26 (H) 0.57 - 1.25 mg/dL [facility] Glucose 86 70 - 105 mg/dL [facility] Calcium 9.3 8.4 - 10.2 mg/dL [facility] EGFR 45Comment: ESTIMATED GFR IS mL/min/1.73 sq m [facility] NOT ACCURATE CREATININE [facility] CLEARANCE IN PREDICTING GLOMERULAR FILTRATION RATE. ESTIMATED GFR IS NOT APPLICABLE FOR DIALYSIS PATIENTS. Specimen Blood Narrative Performed At Parts Clerk Plant Maintenance ID - PIAYA L [facility] CENTER Performing Organization Address City/State/Zipcode Phone Number [facility] [address] [place] [address] [place] SARS-CoV2/RT-PCR (Asymptomatic ONLY) (03/29/2020 1:25 AM CDT)Only the most recent of2 resultswithin the time period is included. SARS-COV2/RT-PCR Negative Not Detected, Negative [facility] SARS-COV-[address] [facility] Specimen Other Narrative Performed At Negative result for this test determines that [facility] SARS-CoV-2 RNA was not present in the specimen above the Limit of Detection (LOD).However, Negative results do not preclude SARS-CoV-2 infection and should not be used as the sole basis for treatment or patient management decisions. Negative results must be combined with clinical observations, patient history, and epidemiological information. A false negative result may occur if a specimen is improperly collected, transported or handled.A false negative result should be considered if patient's recent exposures or clinical presentation indicate that COVID-19 (SARS-CoV-2) is likely and diagnostic tests for other causes of illness are negative.Re-testing should be considered in cases of suspected false negatives. The limit of detection for this assay is 800 copies/mL. This SARS CoV-2 test is a real-time RT-PCR test intended for the qualitative detection of nucleic acid from SARS-CoV-2 in a nasopharyngeal swab specimen collected from individuals suspected of COVID-19 by their healthcare provider. This test has not been Food and Drug Administration (FDA) cleared or approved.This is a modified version of an approved Emergency Use Authorization (EUA) and is in the process of review by the FDA. Once authorized by the FDA, the issued EUA will be effective until the declaration that circumstances exist justifying the authorization of the emergency use of in vitro diagnostic tests for detection and/or diagnosis of COVID-19 is terminated under Section 564(b)(2) of the Act or the EUA is revoked under Section 564(g) of the Act. Fact Sheet for Healthcare Providers: https://www.Lany[employer]/sites/default/files/pro duct/documents/Fact_Sheet_HC_Providers_Lyra_SA RS-CoV-2.pdf Fact Sheet for Healthcare Patients: https://www.Lany[employer]/sites/default/files/pro duct/documents/Fact_Sheet_Patients_Lyra_SARS-C oV-2.pdf Performing Laboratory: [address] [place] [address] Performing Organization Address City/State/Zipcode Phone Number [address] [address] CENTER Urinalysis w/Microscopic + Reflex to Culture (03/28/2020 11:43 PM CDT)Only the most recent of2 resultswithin the time period is included. Color, UA Yellow [facility] Clarity, UA Hazy [facility] Specific [place], UA 1.015 1.001 - 1.035 [facility] pH, UA 6.0 5.0 - 8.0 [facility] Protein, UA 200 mg/dL (A) Negative [facility] Glucose, UA Negative Negative [facility] Ketones, UA Negative Negative [facility] Bilirubin, UA Negative Negative [facility] Blood, UA Moderate (A) Negative [facility] Nitrite, UA Negative Negative [facility] Leukocytes, UA Large (A) Negative [facility] Urobilinogen, UA 0.2 0.2 - 1.0 mg/dL [facility] H [facility]ALTH [facility] RBC, UA 84 /HPF [facility] WBC, UA 106 /HPF [facility] Bacteria, UA Occasional [facility] Mucus Rare [facility] Squam Epithel, UA <1 /HPF [facility] Hyaline Casts, UA 5 /LPF [facility] Specimen Source [facility] Specimen Urine Narrative Performed At Parts Clerk Plant Maintenance ID - [auto] [facility] Parts Clerk Plant Maintenance ID - tech Performing Organization Address City/State/Zipcode Phone Number [facility] [address] [place] [address] CENTER Urine culture (03/28/2020 11:43 PM CDT)Only the most recent of2 resultswithin the time period is included. Result 10-19,000 col/mL Vancomycin [facility] resistant Enterococcus faecium (A) [facility]ENTER Specimen Urine Organism Antibiotic Method Susceptibility Vancomycin resistant Enterococcus Ampicillin >=32: Resistant faecium Vancomycin resistant Enterococcus Linezolid 2: Susceptible faecium Vancomycin resistant Enterococcus Nitrofurantoin 64: Resistant faecium Vancomycin resistant Enterococcus Tetracycline >=16: Resistant faecium Vancomycin resistant Enterococcus Vancomycin >=32: Resistant faecium Vancomycin resistant Enterococcus Daptomycin 2: Dose Dependent Susceptible faecium Performing Organization Address [facility] Phone Number [address] [address] C[place] Blood Culture - Routine (Right Venipuncture) (03/28/2020 11:42 PM CDT)Only the most recent of4 resultswithin the time period is included. Result No growth in 5 days [facility] Specimen Blood Performing Organization Address [facility] Phone Number [address] [address] C[place] Type and screen, automated (03/28/2020 10:39 PM CDT)Only the most recent of2 resultswithin the time period is included. ABO/RH AUTOMATED (BEAKER) A POSITIVE [facility] Ab Scrn NEGATIVE [facility] Specimen Blood Performing Organization Address [facility] Phone Number [address] [address] Lactic acid, venous (03/28/2020 10:39 PM CDT)Only the most recent of2 results within the time period is included. Lactate, Venous 1.02 0.50 - 2.20 mmol/L [facility] Specimen Blood Narrative Performed At Parts Clerk Plant Maintenance ID - PIAYA L [facility] Performing Organization Address [facility] Cent[facility]ode Phone Number [address] [address] CENTER PT/aPTT (03/28/2020 10:37 PM CDT) Protime 15.3 (H) 11.9 - 14.2 seconds [facility] INR 1.2 <=5.9 [facility] PTT 26.1 22.5 - 36.0 seconds [facility] Specimen Blood Narrative Performed At Effective 02/12/2019: PT Reference Range [facility] Change New: 11.9-14.2Previous: 11.7-14.7 RECOMMENDED COUMADIN/WARFARIN INR THERAPY RANGES STANDARD DOSE: 2.0-3.0Includes: PROPHYLAXIS for venous thrombosis, systemic embolization; TREATMENT for venous thrombosis and/or pulmonary embolus. HIGH RISK: Target INR is 2.5-3.5 for patients wiht mechanical heart valves. Performing Organization Address City/State/Zipcode Phone Number [address] [address] [place] Phosphorus (03/28/2020 10:37 PM CDT)Only the most recent of6 resultswithin the time period is included. Phosphorus 4.4 2.3 - 4.7 mg/dL [facility] Specimen Blood Narrative Performed At Parts Clerk Plant Maintenance ID - PIAYA L [facility] Performing Organization Address City/[facility]/Zipcode Phone Number [address] [address] CENTER Magnesium (03/28/2020 10:37 PM CDT)Only the most recent of5 resultswithin the time period is included. Magnesium 1.9 1.6 - 2.6 mg/dL [facility] Specimen Blood Narrative Performed At Parts Clerk Plant Maintenance ID - PIAYA L [facility] Performing Organization Address City/State/Zipcode Phone Number [address] [address] CENTER Comprehensive metabolic panel (03/28/2020 10:37 PM CDT)Only the most recent of3 resultswithin the time period is included. Protein, Total 6.1 6.0 - 8.3 gm/dL [facility] Albumin 3.0 (L) 3.5 - 5.0 g/dL [facility] Alkaline Phosphatase 80 40 - 150 U/L [facility] Total Bilirubin 0.5 0.2 - 1.2 mg/dL [facility] Sodium 134 (L) 136 - 145 meq/L [facility] Potassium 4.2 3.5 - 5.1 meq/L [facility] Chloride 106 98 - 107 meq/L [facility] CO2 17 (L) 22 - 29 meq/L [facility] BUN 43 (H) 7 - 21 mg/dL [facility] Creatinine 1.35 (H) 0.57 - 1.25 mg/dL [facility] Glucose 109 (H) 70 - 105 mg/dL [facility] MEDICAL CENT ER Calcium 8.9 8.4 - 10.2 mg/dL [facility] AST 13 5 - 34 U/L [facility] ALT 28 6 - 55 U/L [facility] EGFR 41Comment: ESTIMATED GFR mL/min/1.73 sq m [facility] IS NOT ACCURATE [facility] CREATININE CLEARANCE IN PREDICTING GLOMERULAR FILTRATION RATE. ESTIMATED GFR IS NOT APPLICABLE FOR DIALYSIS PATIENTS. Specimen Blood Narrative Performed At Parts Clerk Plant Maintenance ID - PIAYA L [facility] Performing Organization Address City/State/Zipcode Phone Number [facility] [address] [place] [address] CENTER IR Port Removal (03/26/2020 2:29 PM CDT) Specimen Narrative Performed At FINAL REPORT GE RIS PROCEDURE: Venous chest port placement Procedural Personnel [...] a permanent image was stored. Port placed: [employer] Smart port Catheter size (Djiboutian): 7 Catheter flush: Heparin (100 units/mL) Closure [...] MD Report Verified Date/Time:03/26/2020 17:05:13 Reading Location: [place] [address] Angio Body Reading Room Procedure Note Interface, [...] a permanent image was stored. Port placed: [employer] Smart port Catheter size (Djiboutian): 7 Catheter flush: Heparin (100 units/mL) Closure [...] Verified Date/Time: 03/26/2020 1 7:05:13 Reading Location: [facility] B1 P048 Angio Body Reading Room Performing Organization Address City/State/Zipcode Phone Number JAS DOLL IR Drainage Catheter Change (03/26/2020 2:19 PM CDT) Specimen Narrative Performed At FINAL REPORT JAS DOLL PROCEDURE: Genitourinary catheter exchan Procedural Personnel Attending physician(s): Yani Malone MD Fellow physician(s): None Resident physician(s): None Advanced practice provider(s): None Pre-procedure diagnosis: Urinary obstruc tion Post-procedure diagnosis: Same Indication: Suspected catheter infection Additional clinical history: None Complications: No immediate complication s. IMPRESSION: Successful exchange of right and left in dwelling percutaneous nephrostomy tubes for new 10 Djiboutian neph rostomy tubes. PROCEDURE SUMMARY - Target organ: Bilateral [place] kidneys - Antegrade nephrostogram(s) via the exi [...] with contrast injection. Pre-existing genitourinary catheter: 10 Djiboutian Cook Genitourinary catheter(s) placed: Same Findings: Nondilated collecting system. External catheter securement: Non-absorb able suture Left genitourinary catheter exchange Local anesthesia was administered. Initi al nephrostogram was performed. A wire was placed through the existing tube and it was removed. The new tube was advanced over the wire and position was confirmed with contrast injection. Pre-existing genitourinary catheter: 10 Djib[place]ian Cook Genitourinary catheter(s) placed: Same Findings: Nondilated [...] MD Report Verified Date/Time:03/26/2020 17:08:04 Reading Location: [place] [address] Angio Body Reading Room Procedure Note Interface, [...] dwelling percutaneous nephrostomy tubes for new 10 Djiboutian neph rostomy tubes. PROCEDURE SUMMARY - Target organ: Bilateral [place] kidneys - Antegrade nephrostogram(s) via the exi [...] with contrast injection. Pre-existing genitourinary catheter: 10 Dj[place]ian Cook Genitourinary catheter(s) placed: Same Findings: Nondilated collecting system. External catheter securement: Non-absorb able suture Left genitourinary catheter exchange Local anesthesia was administered. Initi al nephrostogram was performed. A wire was placed through the existing tube and it was removed. The new tube was advanced over the wire and position was confirmed with contrast injection. Pre-existing genitourinary catheter: 10 Djiboutian Cook Genitourinary catheter(s) placed: Same Findings: Nondilated [...] Verified Date/Time: 03/26/2020 1 7:08:04 Reading Location: [facility] P048 Angio Body Reading Room Performing Organization Address [facility] Phone Number GE RIS aPTT (03/26/2020 7:41 AM CDT)Only the most recent of3 resultswithin the time period is included. PTT 28.3 22.5 - 36.0 seconds [facility] Specimen Blood Performing Organization Address [facility] Centercode Phone Number [address] [address] CENTER Prothrombin time/INR (03/26/2020 7:41 AM CDT)Only the most recent of3 results within the time period is included. Protime 15.5 (H) 11.9 - 14.2 seconds [facility] INR 1.3 <=5.9 [facility] Specimen Blood Narrative Performed At Effective 02/12/2019: PT Reference Range [facility] Change New: 11.9-14.2Previous: 11.7-14.7 RECOMMENDED COUMADIN/WARFARIN INR THERAPY RANGES STANDARD DOSE: 2.0-3.0Includes: PROPHYLAXIS for venous thrombosis, systemic embolization; TREATMENT for venous thrombosis and/or pulmonary embolus. HIGH RISK: Target INR is 2.5-3.5 for patients wiht mechanical heart valves. Performing Organization Address [facility] Phone Number [address] [address] [place] Venous Doppler Legs Bilateral (03/11/2020 10:15 AM CDT) Ejection Fraction [facility] Specimen Impressions Performed At Right Impression [facility] 1. There is no deep venous obstruction [...] PV LAB - Lower Extremities DVT Study [facility] Demographics Patient NameCLARK, PENNYDate of Study 03/11/2020 LUIS AN 54 Visit [id number] Female of 1965 Referring Ferny Santos, Room Number [facility] OPT Physician Offset Machine Operator Gregor Freed [facility] Physician Procedure Type of Study: Veins: Lower [...] Diego e of Study 03/11/2020 GERI MRMandy [id number] Age 54 Visit Number [id number] Gen gloria Female Accession Number [id number] Juan Diego e of 1965 Referring Stacey Guillaume [facility] OPT Physician Offset Machine Operator Gregor Gore [facility] NEYDA Palma MD Procedure Type of Study: [...] are measured in cm Performing Organization Address City/State/Zipcode Phone Number [facility] EKG-SCANNED (02/20/2020 8:00 AM CDT) Narrative Performed At This result has an attachment that is no t available. RHYTHM STRIP - SCAN (02/20/2020 8:00 AM CDT) Narrative Performed At This result has an attachment that is no t available. 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 CPT Code(s) 17987 [facility] COUNTYAgustinS [facility] ER GROSS DESCRIPTION Part A. Received in a contai ner labeled with the patient's name and MRN as "cervix" with the additional information "necrotic tumor involving the entire cervix" are multiple fragments of irregular, barron- [facility] [employer] [facility] conte to barron-white tissue tameka suring in aggregate 2.5 x 1.5 x 1 cm. The pieces of tissue range in size from less than 0.1 to 1.5 cm in greatest dimension. The largest piece measures 2 x 1.[address] [facility] [address] Section code: A1, tobacco curer small fragments of tissue; A2-A3, largest piece serially sectioned; A4, remaining multiple small fragments of tissue submitted entirely. SW/ew MICROSCOPIC DESCRIPTION Performed. [facility] Specimen Tissue Performing Organization Address City/State/Zipcode Phone Number [facility] [address] [place] [address] [place] POC-Glucose meter (02/18/2020 7:49 AM CDT)Only the most recent of45 results within the time period is included. POC-Glucose Meter 98Comment: : TESTED AT 70 - 110 mg/dL [facility] [address] [facility], [address]: Parts Clerk Plant Maintenance/Pesticide Applicator ID = [id number] for LEODAN PULLIAM Specimen Blood Performing Organization Address [facility]/Zipcode Phone Number [place] [phone] [place] [address] [place] MR pelvis without IV contrast (02/17/2020 9:55 PM CDT) Specimen Narrative Performed At FINAL REPORT [employer] [facility] TECHNIQUE: MRI of the pelvis WITHOUT int [...] MD Report Verified Date/Time:02/18/2020 15:35:26 Reading Location: [address] Procedure Note Interface, External Ris In - [...] and agree with the above findings. Signed: Rco Castrejon MD Report Verified Date/Time: 02/18/2020 1 5:35:26 Reading Location: [facility] B1 C013W Consult [facility] Room Performing Organization Address City/State/Zipcode Phone Number [employer] CT brain without IV contrast (02/16/2020 5:24 PM CDT) Specimen Narrative Performed At FINAL REPORT [employer] CT, BRAIN, WITHOUT CONTRAST INDICATION: Neoplasm: head, [...] 7:36:02 Performing Organization Address City/State/Zipcode Phone Number [employer] CT chest without IV contrast (02/16/2020 5:24 PM CDT) Specimen Narrative Performed At FINAL REPORT [employer] CT of the Chest dated 02/16/2020 CLINICAL [...] MD Report Verified Date/Time:02/16/2020 18:46:22 Reading Location: [facility] B1 C013Y CT Body R [facility] Room Procedure Note Interface, External Ris In [...] Verified Date/Time: 02/16/2020 1 8:46:22 Reading Location: [facility] B1 C013Y CT Body R [facility] Room Performing Organization Address City/State/Zipcode Phone Number GE RIS Cortisol (02/16/2020 9:48 AM CDT)Only the most recent of2 resultswithin the time period is included. Cortisol, Total 17.8 3.7 - 19.4 ug/dL [facility] Specimen Blood Narrative Performed At Parts Clerk Plant Maintenance ID - [id number] [facility] Performing Organization Address City/State/Zipcode Phone Number [facility] [address] [place] [address] CENTER insulin-like growth factor 2 (02/16/2020 9:48 AM CDT) Scan Result [facility] Specimen Blood Narrative Performed At This result has an attachment that is no t available. Performing Organization Address [facility] Centercoor Phone Number [facility] [address] [place] [address] Insulin-like growth factor (02/16/2020 9:48 AM CDT) Igf-1(Somatomedin-C) 116 50 - 317 ng/mL [facility] Z-Score Male: DNR [facility] Z-Score Female: -0.4 -2.0 - 2.0 SD [facility] Comment: INC[facility]PORATED This test was developed and its analytical perfo rmance characteristics have been determined by [employer] [facility]. It has not been cleared or approved by FDA. This assay has been validated pursuant to the CLIA regulations and is used for clinical purposes. Specimen Blood Narrative Performed At Performing Lab [facility] [employer] [address] [place] [id number] Aniya Bradford MD, PhD, ERIN Performing Organization Address [facility] Phone Number [facility] [place] [address] [address] [place] [address] ACTH (02/16/2020 9:48 AM CDT) ACTH 14 6 - 50 pg/mL [facility] Comment: Reference range applies only to the specimens co llected between 7am-10am. Specimen Blood Narrative Performed At Performing Lab [facility] EZ [employer] [facility] [address] [place] [id number] Aniya Bradford MD, PhD, ERIN Performing Organization Address [facility]oor Phone Number [facility] [place] [address] [address] [place] [address] US renal complete (02/15/2020 5:56 PM CDT) Specimen Narrative Performed At FINAL REPORT [employer] Ultrasound of the Kidneys Clinical History:to check [...] 8:24:53 Performing Organization Address City/State/Zipcode Phone Number [facility] Hemoglobin and hematocrit (02/14/2020 4:38 PM CDT)Only the most recent of4 resultswithin the time period is included. Hemoglobin 8.4 (L) 11.2 - 15.7 GM/DL [facility] Hematocrit 25.2 (L) 34.1 - 44.9 % [facility] Specimen Blood Narrative Performed At Parts Clerk Plant Maintenance ID - [id number] [facility] Performing Organization Address City/State/Zipcode Phone Number [facility] [address] [place] [address] CENTER Cancer Antigen 125 (CA 125) (02/13/2020 1:10 PM CDT) CA 125 287 (H) <35 U/mL [facility] Comment: This test was performed using the BiOxyDyn Coulte r Chemiluminescent method. Values obtained from different assay methods can not be used interchangeably. CA 125 levels, regardless of value, should not b e interpreted as absolute evidence of the presence or absence of disease. Specimen Blood Narrative Performed At Performing Lab [facility] [address] [place] [address] I Suzette CARDENAS, PhD, ERIN Performing Organization Address City/[facility] Centercode Phone Number [facility] [place] [address] INCORPORATED [address] [facility] Transesophageal echo (02/12/2020 10:14 AM CDT) Ejection Fraction [facility] Specimen Narrative Performed At Transesophageal Echocardiography Report (BONIFACIO) [facility] Demographics Patient Name JEANNIE KAUFFMAN Date of Study 02/12/2020 GERI [id number] GenderFem ginger Visit Number [id number] RaceUnkn own [id number] m Number [id number] Number Date of Birth1965 Referring Physician Flaca Miller Age54 year(s) Offset Machine Operator Sunday June MD Physician Fellow MARIELA Best [...] Study 02/12/2020 GERI Gender Female Visit Number [id number] Race Unknown Room [facility] 166 Number Date of 1965 Referri Physician Flaca Miller Age 54 year(s) Everardo [facility] eti Forrest June MD Physici an Fellow MARIELA [...] exam) Signature Findings Rhythm/BP Regular sinus rhythm vanessa bautista the exam. Left Normal left ventricle cavi [...] TR Gradient: 30.2 mmHg Performing Organization Address City/State/Zipcode Phone Number [facility] Manual Differential (02/12/2020 4:22 AM CDT)Only the most recent of3 results within the time period is included. % Neutros 97 % [facility] % Lymphs 1 % [facility] % Eos 1 % [facility] % Baso 1 % [facility] # Neutros 26.38 (H) 1.56 - 6.13 K/ul [facility] # Lymphs 0.27 (L) 1.18 - 3.74 K/ul [facility] # Eos 0.27 0.04 - 0.36 K/uL [facility] # Baso 0.27 (H) 0.01 - 0.08 K/uL [facility] Total Counted [address] [facility] WBC Morphology Normal [facility] Giant Platelet Present [facility] Large Platelet Present [facility] Hypochromia 1+ few [facility] Anisocytosis 1+ few [facility] Poikilocytes 2+ moderate [facility] Ovalocytes 2+ moderate [facility] Tear Drop Cells 1+ few [facility] Vera Cells 1+ few [facility] Artifact Present [facility] Helmet Cells 1+ few [facility] Platelet Conc Decreased [facility] Specimen Blood Narrative Performed At Parts Clerk Plant Maintenance ID - [id number] [facility] Parts Clerk Plant Maintenance ID - Miranda Sanchez User comments: Slide comments: Performing Organization Address City/State/Zipcode Phone Number [facility] [address] [place] [address] CENTER Prepare Leuko-Red RBC (02/11/2020 11:54 PM CDT) CROSSMATCH COMPATIBLE SAFETRACE TX Unit ABO A Pos SAFETRACE TX UNIT NUMBER [id number] SAFETRACE TX Status TX_TIMEINCHART SAFETRACE TX Blood Bank Product RED BLOOD CELLS SAFETRACE TX PRODUCT CODE [id number] SAFETRACE TX CROSSMATCH COMPATIBLE SAFETRACE TX Unit ABO A Pos SAFETRACE TX UNIT NUMBER [id number] SAFETRACE TX Status TX_TIMEINCHART SAFETRACE TX Blood Bank Product RED BLOOD CELLS SAFETRACE TX PRODUCT CODE [id number] SAFETRACE TX Specimen Other Performing Organization Address City/[facility]ercoor Phone Number SAFETRACE TX ECG 12 lead (02/11/2020 9:51 AM CDT)Only the most recent of2 resultswithin the time period is included. Specimen Narrative Performed At Ventricular Rate 84 BPM GE MUSE Atrial Rate 84 BPM P-R Interval 102 ms QRS Duration 78 ms Q-T Interval 402 ms QTC Calculation(Bazett) 475 ms P [place] 44 degrees R [place] 51 degrees T [place] 251 degrees Sinus rhythm with short WI T wave abnormality, consider inferior is chemia T wave abnormality, consider anterolater al ischemia Prolonged QT Abnormal ECG When compared with ECG of 10-FEB-2020 04 :07, Premature ventricular complexes are no l onger Present T wave inversion more evident in Anterio r leads Confirmed by MD Eleanor, Juan M ([id number]) on 02/10 5:26:11 PM Procedure Note Interface, External Ris In - 02/11/2020 5:26 PM CDT Ventricular Rate 84 BPM Atrial Rate 84 BPM P-R Interval 102 ms QRS Duration 78 ms Q-T Interval 402 ms QTC Calculation(Bazett) 475 ms P [place] 44 degrees R [place] 51 degrees T [place] 251 degrees Sinus rhythm with short WI T wave abnormality, consider inferior is chemia T wave abnormality, consider anterolater al ischemia Prolonged QT Abnormal ECG When compared with ECG of 10-FEB-2020 04 :07, Premature ventricular complexes are no l onger Present T wave inversion more evident in Anterio r leads Confirmed by MD Webster Roberto ([id number]) on 02/11/2020 5:26:11 PM Performing Organization Address City/State/Zipcode Phone Number GE MUSE RPR (02/11/2020 2:32 AM CDT) RPR Nonreactive Nonreactive [facility] Specimen Blood Performing Organization Address [facility] Phone Number [address] [address] CENTER PTH, intact (02/11/2020 1:15 AM CDT) PTH 530.8 (H) 8.5 - 72.5 pg/mL [facility] Specimen Blood Narrative Performed At Parts Clerk Plant Maintenance ID - ANNA Mejia [facility] Performing Organization Address [facility] Phone Number [address] [address] CENTER Hemoglobin A1c (02/11/2020 1:15 AM CDT) Hemoglobin A1C 5.6 4.3 - 6.1 % [facility] Specimen Blood Performing Organization Address [facility] Cent[facility]oor Phone Number [address] [address] CENTER Vancomycin level, random (02/11/2020 1:15 AM CDT) Vancomycin Rm 5.0 ug/mL [facility] Specimen Blood Narrative Performed At Reference Range: No Normals [facility] Parts Clerk Plant Maintenance ID - PIDOUGLAS L Performing Organization Address [facility]/Zipcode Phone Number [facility] [address] CENTER HEMODIALYSIS INPATIENT (02/11/2020 12:15 AM CDT) Narrative Performed At Merlyn Gutierrez RN 02/11/2020 2:37 AM Verified consent signed for HD and with order to use CVC. Patient completed 2 hours of HD via righ t IJ acute dialysis CVC, with 0 fluid removed per HD order. Jose julian 12 G administered at start of treatment [...] Fibrinogen 218 (L) 225 - 434 mg/dl [facility] Specimen Blood Performing Organization Address City/[facility]/Zipcode Phone Number [address] [address] CENTER Uric acid (02/10/2020 8:05 PM CDT) Uric Acid 10.6 (H) 2.6 - 7.2 mg/dL [facility] Specimen Blood Narrative Performed At Parts Clerk Plant Maintenance ID - PIAYA L [facility] Performing Organization Address City/State/Zipcode Phone Number [facility] [address] [place] [address] CENTER IR Percutaneous Nephrostomy - Ext. Drain Placement (02/10/2020 4:55 PM CDT) Specimen Narrative Performed At FINAL REPORT [facility] PROCEDURE: Genitourinary catheter placem ent Procedural Personnel [...] gravity. PROCEDURE SUMMARY - Target organ: Bilateral [place] kidneys - Image-guided placement of genitourinar y [...] injection was performed. Genitourinary catheter placed: 10 [place] Cook multipurpose Findings: Moderate hydronephrosis. Locki ng [...] injection was performed. Genitourinary catheter placed: 10 [place] Cook multipurpose Findings: Severe hydronephrosis. Locking loop [...] MD Report Verified Date/Time:02/10/2020 17:23:45 Reading Location: [place] [address] Angio Body Reading Room Procedure Note Interface, [...] gravity. PROCEDURE SUMMARY - Target organ: Bilateral [place] kidneys - Image-guided placement of genitourinar y [...] injection was performed. Genitourinary catheter placed: 10 [place] Cook multipurpose Findings: Moderate hydronephrosis. Locki ng [...] injection was performed. Genitourinary catheter placed: 10 [place] Cook multipurpose Findings: Severe hydronephrosis. Locking loop [...] Verified Date/Time: 02/10/2020 1 7:23:45 Reading Location: [place] [address] Angio Body Reading Room Performing Organization Address City/State/Zipcode Phone Number [facility] [employer] Leuko-Red RBC (02/10/2020 1:09 PM CDT)Only the most recent of3 resultswithin the time period is included.Blood gas, arterial (02/10/2020 12:39 PM CDT)Only the most recent of2 resultswithin the time period is included. pH, Arterial 7.45 7.35 - 7.45 [facility] pCO2, Arterial 25 (L) 35 - 45 mmHg [facility] pO2, Arterial 55 (L) 80 - 90 mmHg [facility] O2 Sat, Arterial 92.2 (L) 96.0 - 97.0 % [facility] HCO3, Arterial 17 (L) 21 - 29 mmol/L [facility] Base Excess, Arterial -6.1 (L) -2.0 - 3.0 mmol/L [facility] Patient Temperature 35.6 C [facility] FIO2 21.0 % [facility] Specimen Blood, Arterial Performing Organization Address City/State/Zipcode Phone Number [facility] [address] [place] [address] CENTER XR chest 1 view portable / bedside (02/10/2020 10:12 AM CDT)Only the most recent of2 resultswithin the time period is included. Specimen Narrative Performed At FINAL REPORT [facility] CLINICAL HISTORY: post-trialysis cathete r placement TECHNIQUE: [...] MD Report Verified Date/Time:02/10/2020 10:29:20 Reading Location: [facility] Procedure Note Interface, External Ris [...] Verified Date/Time: 02/10/2020 1 0:29:20 Reading Location[facility] Performing Organization Address City/State/Zipcode Phone Number [facility] 2D Echo W/Doppler(CW/PW/Color) (02/10/2020 7:55 AM CDT) Ejection Fraction [facility] Specimen Narrative Performed At Transthoracic Echocardiography Report (T TE) [facility] Demographics Patient Name JEANNIE KAUFFMAN Date of Study 02/10/2020 GERI [id number] GenderFem ginger Visit Number [id number] RaceUnkn own [id number] m Number [id number] Number Date of Birth1965 Referring Physician Minkyung Mary Age54 year(s) Offset Machine Operator Sunday Abhijit LambertVal[facility] Centers[facility]annan linn, Physician MD Beth Elkins MD Procedure [...] Study 02/10/2020 GERI Gender Female Visit Number [id number] Race Unknown [facility] [id number] Number Date of 1965 Referri Physician Anam Hernandez Age 54 year(s) [address] Manager Evi Mcfadden Interpr eting Yajaira Lucia MD, MD Procedure Type of Study TTE procedure:2DECHO W DOPPLE R(CW/PW/COLOR) (Routine) Indications:Shortness of breath. Clinical History [...] Estimated PASP: 59 mmHg Performing Organization Address City/State/Zipcode Phone Number [facility] Hepatitis B surface antigen (02/10/2020 7:26 AM CDT) HBsAg Screen Nonreactive Nonreactive [facility] Specimen Blood Narrative Performed At Specimen is considered negative for HBsAg. [facility] Performing Organization Address City/State/Zipcode Phone Number [address] [address] CENTER ABORH, manual (02/10/2020 4:52 AM CDT) ABO Grouping A [facility] Rh Factor POS [facility] Specimen Blood Performing Organization Address City/[facility]/Zipcode Phone Number [address] [address] Troponin I (02/10/2020 3:17 AM CDT) Troponin I 0.68 (HH) 0.00 - 0.03 ng/mL [facility] Specimen Blood Narrative Performed At Troponin I (TnI) levels must be interpreted [facility] in the context of the presenting symptoms and the clinical findings. Elevated TnI levels indicate myocardial damage, but are not specific for ischemic heart disease. Elevated TnI levels are seen in patients with other cardiac conditions (including myocarditis and congestive heart failure), and slight TnI elevations occur in patients with other conditions, including sepsis, renal failure, acidosis, acute neurological disease, and persistent tachyarrhythmia. Parts Clerk Plant Maintenance ID - [place] Performing Organization Address City/[facility]/Zipcode Phone Number [address] [address] CENTER B-type Natriuretic Factor (BNP) (02/10/2020 3:17 AM CDT) BNP 2,406 (H) 0 - 100 pg/mL [facility] Specimen Blood Narrative Performed At Parts Clerk Plant Maintenance ID - [place] [facility] Performing Organization Address City/State/Zipcode Phone Number [place] [phone] [place] [address] CENTER after 04/12/2019 Insurance Payer Benefit Plan / Group Subscriber ID Type Phone A leydi JARRETT xxxxxxxxxxx CDC REVIEW CDC REVIEW xxxxxxxx [address] [place], [place] [phone] Advance Directives Patient has advance care planning documents, and code status on file. For more information, please contact:[address] [phone] Code Status Date Activated Date Inactivated Comments Full Code 03/28/2020 8:11 PM 03/29/2020 8:44 PM This code status was determined by: Patient Full Code 02/12/2020 10:57 AM 02/18/2020 1:17 PM This code status was determined by: Patient Full Code 02/10/2020 2:14 AM 02/12/2020 10:56 AM This code status was determined by: Patient
--- OUTSIDE RECORDS SUMMARY | 2020-04-12 10:55 | XMS REPORT | Continuity of Care Document ---
:1965 Author Organization [facility] t Address [address] [place] [address] Care Team Providers Name Role Phone Pcp Primary Care Physician Unavailable Melany CARDENAS Attending Clinician Meaghan DENNEY Attending Clinician Unavailable Meaghan Denney MD Attending Clinician Stephanie CARDENAS Attending Clinician Delmy Lopez MD Attending Clinician Casimiro Santos MD Attending Clinician CASIMIRO SANTOS Attending Clinician Unavailable Ana Moreno MD Attending Clinician MARY Attending Clinician Unavailable Mary CARDENAS Attending Clinician Paul CARDENAS Attending Clinician Dahlia CARDENAS, In Attending Clinician STEPHANIE Admitting Clinician Unavailable CASIMIRO SANTOS Admitting Clinician Unavailable MARY Admitting Clinician Unavailable Payers Payer Name Policy Policy Number Effective Expiration Source Type Date Date AMBETTERAMBETTER xxxxxxxxxxx [facility] SUPERIORxxxxxxxxxxx [facility] CDC REVIEWCDC xxxxxxxx [facility] REVIEWxxxxxxxxPO [facility] [id number] Center Problems Condition Condition Condition Status Onset Resolution Last Treating Co mments Source Name Details Category Date Date Treatment Clinician Date Anemia Anemia Disease Active [facility] - 00:00: Medical 00 Center Cervical Cervical Disease Active [facility] 00 [place] Anemia due Anemia due Disease Active 2019- [facility] to acute to acute 03-28 [facility] - blood loss blood loss 00:00: Me dical 00 Center Acute Acute Disease Active 2019-[address] [facility] [address] cystitis cystitis 03-28 [facility] - with with 00:00: Medical hematuria hematuria 00 Cent er DVT (deep DVT (deep Disease Active 2019- [facility] venous venous 03-28 [facility] - thrombosis thrombosis 00:00: Oh dical ) ) 00 Center Gross Gross Disease Active 2019-[address] hematuria hematuria 03-28 [facility] - 00:00: Medical 00 [place] Bilateral Bilateral Disease Active 2019- [facility] hydronephr hydronephr 02-09 Malinda kes - osis osis 00:00: Medical 00 [place] History of Past Illness Condition Condition Condition Status Onset Resolution Last Treating Co mments Source Name Details Category Date Date Treatment Clinician Date LIANNE (acute LIANNE (acute Disease Resolve 2020-03-28 2020-03-[address] kidney kidney d 00:00:00 23:09:37 [facility] - injury) injury) [facility] Allergies, Adverse Reactions, Alerts Allergy Allergy Status Severity Reaction(s) Onset Inactive Treating Comm ents Source Name Type Date Date Clinician Penicill Propensi Active [facility] ins ty to 02-09 [facility] - adverse 00:00: Medical reaction 00 Center s Social History Social Habit Start Date Stop Date Quantity Comments Source History SDOH Alcohol [facility] - Std Drinks [facility] History [facility] Alcohol [facility] - Binge [facility] Sex Assigned At [facility] Cigarettes smoked 2020-03-28 2020-03-28 [facility] - current (pack per 00:00:00 00:00:00 [facility] Center day) - Reported Cigarette pack-years 2020-03-28 2020-03-28 [facility] - 00:00:00 00:00:00 [facility] History SDOH Alcohol 2020-03-26 2020-03-26 1 [facility] - Frequency 00:00:00 00:00:00 [facility] Smoking Status Start Date Stop Date Source Current every day smoker 2020-03-28 00:00:00 [facility] Medications Ordered Filled Start Stop Current Ordering Indication Dosage Frequency Signature Comments Components Source Medication Medication Date Date Medication? Clinician (SIG) Name Name apixaban 2020-0 Yes 5mg Q.5D Take [address] (ELIQUIS) 5 7- tablet (5 [facility] es - mg Tab 00:00: mg total) Medica l tablet 00 by mouth 2 Center (two) times daily. cefdinir 2019- 2020- No 300mg Take 1 [facility] (OMNICEF) 03-30 07-20 capsule [facility] - 300 MG 00:00: 23:59 (300 mg Medical capsule 00 :00 total) by Center mouth every 12 (twelve) hours for 6 days. acetaminoph 2019- 2020- No 1{tbl} Take [address] en-codeine 03-30- tablet by Gustavo es - (TYLENOL 00:00: 00:00 mouth Medical #3) 300-30 00 :00 every 6 Center mg per (six) tablet hours as needed for up to 10 days. Max Daily Amount: 4 tablets apixaban 2019-2019- No 5mg Q.5D Take [address] (ELIQUIS) 5 03-29 by mouth 2 L ukes - mg Tab 15:38: 00:00 (two) Medical tablet 10 :00 times Center daily. cyanocobala 2019-2020- Yes 500ug QD Take [address] min, 03-29 tablet [facility] - vitamin 00:00: 23:59 (500 mcg Medic al B-12, 500 00 :00 total) by Cente r MCG tablet mouth daily. acetaminoph 2019- No 1{tbl} Take [address] en-codeine 03-29 tablet by Gustavo es - (TYLENOL 00:00: 00:00 mouth Medical #3) 300-30 00 :00 every 6 Center mg per (six) tablet hours as needed for up to 10 days. Max Daily Amount: 4 tablets folic acid 2019-0 Yes 1mg QD Take 1 [facility] t (FOLVITE) 1 6-03 tablet (1 Gustavo es - MG tablet 00:00: mg total) Med ical 00 by mouth Center daily. pantoprazol 2019-0 Yes 40mg QD Take [address] e 6-03 tablet (40 [facility] - (PROTONIX) 00:00: mg total) Me dical 40 MG 00 by mouth Center tablet daily. polyethylen Yes 17g QD Take [address] e glycol 02-17 by mouth [facility] - (GLYCOLAX) 00:00: daily. Medic al 17 gram 00 Center packet zinc Yes Apply as [facility] oxide-jarad 02-16 needed to Gustavo es - latum 00:00: perianal Medical (CRITIC-AID 00 area for Cent er ) 20-51 % redness Pste and topical irritation paste .. hydrocortis 2020- No Q.5D Place [facility] St one 02-16 rectally 2 [facility] - (ANUSOL-HC) 00:00: 23:59 (two) Medi enrique 2.5 % 00 :00 times Center rectal daily for cream 10 days. levoFLOXaci 2019- No 250mg Take [address] n 02-16 tablet [facility] - (LEVAQUIN) 00:00: 23:59 (250 mg Med ical 250 MG 00 :00 total) by Center tablet mouth every other day for 6 days. metroNIDAZO 2019- No 500mg Take [address] LE (FLAGYL) 02-16 tablet [facility] - 500 MG 00:00: 23:59 (500 mg Medical tablet 00 :00 total) by Center mouth every 8 (eight) hours for 6 days. Vital Signs Vital Name Observation Time Observation Value Comments Source Systolic blood 2020-03-29 15:40:00 112 mm[Hg] [facility] Diastolic blood 2020-03-29 15:40:00 58 mm[Hg] [facility] S t [facility] Heart rate 2020-03-29 15:40:00 85 /min [facility] Body temperature 2020-03-29 15:40:00 36.17 Zoie [facility] Respiratory rate 2020-03-29 15:40:00 18 /min [facility] Oxygen saturation in 2020-03-29 15:40:00 100 /min [facility] Arterial blood by Medical Ce nter Pulse oximetry Body height 2020-03-26 09:04:17 153 cm [facility] Body weight Measured 2020-03-26 09:04:17 43.545 kg [facility] BMI 2020-03-26 09:04:17 18.60 kg/m2 [facility] Procedures Procedure Date / Time Performing Clinician Source Performed TRANSFUSION SERVICE REPORT 2020-03-29 18:00:26 Provider, Default [facility] - - [facility] RETICULOCYTE COUNT 2020-03-29 04:10:00 Aleta Lopez [facility] CBC W/PLT COUNT & AUTO 2020-03-29 04:10:[address] [facility] DIFFERENTIAL [facility] BASIC METABOLIC PANEL (7) 2020-03-29 04:09:00 JoaoMelvin [facility] FERRITIN 2020-03-29 04:09:00 [facility] HAPTOGLOBIN 2020-03-29 04:09[facility]00 [facility]ON, TIBC, % SAT. 2020-03-29 04:09:00 JoaoMelvin [facility] (WITHOUT FERRITIN) [facility] DEHYDROGENASE 2020-03-29 04:09:00 [facility] VITAMIN B12 AND FOLATE 2020-03-29 04:09:00 [facility] SARS-COV2/RT-PCR ([facility] & 2020-03-29 01:25:00 Stephanie [facility] - REF LABS) [facility] URINE CULTURE 2020-03-28 23:43:00 Stephanie [facility] URINALYSIS W/ REFLEX URINE 2020-03-28 23:43:00 Fernando Brown [facility] BLOOD CULTURE 2020-03-28 23:42:00 [facility] BLOOD [facility] 2020-03-28 22:40:00 [facility] LACTIC ACID, VENOUS 2020-03-28 22:39:00 [facility] TYPE AND SCREEN, AUTOMATED 2020-03-28 22:39:00 Fernando [facility] COMPREHENSIVE METABOLIC 2020-03-28 22:37:00 [facility] MAGNESIUM 2020-03-28 22:37:00 [facility] PHOSPHORUS 2020-03-28 22:37:00 [facility] PT/APTT 2020-03-28 22:37:00 [facility] CBC W/PLT COUNT & AUTO 2020-03-28 22:37:00 [facility] IR PORT REMOVAL 2020-03-26 14:29:00 e, Ferny [facility] IR DRAINAGE CATHETER 2020-03-26 14:19:00 Sunde, Ferny Kirkpatrick [facility] PROTHROMBIN TIME/INR 2020-03-26 07:41:00 Isacc [facility] APTT 2020-03-26 07:41:00 Isacc [facility] CBC W/PLT COUNT & AUTO 2020-03-26 07:41:00 Isacc [facility] VENOUS DOPPLER LEGS 2020-03-11 10:15:00 SundFerny cervantes [facility] REPORT OF PROCEDURE - 2020-02-20 08:00:30 Provider, Default [facility] RHYTHM STRIP - SCAN 2020-02-20 08:00:25 Provider, Default [facility] TISSUE EXAM 2020-02-18 09:04:00 Amy Mosley [facility] POCT-GLUCOSE METER 2020-02-18 07:49:00 Go Villagomez In [facility] BASIC METABOLIC PANEL (7) 2020-02-18 03:50:00 Go Villagomez In I [facility] MAGNESIUM 2020-02-18 03:50:00 Go Villagomez In [facility] PHOSPHORUS 2020-02-18 03:50:00 Go Villagomez In [facility] CBC W/PLT COUNT & AUTO 2020-02-18 03:50:00 Go Villagomez In [facility] MR PELVIS WITHOUT IV 2020-02-17 21:55:00 Unique [place] [facility] POCT-GLUCOSE METER 2020-02-17 17:21:00 Charlotte Villagomezg In [facility] BASIC METABOLIC PANEL (7) 2020-02-17 14:46:00 DahliaCharlotteg In [facility] MAGNESIUM 2020-02-17 14:46:00 Dahlia Sung In [facility] PHOSPHORUS 2020-02-17 14:46:00 Dahlia Sung In [facility] CBC W/PLT COUNT & AUTO 2020-02-17 14:46:00 Dahlia Charlotteg In [facility] POCT-GLUCOSE METER 2020-02-17 08:22:00 Dahlia Sung In [facility] POCT-GLUCOSE METER 2020-02-17 05:50:00 Dahlia Charlotteg In [facility] POCT-GLUCOSE METER 2020-02-17 01:18:00 Dahlia Sung In [facility] POCT-GLUCOSE METER 2020-02-16 21:12:00 Dahlia Sung In [facility] POCT-GLUCOSE METER 2020-02-16 17:42:00 Dahlia Charlotteg In [facility] CT BRAIN WITHOUT IV 2020-02-16 17:24:00 Unique [facility] CHEST WITHOUT IV 2020-02-16 17:24:00 Unique [facility] POCT-GLUCOSE METER 2020-02-16 12:15:00 Dahlia Go In [facility] MISCELLANEOUS LAB ORDER 2020-02-16 09:48:00 Юлия Lazo [facility] INSULIN-LIKE GROWTH FACTOR 2020-02-16 09:48:00 Юлия Lazo [facility] CORTISOL 2020-02-16 09:48:00 Юлия Lazo [facility] ACTH 2020-02-16 09:48:00 Юлия LazoAlfredo [facility] BASIC METABOLIC PANEL (7) 2020-02-16 03:53:00 Paul, [facility] CBC W/PLT COUNT & AUTO 2020-02-16 03:53:00 Paul, [facility] POCT-GLUCOSE METER 2020-02-16 03:50:00 Paul, [facility] POCT-GLUCOSE METER 2020-02-16 00:24:00 Paul, [facility] POCT-GLUCOSE METER 2020-02-15 20:23:00 Paul, [facility] US RENAL COMPLETE 2020-02-15 17:56:00 Paul, [facility] POCT-GLUCOSE METER 2020-02-15 16:30:00 Paul, [facility] POCT-GLUCOSE METER 2020-02-15 13:17:00 Paul, [facility] POCT-GLUCOSE METER 2020-02-15 09:42:00 Paul, [facility] BASIC METABOLIC PANEL (7) 2020-02-15 05:03:00 Paul, [facility] CBC W/PLT COUNT & AUTO 2020-02-15 05:03:00 Paul, [facility] POCT-GLUCOSE METER 2020-02-15 04:57:00 Paul, [facility] POCT-GLUCOSE METER 2020-02-14 23:59:00 Paul, [facility] POCT-GLUCOSE METER 2020-02-14 20:56:00 Paul, [facility] BASIC METABOLIC PANEL (7) 2020-02-14 16:38:00 [facility] HEMOGLOBIN AND HEMATOCRIT 2020-02-14 16:38:00 [facility] POCT-GLUCOSE METER 2020-02-14 16:36:00 Paul, [facility] POCT-GLUCOSE METER 2020-02-14 12:30:00 Paul, [facility] BASIC METABOLIC PANEL (7) 2020-02-14 04:28:00 Paul, [facility] CBC W/PLT COUNT & AUTO 2020-02-14 04:28:00 Paul, [facility] POCT-GLUCOSE METER 2020-02-14 04:27:00 Paul, [facility] POCT-GLUCOSE METER 2020-02-14 01:10:00 Paul, [facility] POCT-GLUCOSE METER 2020-02-13 20:30:00 Paul, [facility] POCT-GLUCOSE METER 2020-02-13 15:41:00 Paul, [facility] CANCER ANTIGEN 125 (CA 2020-02-13 13:10:00 Jitendra Gayle [address] BASIC METABOLIC PANEL (7) 2020-02-13 13:10:00 Nellie Ibrahim [facility] POCT-GLUCOSE METER 2020-02-13 12:39:00 Paul, [facility] POCT-GLUCOSE METER 2020-02-13 07:55:00 Paul, [facility] POCT-GLUCOSE METER 2020-02-13 04:26:00 Paul, [facility] POCT-GLUCOSE METER 2020-02-12 21:12:00 [facility], [facility] TRANSFUSION SERVICE REPORT 2020-02-12 17:50:46 Moshe Nuñez [facility] - SCAN [facility] HEMODIALYSIS INPATIENT 2020-02-12 15:22:45 Aleja Erickson [facility] POCT-GLUCOSE METER 2020-02-12 12:50:00 Paul, [facility] TRANSESOPHAGEAL ECHO 2020-02-12 10:14:24 Donnell [facility] BASIC METABOLIC PANEL (7) 2020-02-12 04:22:00 Anjana Heath Cha [facility] MAGNESIUM 2020-02-12 04:22:00 Ivana Anjana [facility] PHOSPHORUS 2020-02-12 04:22:00 Ivana [facility] CBC W/PLT COUNT & AUTO 2020-02-12 04:22:00 Ivana [facility] (CELLAVISION MANUAL DIFF) 2020-02-12 04:22:00 Anjana Heath [facility] PREPARE LEUKO-REDUCED RBC 2020-02-11 23:54:00 Danika Swanson [facility] POCT-GLUCOSE METER 2020-02-11 20:57:00 Flaca Miller [facility] POCT-GLUCOSE METER 2020-02-11 18:41:00 Mary [facility] POCT-GLUCOSE METER 2020-02-11 18:17:00 Mary [facility] TRANSFUSION SERVICE REPORT 2020-02-11 17:52:05 Moshe Nuñez [facility] HEMOGLOBIN AND HEMATOCRIT 2020-02-11 17:52:00 WetAnjana friedman Cha [facility] CONT WAVE PULSED DOPPLER 2020-02-11 16:07:03 Donnell [facility] COLOR-FLOW MAPPING 2020-02-11 16:07:02 Donnell [facility] POCT-GLUCOSE METER 2020-02-11 15:50:00 Mary [facility] BASIC METABOLIC PANEL (7) 2020-02-11 12:36:00 Anjana Heath Cha [facility] CORTISOL 2020-02-11 12:12:00 Ivana [facility] POCT-GLUCOSE METER 2020-02-11 12:00:00 Mary [facility] POCT-GLUCOSE METER 2020-02-11 11:20:00 Mary, [facility] ECG 12-LEAD 2020-02-11 09:51:43 Unknown, Hl7 [facility] POCT-GLUCOSE METER 2020-02-11 07:28:00 Mary, [facility] POCT-GLUCOSE METER 2020-02-11 04:34:00 Mary, [facility] LACTIC ACID, VENOUS 2020-02-11 02:32:00 HoSukh [facility] RPR 2020-02-11 02:32:00 HoSukh [facility] POCT-GLUCOSE METER 2020-02-11 01:31:00 Mary, [facility] PTH, INTACT 2020-02-11 01:15:00 Rosalina Chaudhari [facility] VANCOMYCIN LEVEL, RANDOM 2020-02-11 01:15:00 Minoo Carlton [facility] HEMOGLOBIN A1C 2020-02-11 01:15:00 Ivana [facility] BASIC METABOLIC PANEL (7) 2020-02-11 01:15:00 Anjana Heath Cha [facility] MAGNESIUM 2020-02-11 01:15:00 Ivana Anjana [facility] PHOSPHORUS 2020-02-11 01:15:00 Ivana [facility] CBC W/PLT COUNT & AUTO 2020-02-11 01:15:00 [facility] Anjana [facility] (CELLAVISION MANUAL DIFF) 2020-02-11 01:15:00 Ivana Anjanahaven villafuerte [facility] HEMODIALYSIS INPATIENT 2020-02-11 00:15:32 Jerrod [facility] POCT-GLUCOSE METER 2020-02-10 23:29:00 Mary, [facility] BASIC METABOLIC PANEL (7) 2020-02-10 20:05:00 DARON Kraft I [facility] HEMOGLOBIN AND HEMATOCRIT 2020-02-10 20:05:00 MalouAnjana bautista Brianda villafuerte [facility] FIBRINOGEN 2020-02-10 20:05:00 Mary, [facility] URIC ACID 2020-02-10 20:05:00 Sukh Gu [facility] POCT-GLUCOSE METER 2020-02-10 20:02:00 Mary, [facility] POCT-GLUCOSE METER 2020-02-10 17:55:00 Mary, [facility] IR PERCUTANEOUS 2020-02-10 16:55:00 Mary, [facility] NEPHROSTOMY TUBE PLACEMENT Medic [facility] URINE CULTURE 2020-02-10 16:48:00 Danika Swanson [facility] URINALYSIS W/ REFLEX URINE 2020-02-10 16:48:00 Helen Swanson [facility] POCT-GLUCOSE METER 2020-02-10 16:20:00 Mary, [facility] POCT-GLUCOSE METER 2020-02-10 15:54:00 Mary, [facility] POCT-GLUCOSE METER 2020-02-10 15:42:00 Mary, [facility] POCT-GLUCOSE METER 2020-02-10 15:40:00 Mary, [facility] TRANSFUSE LEUKO-REDUCED 2020-02-10 13:09:14 Danika Swanson [facility] RED BLOOD CELLS [facility] HEMOGLOBIN AND HEMATOCRIT 2020-02-10 13:09:00 Danika Swanson [facility] CBC W/PLT COUNT & AUTO 2020-02-10 13:09:00 Mary [facility] BLOOD GAS, ARTERIAL 2020-02-10 12:39:[address] [facility] POCT-GLUCOSE METER 2020-02-10 11:39:00 Mary, [facility] COMPREHENSIVE METABOLIC 2020-02-10 10:37:00 Aleja Ercikson [facility] XR CHEST 1 VIEW 2020-02-10 10:12:00 [facility] TRANSFUSE LEUKO-REDUCED 2020-02-10 09:02:15 Danika Swanson [facility] RED BLOOD CELLS [facility] 2D ECHO W/ DOPPLER 2020-02-10 07:55:16 Kiki [facility] (CW/PW/COLOR) [facility] BLOOD CULTURE 2020-02-10 07:26:00 Kiki [facility] PHOSPHORUS 2020-02-10 07:26:00 Rosalina Chaudhari [facility] RETICULOCYTE COUNT 2020-02-10 07:26:00 Kiki [facility] FIBRINOGEN 2020-02-10 07:26:00 Kiki [facility] LACTATE DEHYDROGENASE 2020-02-10 07:26:00 Kiki [facility] ([facility]) [facility] PROTHROMBIN TIME/INR 2020-02-10 07:26:00 Kiki [facility] APTT 2020-02-10 07:26:00 Kiki [facility] HAPTOGLOBIN 2020-02-10 07:26:00 Kiki [facility] IRON, TIBC, % SAT. 2020-02-10 07:26:00 [facility] (WITHOUT FERRITIN) [facility] FERRITIN 2020-02-10 07:26:00 [facility] HEPATITIS B SURFACE 2020-02-10 07:26:00 Denise Hilton [facility] VITAMIN B12 AND FOLATE 2020-02-10 07:26:00 Sukh [facility] ABORH, MANUAL 2020-02-10 04:52:00 Bayele Ricketts [facility] TYPE AND SCREEN, AUTOMATED 2020-02-10 04:27:00 Helen Swanson [facility] ECG 12-LEAD 2020-02-10 04:07:08 Unknown, Hl7 [facility] SARS-COV2/RT-PCR ([facility] & 2020-02-10 04:01:00 [facility] BLOOD CULTURE 2020-02-10 03:32:00 [facility] PROT[facility]OMBIN TIME/INR 2020-02-10 03:31:00 Kiki [facility] APTT 2020-02-10 03:31:00 Kiki [facility] CBC W/PLT COUNT & AUTO 2020-02-10 03:31:00 Danika Swanson [facility] (CELLAVISION MANUAL DIFF) 2020-02-10 03:31:00 [facility] BLOOD GAS, ARTERIAL 2020-02-10 03:18:00 Jay [facility] COMPREHENSIVE METABOLIC 2020-02-10 03:17:00 Danika Swanson [facility] TROPONIN I 2020-02-10 03:17:00 Kiki, [facility] B-TYPE NATRIURETIC FACTOR 2020-02-10 03:17:00 [facility] XR CHEST 1 VIEW 2020-02-10 02:38:00 [facility] Results Test Description Test Time Test Comments Results Result Comments Source Blood Culture - Routine (Right Venipuncture) 2020-04-03 01:0 0:00 Test Item Value Reference Range Interpretation Comme nts Result (test code = 6463-4) No growth in 5 days [facility] [id number] 01:00:00 Test Item Value Reference Range Interpretation Comments CULTURE (BEAKER) (test No growth in 5 days code = 1095) BLOOD [id number] 01:00:00 Test Item Value Reference Range Interpretation Comments CULTURE (BEAKER) (test No growth in 5 days code = 1095) SARS-CoV2/RT-PCR (Asymptomatic ONLY)2020-03-29 10:18:00 Test Item Value Reference Range Interpretation Comments SARS-COV2/RT-PCR Negative Not Detected, (test code = Negative 71113-3) SARS-COV-2 [facility] PERFORMING LAB (test code = 59978-9) JEWEL (test code = Negative result for this JEWEL) test determines that SARS-CoV-2 RNA was not present in the specimen above the Limit of Detection (LOD). However, Negative results do not preclude SARS-CoV-2 infection and should not be used as the sole basis for treatment or patient management decisions. Negative results must be combined with clinical observations, patient history, and epidemiological information. A false negative result may occur if a specimen is improperly collected, transported or handled. A false negative result should be considered if patient's recent exposures or clinical presentation indicate that COVID-19 (SARS-CoV-2) is likely and diagnostic tests for other causes of illness are negative. Re-testing should be considered in cases of suspected [...] Food and Drug Administration (FDA) cleared or approved. This is a modified version of an approved [...] of the Act. Fact Sheet for Healthcare Providers:https://www.[employer]/sites/default/f shahida/product/documents/F act_Sheet_HC_Providers_L uwj_VAYV-AuH-4.pdf Fact Sheet for Healthcare Patients:https://www.[employer]/sites/default/fi les/product/documents/Fa ct_Sheet_Patients_Ly_S ARS-CoV-2.pdf Performing Laboratory:[facility] [place] [address] [facility] & REF LABS)2020-03-29 10:18:00 Test Item Value Reference Range Interpretation Comments SARS-COV2/RT-PCR (test code = Negative Not Detected, Negative 5139055) SARS-COV-2 PERFORMING LAB [facility] (test code = 5511974) Negative result for this test determines that SARS-CoV-2 RNA was not present in the specimen above the Limit of Detection (LOD). However, Negative results do not preclude SARS-CoV-2 infection and should not be used as the sole basis for treatment or patient management decisions. Negative results mustbe combined with clinical observations, patient history, and epidemiological information. A false negative result may occur if a specimen is improperly collected, transported or handled. A false negative result should be considered if patient's recent exposures or clinical presentation indicate that COVID-19 (SARS-CoV-2) is likely and diagnostic tests for other causes of illness are negative. Re-testing should be considered in cases of suspected false negatives.The limit of detection for this assay is 800 copies/mL.This SARS CoV-2 test is a real-time RT-PCR test intended for the qualitative detection of nucleic acid from SARS-CoV-2 in a nasopharyngeal swab specimen collected from individuals suspected of COVID-19 by their healthcare provider.This test has not been Food and Drug Administration (FDA) cleared or approved. This is a modified version of an approved [...] 564(g) of the Act.Fact Sheet for Healthcare Providers:https://www.[employer]/sites/default/files/product/documents/Fact_Shehelen y_SA_Xklpyujgg_Kzqt_CTUY-SwR-4.pdfFact Sheet for Healthcare Patients:https://www.[employer].com/sites/default/files/product/ documents/Dbcr_Jbjtu_Wjmlfhct_Hdkr_JFWA-QxJ-4.pdfPerforming Laboratory:[facility], [place] [id number] 09:04:00 Test Item Value Reference Range Interpretation Comments Ferritin (test code = 699.22 ng/mL 5-275 H 2276-4) JEWEL (test code = JEWEL) Welcome Wagon Host/Hostess ID - PIAYA L Lab Interpretation (test Abnormal code = 30803-8) [facility]it[facility]12 and [id number] 09:04:00 Test Item Value Reference Range Interpretation Comments Vitamin B12 (test code = 349 pg/mL 493-432 4186-9) Folate (test code = 18.30 ng/mL >=7.00 2284-8) JEWEL (test code = JEWEL) Welcome Wagon Host/Hostess ID - PIAYA L Lab Interpretation (test Normal code = 17547-9) [facility]ERR[facility]IN2020-07-13 09:04:00 Test Item Value Reference Range Interpretation Comments FERRITIN (BEAKER) (test code = 699.22 ng/mL 5.00-275.00 H 361) Welcome Wagon Host/Hostess ID - PIAYA LVITAMIN B12 AND [id number] 09:04:00 Test Item Value Reference Range Interpretation Comments VITAMIN B12 (BEAKER) (test code = 349 pg/mL 213-816 774) FOLATE (BEAKER) (test code = 362) 18.30 ng/mL >=7.00 Welcome Wagon Host/Hostess ID - PIAYA LReticulocyte [id number] 08:58:00 Test Item Value Reference Range Interpretation Comments % Retic (test code = 1.1 % 0.5-1.7 55523-8) JEWEL (test code = JEWEL) Welcome Wagon Host/Hostess ID - 6000 Lab Interpretation (test Normal code = 62314-3) [facility] HospitalRETICULOCYTE [id number] 08:58:00 Test Item Value Reference Range Interpretation Comments RETICULOCYTE COUNT PCT (BEAKER) (test 1.1 % 0.5-1.7 code = 575) Welcome Wagon Host/Hostess ID - [id number] 06:56:00 Test Item Value Reference Range Interpretation Comments Haptoglobin (test code = 381 mg/dL 14-258 H 4542-7) JEWEL (test code = JEWEL) Welcome Wagon Host/Hostess ID - ANNA L Lab Interpretation (test Abnormal code = 36669-0) [facility] HospitalHAPTOGLOBIN2020-07-13 06:56:00 Test Item Value Reference Range Interpretation Comments HAPTOGLOBIN (BEAKER) (test code = 381 mg/dL 14-258 H 366) Welcome Wagon Host/Hostess ID - ANNA Roberson, TIBC, % sat. (without ferritin)2020-03-29 06:54:00 Test Item Value Reference Range Interpretation Comments Iron (test code = 2498-4) 57.0 ug/dL 40-160 TIBC (test code = 2500-7) 150 ug/dL 250-450 L Iron % Saturation (test 38 % 20-55 code = 2502-3) JEWEL (test code = JEWEL) Welcome Wagon Host/Hostess ID - ANNA L Lab Interpretation (test Abnormal code = 75008-2) [facility] HospitalIRON, TIBC, % SAT. (WITHOUT FERRITIN)2020-03-29 06:54:00 Test Item Value Reference Range Interpretation Comments IRON (BEAKER) (test code = 547) 57.0 ug/dL 40.0-160.0 TOTAL IRON BINDING CAPACITY 150 ug/dL 250-450 L (BEAKER) (test code = 769) IRON % SATURATION (2) (BEAKER) 38 % 20-55 (test code = 2590) Welcome Wagon Host/Hostess ID - ANNA LBasic Metabolic [id number] 06:25:00 Test Item Value Reference Range Interpretation Comments Sodium (test code = 135 meq/L 136-145 L 2951-2) Potassium (test code = 4.6 meq/L 3.5-5.1 2823-3) Chloride (test code = 108 meq/L 98-107 H 5-0) CO2 (test code = 18 meq/L 22-29 L 8-9) BUN (test code = 41 mg/dL 7-21 H 3094-0) Creatinine (test code 1.26 mg/dL 0.57-1.25 H = 2160-0) Glucose (test code = 86 mg/dL 70-105 2345-7) Calcium (test code = 9.3 mg/dL 8.4-10.2 72038-8) EGFR (test code = 45 mL/min/1.73 [place] [address]-2) NOT ACCURATE CREATININE CLEARANCE IN PREDICTING GLOMERULAR FILTRATION RATE . ESTIMATED GFR I S NOT APPLICABLE FOR DIALYSIS PATIENTS. JEWEL (test code = JEWEL) Welcome Wagon Host/Hostess ID Abigail CASTILLO L Lab Interpretation Abnormal (test code = 18996-5) [facility] HospitalLactate dehydrogenase (LDH)2020-03-29 06:25:00 Test Item Value Reference Range Interpretation Comments LDH (test code = 2532-0) 175 U/L 125-220 JEWEL (test code = JEWEL) Welcome Wagon Host/Hostess ID - DADOUGLAS L Lab Interpretation (test Normal code = 38665-7) [facility] HospitalLACTATE DEHYDROGENASE (LDH)2020-03-29 06:25:00 Test Item Value Reference Range Interpretation Comments LACTATE DEHYDROGENASE (BEAKER) (test 175 U/L 125-220 code = 635) Welcome Wagon Host/Hostess ID Abigail ANNA LBASIC METABOLIC [id number] 06:25:00 Test Item Value Reference Range Interpretation Comments SODIUM (BEAKER) 135 meq/L 136-145 L (test code = 381) POTASSIUM (BEAKER) 4.6 meq/L 3.5-5.1 (test code = 379) CHLORIDE (BEAKER) 108 meq/L 98-107 H (test code = 382) CO2 (BEAKER) (test 18 meq/L 22-29 L code = 355) BLOOD UREA NITROGEN 41 mg/dL 7-21 H (BEAKER) (test code = 354) CREATININE (BEAKER) 1.26 mg/dL 0.57-1.25 H (test code = 358) GLUCOSE RANDOM 86 mg/dL 70-105 (BEAKER) (test code = 652) CALCIUM (BEAKER) 9.3 mg/dL 8.4-10.2 (test code = 697) EGFR (BEAKER) (test 45 mL/min/1.73 ESTIMA SONNY GFR IS code = 1092) sq m NOT ACCURATE CREATININE CLEARANCE IN PREDICTING GLOMERULAR FILTRATION RATE . ESTIMATED GFR I S NOT APPLICABLE FOR DIALYSIS PATIEN TS. Welcome Wagon Host/Hostess ID - ANNA LCBC with platelet count + automated [id number] 05:40:00 Test Item Value Reference Range Interpretation Comments WBC (test code = 6690-2) 17.2 3.5- 10.5 K/L H RBC (test code = 789-8) 2.76 3.93- 5.22 M/L L MCHC (test code = 786-4) 31.5 32.2- 35.5 GM/DL L Hematocrit (test code = 4544-3) 25.1 % 34.1-44.9 L MCV (test code = 787-2) 90.9 fL 79.4-94.8 MCH (test code = 785-6) 28.6 pg 25.6-32.2 RDW (test code = 788-0) 19.0 % 11.7-14.4 H Platelets (test code = 777-3) 527 150- 450 K/CU MM H MPV (test code = 97698-0) 9.2 fL 9.4-12.3 L nRBC (test code = 413) 0 0- 0 /100 WBC % Neutros (test code = 429) 85 % % Lymphs (test code = 430) 8 % % Monos (test code = 431) 5 % % Eos (test code = 432) 1 % % Baso (test code = 437) 0 % # Neutros (test code = 670) 14.66 1.56- 6.13 K/L H # Lymphs (test code = 414) 1.44 1.18- 3.74 K/L # Monos (test code = 415) 0.82 0.24- 0.36 K/L H # Eos (test code = 416) 0.10 0.04- 0.36 K/L # Baso (test code = 417) 0.05 0.01- 0.08 K/L Immature Granulocytes-Relative 1 % 0-1 (test code = 2801) Lab Interpretation (test code = Abnormal 41574-5) [facility] W/PLT COUNT & AUTO [id number] 05:40:00 Test Item Value Reference Range Interpretation Comments WHITE BLOOD CELL COUNT (BEAKER) 17.2 K/ L 3.5-10.5 H (test code = 775) RED BLOOD CELL COUNT (BEAKER) 2.76 M/ L 3.93-5.22 L (test code = 761) HEMOGLOBIN (BEAKER) (test code = 7.9 GM/DL 11.2-15.7 L 410) HEMATOCRIT (BEAKER) (test code = 25.1 % 34.1-44.9 L 411) MEAN CORPUSCULAR VOLUME (BEAKER) 90.9 fL 79.4-94.8 (test code = 753) MEAN CORPUSCULAR HEMOGLOBIN 28.6 pg 25.6-32.2 (BEAKER) (test code = 751) MEAN CORPUSCULAR HEMOGLOBIN CONC 31.5 GM/DL 32.2-35.5 L (BEAKER) (test code = 752) RED CELL DISTRIBUTION WIDTH 19.0 % 11.7-14.4 H (BEAKER) (test code = 412) PLATELET COUNT (BEAKER) (test 527 K/CU MM 150-450 H code = 756) MEAN PLATELET VOLUME (BEAKER) 9.2 fL 9.4-12.3 L (test code = 754) NUCLEATED RED BLOOD CELLS 0 /100 WBC 0-0 (BEAKER) (test code = 413) NEUTROPHILS RELATIVE PERCENT 85 % (BEAKER) (test code = 429) LYMPHOCYTES RELATIVE PERCENT 8 % (BEAKER) (test code = 430) MONOCYTES RELATIVE PERCENT 5 % (BEAKER) (test code = 431) EOSINOPHILS RELATIVE PERCENT 1 % (BEAKER) (test code = 432) BASOPHILS RELATIVE PERCENT 0 % (BEAKER) (test code = 437) NEUTROPHILS ABSOLUTE COUNT 14.66 K/ L 1.56-6.13 H (BEAKER) (test code = 670) LYMPHOCYTES ABSOLUTE COUNT 1.44 K/ L 1.18-3.74 (BEAKER) (test code = 414) MONOCYTES ABSOLUTE COUNT (BEAKER) 0.82 K/ L 0.24-0.36 H (test code = 415) EOSINOPHILS ABSOLUTE COUNT 0.10 K/ L 0.04-0.36 (BEAKER) (test code = 416) BASOPHILS ABSOLUTE COUNT (BEAKER) 0.05 K/ L 0.01-0.08 (test code = 417) IMMATURE GRANULOCYTES-RELATIVE 1 % 0-1 PERCENT (BEAKER) (test code = 2801) Urinalysis w/Microscopic + Reflex to [id number] 00:43:00 Test Item Value Reference Range Interpretation Comments Color, UA (test code = Yellow 5778-6) Clarity, UA (test code = Hazy 5767-9) Specific [place], UA 1.015 1.001-1.035 (test code = 5811-5) pH, UA (test code = 6.0 5.0-8.0 5803-2) Protein, UA (test code = 200 mg/dL Negative A 25273-4) Glucose, UA (test code = Negative Negative 365) Ketones, UA (test code = Negative Negative 2514-8) Bilirubin, UA (test code Negative Negative = 36296-0) Blood, UA (test code = Moderate Negative A 16023-7) Nitrite, UA (test code = Negative Negative 5802-4) Leukocytes, UA (test code Large Negative A = 5799-2) Urobilinogen, UA (test 0.2 mg/dL 0.2-1 code = 47633-5) RBC, UA (test code = 84 /HPF 36865-2) WBC, UA (test code = 106 /HPF 5821-4) Bacteria, UA (test code = Occasional 88045-0) Mucus (test code = Rare 8247-9) Squam Epithel, UA (test <1 /HPF code = 27584-2) Hyaline Casts, UA (test 5 /LPF code = 21126-9) Specimen Source (test code = 2795) JEWEL (test code = JEWEL) Welcome Wagon Host/Hostess ID - [auto]Welcome Wagon Host/Hostess ID - tech Lab Interpretation (test Abnormal code = 25503-7) [facility]/ REFLEX URINE [id number] 00:43:00 Test Item Value Reference Range Interpretation Comments COLOR (BEAKER) (test code = 470) Yellow CLARITY (BEAKER) (test code = 469) Hazy SPECIFIC GRAVITY UA (BEAKER) (test 1.015 1.001-1.035 code = 468) PH UA (BEAKER) (test code = 467) 6.0 5.0-8.0 PROTEIN UA (BEAKER) (test code = 200 mg/dL Negative A 464) GLUCOSE UA (BEAKER) (test code = Negative Negative 365) KETONES UA (BEAKER) (test code = Negative Negative 371) BILIRUBIN UA (BEAKER) (test code = Negative Negative 462) BLOOD UA (BEAKER) (test code = Moderate Negative A 461) NITRITE UA (BEAKER) (test code = Negative Negative 465) LEUKOCYTE ESTERASE UA (BEAKER) Large Negative A (test code = 466) UROBILINOGEN UA (BEAKER) (test 0.2 mg/dL 0.2-1.0 code = 463) RBC UA (BEAKER) (test code = 519) 84 /HPF WBC UA (BEAKER) (test code = 520) 106 /HPF BACTERIA (BEAKER) (test code = Occasional 517) MUCUS (BEAKER) (test code = 1574) Rare SQUAMOUS EPITHELIAL (BEAKER) (test < /HPF code = 516) HYALINE CASTS (BEAKER) (test code 5 /LPF = 514) SOURCE(BEAKER) (test code = 2795) Welcome Wagon Host/Hostess ID - [auto]Welcome Wagon Host/Hostess ID - techType and screen, [id number] 23:49:00 Test Item Value Reference Range Interpretation Comments ABO/RH AUTOMATED (BEAKER) (test A POSITIVE code = 2260) Ab Scrn (test code = 890-4) NEGATIVE [facility] [id number] 23:14:00 Test Item Value Reference Range Interpretation Comments Protein, Total (test 6.1 6.0- 8.3 gm/dL code = 2885-2) Albumin (test code = 3.0 g/dL 3.5-5 L 60516-5) Alkaline Phosphatase 80 U/L 40-150 (test code = 6768-6) Total Bilirubin (test 0.5 mg/dL 0.2-1.2 code = 1975-2) Sodium (test code = 134 meq/L 136-145 L 2951-2) Potassium (test code = 4.2 meq/L 3.5-5.1 2823-3) Chloride (test code = 106 meq/L 98-107 5-0) CO2 (test code = 17 meq/L 22-29 L 8-9) BUN (test code = 43 mg/dL 7-21 H 3094-0) Creatinine (test code 1.35 mg/dL 0.57-1.25 H = 2160-0) Glucose (test code = 109 mg/dL 70-105 H 2345-7) Calcium (test code = 8.9 mg/dL 8.4-10.2 37037-1) AST (test code = 13 U/L 5-34 1920-8) ALT (test code = 28 U/L 6-55 1742-6) EGFR (test code = 41 mL/min/1.73 [place] [address]-2) NOT ACCURATE CREATININE CLEARANCE IN PREDICTING GLOMERULAR FILTRATION RATE . ESTIMATED GFR I S NOT APPLICABLE FOR DIALYSIS PATIENTS. JEWEL (test code = JEWEL) Welcome Wagon Host/Hostess ID - ANNA L Lab Interpretation Abnormal (test code = 02541-9) [facility] HospitalMagnesium2020-07-12 23:14:00 Test Item Value Reference Range Interpretation Comments Magnesium (test code = 1.9 mg/dL 1.6-2.6 50967-4) JEWEL (test code = JEWEL) Welcome Wagon Host/Hostess ID - ANNA L Lab Interpretation (test Normal code = 02773-3) [facility] HospitalPhosphorus2020-07-12 23:14:00 Test Item Value Reference Range Interpretation Comments Phosphorus (test code = 4.4 mg/dL 2.3-4.7 2777-1) JEWEL (test code = JEWEL) Welcome Wagon Host/Hostess ID - PIDOUGLAS L Lab Interpretation (test Normal code = 95313-0) [facility]PHOSPHORUS2020-07-12 23:14:00 Test Item Value Reference Range Interpretation Comments PHOSPHORUS (BEAKER) (test code = 4.4 mg/dL 2.3-4.7 604) Welcome Wagon Host/Hostess ID - ANNA [id number] 23:14:00 Test Item Value Reference Range Interpretation Comments MAGNESIUM (BEAKER) (test code = 1.9 mg/dL 1.6-2.6 627) Welcome Wagon Host/Hostess ID - ANNA LCOMPREHENSIVE METABOLIC [id number] 23:14:00 Test Item Value Reference Range Interpretation Comments TOTAL PROTEIN 6.1 gm/dL 6.0-8.3 (BEAKER) (test code = 770) ALBUMIN (BEAKER) 3.0 g/dL 3.5-5.0 L (test code = 1145) ALKALINE PHOSPHATASE 80 U/L 40-150 (BEAKER) (test code = 346) BILIRUBIN TOTAL 0.5 mg/dL 0.2-1.2 (BEAKER) (test code = 377) SODIUM (BEAKER) (test 134 meq/L 136-145 L code = 381) POTASSIUM (BEAKER) 4.2 meq/L 3.5-5.1 (test code = 379) CHLORIDE (BEAKER) 106 meq/L 98-107 (test code = 382) CO2 (BEAKER) (test 17 meq/L 22-29 L code = 355) BLOOD UREA NITROGEN 43 mg/dL 7-21 H (BEAKER) (test code = 354) CREATININE (BEAKER) 1.35 mg/dL 0.57-1.25 H (test code = 358) GLUCOSE RANDOM 109 mg/dL 70-105 H (BEAKER) (test code = 652) CALCIUM (BEAKER) 8.9 mg/dL 8.4-10.2 (test code = 697) AST (SGOT) (BEAKER) 13 U/L 5-34 (test code = 353) ALT (SGPT) (BEAKER) 28 U/L 6-55 (test code = 347) EGFR (BEAKER) (test 41 mL/min/1.73 ESTIMA SONNY GFR IS code = 1092) sq m NOT ACCURATE CREATININE CLEARANCE IN PREDICTING GLOMERULAR FILTRATION RATE . ESTIMATED GFR I S NOT APPLICABLE FOR DIALYSIS PATIEN TS. Welcome Wagon Host/Hostess ID - ANNA LLactic acid, [id number] 23:07:00 Test Item Value Reference Range Interpretation Comments Lactate, Venous (test code 1.02 mmol/L 0.5-2.2 = 2872) JEWEL (test code = JEWEL) Welcome Wagon Host/Hostess ID Abigail CASTILLO L Lab Interpretation (test Normal code = 90742-0) [facility] HospitalLACTIC ACID, [id number] 23:07:00 Test Item Value Reference Range Interpretation Comments LACTATE BLOOD VENOUS (2) (BEAKER) 1.02 mmol/L 0.50-2.20 (test code = 2872) Welcome Wagon Host/Hostess ID - ANNA LPT/[id number] 23:06:00 Test Item Value Reference Range Interpretation Comments Protime (test code = 15.3 11.9- 14.2 H 5902-2) seconds INR (test code = 1.2 <=5.9 6301-6) PTT (test code = 26.1 22.5- 36.0 48250-5) seconds JEWEL (test code = JEWEL) Effective 02/12/2019: PT Reference Range ChangeNew: 11.9-14.2 Previous: 11.7-14.7 RECOMMENDED COUMADIN/WARFARIN INR THERAPY RANGESSTANDARD DOSE: 2.0-3.0 Includes: PROPHYLAXIS for venous thrombosis, systemic embolization; TREATMENT for venous thrombosis and/or pulmonary embolus.HIGH RISK: Target INR is 2.5-3.5 for patients wiht mechanical heart valves. Lab Interpretation Abnormal (test code = 89224-4) [facility] HospitalPT/[id number] 23:06:00 Test Item Value Reference Range Interpretation Comments PROTIME (BEAKER) (test code = 15.3 seconds 11.9-14.2 H 759) INR (BEAKER) (test code = 370) 1.2 <=5.9 PARTIAL THROMBOPLASTIN TIME 26.1 seconds 22.5-36.0 (BEAKER) (test code = 760) Effective 02/12/2019: PT Reference Range ChangeNew: 11.9-14.2 Previous: 11.7- 14.7RECOMMENDED COUMADIN/WARFARIN INR THERAPY RANGESSTANDARD DOSE: 2.0-3.0 Includes: PROPHYLAXIS for venous thrombosis, systemic embolization; TREATMENT for venous thrombosis and/or pulmonary embolus.HIGH RISK: Target INR is2.5-3.5 for patients wiht mechanical heart valves.CBC W/PLT COUNT & AUTO [id number] 22:59:00 Test Item Value Reference Range Interpretation Comments WHITE BLOOD CELL COUNT (BEAKER) 19.1 K/ L 3.5-10.5 H (test code = 775) RED BLOOD CELL COUNT (BEAKER) 2.68 M/ L 3.93-5.22 L (test code = 761) HEMOGLOBIN (BEAKER) (test code = 7.8 GM/DL 11.2-15.7 L 410) HEMATOCRIT (BEAKER) (test code = 24.7 % 34.1-44.9 L 411) MEAN CORPUSCULAR VOLUME (BEAKER) 92.2 fL 79.4-94.8 (test code = 753) MEAN CORPUSCULAR HEMOGLOBIN 29.1 pg 25.6-32.2 (BEAKER) (test code = 751) MEAN CORPUSCULAR HEMOGLOBIN CONC 31.6 GM/DL 32.2-35.5 L (BEAKER) (test code = 752) RED CELL DISTRIBUTION WIDTH 18.2 % 11.7-14.4 H (BEAKER) (test code = 412) PLATELET COUNT (BEAKER) (test 498 K/CU MM 150-450 H code = 756) MEAN PLATELET VOLUME (BEAKER) 9.1 fL 9.4-12.3 L (test code = 754) NUCLEATED RED BLOOD CELLS 0 /100 WBC 0-0 (BEAKER) (test code = 413) NEUTROPHILS RELATIVE PERCENT 92 % (BEAKER) (test code = 429) LYMPHOCYTES RELATIVE PERCENT 4 % (BEAKER) (test code = 430) MONOCYTES RELATIVE PERCENT 3 % (BEAKER) (test code = 431) EOSINOPHILS RELATIVE PERCENT 0 % (BEAKER) (test code = 432) BASOPHILS RELATIVE PERCENT 0 % (BEAKER) (test code = 437) NEUTROPHILS ABSOLUTE COUNT 17.63 K/ L 1.56-6.13 H (BEAKER) (test code = 670) LYMPHOCYTES ABSOLUTE COUNT 0.84 K/ L 1.18-3.74 L (BEAKER) (test code = 414) MONOCYTES ABSOLUTE COUNT (BEAKER) 0.50 K/ L 0.24-0.36 H (test code = 415) EOSINOPHILS ABSOLUTE COUNT 0.02 K/ L 0.04-0.36 L (BEAKER) (test code = 416) BASOPHILS ABSOLUTE COUNT (BEAKER) 0.04 K/ L 0.01-0.08 (test code = 417) IMMATURE GRANULOCYTES-RELATIVE 1 % 0-1 PERCENT (BEAKER) (test code = 2801) ANG, DRAINAGE TUBE CHANGE (GASTRO, NEPHRO OR BILIARY)2020-03-26 17:08:00Reason for exam:->Bilateral nephrostomy tube exchange, elevated WBCFINAL REPORT PROCEDURE: Genitourinary catheter exchange Procedural PersonnelAttending physician(s): Esteban Yusuf physician(s): NoneResident physician(s): NoneAdvanced practice provider(s): None Pre-procedure diagnosis: Urinary obstructionPost-procedure diagnosis: SameIndication: Suspected catheter infectionAdditional clinical history: None Complications: No immediate com plications. IMPRESSION: Successful exchange of right and left indwelling percutaneous nephrostomy tubes for new 10 [place] nephrostomy tubes. PROCEDURE SUMMARY- Target organ: Bilateral [place] kidneys- Antegrade nephrostogram(s) via the existing access- Nephrostomy tube exchange- Additional procedure(s): None PROCEDURE DETAILS: Pre-procedureConsent: Informed consent for the procedure including risks, benefits and alternatives was obtained and time-out was performed prior to the procedure.Preparation: The site was prepared and draped usingmaximal sterile barrier technique including cutaneous antisepsis. Anesthesia/sedationLevel [...] confirmed with contrast injection.Pre-existing genitourinary catheter: 10 [place] CookGenitourinary catheter(s) placed: Same Findings: Nondilated collecting system.External catheter securement: Non-absorbable suture Left genitourinary catheter exchangeLocal anesthesia was administered. Initial nephrostogram was performed. A wire was placed through the existing tube and it was removed. The new tube was advanced over the wire and position was confirmed with contrast injection.Pre-existing genitourinary catheter: 10 [place] CookGenitourinary catheter(s) placed: Same Findings: Nondilated collecting system.External catheter securement: Non-absorbable suture Additional genitourinary system interventionGenitourinary intervention: NoneLocation of intervention: Not applicableDevice used: Not applicableDescriptionof intervention: Not applicablePost-intervention findings: Not applicable ContrastContrast agent: Iso himanshu 300Contrast volume (mL): 20 Radiation DoseFluoroscopy time [...] MDReport Verified Date/Time: 03/26/2020 17:08:04 Reading Location: [place] [address] Angio Body Reading Room IR Drainage Catheter [id number] 17:08:00Interface, External Ris In - 03/26/2020 5:10 PM CDTFINAL REPORT PROCEDURE: Genitourinary catheter exchange Procedural PersonnelAttending physician(s): Yani Malone MDFellfinn physician(s): NoneResident physician(s): NoneAdvanced practice provider(s): None Pre-procedure diagnosis: Urinary obstructionPost-procedure diagnosis: SameIndication: Suspected catheter infectionAdditional clinical history: None Complications: No immediate complications. IMPRESSION: Successful exchange of right and left indwelling percutaneous nephrostomy tubes for new 10 [place] nephrostomy tubes. PROCEDURE SUMMARY- Target organ: Bilateral [place] kidneys- Antegrade nephrostogram(s) via the existing access- [...] tube and it was removed. The new tubewas advanced over the wire and position was confirmed with contrast injection.Pre-existing genitourinary catheter: 10 [place] CookGenitourinary catheter(s) placed: Same Findings: Nondilated collecting sy stem.External catheter securement: Non-absorbable suture Left genitourinary catheter exchangeLocal anesthesia was administered. Initial nephrostogram was performed. A wire was placed through the existing tube and it was removed. The new tube was advanced over the wire and position was confirmed with contrast injection.Pre-existing genitourinary catheter: 10 [place] CookGenitourinary catheter(s) placed: Same Findings: Nondilated collecting system.External catheter securement: Non-absorbable suture Additional genitourinary system interventionGenitourinary intervention: NoneLocation of intervention: Not applicableDevice used: Not applicableDescription of intervention: Not applicablePost-interventionfindings: Not applicable ContrastContrast agent: Isovue 300Contrast volume [...] MDReport Verified Date/Time: 03/26/2020 17:08:04 Reading Location: [place] [address] Angio Body Reading [facility]AL [facility] TUNNELED CVC [id number] 17:05:00Reason for Exam:->C53.9FINAL REPORT PROCEDURE: Venous chest port placement Procedural PersonnelAttending physician(s): Yani Malone MDailin physician(s): [facility] ServiceshavenResandreina physician(s): NoneAdvanced practice provider(s): None Pre- procedure diagnosis: Cervical cancerPost-procedure diagnosis: SameIndication: ChemotherapyAdditional clinical [...] the procedure.Preparation (MIPS): The site was prepared anddraped using all elements of maximal sterile barrier [...] into the pocket and the catheter was advancedvia a peel-away sheath into the vein under fluoroscopic guidance. The port was not sutured into the pocket. Catheter tip location was fluoroscopically verified and a permanent image was stored.Port placed: GOGETMi / ?.?? Smart portCatheter size ([place]): 7Catheter flush: Heparin (100 units/mL) ClosureThe access [...] than 10Standardized report: [email or web address]_Port_v3 AttestationSigner name: Yani MaloneAniya attest that I was present for the entire procedure. I reviewed the stored images and agree with the report as written. Signed: Yani Malone MDReport Verified Date/Time: 03/26/2020 17:05:13 Reading Location:[place] [address] Angio Body Reading Room IR Port Removal 2020-03-26 17:05:00Interface, External Ris In - 03/26/2020 5:07 PM CDTFINAL REPORT PROCEDURE: Venous chest port placement Procedural PersonnelAttending physician(s): Yani Malone [facility]Gen[facility] Susi physician(s): NoneAdvanjarocho practice provider(s): None Pre- procedure diagnosis: Cervical cancerPost-procedure diagnosis: SameIndication: ChemotherapyAdditional clinical history: NoneComplications: No immediate complications. IMPRESSION: Insertion of left-sided [...] entry into the vessel and a permanent imagewas stored.Vein accessed: Internal jugular veinAccess technique: Micropuncture [...] and a permanent image was stored.Port placed: MyFab portCatheter size (Saudi Arabian): 7Catheter flush: Heparin (100 units/mL) ClosureThe access site and incision were closed and sterile dressing(s) were applied.Access site closure technique: Tissue adhesiveIncision closure technique:Absorbable suture and tissue adhesivePatient discharged from procedure suite with device accessed: No ContrastContrast agent: NoneContrast volume (mL): None Radiation DoseFluoroscopy time (minutes): 0.5 Reference air kerma (mGy): 1.0 Additional DetailsAdditional description of procedure: NoneEquipment details: NoneSpecimens removed: NoneEstimated blood loss (mL): Less than 10Standardized report: SIR_Port_v3 AttestationSigner name: Yani Charles attest that I was present for the entire procedure. Ireviewed the stored images and agree with the report as written. Signed: Yani Malone MDReport Verified Date/Time: 03/26/2020 17:05:13 Reading Location: [place] [address] Angio Body Reading Room Electr onically signed by: YANI MALONE MD on 03/26/2020 05:05 [facility]00 Test Item Value Reference Range Interpretation Comments PTT (test code = 39720-1) 28.3 22.5- 36.0 seconds Lab Interpretation (test code = Normal 15690-1) [facility] 08:07:00 Test Item Value Reference Range Interpretation Comments PARTIAL THROMBOPLASTIN TIME 28.3 seconds 22.5-36.0 (BEAKER) (test code = 760) Prothrombin time/[id number] 08:06:00 Test Item Value Reference Range Interpretation [...] valves. Lab Interpretation Abnormal (test code = 99662-4) [facility] HospitalPROTHROMBIN TIME/[id number] 08:06:00 Test Item Value Reference Range Interpretation [...] is2.5-3.5 for patients wiht mechanical heart valves.CBC W/PLT COUNT & AUTO [id number] 07:55:00 Test Item Value Reference Range Interpretation [...] (test code = 2801) Venous Doppler Legs [id number] 09:22:35Ejection FractionSLEH ECHO HEARTLAB MKCKESSON CPACSRight Impression1. There is [...] Study 03/11/2020 GERI Age 54 Visit Number [id number] Gender Female Accession Number [id number] Date of 1965 Referring Ferny Santos, Room Number [facility] OPT Physician Director Of Corporate Communications Gregor Avery Interpreting Jaquelin Freed, S Physician [...] in cm/s ; Diameters are measured in [facility] MISCELLANEOUS LAB [id number] 07:56:00 Test Item Value Reference Range Interpretation Comments SCAN RESULT (test code = 5342825) insulin-like growth factor 07:56:00Scan ResultQUEST NON-INTERFACED LABCHI [facility]ACT[facility] 10:18:00 Test Item Value Reference Range Interpretation Comments ACTH (test 14 pg/mL 6-50 Reference rang e code = applies only to the ) specimens colle cted between 7am-10a m. JEWEL (test code Performing Lab EZ = JEWEL) [facility] [address] [place] [address] Aniya Bradford MD, PhD, ERIN [facility] HospitalInsulin-like growth [id number] 20:20:00 Test Item Value Reference Range Interpretation Comments Igf-1(Somato 116 ng/mL 50-317 [facility] (test code = 0696130) Z-Score DNR Male: (test code = 2724680) Z-Score -0.4 -2.0- 2.0 SD This test was developed Female: and its analyti enrique (test code = performance 7826200) characteristics havebeen determined by [facility] [place]eng [place].It h as not been cleared or approved by FDA. This as say has been validatedp ursuant to the CLIA reg ulations and is used for clinical purposes. JEWEL (test Performing Lab code = JEWEL) EZ [facility] [address] [place] [address] I Suzette CARDENAS, PhD, ERIN [facility] HospitalMR, PELVIS, WITHOUT [id number] 15:35:00 FINAL REPORT TECHNIQUE: MRI of the [...] MDReport Verified Date/Time: 02/18/2020 15:35:26 Reading Location: [facility] C013 Consult Reading Room MR pelvis without IV [...] MDReport Verified Date/Time: 02/18/2020 15:35:26 Reading Location: [address] Consult Reading Room [facility]am 2020-02-18 09:04:00 Test Item Value Reference Range Interpretation Comments Case Report (test code Surgical Pathology = 104) Report Case: [id number] Authorizing Provider: Amy Mosley MD Collected: Ordering Location: [address] Received: 02/13/2020 12:56 PM Service Pathologist: Pao Law MD Specimen: Cervix DIAGNOSIS (test code = a7qmqVDuKEYuy2hpLMBcbS 3220) FuZzEwMzNcZnRuYmpcdWMx EHjsbcNwJMrya9EeA4WoBu AwMFxhbnNpXGRlZmxhbmcx XIVhQBM9zhDxODRuHTatFP LeKYdwFz0bzYBtgHarDoXu GKFwu5hiiiSIqisyhJu2lZ qqO90ez2J6ZvhzK8ukXZNb WDAdX6RlTR8iWUSlVfu5SU X6NZH4XWEvLDIuM9YyZG0g TQLtkGAdRLm8s4ffqMstGU HpXPK5e7onEXivyhCrTZ3r qn4oaKa3a5eoecPkVGVfAL EdxBNTLWDjQ1NnrWdpMk6c pXh1nYtbPwgyUDV0Qky5TJ 7fbl39pho1lJuaWGJphzed HdV0OIxoEZHqgrcyEXk4LV xtYXJnbDcyMFxtYXJncjcy MFxtYXJndDcyMFxtYXJnYj axXKgtBSAjIXU0RRtlk776 ZEN0JHich8rkf0fomIVzVi o9OTAvIkHtTqetMLjnj8Qk u2kkQQSsur5dPPP9kGTtcR xvd8U7oPNnCLDssJKoodIn OUCwReM6LEcaXS4cyu87FU PsZVO6di0nxZWklRjggkGh lDEpDClmD8EkKFQbe096YF RbU5BeMXEwv7Z1vmTyFqTr UBWzeVJ0ezD1NGTaAMq7rU KtgaD6reEnrRPqT8tgpM85 PgHpnHXjW9OybE13InYxoM FpC9NmaF18LpMtjBNlJ1Po jF16VvPcyKYtSUUtrIGzUw 7beXLemOXvp2WhhMDtAVdd P90dn585FFXkreSaT3wqrN FpblxwbGFpblxmMFxmczI0 XHFsXHBsYWluXGYwXGZzMj BcbGFuZzEwMzNcaGljaFxm RTtzXbXxUBHdHVhmW7itFf BcZnMyMCBDRVJWSVgsIEJJ C8ARWUinoKCfETCdCA0wDZ AGVV0FWE6JHgALOQCGWOVH F8MGAoJYXLNPWZFzL1lANV BBIFNJTkdMRSBWSUFCTEUg Vv3BWEXiWZyYBIeBYWSRS0 EOR5pOVXDbXc8NCJWnFYGX OSfNOO9EEFPZZDGCE3KWBP 7CL9LUIIVVTCKubr64MOW0 DtIcb7D5MIC3HFNvEIVjk4 lcZGVmbGFuZzEwMzNcZnRu HqangJZfPWSyAyTas8zgu4 53nPHmx4yvPECfIxH4tSMv TEOclOQoR401SXDvFXoqh0 hyy4VmXFMthLGbw4L7JGVR giayvVo8cBkkF52hq3P3Vf geE8uzGEBfFJWeN3LdFC2r SKFtPzk8VDC2LGK2NZHtIP HfY6LfUG3jRRQsaBAuRCn9 h4aybBcxYXCcFJY5j4ywYQ ihbqGfTO6wpp3qoRc9k4hw czEgRGVmYXVsdCBQYXJhZ3 MveJuoYe0dqNy5bKrfJfiz MMO7Bes7FT2iwe20odf2qG hxKVCouhpxJcH5WJcwBMGc bnljGAk7GGjgRVJbxUL1BO AaoEQjR6MoWZJdUK6mmlx8 QQJ7NNhoRGWtQpC7CAKdeY TvPLCcqFssYFsxa666EWC1 WkKvLG8nH9Jni6V7qJ6pfX PhDJTbpRGoOsEoYBUsmw7p dIOgLYoqn3PoYKW5yaL8iG RfsCKvLLOhJsB4LQgdHP0f jp53XGTlBAD9rm0quVKvyN wptcGplCXuXKciF9EzTNVn z910HJVeN8EwSPSrm7Q6pf GyPvCqRQTzhNS5iaZ8XOMv IJ1rvngaf5thZEoqUYavXL QqafB7bnQ0DUNcfNIdZ8Nx nL4bRHDiRV8ljhjll6luIY D3LCavWHVxELA1DkBpSFUb q0Ixljw5ChJdk3SkxDPiRM anU25xo771SOJjkzDbB2pq bGFpblxwbGFpblxmMFxmcz H2YIBkAFhgkrrqVRKdLWja M2gkHzDbBRVkcJwhYUmcl0 NoXGYxXGZzMjJcdGFiXHRh Nha2GWSjkGWyHOMyWrPyO0 wdxvryErTVJMHbu6cbH2tu xIGHbUSgO5OmUMjboiMoQC ouLDzoBLE9HEZ3Gp65PvB4 KNAilg06 COMMENT (test code = t1iltIAoYTKapXIfMdSsYI 335) KuSLOhg1vdWUCruLFtSaGf MzNcZnRuYmpcdWMxXGRlZm Dht1tup118bESuv9tcOUJp MoM1sNKhQVQiySHzC918q6 zcp3wyqiDmoSX4PBAhPXF4 YYffopQpahS4BLtwzZKmQg T2ZWylxyEfRUtevcEbkzWt Fuu5KRKrB769XPZ4yRidb4 ndTXF0MJAhCXLyNlTsUg2y rOJuL808JUCyESJVBYOdjC x1KPLamzCmjwNcqLQYq335 V361s6fpIZVmonNprLtExm hyp7qgJ870YHYvlXYveqHl JuAiJEJilTEtyLA0HFIlRI 5brptoJuZpHZ5zvxeuAaIf TA3ultx6QbVuNZ5bjssqPg BqQEupOPWqkvxyAJZuf3Un zaxpTQ4sO1Qxr6L6eT7hdN WcYGSgwKFnOzKhIENrto9a kVEfAUcfz9YyYXX6ukQ0aT HjxAAoAAPkNH77Qkobg2Gt YybjDVE9ZJLgygSqf5Ihr1 riGaNtisJaS9yzX7GrXMLb TWVkEHOuOdZxaiBra9Vog0 PbvHXwjLz7i1wmVSHkISDb mXlzw4fjJKK2SRQuT2V9bO Idu3olILpqNGUcdWA5wyti GUcfJEYokvC4aqexJFtiCM AgoJF3vgjcRMwlEPQkWcL2 fjlhJYocRVJbJIF7XZgba0 18LDW4YSbkMqdpKNccPKTp bmNvbnRccGduZGVjXHBsYW luXHBsYWluXGYwXGZzMjRc mMvsyBzkyS9zDbXqIjHsIS yqYQ0mOAGwM9tclBQkMVEg BKWzZ0ohLxFizG3iiSrmIZ ermfTuINwaH1euw8LkZYGy cXVhdGUgdmlhYmxlIHRpc3 D7XWMtsnAciJMjDCMzCYGd XVGmlff8kYBvXRCbHMtvy6 Kloz5nCQCvxo5= CPT Code(s) (test code z9yojYVwZRIanSQgIhYlHL = 3357) YsVGVpt7bjBEPttNWiSuWt MzNcZnRuYmpcdWMxXGRlZm Ibo5tqd696fNPtv8ziTLMl NzH9fWPvMAPljBRqR115y1 hek2yxmjIqiKX4AADgRAM3 MUxtbuSewqJ0SLpkgJLiYf P2GZxwhiHuVLtnhcYugfNg Zgd0CGSsL329RTW6pOscx8 wbRIP1BJOwMREvIcWyGt4o oSNnI661XTVsJOKPWTYhoZ i6DIPmzvFfbpJzwFRFd224 M294u2hfYGZtewWcnRcXuz ltl0kxO300XRJloEVhziPc TtDeKEIckYOnuCP3ANHzPN 0cwuirVtMjZP1sqtfoYhBk LT7uqvd9AeXbNJ4eljdlQb BpOAeaTAYuirraRGYry0Kc squgHQ5aM3Cub9B3qF0dlK MlHUChbCToKgRzDNJnjs5r dBIaOMnkh1YnGKF0twR2pF DcmXZgLUFsTR25Odweq8Ql JpgkSOT1LSYvrpZgt1Mzd9 fdMqPjlaAdA5egU3IaSMXo LXMvHCPaNfZlvgOnl9Dtq9 BedHGvuKm8z9saOTUcKTJs eAlhe7gsUHZ6VSQyZ2Z6dJ Gtd5roGPvjLZUenEW3brvp PRekQMOwzpG2zdneERvxQB BbiWJ6trymGGalTKBvGfX4 wnzsGWkqDXDbIKA8OQjtk6 76BEP4QQdrZjyaPTyfGUWw bmNvbnRccGduZGVjXHBsYW luXHBsYWluXGYwXGZzMjRc rPlijHklrL4zKnJkVeJaYM alIK4dXDEeW0kuvJDyHJOf RDIxZ5yqZfNbyM8mtLtdEK jqfcOhKPy6QjI1ZWSrwi8= GROSS DESCRIPTION (test w7skyKFgZUEomFOsHuVoKV code = 3366) UdCQPsc6srQFEtcRYsZaUf MzNcZnRuYmpcdWMxXGRlZm Aib7ora496wVXbo2luBPBt IdT7tVJvUUMlbDDnD558k8 oqs5surhXuuMF8QXTpKIH7 EZcbgoCxknS8OHsznNMoPl B8MGahvaDoUWyzrzVlwqHf Vka1TBWkO445ITW8iUiiz1 loVNZ7XSXwPGDmXlAwZu4t eZYlE688MBQjGVECTTUesS d3USOfiyEtivQdvOCPu698 R030e3xxDJBkslNjpBiVgv nzt2qxR302IZKgmHGhqyZw FqAhZEIptFRuvZS6WEZcUB 2yygefAuXmNS2retgpEwVl LD3scbe8DuDuJH1ugazbMn IrELkpQWQualopFQTai4Va bwrxCE9aI1Lzc8E4bN6ceS KbSDOknFRmOhRsOSRdid6m iWXnRZmks7BnGRC8jzK9xL GihAWeKYQvSF15Zqjhv1Hd BewvIWJ0ZINtbqUld5Uko7 wcIkEcmzBpS8whD5WaSZTs SBAaQWTpScSfxqOqe0Teo1 RcmVTmpLd0a6cnRTOpAAOe pCfmn8slBIP3WGEsV9D0zT Izz1hqLDizNDCcxAC9lntt XPwkNZRpliO6cqwpTTxbMD YwoJD5qkplCQvqJAOnQrM8 hksbYUjgWSRpBAG7HGsmf6 16GZT9RVexSrrlKFqlQIOz bmNvbnRccGduZGVjXHBsYW luXHBsYWluXGYwXGZzMjRc pTqcaUyyyB3nEkMmVyYuCO hiBD0tSSYiZ8axfSHmBHLz TKPwT7qbIdAmaC6nsIfoGU lcnbOpHCMjanMzLQ9jVsZq VSm9WAVbmJ4hCFPdl836ZE nyLXTysPGcLZtfJCV4qDRc BWScWZJdUEXjSW47N9Nugn FtZSBhbmQgTVJOIGFzICJj LRR7rWfySWcchSggtMxjNF GbQIx3uL0lJVssqG9jb9Ad JYAsr38jEc1uN0WbmNkgRO G4qQ0bJDqudx0skynaUlK7 wWAmRR84hJOsGFOjxmSxmV EyYQTdOQ00jCIydGwvCSFw GEevUC12xsYjCrEyfuHsN6 QdEPFeHEHsun8xjaS4SKFs UJRijz39bQs9HHZ6tILieF KasADcg0DnoR6fNLmaZFIv Z2MzW7E2ILJbBoJyiMGjQz UgeCAxIGNtLiBUaGUgcGll M9HkKN0fZOUai3L4CUPfCK 6iOYCdteErwOlmRLBus94t cRXnnxA6sYInPKSqHAY9fm JiXgEsD89kwE5vJ4UuGJTa i4UnUKcxZN2clV6aWwPTyI OizURmX2AdsURnuVAuQBVg PHXjdZBeasPcTGxjCA33IX baAPTarR2euXAeCHBvsdAX PLK3dH9vEPMnQPW0YVBnCF YmwFJua48snGjtJrDaH55o ocAfRQ6oZEImk5E8BXruPC UaFPRbRAqdokiij9UnnGat E6Sdv6KkhTQgbJpdx3VphU lvbmVkOyBBNCwgcmVtYWlu tG9sGS10bFPcqKnsPZOtEO okATWkSRwnKA08ylYcIjE8 eTDsaOGft8FjqEf0uGGxWK YnfLqcXAh1LtJEVy6lq4fv YXJ9 MICROSCOPIC DESCRIPTION a9kszCTrIEKslCGoUnTnZG (test code = 3371) LwHWQxe4syVXQpgVTaRsOe MzNcZnRuYmpcdWMxXGRlZm Iev6gdn095eIIxz6fpEMLm KiU4dUYuBLJejPAnH059u5 rzy6jnwrOsyNL3ALVyIDX3 SWdmlaZdozD4VWeyjDNtVi V1XRljrfGiHIvamcYhowQe Trt0BLCsZ235VEF4aJnhk3 lbYUL1ACGpUDErKqUcFq2n sIFsR604TUDuOARDGCHnvY w6FBDlpaRdkrYinNLTp947 B642x1yvQTGfcyZvwVkTdl emm5neJ839DAEroLKdsfUe GjWwFHScxLIudNU9AHPkUD 1mxrodBnLbOQ0wycnhDhNy TY6dlvq2NhRzYC3olawhVx WoUMnwMZQqexryITShd8Nm uyddUZ9vG9Iev9E2oW9acC NaOWSrbYJyMeKxCQNney2g fDPbETctk3IqLFL0egT7yQ LczPWfLEKsXO27Wigrl6Ub ZcwmDRF0QZUtykJsm7Mcx7 xkTeYrktQpM5itG5NoFMFq RZGoAVTfBvPstjMkr2Kxc5 PsiPRbjSa4c2yaYLCoODWq xSkpy1wdETM3ACUvY8D5oU Cap8thEJbpITWqxIF1nxwi DYauBQHnsmC9iehuJAwuMV DbpPT8pnzvEDjzDBKyAwY2 eimtZEgcMFOzCZB3DGvfs6 25UMH3IZroCtxdHWkiCGEx bmNvbnRccGduZGVjXHBsYW luXHBsYWluXGYwXGZzMjRc rLpzzHhkqP8jNnQmOcKdZG faKP9lBTYkH8cnhSTyJDTi BSKfE2kkYiTgfN1haDnkPW ahbkFnQFNvebXjbp3aBS3a cGFyfQ== [facility] [id number] 09:04:00Surgical Pathology Report Case: [id number] Authorizing Provider: Amy Mosley MD Collected: Ordering Location: [address] Received: 02/13/2020 12:56 PM Service Pathologist: Pao Law MD Specimen: Cervix CERVIX, BIOPSY:- PREDOMINANTLY NECROTIC TISSUE WITH A SINGLE VIABLE FOCUS HIGHLY SUSPICIOUS FOR A MALIGNANT SQUAMOUS NEOPLASM Signing Pathologist Direct Phone Line: [phone] signed by Pao Law MD on 02/18/2020 at 9:04 AMLack of adequate viable tissue precludes a definitive diagnosis. 31228Ifog A. Received in a container labeled with [...] x 1.5 x 1 cm.Section code: A1, map clerk small fragments of tissue; A2-A3, largest piece serially sectioned; A4, remaining multiple small fragments of tissue submitted entirely. SW/ewPerformed.POC-Glucose [id number] 08:01:00 Test Item Value Reference Range Interpretation Comments POC-Glucose Meter (test 98 mg/dL 70-110 : TE STED AT [facility] code = 1538) [address] [facility], 770 30: Welcome Wagon Host/Hostess/Techni ashley ID = [id number] for ALY PULLIAM A Lab Interpretation (test Normal code = 68022-9) [facility] [id number] 08:01:00 Test Item Value Reference Range Interpretation Comments POC-GLUCOSE METER 98 mg/dL 70-110 : TESTED A T [facility] 6720 (BEAKER) (test code = [facility], 1538) [address]: Welcome Wagon Host/Hostess/Techni ashley ID = [id number] for ADITYA VIGIL CHIOMA BASIC METABOLIC [id number] 04:33:00 Test Item Value Reference Range Interpretation [...] S NOT APPLICABLE FOR DIALYSIS PATIEN TS. Welcome Wagon Host/Hostess ID - STEPHANIE [id number] 04:31:00 Test Item Value Reference Range Interpretation Comments PHOSPHORUS (BEAKER) (test code = 2.3 mg/dL 2.3-4.7 604) Welcome Wagon Host/Hostess ID - STEPHANIE [id number] 04:31:00 Test Item Value Reference Range Interpretation Comments MAGNESIUM (BEAKER) (test code = 1.4 mg/dL 1.6-2.6 L 627) Welcome Wagon Host/Hostess ID - STEPHANIE MCBC W/PLT COUNT & AUTO [id number] 04:07:00 Test Item Value Reference Range Interpretation [...] PERCENT (BEAKER) (test code = 2801) POCT-GLUCOSE [id number] 17:33:00 Test Item Value Reference Range Interpretation Comments POC-GLUCOSE METER 94 mg/dL 70-110 : TESTED A T [facility] 6720 (BEAKER) (test code = [place], 1538) [address]: Welcome Wagon Host/Hostess/Techni ashley ID = [id number] for LEOBARDOGINGERAbigailFUENTESCHEPE BASIC METABOLIC [id number] 15:17:00 Test Item Value Reference Range Interpretation [...] S NOT APPLICABLE FOR DIALYSIS PATIEN TS. Welcome Wagon Host/Hostess ID - [id number] 15:15:00 Test Item Value Reference Range Interpretation Comments PHOSPHORUS (BEAKER) (test code = 2.8 mg/dL 2.3-4.7 604) Welcome Wagon Host/Hostess ID - [id number] 15:15:00 Test Item Value Reference Range Interpretation Comments MAGNESIUM (BEAKER) (test code = 1.4 mg/dL 1.6-2.6 L 627) Welcome Wagon Host/Hostess ID - BSCBC W/PLT COUNT & AUTO [id number] 15:02:00 Test Item Value Reference Range Interpretation [...] PERCENT (BEAKER) (test code = 2801) POCT-GLUCOSE [id number] 08:34:00 Test Item Value Reference Range Interpretation Comments POC-GLUCOSE METER 71 mg/dL 70-110 : TESTED A T [facility] 6720 (BEAKER) (test code = [facility], 153) 97322: Welcome Wagon Host/Hostess/Techni ashley ID = [id number] for SHANIKA CHEPE POCT-GLUCOSE [id number] 06:01:00 Test Item Value Reference Range Interpretation Comments POC-GLUCOSE METER 72 mg/dL 70-110 : TESTED A T [facility] 6720 (BEAKER) (test code = [facility], 1538) 57894: Welcome Wagon Host/Hostess/Techni ashley ID = [id number] for NETTE ORTIZ RADHA POCT-GLUCOSE [id number] 03:31:00 Test Item Value Reference Range Interpretation Comments POC-GLUCOSE METER 91 mg/dL 70-110 : TESTED A T [facility] 6720 (BEAKER) (test code = [place], 1538) 74643: Welcome Wagon Host/Hostess/Techni ashley ID = [id number] for RADHA SANTACRUZ POCT-GLUCOSE [id number] 21:23:00 Test Item Value Reference Range Interpretation Comments POC-GLUCOSE METER 106 mg/dL 70-110 : TESTED A T [facility] 6720 (BEAKER) (test code [facility], = 1538) 61144: Welcome Wagon Host/Hostess/Techni ashley ID = [id number] for NEGRITA MILLS CT, CHEST, WITHOUT [id number] 18:46:00FINAL REPORT CT of the Chest dated [...] Jo Verified Date/Time: 02/16/2020 18:46:22 Reading Location: [facility] B1 C013Y CT Body Reading Room CT chest without IV [id number] 18:46:00Interface, External Ris In - 02/16/2020 6:48 [...] Jo Verified Date/Time: 02/16/2020 18:46:22 Reading Location: [address] Body [facility] [id number] 17:53:00 Test Item Value Reference Range Interpretation Comments POC-GLUCOSE METER 77 mg/dL 70-110 : TESTED A T [facility] 6720 (DANII) (test code = [place], 1538) [address]: Welcome Wagon Host/Hostess/Techni ashley ID = [id number] for CHEPE VOSS CT, BRAIN, WITHOUT [id number] 17:36:00FINAL REPORT CT, BRAIN, WITHOUT CONTRAST INDICATION: [...] Letty Granger MDReport Verified Date/Time: 02/16/2020 17:36:02 CT brain without IV [id number] 17:36:00Interface, External Ris In - 02/16/2020 5:38 [...] without contrast is recommended. Signed: Letty Granger Verified Date/Time: 02/16/2020 17:36:02 [facility] 125 (CA 125)2020-02-16 14:44:00 Test Item Value Reference Interpretation Comments Range CA 125 (test code = 287 U/mL <35 H This [facility] was ) performed using the Malissa Sandor Chemiluminescen t method.Values obtained from different assay methods cannot be used interchangeably .CA 125 levels, regardless of v alue, should not be interpreted as absoluteevidenc e of the presence or absence of dise ase. JEWEL (test code = Performing Lab JWEEL) [employer] [facility] [address] [place] [address] Aniya Bradford MD, PhD, ERIN Lab Interpretation Abnormal (test code = 79519-5) [facility] [id number] 12:28:00 Test Item Value Reference Range Interpretation Comments POC-GLUCOSE METER 89 mg/dL 70-110 : TESTED A T [facility] 6720 (BEAKER) (test code = MAYTE [facility], 1538) 605[address]: Welcome Wagon Host/Hostess/Techni ashley ID = [id number] for CHEPE VOSS [id number] 10:45:00 Test Item Value Reference Range Interpretation Comments Cortisol, Total (test code 17.8 ug/dL 3.7-19.4 = 2755) JEWEL (test code = JEWEL) Welcome Wagon Host/Hostess ID - [id number] Lab Interpretation (test Normal code = 52015-7) [facility] 10:45:00 Test Item Value Reference Range Interpretation Comments CORTISOL, TOTAL (BEAKER) (test 17.8 ug/dL 3.7-19.4 code = 2755) Welcome [employer]agon Host/Hostess ID - NTPBASIC METABOLIC [id number] 05:08:00 Test Item Value Reference Range Interpretation [...] S NOT APPLICABLE FOR DIALYSIS PATIEN TS. Welcome Wagon Host/Hostess ID - PIAYA LCBC W/PLT COUNT & AUTO [id number] 04:49:00 Test Item Value Reference Range Interpretation [...] PERCENT (BEAKER) (test code = 2801) POCT-GLUCOSE [id number] 04:01:00 Test Item Value Reference Range Interpretation Comments POC-GLUCOSE METER 91 mg/dL 70-110 : TESTED A T [facility] 6720 (BEAKER) (test code = [facility], 153) 74137: Welcome Wagon Host/Hostess/Techni ashely ID = [id number] for Ali, Terrie POCT-GLUCOSE [id number] 00:35:00 Test Item Value Reference Range Interpretation Comments POC-GLUCOSE METER 98 mg/dL 70-110 : TESTED A T [facility] 6720 (BEAKER) (test code = [facility], 1538) 09361: Welcome Wagon Host/Hostess/Techni ashley ID = [id number] for Ali, Terrie POCT-GLUCOSE [id number] 20:33:00 Test Item Value Reference Range Interpretation Comments POC-GLUCOSE METER 110 mg/dL 70-110 : TESTED A T [facility] 6720 (BEAKER) (test code = [facility], 1538) 12377: Welcome Wagon Host/Hostess/Techni ashley ID = [id number] for Al i, Terrei U/S, RENAL, [id number] 18:24:00Reason for exam:->to check on hydronephrosisFINAL REPORT [...] interval.No nephrolithiasis.Left pleural effusion. Signed: Laura Turner Verified Date/Time: 02/15/2020 18:24:53 US renal [id number] 18:24:00Interface, External Ris In - 02/15/2020 6:28 [...] interval.No nephrolithiasis.Left pleural effusion. Signed: Laura Turner Verified Date/Time: 02/15/2020 18:24:53 [facility] [id number] 16:41:00 Test Item Value Reference Range Interpretation Comments POC-GLUCOSE METER 108 mg/dL 70-110 : TESTED A T [facility] 6720 (BEAKER) (test code = [facility], 1538) 01514: Welcome Wagon Host/Hostess/Techni ashley ID = [id number] for RAMIRES-COREA, D OROTHY POCT-GLUCOSE [id number] 13:28:00 Test Item Value Reference Range Interpretation Comments POC-GLUCOSE METER 125 mg/dL 70-110 H : TESTED A T [facility] 6720 (BEAKER) (test code = [facility], 1538) 68728: Welcome Wagon Host/Hostess/Techni ashley ID = [id number] for RAMIRES-COREA, D OROTHY POCT-GLUCOSE [id number] 09:53:00 Test Item Value Reference Range Interpretation Comments POC-GLUCOSE METER 110 mg/dL 70-110 : TESTED A T [facility] 6720 (BEAKER) (test code = [facility], 1538) 19032: Welcome Wagon Host/Hostess/Techni ashley ID = [id number] for RAMIRES-COREA, D OROTHY BLOOD [id number] 08:00:00 Test Item Value Reference Range Interpretation Comments CULTURE (BEAKER) (test No growth in 5 days code = 1095) BASIC METABOLIC [id number] 06:54:00 Test Item Value Reference Range Interpretation [...] S NOT APPLICABLE FOR DIALYSIS PATIEN TS. Welcome W[employer] Host/Hostess ID - PIAYA LCBC W/PLT COUNT & AUTO [id number] 06:15:00 Test Item Value Reference Range Interpretation [...] PERCENT (BEAKER) (test code = 2801) POCT-GLUCOSE [id number] 05:08:00 Test Item Value Reference Range Interpretation Comments POC-GLUCOSE METER 90 mg/dL 70-110 : TESTED A T [facility] 6720 (BEAKER) (test code = [facility], 153) 87405: Welcome Wagon Host/Hostess/Techni ashley ID = [id number] for Ali, Terrie BLOOD [id number] 05:00:00 Test Item Value Reference Range Interpretation Comments CULTURE (BEAKER) (test No growth in 5 days code = 1095) POCT-GLUCOSE [id number] 00:10:00 Test Item Value Reference Range Interpretation Comments POC-GLUCOSE METER 104 mg/dL 70-110 : TESTED A T [facility] 6720 (BEAKER) (test code = [facility], 153) 37585: Welcome Wagon Host/Hostess/Techni ashley ID = [id number] for Al i, Terrie POCT-GLUCOSE [id number] 21:18:00 Test Item Value Reference Range Interpretation Comments POC-GLUCOSE METER 93 mg/dL 70-110 : TESTED A T [facility] 6720 (BEAKER) (test code = [facility], 153) 03024: Welcome Wagon Host/Hostess/Techni ashley ID = [id number] for SEMI EN, JASON BASIC METABOLIC [id number] 17:21:00 Test Item Value Reference Range Interpretation [...] S NOT APPLICABLE FOR DIALYSIS PATIEN TS. Welcome Wagon Host/Hostess ID - [id number] and [id number] 17:03:00 Test Item Value Reference Range Interpretation Comments Hemoglobin (test code = 8.4 11.2- 15.7 GM/DL L 786-4) Hematocrit (test code = 25.2 % 34.1-44.9 L 4544-3) JEWEL (test code = JEWEL) Welcome Wagon Host/Hostess ID - [id number] Lab Interpretation (test Abnormal code = 00224-4) [facility]HEMO[facility] AND [id number] 17:03:00 Test Item Value Reference Range Interpretation Comments HEMOGLOBIN (BEAKER) (test code = 8.4 GM/DL 11.2-15.7 L 410) HEMATOCRIT (BEAKER) (test code = 25.2 % 34.1-44.9 L 411) Welcome Wagon Host/Hostess ID - [id number]-GLUCOSE [id number] 16:47:00 Test Item Value Reference Range Interpretation Comments POC-GLUCOSE METER 95 mg/dL 70-110 : TESTED A T [facility] 6720 (BEAKER) (test code = [facility], 153) 25567: Welcome Wagon Host/Hostess/Techni ashley ID = [id number] for MARYANN BRADFORD POCT-GLUCOSE [id number] 12:42:00 Test Item Value Reference Range Interpretation Comments POC-GLUCOSE METER 105 mg/dL 70-110 : TESTED A T [facility] 6720 (BEAKER) (test code = [facility], 153) 98849: Welcome Wagon Host/Hostess/Techni ashley ID = [id number] for ALEXANDRA BURNS BASIC METABOLIC [id number] 06:27:00 Test Item Value Reference Range Interpretation [...] S NOT APPLICABLE FOR DIALYSIS PATIEN TS. Welcome Wagon Host/Hostess ID - PIAYA LCBC W/PLT COUNT & AUTO [id number] 05:47:00 Test Item Value Reference Range Interpretation [...] PERCENT (BEAKER) (test code = 2801) POCT-GLUCOSE [id number] 04:38:00 Test Item Value Reference Range Interpretation Comments POC-GLUCOSE METER 101 mg/dL 70-110 : TESTED A T [facility] 6720 (BEAKER) (test code = [facility], 1538) 94058: Welcome Wagon Host/Hostess/Techni ashley ID = [id number] for Al i, Terrie POCT-GLUCOSE [id number] 01:21:00 Test Item Value Reference Range Interpretation Comments POC-GLUCOSE METER 103 mg/dL 70-110 : TESTED A T [facility] 6720 (BEAKER) (test code = [facility], 1538) 77735: Welcome Wagon Host/Hostess/Techni ashley ID = [id number] for Al i, Terrie POCT-GLUCOSE [id number] 20:42:00 Test Item Value Reference Range Interpretation Comments POC-GLUCOSE METER 121 mg/dL 70-110 H : TESTED A T [facility] 6720 (BEAKER) (test code = [facility], 1538) 91283: Welcome Wagon Host/Hostess/Techni ashley ID = [id number] for Al iTerrie POCT-GLUCOSE [id number] 15:52:00 Test Item Value Reference Range Interpretation Comments POC-GLUCOSE METER 89 mg/dL 70-110 : TESTED A T [facility] 6720 (BEAKER) (test code = [facility], 1538) 31787: Welcome Wagon Host/Hostess/Techni ashley ID = [id number] for ZAIN S, KEYAIRA BASIC METABOLIC [id number] 13:38:00 Test Item Value Reference Range Interpretation [...] S NOT APPLICABLE FOR DIALYSIS PATIEN TS. Welcome Wagon Host/Hostess ID - NTPPOCT-GLUCOSE [id number] 13:00:00 Test Item Value Reference Range Interpretation Comments POC-GLUCOSE METER 127 mg/dL 70-110 H : TESTED A T [facility] 6720 (BEAKER) (test code = 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 Peak: Aortic Valve Peak Velocity: 2 m/s [...] Velocity: 2.75 m/s TR Gradient: 30.2 mmHgCHI [facility] Doctors HospitalPOCT-GLUCOSE [id number] 08:26:00 Test Item Value Reference Range Interpretation Comments POC-GLUCOSE METER 119 mg/dL 70-110 H : TESTED A T [facility] 6720 (BEAKER) (test code = [facility], 1538) 00987: Welcome Wagon Host/Hostess/Techni ashley ID = [id number] for DA VIS, KEYAIRA POCT-GLUCOSE [id number] 05:16:00 Test Item Value Reference Range Interpretation Comments POC-GLUCOSE METER 105 mg/dL 70-110 : TESTED A T [facility] 6720 (BEAKER) (test code [facility], = 1538) 20335: Welcome Wagon Host/Hostess/Techni ashley ID = [id number] for OZZ, NEGRITA POCT-GLUCOSE [id number] 21:23:00 Test Item Value Reference Range Interpretation Comments POC-GLUCOSE METER 74 mg/dL 70-110 : TESTED A T [facility] 6720 (BEAKER) (test code = [facility], 1538) 52575: Welcome Wagon Host/Hostess/Techni ashley ID = [id number] for OZZ, NEGRITA POCT-GLUCOSE [id number] 13:01:00 Test Item Value Reference Range Interpretation Comments POC-GLUCOSE METER 93 mg/dL 70-110 : TESTED A T [facility] 6720 (BEAKER) (test code = [facility], 1538) 15298: Welcome Wagon Host/Hostess/Techni ashley ID = [id number] for ZAIN S, KEYAIRA Manual [id number] 10:40:00 Test Item Value Reference Range Interpretation [...] Cells (test 1+ few code = 481) Uvalde Cells (test code = 1+ few 474) Artifact (test code = Present 3432) Helmet Cells (test code 1+ few = 3434) Platelet Conc (test Decreased code = 3438) JEWEL (test code = JEWEL) Welcome Wagon Host/Hostess ID - [id number] ID - Miranda Dorian comments: Slide comments: Lab Interpretation Abnormal (test code = 81993-5) [facility] W/PLT COUNT & AUTO [id number] 10:40:00 Test Item Value Reference Range Interpretation [...] CONCENTRATION Decreased (CELLAVISION)(BEAKER) (test code = 3438) Welcome Wagon Host/Hostess ID - 6000Operator ID - Miranda Dorian comments: Slide comments: BASIC METABOLIC [id number] 05:14:00 Test Item Value Reference Range Interpretation [...] S NOT APPLICABLE FOR DIALYSIS PATIEN TS. Welcome Wagon Host/Hostess ID - STEPHANIE [id number] 05:13:00 Test Item Value Reference Range Interpretation Comments PHOSPHORUS (BEAKER) (test code = 5.6 mg/dL 2.3-4.7 H 604) Welcome Wagon Host/Hostess ID - STEPHANIE [id number] 05:13:00 Test Item Value Reference Range Interpretation Comments MAGNESIUM (BEAKER) (test code = 1.8 mg/dL 1.6-2.6 627) Welcome Wagon Host/Hostess ID - STEPHANIE MPrepare Leuko-Red [id number] 23:54:00 Test Item Value Reference Range Interpretation Comments CROSSMATCH (test code = 2264) COMPATIBLE Unit ABO (test code = A Pos 3170961) UNIT NUMBER (test code = [id number] 934-0) Status (test code = 6456194) TX_TIMEINCHART Blood Bank Product (test code RED BLOOD CELLS = 2263) PRODUCT CODE (test code = J8918H39 933-2) [facility] [id number] 21:11:00 Test Item Value Reference Range Interpretation Comments POC-GLUCOSE METER 80 mg/dL 70-110 : TESTED A T [facility] 6720 (BEAKER) (test code = MAYTE Alexander [facility], 1538) 03401: Welcome Wagon Host/Hostess/Techni ashley ID = [id number] for OZManasa NEGRITA POCT-GLUCOSE [id number] 18:52:00 Test Item Value Reference Range Interpretation Comments POC-GLUCOSE METER 146 mg/dL 70-110 H : TESTED A T [facility] 6720 (BEAKER) (test code = [facility], 1538) 54304: Welcome Wagon Host/Hostess/Techni ashley ID = [id number] for DA VIS, DECEMBER POCT-GLUCOSE [id number] 18:29:00 Test Item Value Reference Range Interpretation Comments POC-GLUCOSE METER 40 mg/dL 70-110 LL : TESTED A T [facility] 6720 (BEAKER) (test code = [facility], 1538) 12313: Welcome Wagon Host/Hostess/Techni ashley ID = [id number] for CHEPE VOSS HEMOGLOBIN AND [id number] 18:09:00 Test Item Value Reference Range Interpretation Comments HEMOGLOBIN (BEAKER) (test code = 9.4 GM/DL 11.2-15.7 L 410) HEMATOCRIT (BEAKER) (test code = 25.8 % 34.1-44.9 L 411) Welcome Wagon Host/Hostess ID - [id number] 12 [id number] 17:26:12Interface, External Ris In - 02/11/2020 5:26 PM CDTVentricular Rate 84 BPMAtrial Rate 84 BPMP-R Interval 102 msQRS Duration 78 msQ-T Interval 402 msQTC Calculation(Bazett) 475 msP Phoenix 44 degreesR [place] 51 degreesT [place] 251 degreesSinus rhythm with short PRT wave abnormality, consider inferior ischemiaT wave abnormality, consider anterolateral ischemiaProlonged QTAbnormal ECGWhen compared with ECG of 10-FEB-2020 04:07,Premature ventricular complexes are no longer PresentT wave inversion more evidentin Anterior leadsConfirmed by MD Webster Roberto ([id number]) on 02/11/2020 5:26:11 [facility] 2020-02-11 16:03:00 Test Item Value Reference Range Interpretation Comments POC-GLUCOSE METER 73 mg/dL 70-110 : TESTED A T [facility] 6720 (BEAKER) (test code = MAYTE Alexander [facility], 1538) 68733: Welcome Wagon Host/Hostess/Techni ashley ID = [id number] for MATS ON, TOMMIE BASIC METABOLIC [id number] 13:08:00 Test Item Value Reference Range Interpretation [...] S NOT APPLICABLE FOR DIALYSIS PATIEN TS. Welcome Wagon Host/Hostess ID Abigail AYALA [id number] 13:01:00 Test Item Value Reference Range Interpretation Comments CORTISOL, TOTAL (BEAKER) (test 22.3 ug/dL 3.7-19.4 H code = 2755) Welcome Wagon Host/Hostess ID Abigail AYALA FPOCT-GLUCOSE [id number] 12:12:00 Test Item Value Reference Range Interpretation Comments POC-GLUCOSE METER 70 mg/dL 70-110 : TESTED A T [facility] 6720 (BEAKER) (test code = MAYTE Alexander [facility], 1538) 93998: Welcome Wagon Host/Hostess/Techni ashley ID = [id number] for KENDRA ANURBAN E POCT-GLUCOSE [id number] 11:33:00 Test Item Value Reference Range Interpretation Comments POC-GLUCOSE METER 31 mg/dL 70-110 LL : Notified RN/MD: TESTED (BEAKER) (test code = AT [facility] [address] [facility] 2768) [facility], 770 30: Welcome Wagon Host/Hostess/Techni sahley ID = [id number] for ELMER MARTINI [id number] 10:59:00 Test Item Value Reference Range Interpretation Comments RPR (test code = 05164-5) Nonreactive Nonreactive Lab Interpretation (test code = Normal 18813-3) [facility] HospitalRPR2020-[facility] 10:59:00 Test Item Value Reference Range Interpretation Comments RPR SCREEN (BEAKER) (test code = Nonreactive Nonreactive 420) CBC W/PLT COUNT & AUTO [id number] 08:46:00 Test Item Value Reference Range Interpretation [...] CONCENTRATION Decreased (CELLAVISION)(BEAKER) (test code = 3438) Welcome Wagon Host/Hostess ID - [id number] differential manuallyHemoglobin [id number] 08:28:00 Test Item Value Reference Range Interpretation Comments Hemoglobin A1C (test code = 4548-4) 5.6 % 4.3-6.1 Lab Interpretation (test code = Normal 84515-6) [facility] HospitalHEMOGLOBIN [id number] 08:28:00 Test Item Value Reference Range Interpretation Comments HEMOGLOBIN A1C (BEAKER) (test code = 5.6 % 4.3-6.1 368) POCT-GLUCOSE [id number] 07:42:00 Test Item Value Reference Range Interpretation Comments POC-GLUCOSE METER 90 mg/dL 70-110 : TESTED A T [facility] 6720 (BEAKER) (test code = [facility], 1538) 25115: Welcome Wagon Host/Hostess/Techni ashley ID = [id number] for ELMER MARTINI VITAMIN B12 AND [id number] 07:06:00 Test Item Value Reference Range Interpretation Comments VITAMIN B12 (BEAKER) (test code = 824 pg/mL 213-816 H 774) FOLATE (BEAKER) (test code = 362) 3.00 ng/mL >=7.00 L Welcome Wagon Host/Hostess ID - ANNA LPOCT-GLUCOSE [id number] 04:46:00 Test Item Value Reference Range Interpretation Comments POC-GLUCOSE METER 80 mg/dL 70-110 : TESTED A T [facility] 6720 (BEAKER) (test code = [facility], 1538) 24399: Welcome Wagon Host/Hostess/Techni ashley ID = [id number] for CHRISTINA SUAREZ Uric [id number] 03:32:00 Test Item Value Reference Range Interpretation Comments Uric Acid (test code = 10.6 mg/dL 2.6-7.2 H 3084-1) JEWEL (test code = JEWEL) Welcome Wagon Host/Hostess ID - ANNA L Lab Interpretation (test Abnormal code = 25089-6) [facility] HospitalURIC [id number] 03:32:00 Test Item Value Reference Range Interpretation Comments URIC ACID (BEAKER) (test code = 10.6 mg/dL 2.6-7.2 H 773) Welcome Wagon Host/Hostess ID - ANNA LLACTIC ACID, [id number] 02:51:00 Test Item Value Reference Range Interpretation Comments LACTATE BLOOD VENOUS (2) (BEAKER) 1.27 mmol/L 0.50-2.20 (test code = 2872) Welcome Wagon Host/Hostess ID - ANNA LBASIC METABOLIC [id number] 02:39:00 Test Item Value Reference Range Interpretation [...] S NOT APPLICABLE FOR DIALYSIS PATIEN TS. Welcome Wagon Host/Hostess ID - ANNA [id number] 02:36:00 Test Item Value Reference Range Interpretation Comments MAGNESIUM (BEAKER) (test code = 2.2 mg/dL 1.6-2.6 627) Welcome Wagon Host/Hostess ID - ANNA [id number] 02:36:00 Test Item Value Reference Range Interpretation Comments PHOSPHORUS (BEAKER) (test code = 4.8 mg/dL 2.3-4.7 H 604) Welcome Wagon Host/Hostess ID - ANNA LPTH, [id number] 02:20:00 Test Item Value Reference Range Interpretation Comments PTH (test code = 2731-8) 530.8 pg/mL 8.5-72.5 H JEWEL (test code = JEWEL) Welcome Wagon Host/Hostess ID - ANNA L Lab Interpretation (test Abnormal code = 26629-1) [facility] HospitalPTH, [id number] 02:20:00 Test Item Value Reference Range Interpretation Comments PARATHYROID HORMONE INTACT 530.8 pg/mL 8.5-72.5 H (BEAKER) (test code = 577) Welcome Wagon Host/Hostess ID Abigail CASTILLO LVancomycin level, [id number] 02:06:00 Test Item Value Reference Range Interpretation Comments Vancomycin Rm (test 5.0 ug/mL code = 07633-8) JEWEL (test code = Reference Range: No JEWEL) NormalsOperator ID - ANNA Mejia [facility] HospitalVANCOMYCIN LEVEL, [id number] 02:06:00 Test Item Value Reference Range Interpretation Comments VANCOMYCIN RANDOM (DANII) (test 5.0 ug/mL code = 523) Reference Range: No NormalsOperator ID - ANNA LPOCT-GLUCOSE [id number] 01:48:00 Test Item Value Reference Range Interpretation Comments POC-GLUCOSE METER 92 mg/dL 70-110 : TESTED A T [facility] 6720 (DANII) (test code = [facility] [place], 1538) 45089: Welcome Wagon Host/Hostess/Techni ashley ID = [id number] for CHRISTINA SUAREZ HEMODIALYSIS [id number] 00:15:32Merlyn Gutierrez RN 02/11/2020 2:37 AMVerified consent [...] HBsAg Screen Latest Ref Range: Nonreactive NonreactiveCHI [facility] POCT-GLUCOSE [id number] 23:41:00 Test Item Value Reference Range Interpretation Comments POC-GLUCOSE METER 87 mg/dL 70-110 : TESTED A T [facility] 6720 (DANII) (test code = MAYTE Catherine [facility], 1538) 65558: Welcome Wagon Host/Hostess/Techni ashley ID = [id number] for CHRISTINA SUAREZ Hepatitis B surface [id number] 22:30:00 Test Item Value Reference Range Interpretation Comments HBsAg Screen (test code Nonreactive Nonreactive = 5195-3) JEWEL (test code = JEWEL) Specimen is considered negative for HBsAg. Lab Interpretation (test Normal code = 59091-4) [facility] HospitalHEPATITIS B SURFACE [id number] 22:30:00 Test Item Value Reference Range Interpretation Comments HEPATITIS B SURFACE ANTIGEN (2) Nonreactive Nonreactive (BEAKER) (test code = 2585) Specimen is considered negative for HBsAg.CBC W/PLT COUNT & AUTO [id number] 22:15:00 Test Item Value Reference Range Interpretation [...] 0-0 CELLS (BEAKER) (test code = 413) [id number] 21:13:00 Test Item Value Reference Range Interpretation Comments Fibrinogen (test code = 3255-7) 218 mg/dl 225-434 L Lab Interpretation (test code = Abnormal 02004-4) [facility] HospitalFIBRINOGEN2020-05-26 21:13:00 Test Item Value Reference Range Interpretation Comments FIBRINOGEN LEVEL (BEAKER) (test 218 mg/dl 225-434 L code = 658) BASIC METABOLIC [id number] 21:01:00 Test Item Value Reference Range Interpretation [...] S NOT APPLICABLE FOR DIALYSIS PATIEN TS. Welcome Wagon Host/Hostess ID - BSHEMOGLOBIN AND [id number] 20:31:00 Test Item Value Reference Range Interpretation Comments HEMOGLOBIN (BEAKER) (test code = 10.4 GM/DL 11.2-15.7 L 410) HEMATOCRIT (BEAKER) (test code = 29.0 % 34.1-44.9 L 411) Welcome Wagon Host/Hostess ID - 6000POCT-GLUCOSE [id number] 20:28:00 Test Item Value Reference Range Interpretation Comments POC-GLUCOSE METER 155 mg/dL 70-110 H : TESTED A T [facility] 6720 (BEAKER) (test code = [facility] [place], 1538) 89159: Welcome Wagon Host/Hostess/Techni ashley ID = [id number] for CHRISTINA QUINTANILLA POCT-GLUCOSE [id number] 18:06:00 Test Item Value Reference Range Interpretation Comments POC-GLUCOSE METER 209 mg/dL 70-110 H : TESTED A T [facility] 6720 (BEAKER) (test code = MAYTE Alexander [facility], 1538) 46684: Welcome Wagon Host/Hostess/Techni ashley ID = [id number] for KAYLA CHRISTOPHER URINALYSIS W/ REFLEX URINE [id number] 18:00:00 Test Item Value Reference Range Interpretation [...] = 1584) SOURCE(BEAKER) (test code = 2795) Welcome Wagon Host/Hostess ID - [auto]Welcome Wagon Host/Hostess ID - techANG, NEPHROSTOMY, PERC, EXTERNAL DRAIN [...] to gravity.____ PROCEDURE SUMMARY- Target organ: Bilateral [place] kidneys- Image-guided placement of genitourinary catheter(s)- Additional [...] Contrast injection was performed.Genitourinary catheter placed: 10 [place] multipurpose Findings: Moderate hydronephrosis. Locking loop in renal pelvis.External catheter securement: Non-absorbablesuture Right genitourinary catheter placementLocal anesthesia was administered. A needle was advanced into the renal collecting system under ultrasound and fluoroscopy guidance. A wire was advanced, the tract was serially dilated and a nephrostomy tube was placed. Contrast injection was performed.Genitourinary catheter placed: 10 [place] multipurpose Findings: Severe hydronephrosis. Locking loop [...] MDReport Verified Date/Time: 02/10/2020 17:23:45 Reading Location: [place] [address] Angio Body Reading Room IR Percutaneous Nephrostomy - Ext. Drain [id number] 17:23:00 Interface, External Ris In - 02/10/2020 5:25 PM CDTFINAL REPORT PROCEDURE: Genitourinary catheter placement Procedural PersonnelAttending physician(s): Yani Malone MDGeneva General Hospital physician(s): NoneResident physician(s): NoneAdvanced practice provider(s): None Pre-procedure diagnosis: Bilateral hydronephrosisPost-procedure diagnosis: SameIndication: Urinary obstructionCatheter(s) placed because the previous catheter(s) became dislodged within 30 days of placement (QCDR): NoAdditional clinical history: None Complications: No immediate complications. IMPRESSION: Bilateral nephrostomytube placement. Plan: Bilateral PCNs to gravity. PROCEDURE SUMMARY- Target organ: Bilateral [place] kidneys- Image-guided placement of genitourinary catheter(s)- Additional [...] Contrast injection was performed.Genitourinary catheter placed: 10 [place] multipurpose Findings: Moderate hydronephrosis. Locking loop in renal pelvis.External catheter securement: Non-absorbable suture Right genitourinary catheter placementLocal anesthesia was administered. A needle was advanced into the renal collecting system under ultrasound and fluoroscopy guidance. A wire was advanced, the tract was serially dilated and a nephrostomy tube was placed. Contrast injection was performed.Genitourinary catheter placed: 10 [place] multipurpose Findings: Severe hydronephrosis. Locking loop [...] MDReport Verified Date/Time: 02/10/2020 17:23:45 Reading Location: [facility] B1 P048 Angio Body [facility] [id number] 16:31:00 Test Item Value Reference Range Interpretation Comments POC-GLUCOSE METER 256 mg/dL 70-110 H : TESTED A T [facility] (BEAKER) (test code = [address] [facility], 15[address]) [address] [place] [address]: Welcome Wagon Host/Hostess/Techni ashley ID = [id number] for VANESSA BUSH POCT-GLUCOSE [id number] 16:06:00 Test Item Value Reference Range Interpretation Comments POC-GLUCOSE METER 54 mg/dL 70-110 L : TESTED A T [facility] 6720 (BEAKER) (test code = [facility], 1538) 96289: Welcome Wagon Host/Hostess/Techni ashley ID = [id number] for BRIONNA SAINIA POCT-GLUCOSE [id number] 16:03:00 Test Item Value Reference Range Interpretation Comments POC-GLUCOSE METER 25 mg/dL 70-110 LL : [facility] (test code = [facility], 1538) 57439: Welcome Wagon Host/Hostess/Techni ashley ID = [id number] for VANESSA FRIAS POCT-GLUCOSE [id number] 15:52:00 Test Item Value Reference Range Interpretation Comments POC-GLUCOSE METER 23 mg/dL 70-110 LL : Will Rep eat Test: (BEAKER) (test code = TESTED AT [facility] 6720 1538) [facility], [address]: Welcome Wagon Host/Hostess/Techni ashley ID = [id number] for VANESSA FRIAS [id number] 14:43:00 Test Item Value Reference Range Interpretation Comments FERRITIN (BEAKER) (test code = 513.21 ng/mL 5.00-275.00 H 361) Welcome Wagon Host/Hostess ID - AKILAH EHEMOGLOBIN AND [id number] 13:31:00 Test Item Value Reference Range Interpretation Comments HEMOGLOBIN (BEAKER) 10.2 GM/DL 11.2-15.7 L Discorda nt HGB result (test code = 410) compared t o previous result; clinica l correlation req uired. HEMATOCRIT (BEAKER) 28.5 % 34.1-44.9 L (test code = 411) Welcome Wagon Host/Hostess ID - [id number] 13:03:00 Test Item Value Reference Range Interpretation Comments HAPTOGLOBIN (BEAKER) (test code = 226 mg/dL 14-258 366) Welcome Wagon Host/Hostess ID - ADMINIRON, TIBC, % SAT. (WITHOUT FERRITIN)2020-02-10 13:03:00 Test Item Value Reference Range Interpretation Comments IRON (BEAKER) (test code = 547) 25.0 ug/dL 40.0-160.0 L TOTAL IRON BINDING CAPACITY 123 ug/dL 250-450 L (BEAKER) (test code = 769) IRON % SATURATION (2) (BEAKER) 20 % 20-55 (test code = 2590) Welcome Wagon Host/Hostess ID - ADMINBlood gas, [id number] 12:52:00 Test Item Value Reference Range Interpretation Comments pH, Arterial (test code = 2744-1) 7.45 7.35-7.45 pCO2, Arterial (test code = 25 35- 45 mmHg L 2018-8) pO2, Arterial (test code = 55 80- 90 mmHg L 3-7) O2 Sat, Arterial (test code = 92.2 % 96-97 L 2708-6) HCO3, Arterial (test code = 17 mmol/L 21-29 L 1959-4) Base Excess, Arterial (test code -6.1 mmol/L -2-3 L = 1925-7) Patient Temperature (test code = 35.6 C 8310-5) FIO2 (test code = 1819) 21 % Lab Interpretation (test code = Abnormal 67303-3) [facility] HospitalBLOOD GAS, [id number] 12:52:00 Test Item Value Reference Range Interpretation [...] (test code = 1819) 21.0 % POCT-GLUCOSE [id number] 11:50:00 Test Item Value Reference Range Interpretation Comments POC-GLUCOSE METER 88 mg/dL 70-110 : TESTED A T 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 Welcome Wagon Host/Hostess ID - EDGAR, CHEST, 1 VIEW, NON [id number] 10:29:00Reason for exam:->post-trialysis catheter placementShould this be [...] [place] Verified Date/Time: 02/10/2020 10:29:20 Reading Location: [facility] Radiology Reading Room XR chest 1 view portable / [id number] 10:29:00 Interface, External Ris In - 02/10/2020 [...] [place] Verified Date/Time: 02/10/2020 10:29:20 Reading Location: [facility] Radiology Reading Room [facility] W/PLT COUNT & AUTO [id number] 08:53:00 Test Item Value Reference Range Interpretation [...] CONCENTRATION Decreased (CELLAVISION)(BEAKER) (test code = 3438) Welcome Wagon Host/Hostess ID - [id number] ID - Rere Herrera comments: Slide comments:PHOSPHORUS 2020-02-10 08:03:00 Test Item Value Reference Range Interpretation Comments PHOSPHORUS (BEAKER) (test code = 8.2 mg/dL 2.3-4.7 H 604) Welcome Wagon Host/Hostess ID - LALACTATE DEHYDROGENASE (LDH)2020-02-10 08:03:00 Test Item Value Reference Range Interpretation Comments LACTATE DEHYDROGENASE (BEAKER) (test 406 U/L 125-220 H code = 635) Welcome Wagon Host/Hostess ID - [id number] 07:48:00 Test Item Value Reference Range Interpretation Comments PARTIAL THROMBOPLASTIN TIME 30.5 seconds 22.5-36.0 (BEAKER) (test code = 760) [id number] 07:48:00 Test Item Value Reference Range Interpretation Comments FIBRINOGEN LEVEL (BEAKER) (test 215 mg/dl 225-434 L code = 658) PROTHROMBIN TIME/[id number] 07:47:00 Test Item Value Reference Range Interpretation [...] INR is2.5-3.5 for patients wiht mechanical heart valves.RETICULOCYTE [id number] 07:38:00 Test Item Value Reference Range Interpretation Comments RETICULOCYTE COUNT PCT (BEAKER) (test 1.3 % 0.5-1.7 code = 575) Welcome Wagon Host/Hostess ID - [id number]-COV2/RT-PCR ([facility])2020-02-10 05:26:00 Test Item Value Reference Range Interpretation Comments SARS-COV2/RT-PCR (test Not Detected Not Detected, Negative code = 2783796) SARS-COV-2 PERFORMING LAB [facility] (test code = 1248071) Negative results do not preclude SARS-CoV-2 infection [...] of the Act.Fact Sheet for Healthcare Pro viders:https://www.[employer]/Documents/Xpert%20Xpress%20SARS%20CoV-2/Fact%20Sh eets/565-6352%01PZIM-XMB-8%20HEALTHCARE%20PROVIDERS%20FACT%20SHEET.pdfFact Sheet for Healthcare Patients:https://www.[employer]/Documents/Xpert%20Xpress%20SARS%20CoV-2/Fact%20Sheets/3023801%20SARS-COV -2%20PATIENT%20FACT%20SHEET.pdfPerforming Laboratory:[facility], [place] [address]JERTX, [id number] 05:15:00 Test Item Value Reference Range Interpretation Comments ABO Grouping (test code = 2588) A Rh Factor (test code = 2589) [facility] [id number] 04:15:00 Test Item Value Reference Range Interpretation [...] S NOT APPLICABLE FOR DIALYSIS PATIEN TS. Welcome Wagon Host/Hostess ID - [id number] 04:08:00 Test Item Value Reference Range Interpretation Comments PARTIAL THROMBOPLASTIN TIME 28.3 seconds 22.5-36.0 (BEAKER) (test code = 760) PROTHROMBIN TIME/[id number] 04:07:00 Test Item Value Reference Range Interpretation [...] mechanical heart valves.RAD, CHEST, 1 VIEW, NON [id number] 04:00:00AdmissionReason for exam:->admissionShould this be performed at [...] No acute abnormality.Other: None. Signed: Ines Juárez MDRepuniversity [facility] Verified Date/Time: 02/10/2020 04:00:06 Troponin [id number] 03:58:00 Test Item Value Reference Range Interpretation Comments Troponin I (test code = 0.68 ng/mL 0-0.03 54278-4) JEWEL (test code = JEWEL) Troponin I [...] [place] Lab Interpretation (test Abnormal code = 80185-1) [facility] [id number] 03:58:00 Test Item Value Reference Range Interpretation [...] failure, acidosis, acute neurological disease, and persistent tachyarrhythmia.Welcome Wagon Host/Hostess ID - LAB-type Natriuretic Factor (BNP)2020-02-10 03:47:00 Test Item Value Reference Range Interpretation Comments BNP (test code = 90585-3) 2406 pg/mL 0-100 H JEWEL (test code = JEWEL) Welcome Wagon Host/Hostess ID - [place] Lab Interpretation (test Abnormal code = 12262-6) [facility] NATRIURETIC FACTOR (BNP)2020-02-10 03:47:00 Test Item Value Reference Range Interpretation Comments B-TYPE NATRIURETIC PEPTIDE 2406 pg/mL 0-100 H (BEAKER) (test code = 700) [employer] W[employer] Host/Hostess ID - LABLOOD GAS, [id number] 03:29:00 Test Item Value Reference Range Interpretation [...]
--- NOTE | 2020-04-12 11:25 | RAD REPORT ---
EXAM DESCRIPTION: RAD - Chest Single View - 04/12/2020 10:54 am CLINICAL HISTORY: BLUNT TRAUMA, chest pain COMPARISON: Portable chest March 28 TECHNIQUE: AP portable chest image was obtained 04/12/2020 10:54 am . FINDINGS: No pulmonary contusion, mass or focal infiltrate seen. Interstitial pattern matches compar kita. Left subclavian Port-A-Cath is in place. Bilateral percutaneous nephrostomy tubes are seen. Hea rt and vasculature are normal. No measurable pleural effusion and no pneumothorax. No acute bone abno rmality seen. Old postsurgical changes noted to the right clavicle. Rib assessment is limited. Follow -up directed rib series may be helpful if there is concern for rib fracture. No acute aortic findings suspected. IMPRESSION: As detailed above, no acute cardiopulmonary finding. No significant change from comparis on. Concerns for rib fracture can be further addressed with dedicated rib series.
--- NOTE | 2020-04-12 11:37 | EDPHYS ---
Physician Documentation [facility] Name: Jeannie John Age: 54 yrs Sex: Female : 1965 Arrival Date: 04/12/2020 Time: 09:24 Bed 2 Private MD: ED Physician Bernabe Randall HPI: 04/12 09:40 This 54 yrs old Female presents to ER via Wheelchair with complaints of Leg rn Pain. 09:40 The patient presents with pain. The complaints affect the right thigh. Onset: The rn symptoms/episode began/occurred 1 month(s) ago. Modifying factors: The symptoms are alleviated by nothing. the symptoms are aggravated by movement. Severity of symptoms: At their worst the symptoms were moderate, in the emergency department the symptoms are unchanged. The patient has experienced similar episodes in the past. Reports right leg pain for about 1 month, fell yesterday out of wheelchair, now pain worse, has cervical cancer undergoing chemo/radiation. No other injuries. . Historical: - Allergies: 09:38 PENICILLINS; ss - PMHx: 09:38 "pelvic cancer"; ss - PSHx: 09:38 None; ss - Immunization history:: Adult Immunizations up to date. - Social history:: Smoking status: Patient reports the use of cigarette tobacco products, smokes one-half pack cigarettes per day. - Family history:: not pertinent. - Hospitalizations: : No recent hospitalization is reported. ROS: 09:40 Constitutional: Negative for fever, chills, and weight loss, Eyes: Negative for injury, rn pain, redness, and discharge, Neck: Negative for injury, pain, and swelling, Cardiovascular: Negative for chest pain, palpitations, and edema, Respiratory: Negative for shortness of breath, cough, wheezing, and pleuritic chest pain, Abdomen/GI: Negative for abdominal pain, nausea, vomiting, diarrhea, and constipation, Back: Negative for injury and pain, MS/Extremity: + right leg injury and pain Skin: Negative for injury, rash, and discoloration, Neuro: Negative for headache, weakness, numbness, tingling, and seizure. Exam: 09:40 Constitutional: Thin, frail woman, in pain with movement from wheelchair Neck: No rn vertebral point tenderness. Chest/axilla: Normal chest wall appearance and motion. Nontender with no deformity. No lesions are appreciated. Cardiovascular: Tachycardic, regular Respiratory: No increased work of breathing, no retractions or nasal flaring. Abdomen/GI: soft, non-tender MS/ Extremity: Pulses equal, no cyanosis. + right proximal leg pain and tenderness, unable to pinpoint origin of pain, + painful ROM, no deformity or rotation. Neuro: Awake and alert, GCS 15 Vital Signs: 09:32 BP 106 / 58; Pulse 85; Resp 16; Temp 97; Pulse Ox 97% ; sv 09:36 BP 106 / 58; Pulse 107; Resp 18; Temp 97.0(TE); Pulse Ox 99% on R/A; Weight 44.45 kg ss (R); Pain 9/10; 10:51 BP 94 / 66; Pulse 85; Resp 18; Pulse Ox 100% ; sv 12:00 BP 134 / 53; Pulse 87; Resp 20; Temp 97.5; Pulse Ox 95% on R/A; sv Trauma Score (Adult): 09:32 Eye Response: spontaneous(1); Verbal Response: oriented(1); Motor Response: obeys sv commands(2); Systolic BP: > 89 mm Hg(4); Respiratory Rate: 10 to 29 per min(4); Vinayak Score: 15; Trauma Score: 12 10:30 Eye Response: spontaneous(1); Verbal Response: oriented(1); Motor Response: obeys sv commands(2); Systolic BP: > 89 mm Hg(4); Respiratory Rate: 10 to 29 per min(4); Tustin Score: 15; Trauma Score: 12 12:00 Eye Response: spontaneous(1); Verbal Response: oriented(1); Motor Response: obeys sv commands(2); Systolic BP: > 89 mm Hg(4); Respiratory Rate: 10 to 29 per min(4); Tustin Score: 15; Trauma Score: 12 MDM: 09:26 Patient medically screened. rn 11:20 ED course: Initiated transfer to [facility] for femur fracture, no ortho here, rn isolated injury. . 11:33 Differential diagnosis: closed fracture. Data reviewed: vital signs, nurses notes, rn radiologic studies, plain films, and as a result, I will admit patient. Counseling: I had a detailed discussion with the patient and/or guardian regarding: the historical points, exam findings, and any diagnostic results supporting the discharge/admit diagnosis, radiology results, the need to transfer to another facility, [facility] does not immediately have the required specialist. Response to treatment: the patient's symptoms have mildly improved after treatment, and as a result, I will admit patient. ED course: Accepted for transfer to [facility], without consultation. . 04/12 09:36 Order name: XRAY Pelvis; Complete Time: 11:44 rn 04/12 09:36 Order name: XRAY Femur RIGHT; Complete Time: 11:44 rn 04/12 10:49 Order name: Chest Single View; Complete Time: 11:36 EDMS 04/12 09:36 Order name: IV Start; Complete Time: 10:08 rn Administered Medications: 10:00 Drug: morphine 4 mg {Note: rass3.} Route: IVP; Site: Port-a-cath; sv 10:51 Follow up: Response: No adverse reaction; RASS: Alert and Calm (0) sv 12:13 Drug: morphine 4 mg {Note: rass2.} Route: IVP; Site: Port-a-cath; sv 12:35 Follow up: Response: No adverse reaction; RASS: Alert and Calm (0) sv Disposition: 04/12/20 11:36 Transfer ordered to [facility]. Diagnosis is Displaced fracture of base of neck of right femur. - Reason for transfer: Higher level of care. - Accepting physician is Dr. Edwards. - Condition is Stable. - Problem is new. - Symptoms have improved. Signatures: Dispatcher [employer] EDTN Roxi Araujo RN RN sv Nieto, Roman, MD MD rn Smirch, Shelby, RN RN Corrections: (The following items were deleted from the chart) 10:54 09:37 Knee Right 2 View+RAD.RAD.BRZ ordered. EDTN EDTN 11:16 09:37 Extremity Venous [employer]+US.RAD.BRZ ordered. [facility] EDMS 12:35 11:36 04/12/2020 11:36 Transfer ordered to [facility]. Diagnosis is sv Displaced fracture of base of neck of right femur. Reason for transfer: Higher level of care. Accepting physician is Dr. Edwards. Condition is Stable. Problem is new. Symptoms have improved. rn
--- NOTE | 2020-04-12 11:37 | RAD REPORT ---
EXAM DESCRIPTION: RAD - Pelvis - 04/12/2020 10:54 am CLINICAL HISTORY: BLUNT TRAUMA, fall COMPARISON: CT-RAD THERAPY FIELD PELVIS dated 03/03/2020 TECHNIQUE: AP imaging of the pelvis was obtained. FINDINGS: No fracture of the bony pelvis identified. Proximal right femur fracture is separately det brayden. Left proximal femur and hip joint show no acute findings. Sacral ala assessment is limited due to the density of stool content. IMPRESSION: No fracture or acute finding of the bony pelvis. Proximal right femur fracture findings separately detailed.
--- NOTE | 2020-04-12 11:37 | ER ---
Nurse's Notes [facility] Name: Jeannie John Age: 54 yrs Sex: Female : 1965 Arrival Date: 04/12/2020 Time: 09:24 Bed 2 Private MD: Diagnosis: Displaced fracture of base of neck of right femur Presentation: 04/12 09:36 Chief complaint: Patient states: R upper leg pain x 1 month. Is worse after falling ss from a standing position yesterday. Comes and goes. Coronavirus screen: Patient denies a cough. Patient denies shortness of breath or difficulty breathing. Patient denies measured and/or subjective temperature greater than 100.4F prior to today's visit. Patient denies travel on a cruise ship or to a country the [facility] currently lists as an affected area. Patient denies contact with known and/or suspected case of COVID-19. Proceed with normal triage. Ebola Screen: Patient denies exposure to infectious person. Patient denies travel to an Ebola-affected area in the 21 days before illness onset. Initial Sepsis Screen: Does the patient meet any 2 criteria? No. Patient's initial sepsis screen is negative. Does the patient have a suspected source of infection? No. Patient's initial sepsis screen is negative. Risk Assessment: Do you want to hurt yourself or someone else? Patient reports no desire to harm self or others. Onset of symptoms was February 2020. 09:36 Method Of Arrival: Wheelchair ss 09:36 Acuity: GI 3 ss Historical: - Allergies: 09:38 PENICILLINS; ss - PMHx: 09:38 "pelvic cancer"; ss - PSHx: 09:38 None; ss - Immunization history:: Adult Immunizations up to date. - Social history:: Smoking status: Patient reports the use of cigarette tobacco products, smokes one-half pack cigarettes per day. - Family history:: not pertinent. - Hospitalizations: : No recent hospitalization is reported. Screenin:35 Abuse screen: Denies threats or abuse. Denies injuries from another. Nutritional sv screening: No deficits noted. Tuberculosis screening: No symptoms or risk factors identified. Fall Risk Fall in past 12 months (25 points). Secondary diagnosis (15 points) brain injury. No IV (0 pts). Ambulatory Aid- None/Bed Rest/Nurse Assist (0 pts). Gait- Normal/Bed Rest/Wheelchair (0 pts) Mental Status- Overestimates/Forgets Limitations (15 pts.). Total Hicks Fall Scale indicates High Risk Score (45 or more points). Fall prevention measures have been instituted. Placed Close to Nursing Station Frequent Obs/Assessments Occuring Family Present and informed to notify staff if the need to leave the bedside As available patient and family educated on Fall Prevention Program and Strategies. Assessment: 09:55 General: Appears in no apparent distress. uncomfortable, slender, malnourished, sv Behavior is cooperative, appropriate for age, anxious. Pain: Complains of pain in right hip Pain currently is 9 out of 10 on a pain scale. Quality of pain is described as shooting, Pain began 1 day ago. Is intermittent, episodic, Aggravated by increased activity, repositioning, weight bearing. Neuro: Level of Consciousness is awake, alert, obeys commands, Oriented to person. Cardiovascular: Patient's skin is warm and dry. Pulses are palpable in right dorsalis pedis artery and left dorsalis pedis artery. Respiratory: Airway is patent Respiratory effort is even, unlabored, Respiratory pattern is regular, symmetrical. : to gravity drainage nephrostomy Urine is clear. Derm: Skin is pink, warm \\T\\ dry. Musculoskeletal: Range of motion: intact in all extremities. 10:08 Reassessment: Pt cleaned of bowel incontinence. sv 12:10 Reassessment: Patient appears in no apparent distress at this time. Patient and/or sv family updated on plan of care and expected duration. Pain level reassessed. Patient is alert, oriented x 3, equal unlabored respirations, skin warm/dry/pink. c/o pain to the right hip. 12:29 Reassessment: Report given to Alice from EMS. sv Vital Signs: 09:32 BP 106 / 58; Pulse 85; Resp 16; Temp 97; Pulse Ox 97% ; sv 09:36 BP 106 / 58; Pulse 107; Resp 18; Temp 97.0(TE); Pulse Ox 99% on R/A; Weight 44.45 kg ss (R); Pain 9/10; 10:51 BP 94 / 66; Pulse 85; Resp 18; Pulse Ox 100% ; sv 12:00 BP 134 / 53; Pulse 87; Resp 20; Temp 97.5; Pulse Ox 95% on R/A; sv Trauma Score (Adult): 09:32 Eye Response: spontaneous(1); Verbal Response: oriented(1); Motor Response: obeys sv commands(2); Systolic BP: > 89 mm Hg(4); Respiratory Rate: 10 to 29 per min(4); Vinayak Score: 15; Trauma Score: 12 10:30 Eye Response: spontaneous(1); Verbal Response: oriented(1); Motor Response: obeys sv commands(2); Systolic BP: > 89 mm Hg(4); Respiratory Rate: 10 to 29 per min(4); Lott Score: 15; Trauma Score: 12 12:00 Eye Response: spontaneous(1); Verbal Response: oriented(1); Motor Response: obeys sv commands(2); Systolic BP: > 89 mm Hg(4); Respiratory Rate: 10 to 29 per min(4); Lott Score: 15; Trauma Score: 12 ED Course: 09:24 Patient arrived in ED. fj1 09:26 Bernabe Randall MD is Attending Physician. rn 09:28 Roxi Araujo RN is Primary Nurse. sv 09:28 Arm band placed on Patient placed in an exam room, on a stretcher. sv 09:35 ED physician to see patient. sv 09:35 Patient has correct armband on for positive identification. Bed in low position. Call light in reach. Pulse ox on. NIBP on. Door closed. Head of bed elevated. 09:38 Triage completed. ss 09:55 Accessed Port-a-Cath. using accessed w/ # 20 Tabares needle, ,sterile technique, per hospital protocol. Clean \\T\\ dry. Dressing intact. Good blood return. Flushes easily. 10:54 XRAY Pelvis In Process Unspecified. EDMS 10:54 XRAY Femur RIGHT In Process Unspecified. EDMS 10:54 Chest Single View In Process Unspecified. EDMS 11:09 Awaiting for x-ray, Awaiting: Ultrasound. sv 11:59 No provider procedures requiring assistance completed. Patient transferred, IV remains sv in place. intact. Administered Medications: 10:00 Drug: morphine 4 mg {Note: rass3.} Route: IVP; Site: Port-a-cath; sv 10:51 Follow up: Response: No adverse reaction; RASS: Alert and Calm (0) sv 12:13 Drug: morphine 4 mg {Note: rass2.} Route: IVP; Site: Port-a-cath; sv 12:35 Follow up: Response: No adverse reaction; RASS: Alert and Calm (0) sv Outcome: 11:36 ER care complete, transfer ordered by . rn 11:59 Transferred by ground EMS to [facility], Transfer form completed. X-rays sent sv w/ patient. Note: Report given to Amanda BERUMEN 11:59 Condition: stable 11:59 Instructed on the need for transfer. 12:35 Patient left the ED. sv Signatures: Dispatcher [employer] EDRoxi Aguirre RN RN sv Nieto, Roman, MD MD rn Smirch, Shelby, RN RN ss James, Frank fj1 Corrections: (The following items were deleted from the chart) 10:08 10:00 morphine 4 mg IVP in Port-a-cath sv sv 12:34 09:32 BP 106 / 58; Pulse 85bpm; Resp 16bpm; Pulse Ox 97%; sv sv 12:34 12:00 BP 134 / 53; Pulse 87bpm; Resp 20bpm; Pulse Ox 95% RA; sv sv
--- NOTE | 2020-04-12 11:42 | RAD REPORT ---
EXAM DESCRIPTION: RAD - Femur Right - 04/12/2020 10:54 am CLINICAL HISTORY: PAIN, fall COMPARISON: Abdomen Pelvis Wo Contrast dated 03/28/2020; Ct Skull/Thigh dated 03/04/2020 FINDINGS: Right intertrochanteric fracture is present. There is impaction along the medial margin. N o pathologic changes are seen. No pathologic changes suspected on the March 28 CT study. No AVN or foc al femoral head abnormality. In the distal femur from shaft to condyles there is bony remodeling. Mixed lucent and sclerotic areas are identifiable. There is a bone screw in the distal shaft. Intramedullary lion is present in the pa rtially imaged proximal tibia. The patient's right leg surgical history is not known. The distal femu r findings are possibly all normal remodeling from prior injury given the presence of hardware. Fibro us dysplasia is possible. Metastatic disease is not likely. IMPRESSION: Right intertrochanteric fracture with mild impaction along the medial margin. No patholo gic change. Distal femur remodeling changes are present with surgical hardware in place. No acute fracture findin g of the distal femur. No history is available regarding the patient's distal right leg surgical history. Bone changes could be benign remodeling. Fibrous dysplasia would be possible. Metastatic disease is not likely. Correla tion is needed with distal leg symptoms.
[2020-04-12 12:46] VITALS: BP 134/53; TEMP 97.5; O2SAT 95
== END 2020-04-12 12:35 | disposition short-term general hospital (02) ==
LOC: ER 09:19
DX: S72.041A Displaced fracture of base of neck of right femur, initial encounter for closed fracture (principal); C53.9 Malignant neoplasm of cervix uteri, unspecified; F17.210 Nicotine dependence, cigarettes, uncomplicated; Z88.0 Allergy status to penicillin; W19.XXXA Unspecified fall, initial encounter; Y93.89 Activity, other specified; Y92.9 Unspecified place or not applicable
CPT/HCPCS: 71045; 72170; 96374; 99285